=== PATIENT | male | born 1995 | race Caucasian/White ===

== ENCOUNTER 2022-07-16 06:51 | Emergency (ER) | payer OTHER, SELFPAY ==
[2022-07-16 07:05] VITALS: BP 151/124; PULSE 79; RESP 19; O2SAT 96
[2022-07-16 07:11] VITALS: BP 147/121; PULSE 87; RESP 22; TEMP 36.6; O2SAT 97
[2022-07-16] MEDS: LORazepam 2 MG/ML inj 1 MG IVP (07:11)
[2022-07-16] MEDS: KETOROLAC 15 MG/ML inj IVP (07:11)
--- NOTE | 2022-07-16 07:33 | CRLHL7_ITS ---
For Patients: As a result of the Cures Act, medical imaging exams and procedure reports are released immediately into your electronic medical record. You may view this report before your referring provider. If you have questions, please contact your health care provider. INDICATION: Sore throat TECHNIQUE: Soft tissue neck 2 view. COMPARISON: None. FINDINGS: The airway is patent and normal. Epiglottis is normal. The retropharyngeal soft tissues are normal. No obvious masses. The visualized cervical spine demonstrates no significant findings. IMPRESSION: Unremarkable soft tissue view of the neck. Dictated by Fransico Plaza MD @ 07/16/2022 8:21:20 AM (Electronically Signed)
[2022-07-16 07:34] VITALS: BP 132/96; PULSE 92; RESP 15; O2SAT 96
[2022-07-16 07:44] LABS: Basophils Percent Auto 0.9 % (0.0-3.0); Eosinophils Percent Auto 1.9 % (0.0-7.0); Hematocrit 46.4 % (37.0-53.0); Hemoglobin* 16.5 gm/dL (13.5-17.5); Immature Granulocytes Abs Auto 0.03 K/uL (0.00-0.30); Mean Corpuscular HGB Conc 36 gm/dL (32-36); Mean Corpuscular Hemoglobin 29 pg (26-34); Mean Corpuscular Volume 80 fL (80-100); Monocytes Percent Auto 7.6 % (0.0-11.0); Neutrophils Absolute Auto 5.51 K/uL (1.7-7.0); Neutrophils Percent Auto 52.3 % (42.0-72.0); Platelet Count* 229 K/uL (140-440); RDW Coefficient of Variation % 12.7 % (11.5-15.5); Red Blood Count 5.79 m/uL (4.30-5.90); White Blood Count* 10.54 K/uL (4.50-11.00)
[2022-07-16 07:45] LABS: Slide Review Reflex No
--- NOTE | 2022-07-16 07:56 | ED_ITS ---
HPI - General Adult General Chief complaint: Shortness of Breath/Dyspnea Stated complaint: can't breath Time Seen by Provider: 07/16/22 06:59 Source: patient History of Present Illness HPI narrative: Patient is a 27-year-old male who presents to the ER with sore throat and difficulty breathing. He says that he went to bed last night with a little bit of a sore throat but this morning it is worse. He presented very panicky, speaking in a little bit of a strange voice, initially saying that he could not breathe. He was taking care of at 1st in stab 1 as it was difficult to tell whether not he was having an airway problem. He does not report any allergies except to adhesives. He does not report a fever. He was swallowing secretions generally just fine, with the exception of 1 point where he said he needed to spit his saliva out. He was noted to be in without difficulty when distracted. Overall seemed to be fairly anxious. He does note that he smokes marijuana and tobacco although he says he is trying to cut down. He denied cough or congestio n. He told me that his lady thought he might be suffering from hemiplegic migraine. He does have a headache, but does not seem to have any weakness, difficulty with slurred speech, numbness or other neurologic complaints. He noted that all of this was very scary to him. He did mention a previous history of panic attacks, but said that those were quite different. Related Data Home Medications Medication Instructions Recorded Confirmed No Known Home Medications 07/16/22 07/16/22 Allergies Allergy/AdvReac Type Severity Reaction Status Date / Time adhesive Allergy Verified 07/16/22 07:14 Review of Systems Status of ROS: Reports: 10 or more systems reviewed and unremarkable except as noted in History and below Exam Narrative: Exam Narrative: Vital signs as noted below In general, an alert, nontoxic male. Head: Normocephalic, atraumatic. Eyes: Pupils are equal reactive. Extraocular movements are full. Conjunctivae are normal. ENT: Mucous membranes are moist. Throat is normal. Neck: Supple without lymphadenopathy. No stridor. Heart: Regular rate and rhythm. No murmur or rub. Lungs: Clear bilaterally. No increased work of breathing, crackles or wheezes. Abdomen: Soft and nontender. No organomegaly. Extremities: Well perfused. No edema. No calf tenderness. Pulses intact. Neurologic: Patient is alert and oriented to person and place. Speech is fluent. Face is symmetric. Moves all extremities equally. Affect: Anxious. Skin: Warm and dry. Well perfused. Const: Vital Signs, click to edit/add: Vital Signs - 24 hr 07/16/22 07:11 07/16/22 07:34 07/16/22 07:05 Temperature 97.8 F Pulse Rate [Left P ulse Oximeter] 87 92 79 Respiratory Rate 22 15 19 Blood Pressure [Le ft Upper Arm] 147/121 H 132/96 H 151/124 H Pulse Oximetry 97 96 96 Oxygen Delivery Me thod Room Air Room Air Room Air Documenting provider has reviewed patient's vital signs: yes Course Course Hospital Course: Following initial evaluation, we placed an IV. We maintained him on the monitor and oximetry. At no point did he have any hypoxia. I observed his breathing closely. He did not appear to have any true stridor or any evidence of airway obstruction. His throat was clear. Lungs were clear. I gave him Toradol 15 mg IV as well as Ativan 1 mg IV. He was much calmer after that, he was breathing easily and voice was normal. He does continue to complain of a sore throat. His white blood cell count is normal at 10.5. Hemoglobin is 16.5. CRP is less than 0.5. COVID and strep are pending. Soft tissue lateral of the neck is unremarkable, epiglottis is normal. Final radiology report is likewise negative. Patient is now resting comfortably. He is speaking in a normal voice. Rapid strep is negative. I am going to give him a little prednisone to see if that helps with his sore throat. He can take the ibuprofen or Tylenol. Requests a work note today as he does not feel up to going to work. Return as needed for acute worsening, follow-up with primary care as needed for continued concerns. Vital Signs Vital signs: Initial Vital Signs Pulse Rate 79 07/16/22 07:05 Pulse Rhythm 07/16/22 07:05 Respiratory Rate 19 07/16/22 07:05 Respiratory Effort 07/16/22 07:05 Respiratory Depth Normal 07/16/22 07:05 Blood Pressure 151/124 H 07/16/22 07:05 Blood Pressure Mean 133 07/16/22 07:05 Blood Pressure Position Sitting 08/24/22 07:05 Pulse Oximetry 96 07/16/22 07:05 Oxygen Delivery Method 07/16/22 07:05 Vital Signs Pulse Rate 79 07/16/22 07:05 Respiratory Rate 19 07/16/22 07:05 Blood Pressure 151/124 H 07/16/22 07:05 Pulse Oximetry 96 07/16/22 07:05 Oxygen Delivery Method 07/16/22 07:05 Temperature 97.8 F 07/16/22 07:11 Pulse Rate 92 07/16/22 07:34 Respiratory Rate 15 07/16/22 07:34 Blood Pressure 132/96 H 07/16/22 07:34 Pulse Oximetry 96 07/16/22 07:34 Oxygen Delivery Method 07/16/22 07:34 Medical Decision Making Lab Data Labs: Lab Results 07/16/22 07/16/22 07/16/22 Range/Units 07:00 07:00 07:53 WBC 10.54 (4.50-11.00) K/uL RBC 5.79 (4.30-5.90) m/uL Hgb 16.5 (13.5-17.5) gm/dL Hct 46.4 (37.0-53.0) % MCV 80 (80-100) fL MCH 29 (26-34) pg MCHC 36 (32-36) gm/dL RDW Coeff of Janice 12.7 (11.5-15.5) % Plt Count 229 (140-440) K/uL Neut % (Auto) 52.3 (42.0-72.0) % Lymph % (Auto) 37.0 (20-44) % Jerome % (Auto) 7.6 (0.0-11.0) % Eos % (Auto) 1.9 (0.0-7.0) % Baso % (Auto) 0.9 (0.0-3.0) % Neut # (Auto) 5.51 (1.7-7.0) K/uL Lymph # (Auto) 3.90 H (0.90-2.90) K/uL Jerome # (Auto) 0.80 (0.00-0.90) K/UL Eos # (Auto) 0.20 (0.00-0.50) K/uL Baso # (Auto) 0.10 (0.00-0.30) K/uL Abs Immat Gran (auto) 0.03 (0.00-0.30) K/uL Sodium 140 (135-149) mmol/L Potassium 4.2 (3.6-5.1) mmol/L Chloride 105 (96-114) mmol/L Carbon Dioxide 26 (20-32) mmol/L BUN 18 (5-24) mg/dL Creatinine 1.1 (0.5-1.5) mg/dL Estimated GFR 96 ml/min Glucose 111 (60-115) mg/dL Calcium 9.2 (8.4-10.6) mg/dL C-Reactive Protein < 0.5 L (0.5-1.0) mg/dL Group A Strep DNA NOT DETECTED (No Detected) Discharge Plan Discharge Clinical Impression: Acute sore throat Patient Disposition: Home, Self-Care Condition: Improved Instructions: Pharyngitis (ED) Additional Instructions: Ibuprofen and/or Tylenol as needed. Prednisone as prescribed. Return for worsening. See your doctor as needed for ongoing concerns. Prescriptions: No Action No Known Home Medications Follow Up/Referrals: Provider,Not a Local [Primary Care Provider] - Stand Alone Forms: [facility] Info Instructions
[2022-07-16 07:59] LABS: Chloride* 105 mmol/L (96-114); Potassium* 4.2 mmol/L (3.6-5.1); Sodium* 140 mmol/L (135-149)
[2022-07-16 08:02] LABS: Creatinine* 1.1 mg/dL (0.5-1.5); Estimated Glomerular Filt Rate 96 ml/min
[2022-07-16 08:03] LABS: Blood Urea Nitrogen* 18 mg/dL (5-24); Calcium* 9.2 mg/dL (8.4-10.6); Carbon Dioxide* 26 mmol/L (20-32); Glucose* 111 mg/dL (60-115)
[2022-07-16 08:10] LABS: C Reactive Protein* < 0.5 mg/dL (0.5-1.0)
[2022-07-16 08:30] VITALS: BP 123/73; PULSE 76; RESP 77; O2SAT 95
[2022-07-16 08:41] LABS: Strep A DNA Probe* NOT DETECTED (No Detected)
[2022-07-16 09:00] VITALS: BP 140/100; PULSE 71; RESP 17; O2SAT 96
[2022-07-16 09:14] LABS: SARS PCR* Negative SARS-CoV-2 (Negative)
== END 2022-07-16 09:10 | disposition home or self-care (01) ==
PROVIDERS: Emergency Provider Emergency Medicine
DX: J02.9 Acute pharyngitis, unspecified (principal)
CPT/HCPCS: 36415; 70360; 80048; 85025; 86140; 87635; 87651; 96374; 96375; 99284; J1885; J2060

== ENCOUNTER 2022-07-26 13:33 | Emergency (ER) | payer OTHER, SELFPAY ==
[2022-07-26 13:42] VITALS: BP 129/101; PULSE 89; RESP 16; TEMP 36.6; O2SAT 97; BMI 36.3
--- NOTE | 2022-07-26 13:54 | CRLHL7_ITS ---
For Patients: As a result of the Century Cures Act, medical imaging exams and procedure reports are released immediately into your electronic medical record. You may view this report before your referring provider. If you have questions, please contact your health care provider. INDICATION: Headache TECHNIQUE: CT Head without i.v. contrast. Coronal and sagittal reformats were obtained. COMPARISON: None FINDINGS: CSF space: The ventricles are normal for age. Brain: No evidence of mass, acute infarction or hemorrhage is seen. No mass-effect or midline shift is seen. The brain parenchyma is otherwise normal in appearance with preservation of the moreno-white matter junction. Calvarium: The visualized paranasal sinuses are well aerated. The mastoid air cells are clear. The visualized orbits are grossly unremarkable. The calvarium is unremarkable in appearance with no fractures identified. IMPRESSION: 1. No evidence of acute infarction, intracranial hemorrhage, or mass-effect seen. Please note that all CT scans at this facility use dose modulation, iterative reconstruction, and/or weight-based dosing when appropriate to reduce radiation dose to as low as reasonably achievable. Dictated by: Inder Rivera MD @ 07/26/2022 14:26:52 (Electronically Signed)
--- NOTE | 2022-07-26 13:57 | ED.GENADULT ---
HPI - General Adult General Time Seen by Provider: 13:57 Date Seen: 07/26/22 Chief complaint: Headache/Migraine Stated complaint: Migraine Time Seen by Provider: 07/26/22 13:35 Source: patient Mode of arrival: ambulatory Limitations: no limitations History of Present Illness HPI narrative: Patient is a 27-year-old male has had headache for a few days. He has a history of migraines. He describes a headache that wraps around his forehead give some photophobia nausea retching and it extends over his head and back into his neck. He has been diagnosed with migraines in the past. He reports he had a concussion in the past and had a CT scan of the head that was unremarkable. He has had longstanding migraines. He saw Ben Roberto yesterday and got a shot of Toradol, that did not seem to help the situation. He is on no regular medicines for migraine. He denies focal neurologic deficit, fever, chills, thunderclap nature to her headache, visual disturbance other than just due to discomfort in his forehead. He describes pain across his forehead little more on the left side and into his neck area as mention. But he has no nuchal rigidity. Related Data Home Medications Medication Instructions Recorded Confirmed No Known Home Medications 07/16/22 07/25/22 Allergies Allergy/AdvReac Type Severity Reaction Status Date / Time adhesive Allergy Verified 07/25/22 13:41 Review of Systems Status of ROS: Reports: 6 or more systems reviewed and unremarkable except as noted in History and below PFSH PFS Social History Smoking Status: Never smoker Do you use any of these nicotine containing products: None Second hand tobacco smoke exposure: No How often do you have a drink containing alcohol: monthly or less How many standard drinks containing alcohol do you have on a typical day: 1 or 2 How often do you have six or more drinks on one occasion: Never AUDIT-C Alcohol total score: 1 Non-prescribed substance use: marijuana (any form) Non-prescribed substance use details: quit thursday service: No Exam Narrative: Exam Narrative: Objective: Patient is in mild to moderate distress and discomfort he is tearful His vital signs unremarkable he is afebrile his diastolic blood pressure slightly elevated HEENT shows pupils react to light extraocular moves intact mild photophobia no facial asymmetry Neck is supple Neurologic nonfocal upper extremities moving all extremities Peripheral perfusion is good, skin warm and dry Const: Vital Signs, click to edit/add: Vital Signs - 24 hr 07/26/22 13:42 Temperature 98 F Pulse Rate [Pulse Oximeter] 89 Respiratory Rate 16 Blood Pressure [Ri ght Upper Arm] 129/101 H Pulse Oximetry 97 Oxygen Delivery Me thod Room Air Course Vital Signs Vital signs: Initial Vital Signs Temperature 98 F 07/26/22 13:42 Temperature Source Temporal Artery Scan 07/26/22 13:42 Pulse Rate 89 07/26/22 13:42 Pulse Rhythm 07/26/22 13:42 Respiratory Rate 16 07/26/22 13:42 Blood Pressure 129/101 H 07/26/22 13:42 Blood Pressure Mean 110 07/26/22 13:42 Blood Pressure Position Supine 07/26/22 13:42 Pulse Oximetry 97 07/26/22 13:42 Oxygen Delivery Method 07/26/22 13:42 Vital Signs Temperature 98 F 07/26/22 13:42 Pulse Rate 89 07/26/22 13:42 Respiratory Rate 16 07/26/22 13:42 Blood Pressure 129/101 H 07/26/22 13:42 Pulse Oximetry 97 07/26/22 13:42 Oxygen Delivery Method 07/26/22 13:42 Temperature 98 F 07/26/22 13:42 Pulse Rate 89 07/26/22 13:42 Respiratory Rate 16 07/26/22 13:42 Blood Pressure 129/101 H 07/26/22 13:42 Pulse Oximetry 97 07/26/22 13:42 Oxygen Delivery Method 07/26/22 13:42 Medical Decision Making MDM Narrative Medical decision making narrative: Patient has had a history of migraine headaches, this seems like a significant migraine for him. Given it has been a couple of days I think a CT scan and reimaging would be appropriate, will also give him IV Toradol, Reglan, Benadryl, Solu-Medrol, with addition of IV normal saline. He does report he has a ride home if he needs it. His description of the headache does sound like a mixed headache between a migraine an a tension-type headache, therefore all given the IV Solu-Medrol as well for its anti-inflammatory effect. Addendum: The patient's head CT is negative, he is markedly improved after additional doses of Ativan Dilaudid, Solu-Medrol. Initially the patient was given Benadryl, Reglan, Toradol. Also received 2 L of fluid. He feels much better. He can update his regular doctor next couple of days, will call for a ride, and he should rest and engage in light activity for the next 48 hours. Discharge Plan Discharge Clinical Impression: Migraine headache, Tension headache Patient Disposition: Home w/ Parent or Adult Condition: Improved Additional Instructions: Light activity, light diet, needs a ride home, Tylenol or Advil at home, follow up with primary care in 48 hours, return sooner problems or concerns or recurrence. Activity Level: Light activity Discharge Diet: Regular Prescriptions: No Action No Known Home Medications Follow Up/Referrals: Provider,Not a Local [Primary Care Provider] - Stand Alone Forms: [facility] Info Instructions
[2022-07-26 14:00] VITALS: BP 130/88; PULSE 80; RESP 18; O2SAT 97
[2022-07-26] MEDS: diphenhydrAMINE 50 MG/ML inj IVP (14:19)
[2022-07-26] MEDS: KETOROLAC 30 MG/ML inj IVP (14:23)
[2022-07-26] MEDS: METHYLPREDNISOLONE SOD SUCC 62.5 MG/ML (125) 125 MG IVP (14:26)
[2022-07-26 14:30] VITALS: BP 120/108; PULSE 62; RESP 18; O2SAT 97
[2022-07-26] MEDS: METOCLOPRAMIDE HCL 10 MG in 0.9 % SODIUM CHLORIDE 100 ml 100 ML 306 MG IV (14:33)
[2022-07-26] MEDS: 0.9 % SODIUM CHLORIDE 1000 ml 1,000 ML 6000 ML IV ×2 (14:34→15:32)
--- OUTSIDE RECORDS SUMMARY | 2022-07-26 14:35 | XMS_ITS | Encounter Summary ---
:1995 Author Organization [facility] Address [address] [place] [address] Care Team Providers Name Role Phone Gallito Antonio M.D. Primary Care Provider [phone] Encounter Details Date Type Department Care Team Description 10/16/2021 Clinical Communication Department of Internal Billy Antonio, Medicine in [place] [facility] M[facility] D[facility] [place] [address] [place] [address] [place] [id number] Social History Tobacco Use Types Packs/Day Years Used Date Smoking Tobacco: Former Cigarettes Smokeless Tobacco: Never Comments: occasionally Alcohol Use Standard Drinks/Week Comments No 0 (1 standard drink = 0.6 oz pure alcoho l) Sex Assigned at Date Recorded Not on file documented as of this encounter Plan of Treatment Not on filedocumented as of this encounter Visit Diagnoses Not on filedocumented in this encounter Additional Health Concerns Infection Onset Date Last Indicated Resolved Time COVID19 Pending 10/16/2021 10/16/2021 10/16/2021 3:34 PM SLOT HOST COVID19 Pending 10/16/2021 10/17/2021 10/17/2021 11:07 PM SLOT HOST Assessment Noted Time PHQ-9 Depression Total Score: 18 02/26/2017 8:33 AM CD T documented as of this encounter Care Teams Forensic Accountant Relationship Specialty Start Date End Date Gallito Antonio M.B.B.S., M.D. PCP - General Internal Medicine 12/14/20 05/23/22 [address] [place] [phone] documented as of this encounter
--- OUTSIDE RECORDS SUMMARY | 2022-07-26 14:35 | XMS_ITS | Encounter Summary ---
:1995 Author Organization [facility] Address [address] [place] [address] Care Team Providers Name Role Phone Gallito Antonio MAbdulkadir Primary Care Provider [phone] Encounter Details Date Type Department Care Team Description 10/17/2021 Admin Visit Department of Family Medicine, [address] [address] [facility] [phone] Social History Tobacco Use Types Packs/Day Years [...] Last Indicated Resolved Time COVID19 Pending 10/16/2021 10/17/2021 10/17/2021 11:07 PM AU PAIR Assessment Noted Time PHQ-9 Depression Total Score: 18 02/26/2017 8:33 AM CD T documented as of this encounter Care Teams Corporate Associate Relationship Specialty Start Date End Date Gallito Antonio M.B.B.S., MThai. PCP - General Internal Medicine 12/14/20 05/23/22 [address] [place] [phone] documented as of this encounter
--- OUTSIDE RECORDS SUMMARY | 2022-07-26 14:35 | XMS_ITS | Encounter Summary ---
:1995 Author Organization [facility] Address [address] [place] [address] Care Team Providers Name Role Phone Gallito Antonio M.D. Primary Care Provider [phone] Reason for Visit Reason Comments COVID Inquiry Encounter Details Date Type Department Care Team Description 10/16/2021 Clinical Communication Central Appointment [facility] Office in [employer] [address] [place], [place] [address] Social History Tobacco Use Types Packs/Day Years Used Date Smoking Tobacco: Former Cigarettes Smokeless Tobacco: Never Comments: occasionally Alcohol Use Standard Drinks/Week Comments No 0 (1 standard drink = 0.6 oz pure alcoho l) Sex Assigned at Date Recorded Not on file documented as of this encounter Miscellaneous Notes Telephone Encounter - Elke Wells - 10/16/2021 12:55 PM CST Plan: Endpoint recommendation: Transferred to Nursing/COVID Line/Care Team *Reminder if sending patient for testing in [facility] or [facility], route encounter to the correct testing pool. TAL PROJECT ENGINEER documented in this encounter Plan of Treatment Not on filedocumented as of this encounter Visit Diagnoses Not on filedocumented in this encounter Additional Health Concerns Assessment Noted Time PHQ-9 Depression Total Score: 18 02/26/2017 8:33 AM CD T documented as of this encounter Care Teams Technology Officer Relationship Specialty Start Date End Date Gallito Antonio M.B.B.S. MAbdulkadir PCP - General Internal Medicine 12/14/20 05/23/22 [address] [place] [phone] documented as of this encounter
--- OUTSIDE RECORDS SUMMARY | 2022-07-26 14:35 | XMS_ITS | Clinical Summary ---
:1995 Author Organization [facility] Address [address] [place] [address] Care Team Providers Name Role Phone Sudha Kwon P.A.-C. Primary Care Provider [phone] Source Comments Patient records contain information from all sites at [facility]. For routine questions regarding patient records, call [phone] during business hours, M-F 8:00 AM - 5:00 PM Central Time. Record requests for emergency care only can be directed to [phone] at any time.[facility] Allergies Active Allergy Reactions Severity Noted Date Comments Adhesive Tape-Silicones Itching, Rash 08/18/2018 Medications Medication Sig Dispensed Refills Start Date End Date Status traZODone (DESYREL) 100 Take 100 mg by 0 05/03/2018 Active mg tablet mouth. rizatriptan (MAXALT) 10 Take 1 tab for 0 05/03/2018 Active mg tablet migraine, may repeat in 2 hours. Max dose: 30mg per 24 hrs. Active Problems Problem Noted Date Depression Anxiety 08/04/2016 Overview: Depression Anxiety Attention Deficit With Hyperactivity Disorder 04/07/20 05 Immunizations Name Administration Dates Next Due DTaP (Infanrix, [employer]) 03/01/2003, 01/11/2001, 01/10/2000 , 1995, 1995 HepB, Unspecified 01/10/2000, 1997, 1997 IPV 03/01/2003, 01/10/2000, 1997, 05/24 Influenza, Unspecified 09/23/2016 MMR 03/01/2003, 01/07/2000 MEGHAN 04/11/2009, 01/11/2001 Family History Medical History Relation Name Comments Alcohol abuse Uncle paternal Relation Name Status Comments Uncle paternal Social History Tobacco Use Types Packs/Day Years Used Date Smoking Tobacco: Former Cigarettes Smokeless Tobacco: Never Comments: occasionally Alcohol Use Standard Drinks/Week Comments No 0 (1 standard drink = 0.6 oz pure alcoho l) Sex Assigned at Date Recorded Not on file Last Filed Vital Signs Vital Sign Reading Time Taken Comments Blood Pressure 127/80 11/11/2019 11:04 PM CUSTOMER CARE MANAGER Pulse 81 11/11/2019 11:04 PM CUSTOMER CARE MANAGER Temperature 36.9 ??C (98.4 ??F) 11/11/2019 11:04 PM CUSTOMER CARE MANAGER Respiratory Rate 18 11/11/2019 11:04 PM CUSTOMER CARE MANAGER Oxygen Saturation 96% 11/11/2019 11:04 PM CUSTOMER CARE MANAGER Inhaled Oxygen Concentration - - Weight 111 kg (245 lb 6 oz) 11/11/2019 5:55 PM CUSTOMER CARE MANAGER Height 180.3 cm (5' 11) 06/06/2019 10:37 AM CDT Body Mass Index 34.22 06/06/2019 10:37 AM CDT Plan of Treatment Health Maintenance Due Date Last Done Comments Hepatitis C Screening 1995 COVID-19 Vaccine (#1) 1995 HPV Vaccines (1 - Male 2006 2-dose series) DTaP,Tdap,and Td Vaccines 04/12/2019 04/12/2009, 03/01/2003 , (7 - Td or Tdap) 2002, Additional history exists Depression Screening 11/23/2021 (Annual PHQ-2) Influenza Vaccine (#1) 2022 09/23/2016 Hepatitis B Vaccines Completed 01/10/2000, 1997, 1997, Additional history exists HIV Screening Completed 10/02/2011 Pneumococcal vaccine (0-64 Aged Out No lo nger eligible years) based on patient 's age to complete this topic Advance Directives For more information, please contact: [phone] Documents on File Type Date Recorded Patient Air Transportation Provider Explanati on Advance Directives 05/19/2013 12:00 AM Legacy doc ument. See document viewer. Care Teams Assembler Metal Building Relationship Specialty Start Date End Date Sudha Kwon P.A.-C. PCP - General 07/10/22 [address] [place] [phone]
--- OUTSIDE RECORDS SUMMARY | 2022-07-26 14:35 | XMS_ITS | Encounter Summary ---
:1995 Author Organization [facility] Address [address] [place] [address] Care Team Providers Name Role Phone Avis Razo M.D. Primary Care Provider Reason for Visit Reason Comments Flank Pain Encounter Details Date Type Department Care Team Description 11/25/2020 - 11/26/2020 Emergency [facility] Pain Flank [address] [place] [address] Social History Tobacco Use Types Packs/Day Years Used Date Smoking Tobacco: Former Cigarettes Smokeless Tobacco: Never Comments: occasionally Alcohol Use Standard Drinks/Week Comments No 0 (1 standard drink = 0.6 oz pure alcoho l) Sex Assigned at Date Recorded Not on file documented as of this encounter Medications at Time of Discharge Medication Sig Dispensed Refills Start Date End Date rizatriptan (MAXALT) 10 mg Take 1 tab for 0 05/03 tablet migraine, may repeat in 2 hours. Max dose: 30mg per 24 hrs. traZODone (DESYREL) 100 mg Take 100 mg by mouth. 0 05/03/2018 tablet documented as of this encounter Plan of Treatment Not on filedocumented as of this encounter Procedures Procedure Name Priority Date/Time Associated Comments Diagnosis CT ABDOMEN PELVIS RAD - Semiurgent 11/25/2020 6:16 Pain Flank Res ults for this WITH IV CONTRAST (Fast; most ED PM ASSISTANT ANALYST procedure are in patients; some the results inpatients) section. documented in this encounter Results CT Abdomen Pelvis with IV Contrast (11/25/2020 6:16 PM ASSISTANT ANALYST) Anatomical Region Laterality Modality Abdomen, Pelvis, Abdominal RST LOS, Abdominal ARZ LOS, N/A Computed Tomography Abdominal FLA LOS Specimen (Source) Anatomical Collection Method Collection Time Re ceived Time Location / / Volume Laterality 11/26/2020 7:59 AM ASSISTANT ANALYST Impressions 11/26/2020 8:01 AM ASSISTANT ANALYST 1. No acute findings. 2. Probable mild hepatic steatosis. 3. Bilateral renal cysts. Narrative 11/26/2020 8:01 AM ASSISTANT ANALYST EXAM: CT ABDOMEN PELVIS WITH IV CONTRAST COMPARISON: November 11, 2019 FINDINGS: Preliminary report generated b y virtual radiology. Lung bases: Visualized lung bases are cl ear. Abdomen and pelvis: Slight decreased att enuation changes of the liver compatible probable hepatic steatosis. Postop gonzalez es prior cholecystectomy. Normal contrast enhanced CT appearance t he spleen, pancreas, bilateral during glands. Approximately 1-2 cm scattered probable cysts both kidneys. No appreciable renal or ureteral calculi . Decompressed urinary bladder. No evidence of appendicitis. No focal fluid collections or abscess. Mild disc desiccation lumbosacral juncti on. Procedure Note Juaquin Mesa M.D. - 11/26/2020Forma tting of this note might be different from the original. EXAM: CT ABDOMEN PELVIS WITH IV CONTRAST COMPARISON: November 11, 2019 FINDINGS: Preliminary report generated b y virtual radiology. Lung bases: Visualized lung bases are cl ear. Abdomen and pelvis: Slight decreased att enuation changes of the liver compatible probable hepatic steatosis. Postop gonzalez es prior cholecystectomy. Normal contrast enhanced CT appearance t he spleen, pancreas, bilateral during glands. Approximately 1-2 cm scattered probable cysts both kidneys. No appreciable renal or ureteral calculi . Decompressed urinary bladder. No evidence of appendicitis. No focal fluid collections or abscess. Mild disc desiccation lumbosacral juncti on. IMPRESSION: 1. No acute findings. 2. Probable mild hepatic steatosis. 3. Bilateral renal cysts. Slime Garcia APRN RDameonN. IMG CT PROCEDURES documented in this encounter Visit Diagnoses Diagnosis Pain Flank documented in this encounter Administered Medications Inactive Administered Medications - up to 3 most recent administrations Medication Order MAR Action Action Date Dose Rate Site iohexoL 300 mg iodine/mL Given 11/25/2020 5:44 PM 193 mL Right Antecubital solution 200 mL ASSISTANT ANALYST (OMNIPAQUE) 200 mL, intravenous, Once in imaging, contrast, Starting on 11/25/20 at 1805, For 1 dose sodium chloride 0.9 % flush Given 11/25/2020 5:44 PM ASSISTANT ANALYST 98 mL Right Antecubital 100 mL 100 mL, intravenous, Once in imaging, line care, Starting on 11/25/20 at 1805, For 1 dose sodium chloride 0.9 % Given 11/25/2020 5:44 PM ASSISTANT ANALYST 10 mL Right Antecubital injection 10 mL 10 mL, intravenous, Once in imaging, line care, Starting on 11/25/20 at 1805, For 1 dose documented in this encounter Active and Recently Administered Medications Times are shown in ASSISTANT ANALYST. PRN Medication Order 11/24/2020 11/25/2020 11/26/2020 iohexoL 300 mg iodine/mL solution 200 mL (OMNIPAQUE) (COMPLE FAHEEM) 1744 (Given - Provider: Danielle Clements(R)(CT), R.T.(R) - Comment: [id number]) 200 mL, intravenous, Once in imaging, co ntrast, Starting on 11/25/20 at 1805, For 1 dose sodium chloride 0.9 % flush 100 mL (COMPLETED) 1744 (Given - Provider: Danielle Clements(R)(CT), R.T.(R)) 100 mL, intravenous, Once in imaging, li ne care, Starting on 11/25/20 at 1805, For 1 dose sodium chloride 0.9 % injection 10 mL (COMPLETED) 1744 (Given - Provider: Junaid ClementsT.(R)(CT), R.T.(R)) 10 mL, intravenous, Once in imaging, tracy e care, Starting on 11/25/20 at 1805, For 1 dose documented in this encounter Additional Health Concerns Assessment Noted Time PHQ-9 Depression Total Score: 02/26/2017 8:33 AM CD T documented as of this encounter Care Teams Senior Planning Analyst Relationship Specialty Start Date End Date Avis Razo M.D. PCP - General 08/30/18 12/13/20 Formerly named [facility] [place] [phone] documented as of this encounter
--- OUTSIDE RECORDS SUMMARY | 2022-07-26 14:35 | XMS_ITS | Encounter Summary ---
:1995 Author Organization [facility] Address [address] [place] [address] Care Team Providers Name Role Phone PacoGallito reza Ayla Krueger M.D. Primary Care Provider [phone] Reason for Visit Reason Onset Date Comments Testing For Upper Respiratory Virus Symptoms 10/16/2021 Encounter Details Date Type Department Care Team Description 10/16/2021 External Outreach Department of Candelario Wayne With And (Suspected) Exposure To COVID-19; Internal Medicine in J, D.O. Infection Upper Respiratory [place], [place] [address] [place] [phone] Social History Tobacco Use Types Packs/Day Years Used Date Smoking Tobacco: Former Cigarettes Smokeless Tobacco: Never Comments: occasionally Alcohol Use Standard Drinks/Week Comments No 0 (1 standard drink = 0.6 oz pure alcoho l) Sex Assigned at Date Recorded Not on file documented as of this encounter Progress Notes Glenny Locke L.P.N. - 10/16/2021 2:31 PM CST Encounter created for symptomatic infectious disease screening with possible COVID, Influenza, RSV, and/or Group A Strep testing. ATIONAL AID documented in this encounter Miscellaneous Notes Addendum Note - Cornell White R.N. - 10/16/2021 2:31 PM EDUCATIONAL AID Addended by: CORNELL WHITE on: 10/16/2021 03:34 PM Modules accepted: Orders ATIONAL AID documented in this encounter Plan of Treatment Not on filedocumented as of this encounter Visit Diagnoses Diagnosis Contact With And (Suspected) Exposure To COVID-19 Infection Upper Respiratory documented in this encounter Additional Health Concerns Infection Onset Date Last Indicated Resolved Time COVID19 Pending 10/16/2021 10/16/2021 10/16/2021 3:34 PM EDUCATIONAL AID Assessment Noted Time PHQ-9 Depression Total Score: 18 02/26/2017 8:33 AM CD T documented as of this encounter Care Teams Air Press Operator Relationship Specialty Start Date End Date Gallito Antonio M.B.BDameonSDameon, MThai. PCP - General Internal Medicine 12/14/20 05/23/22 [address] [place] [phone] documented as of this encounter
--- OUTSIDE RECORDS SUMMARY | 2022-07-26 14:35 | XMS_ITS | Encounter Summary ---
:1995 Author Organization [facility] Address [address] [place] [address] Care Team Providers Name Role Phone PacoBillyseema Krueger M.D. Primary Care Provider [phone] Encounter Details Date Type Department Care Team Description 10/17/2021 Hospital Encounter Department of Laboratory Nathan Wayne, Medicine, [facility], in [place], [address] [place], [place] [address] [facility] [address] [place] [address] [phone] Social History Tobacco Use Types Packs/Day Years [...] COVID19 Pending 10/16/2021 10/17/2021 10/17/2021 11:07 PM NURSE INTERN Assessment Noted Time PHQ-9 Depression Total Score: 18 02/26/2017 8:33 AM CD T documented as of this encounter Care Teams Sewer And Inspector Relationship Specialty Start Date End Date Gallito Antonio M.B.B.S., M.D. PCP - General Internal Medicine 12/14/20 05/23/[address] [place] [id number] documented as of this encounter
--- OUTSIDE RECORDS SUMMARY | 2022-07-26 14:35 | XMS_ITS | Encounter Summary ---
:1995 Author Organization [facility] Address [address] [place] [address] Care Team Providers Name Role Phone PacoGallito Ayla Krueger M.D. Primary Care Provider [phone] Reason for Visit Reason Onset Date Comments Testing For Upper Respiratory Virus Symptoms 10/16/2021 Encounter Details Date Type Department Care Team Description 10/16/2021 External Outreach Department of Family Candelario Wayne Contact With And (Suspected) Exposure To COVID-19; Medicine, [facility] D.O. Infection Upper Respiratory Building, in [address] [place], [place] [address] [facility] [address] [place], [place] [phone] [address] (Work) [phone] Social History Tobacco Use Types Packs/Day Years Used Date Smoking Tobacco: Former Cigarettes Smokeless Tobacco: Never Comments: occasionally Alcohol Use Standard Drinks/Week Comments No 0 (1 standard drink = 0.6 oz pure alcoho l) Sex Assigned at Date Recorded Not on file documented as of this encounter Progress Notes Hollie Castaneda R.N. - 10/16/2021 3:43 PM CST Encounter created for symptomatic infectious disease screening with possible COVID, Influenza, RSV, and/or Group A Strep testing. LIANCE VICE PRESIDENT documented in this encounter Plan of Treatment Not on filedocumented as of this encounter Procedures Procedure Name Priority Date/Time Associated Diagnosis Comme nts INFLUENZA A/B AND Routine 10/17/2021 10:49 AM Infection Upper Results for this RSV, PCR, VARIES COMPLIANCE VICE PRESIDENT Respiratory procedure a re in the results section. SARS CORONAVIRUS-2 Routine 10/17/2021 10:49 AM Contact With An d Results for this RNA, V COMPLIANCE VICE PRESIDENT (Suspected) Exposure procedu re are in To COVID-19 the results section. documented in this encounter Results Influenza A/B and RSV, PCR, Varies (10/17/2021 10:49 AM COMPLIANCE VICE PRESIDENT) [facility] Method Time Signature Influenza A/B Swab, 10/21/2021 DTL and RSV, Nasopharynx 11:32 PM Source COMPLIANCE VICE PRESIDENT Influenza A, Undetected Undetected 10/21/2021 DTL PCR 11:32 PM COMPLIANCE VICE PRESIDENT Comment: Influenza A RNA absent. Influenza B, PCR Undetected Undetected 10/21/2021 11:[address] DTL Comment: Influenza B RNA absent. Respiratory Syncytial Virus, Undetected Undetected 11:32 PM COMPLIANCE VICE PRESIDENT DTL PCR Comment: RSV RNA absent. ----ADDITIONAL INFORMATION---- This test has been modified from the man ufacturer's instructions. Its performance characteristics were determi lulu by [facility] in a manner consistent with CLIA requirements. This test has not been cleared or approved by the U.S. Food and Drug Administration . Specimen Anatomical Collection Method Collection Time Receive d Time (Source) Location / / Volume Laterality Varies 10/17/2021 10:49 10/18/2021 8:56 (Nasopharynx) AM COMPLIANCE VICE PRESIDENT AM COMPLIANCE VICE PRESIDENT Candelario Wayne D.O. LAB MICROBIOLOGY - GENERAL O RDERABLES Performing Organization Address City/State/ZIP Code Phon e Number [facility] - [address] [place], [place] [address] [facility] [place] [address] Laboratories-[facility] [address] SARS Coronavirus-2 RNA, V Symptomatic (10/17/2021 10:49 AM COMPLIANCE VICE PRESIDENT) [facility] Method Time Signature SARS-CoV-2 Swab, 10/17/2021 MKTO Specimen Nasopharynx 11:07 PM Source COMPLIANCE VICE PRESIDENT SARS CoV-2 Undetected Undetected 10/17/2021 MKTO RNA, TMA 11:07 PM COMPLIANCE VICE PRESIDENT Comment: SARS-CoV-2 RNA absent. This result does not rule out COVID-19 in the patient, as the sensitivity of the test depends o n the timing of the specimen collection and the quality of the specim en. Result should be correlated with patient's history and clinical presentat ion. ----ADDITIONAL INFORMATION---- This molecular amplification test was pe rformed using the Aptima SARS-CoV-2 assay ([employer] on the [employer] tem under emergency use authorization (EUA) by the U.S. Food and Drug Administ ration. Fact sheets for this EUA assay can be fo und at the following links: For Healthcare Providers: https://www.[employer] a.gov/media/748188/download For Patients: https://www.fda.gov/media/ 701873/download Specimen Anatomical Collection Method Collection Time Receive d Time (Source) Location / / Volume Laterality Varies 10/17/2021 10:49 10/17/2021 4:29 (Nasopharynx) AM COMPLIANCE VICE PRESIDENT PM COMPLIANCE VICE PRESIDENT Candelario Wayne D.O. LAB MICROBIOLOGY - GENERAL O KEVIN Performing Organization Address City/State/[facility] Phon e Number [facility]- [address] [place] [phone] [place] [address] System in [address] documented in this encounter Visit Diagnoses Diagnosis Contact With And (Suspected) Exposure To COVID-19 Infection Upper Respiratory documented in this encounter Additional Health Concerns Infection Onset Date Last Indicated Resolved Time COVID19 Pending 10/16/2021 10/16/2021 10/16/2021 3:34 PM COMPLIANCE VICE PRESIDENT COVID19 Pending 10/16/2021 10/17/2021 10/17/2021 11:07 PM COMPLIANCE VICE PRESIDENT Assessment Noted Time PHQ-9 Depression Total Score: 18 02/26/2017 8:33 AM CD T documented as of this encounter Care Teams Estate Attorney Relationship Specialty Start Date End Date Gallito Antonio M.B.BDameonSDameon, MThai. PCP - General Internal Medicine 12/14/20 05/23/22 [address] [place] [phone] documented as of this encounter
--- OUTSIDE RECORDS SUMMARY | 2022-07-26 14:36 | XMS_ITS | Encounter Summary ---
:1995 Author Organization [facility] Address [address] [place] [address] Care Team Providers Name Role Phone Avis Razo M.D. 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 (Primary Dx) Emergency Department [facility] [address] [id number] [phone] Social History Tobacco Use Types Packs/Day Years Used Date Smoking Tobacco: Light Smoker Cigarettes E-cigarettes Smokeless Tobacco: Never Alcohol Use Standard Drinks/Week Comments No 0 (1 standard drink = 0.6 oz pure alcoho l) Sex Assigned at Date Recorded Not on file documented as of this encounter Last Filed Vital Signs Vital Sign Reading Time Taken Comments Blood Pressure 119/84 03/12/2019 3:50 AM CDT Pulse - - Temperature 36.5 ??C (97.7 ??F) 03/12/2019 3:50 AM CDT Respiratory Rate 20 03/12/2019 3:50 AM CDT Oxygen Saturation 97% 03/12/2019 3:50 AM CDT Inhaled Oxygen Concentration - - Weight 109 kg (239 lb 13.8 oz) 03/12/2019 3:51 AM CDT Height - - Body Mass Index 34.42 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 - 03/12/2019 4:56 AM CDT Tonight the testing for your heart was normal, normal chest x-ray, normal liver and pancreatic functions You could be experiencing irritation of the stomach lining. Recommend you trial the acid reducing medications, along with a bland diet. Make a follow up with your primary provider, for 1 month from now, to discuss how you have been feeling on the new medications. AttachmentsThe following attachments cannot be sent through Care Everywhere. Peptic Ulcer [id number] (Rwandan)documented in this encounter Medications at Time of Discharge Medication Sig Dispensed Refills Start Date End Date rizatriptan (MAXALT) 10 Take 1 tab for 0 05/03/20 18 mg tablet migraine, may repeat in 2 hours. Max dose: 30mg per 24 hrs. traZODone (DESYREL) 100 Take 100 mg by 0 05/03/20 18 mg tablet mouth. omeprazole (PriLOSEC) 40 Take 1 capsule (40 30 capsule 0 04/11/[address] capsule mg total) by mouth every morning before breakfast. raNITIdine (ZANTAC) 150 Take 1 tablet (150 20 tablet 0 02/2203/22/2019 mg tablet mg total) by mouth 2 (two) times a day for 10 days. documented as of this encounter ED Notes Ankita Cerda P.A.-C., M.S. 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 Patient states that the pain began 1 hr prior to arrival. Patient describes the pain as sharp and grabbing. Patient denies any associated nausea, diaphoresis, dizziness. Patient states he did eat spicy food earlier today. Patient past history of cholecystectomy, does have past history of anxiety. Patient denies any alcohol or drug use this evening. Patient has not taken any medications prior to arrival. REVIEW OF SYSTEMS Constitutional: Negative for chills, fatigue and fever. HENT: Negative. Eyes: Negative. Respiratory: Positive for shortness of breath. Negative for cough, hemoptysis, chest tightness, orthopnea, wheezing and stridor. Cardiovascular: Negative. Negative for palpitations and leg swelling. Gastrointestinal: Positive for abdominal pain (Epigastric). Negative for constipation, diarrhea, nausea and vomiting. Genitourinary: Negative. Musculoskeletal: Negative. Skin: Negative. Neurological: Negative. Psychiatric/Behavioral: Negative for substance abuse. The patient is nervous/anxious. OBJECTIVE Initial Vitals [03/12/19 0350] Temperature Pulse Heart Rate Resp Rate Blood Pressure SpO2 36.5 ??C -- 68 20 119/84 97 % Pain Score 7 PHYSICAL EXAMINATION Constitutional: He appears well-developed and well-nourished. He appears distressed (Anxious). HENT: Head: Normocephalic. Mouth/Throat: Oropharynx is clear and moist. Mucous membranes are moist. Eyes: Pupils are equal, round, and reactive to light. Neck: Normal range of motion. Neck supple. Cardiovascular: Normal rate and regular rhythm. Pulses are strong and palpable. Capillary refill: takes less than 3 seconds, Pulmonary/Chest: Effort normal and breath sounds normal. There is normal air entry. No stridor. Air movement is not decreased. He has no wheezes. He has no rhonchi. He has no rales. Abdominal: Soft. Bowel sounds are normal. He exhibits no distension and no mass. There is tenderness(Epigastric). There is no rebound and no guarding. No hernia. Musculoskeletal: Normal range of motion. Neurological: He is alert and oriented to person, place, and time. He is not disoriented. Skin: Skin is warm, dry, intact and normal color. Psychiatric: He has a normal mood and affect. Nursing note and vitals reviewed. ASSESSMENT/PLAN Impression and Plan Patient is a 23-year-old male who presents to the emergency department with complaints of epigastricdiscomfort. Patient states that the pain began 1 hr prior to arrival. Patient describes the pain as sharp and grabbing. Patient denies any associated nausea, diaphoresis, dizziness. Patient states he did eat spicy food earlier today. Patient is status post cholecystectomy, does have past history of anxiety. Patient denies any alcohol or drug use this evening. Patient has not taken any medications prior to arrival. On exam patient has tenderness over the epigastric region. Patient denies any recent fevers, symptoms of nausea or vomiting. Patient states he has had no abnormality with bowel movements and has been urinating normally. Patient denies any drug or alcohol use. Patient's cardiopulmonary exam is normal, EKG is unchanged from past. Patient had labs obtained which reveal normal lipase, no leukocytosis no anemia, no metabolic dysfunction. Patient also has normal troponin and normal chest x-ray. Upon secondary examination patient is sleeping, I do wake the patient up at the bedside, patient then states that he has pain, though it has been reduced after he had the oral GI cocktail. Patient had reduction in pain from a 6/10 to a 3/10. Patient was offered additional pain management, for which he declined, requesting only that he have a work note excusing him for today. Discussed with patient probability that he could have irritation of the stomach lining as he had epigastric tenderness relieved with GI cocktail and that he had eaten spicy food today. Will start patient on Zantac and omeprazole, encourage patient to make follow-up appointment with primary care provider in 30 days from now to discuss howhe was feeling after starting the medications and transitioning to a bland diet. Spoke about return p recautions for which patient states he understands and agrees with treatment plan for discharge. . Reviewed and summarized previous medical records including: Lab results, EKG images/reports and Radiology images/report. Final Diagnoses: as of Mar 12 459 Pain Epigastric Ankita Cerda P.A.-C., M.S. 03/12/19 0502 documented in this encounter Plan of Treatment Not on filedocumented as of this encounter Procedures Procedure Name Priority Date/Time Associated Comments Diagnosis DX CHEST AP OR PA RAD - Semiurgent 03/12/2019 4:31 Res ults for AND LATERAL 2 VIEWS (Fast; most ED AM CDT this p rocedure patients; some are in the inpatients) results section. CBC WITH STAT 03/12/2019 4:05 Results for DIFFERENTIAL, B AM CDT this procedu re are in the results section. TROPONIN T, 5TH GEN, STAT 03/12/2019 4:05 Resu lts for P AM CDT this procedure are in the results section. LIPASE, S/P STAT 03/12/2019 4:05 Results for AM CDT this procedure are in the results section. COMPREHENSIVE STAT 03/12/2019 4:05 Results for METABOLIC PANEL, S/P AM CDT this pr ocedure are in the results section. ECG STAT 03/12/2019 4:01 Results for AM CDT this procedure are in the results section. documented in this encounter Results DX Chest AP or PA and Lateral 2 Views (03/12/2019 4:31 AM CDT) Anatomical Region Laterality Modality Chest, Thoracic RST LOS, Thoracic ARZ LOS, Thoracic N/A Digital Radiography FLA LOS Specimen (Source) Anatomical Collection Method Collection Time Re ceived Time Location / / Volume Laterality 03/12/2019 6:10 AM CDT Impressions 03/12/2019 6:11 AM CDT IMPRESSION: Normal chest. Narrative 03/12/2019 6:11 AM CDT EXAM: DX CHEST AP OR PA AND LATERAL 2 VIEWS COMPARISON: 01/09/2019 FINDINGS: Heart and pulmonary vasculatur e are normal. Lungs clear. Procedure Note Manuel Gregory M.D. - 03/12/2019Format ting of this note might be different from the original. EXAM: DX CHEST AP OR PA AND LATERAL 2 EWS COMPARISON: 01/09/2019 FINDINGS: Heart and pulmonary vasculatur e are normal. Lungs clear. IMPRESSION: Normal chest. Ankita Cerda P.A.-C., M.S. IMG DIAGNOSTIC IMAGING [place] OCEDURES Troponin T, 5th Generation (03/12/2019 4:05 AM CDT) P athologist Signature Troponin T, 5th <6 <=15 ng/L 03/12/2019 [facility] gen 4:29 AM CDT [facility] Comment: Biotin has been identified by the annalee saavedra as a potential interfering substance. ??Higher concentr ations of biotin may be found in multivitamins, hair/nail supple ments, and workout supplements. ??If the result does not ma [facility] clinical observations, repeat testing after patient refrains fr om the use of supplements for at least 12 hours. Specimen Anatomical Collection Method Collection Time Receive d Time (Source) Location / / Volume Laterality Blood (Blood, 03/12/2019 4:05 AM 03/12/20 4:08 Venous) CDT AM CDT Ankita Cerda P.A.-C., M.S. LAB BLOOD ADD-ON Performing Organization Address [facility] Phon e Number [facility] [address] [place] [address] LAB Lipase (03/12/2019 4:05 AM CDT) athologist Signature Lipase, P 28 13 - 60 U/L 03/12/2019 [facility] 4:29 AM T [facility] Specimen Anatomical Collection Method Collection Time Receive d Time (Source) Location / / Volume Laterality Blood (Blood, 03/12/2019 4:05 AM 03/12/20 4:08 Venous) CDT AM CDT Ankita Cerda P.A.-C., M.S. LAB BLOOD ADD-ON Performing Organization Address City/[facility] Phon e Number [address] [address] LAB (ABNORMAL) Comprehensive Metabolic Panel (03/12/2019 4:05 AM CDT) athologist Signature Potassium, P 3.6 3.6 - 5.2 03/12/2019 [facility] mmol/L 4:29 AM [facility] Sodium, P 141 135 - 145 03/12/2019 [facility] mmol/L 4:29 AM T [facility] Chloride, P 103 98 - 107 03/12/2019 [facility] mmol/L 4:29 AM [facility] Bicarbonate, P 25 22 - 29 03/12/2019 [facility] mmol/L 4:29 AM [facility] Anion Gap, P 13 7 - 15 03/12/2019 [facility] 4:29 AM [facility] BUN (Blood Urea 12 8 - 24 03/12/2019 [facility] Nitrogen), P mg/dL 4:29 AM [facility] Creatinine 1.02 0.74 - 03/12/2019 [facility] 1.35 mg/dL 4:29 AM [facility] eGFR-Black/Afri >90 >=60 03/12/2019 [facility] can Montenegrin mL/min/BSA 4:29 AM [facility] Comment: ----ADDITIONAL INFORMATION---- Estimated GFR calculated using the 2009 CKD_EPI creatinine equation. eGFR Non-Black/ >90 >=60 mL/min/BSA 03/12/2019 4:29 AM [facility] Montenegrin [facility] Comment: ----ADDITIONAL INFORMATION---- Estimated GFR calculated using the 2009 CKD_EPI creatinine equation. Calcium, Total, P 9.2 8.6 - 10.0 03/12/2019 4:[address] [facility] mg/dL [facility] Glucose, P 108 70 - 140 mg/dL 03/12/2019 4:29 AM [facility] Protein, Total, P 5.7 (L) 6.3 - 7.9 g/dL 03/12/2019 4:29 A M [facility] Albumin, P 3.7 3.5 - 5.0 g/dL 03/12/2019 4:29 AM [facility] Aspartate 29 8 - 48 U/L 03/12/2019 4:29 AM [facility] Aminotransferase (AST), P [facility] Alkaline Phosphatase, P 65 40 - 129 U/L 03/12/2019 4: 29 AM [facility] Alanine Aminotransferase 26 7 - 55 U/L 03/12/2019 4:2 9 AM [facility] (ALT), P [facility] Bilirubin, Total, P 0.9 <=1.2 mg/dL 03/12/2019 4:29 AM [facility] Specimen Anatomical Collection Method Collection Time Receive d Time (Source) Location / / Volume Laterality Blood (Blood, 03/12/2019 4:05 AM 03/12/20 19 4:08 Venous) [facility] Frida Sandoval P.A.-C.S. LAB BLOOD ADD-ON Performing Organization Address City/State/ZIP Code Phon e Number [facility] [address] [place] [address] LAB (ABNORMAL) CBC with Differential, Blood (03/12/2019 4:05 AM CDT) [facility] Method Time Signature Hemoglobin 16.1 13.2 - 03/12/2019 [facility] 16.6 g/dL 4:14 AM CDT [facility] Hematocrit 44.8 38.3 - 03/12/2019 [facility] 48.6 % 4:14 AM CDT [facility] Erythrocytes 5.48 4.35 - 03/12/2019 [facility] 5.65 4:14 AM CDT HEALTH x10(12)/L [facility] LAB MCV 81.8 78.2 - 03/12/2019 [facility] 97.9 fL 4:14 AM T [facility] RBC Distrib Width 13.5 11.8 - 03/12/2019 [facility] 14.5 % 4:14 AM T [facility] Platelet Count 209 135 - 317 03/12/2019 [facility] x10(9)/L 4:14 AM T [facility] Leukocytes 11.6 (H) 3.4 - 9.6 03/12/2019 [facility] x10(9)/L 4:14 AM T [facility] Neutrophils 6.58 (H) 1.56 - 03/12/2019 [facility] 6.45 4:14 AM CDT HEALTH x10(9)/L [facility] Lymphocytes 3.74 (H) 0.95 - 03/12/2019 [facility] 3.07 4:14 AM CDT HEALTH x10(9)/L [facility] Monocytes 0.89 (H) 0.26 - 03/12/2019 [facility] 0.81 4:14 AM CDT HEALTH x10(9)/L [facility] Eosinophils 0.27 0.03 - 03/12/2019 [facility] 0.48 4:14 AM CDT HEALTH x10(9)/L [facility] Basophils 0.10 (H) 0.01 - 03/12/2019 [facility] 0.08 4:14 AM CDT HEALTH x10(9)/L [facility] LAB Specimen Anatomical Collection Method Collection Time Receive d Time (Source) Location / / Volume Laterality Blood (Blood, 03/12/2019 4:05 AM 03/12/20 4:08 Venous) CDT AM CDT Ankita Cerda P.A.-C., M.S. LAB BLOOD ADD-ON Performing Organization Address City/State/ZIP Code Phon e Number [facility] [address] [place] [address] LAB ECG 12 Lead (STAT) (03/12/2019 4:01 AM CDT) P athologist Signature Ventricular Rate 58 BPM MUSE ECG/Min [place] Interval 158 ms MUSE QRSD Interval 98 ms MUSE QT Interval 374 ms MUSE QTC Interval 367 ms MUSE P [place] 9 degrees MUSE R [place] 42 degrees MUSE T Wave [place] 31 degrees MUSE Specimen Anatomical Collection Method Collection Time Receive d Time (Source) Location / / Volume Laterality 03/12/2019 4:01 AM 9 6:42 CDT AM CDT Impressions MUSE - 03/12/2019 6:42 AM CDT Sinus bradycardia ST elevation, consider early repolarizat ion When compared with ECG of 09-JAN-2019 07 :11, No significant change was found Narrative This result has an attachment that is no t available. Procedure Note Jj Zhang M.D. - 03/12/2019Forma tting of this note might be different from the original. IMPRESSION: Sinus bradycardia ST elevation, consider early repolarizat ion When compared with ECG of 09-JAN-2019 07 :11, No significant change was found Ankita Cerda P.A.-C., M.S. ECG ORDERABLES Performing Organization Address City/State/ZIP Code Phon e Number MUSE MUSE NA documented in this encounter Visit Diagnoses Diagnosis Pain Epigastric - Primary documented in this encounter Administered Medications Inactive Administered Medications - up to 3 most recent administrations Medication Order MAR Action Action Date Dose Rate Site lidocaine viscous 2 % 15 mL, Given 03/12/2019 3:59 AM CDT 45 mL alum-mag hydroxide-simeth 30 mL suspension 45 mL, oral, Once, On 03/12/19 at 0354, For 1 dose, Mix ingredients prior to administration documented in this encounter Active and Recently Administered Medications Times are shown in CDT. Scheduled Medication Order 03/10/2019 03/11/2019 03/12/2019 lidocaine viscous 2 % 15 mL, alum-mag hy droxide-simeth 30 mL suspension (COMPLETED) 0359 (Given - Provid er: Fransico Thompson R.N.) 45 mL, oral, Once, On 03/12/19 at 035 4, For 1 dose, Mix ingredients prior to administration documented in this encounter Additional Health Concerns Assessment Noted Time PHQ-9 Depression Total Score: 18 02/26/2017 8:33 AM CD T documented as of this encounter Care Teams Client Support Administrator Relationship Specialty Start Date End Date Avis Razo M.D. PCP - General 08/30/18 12/13/[address] [place] [address] CHRISTINA Castellanos [phone] documented as of this encounter
--- OUTSIDE RECORDS SUMMARY | 2022-07-26 14:36 | XMS_ITS | Encounter Summary ---
:1995 Author Organization [facility] Address [address] [place] [address] Care Team Providers Name Role Phone Avis Razo M.D. Primary Care Provider Reason for Visit Reason Comments Urolithiasis Encounter Details Date Type Department Care Team Description 06/23/2019 - Emergency [facility] ED Pain Flank (Primary Dx) 06/24/2019 [address] [place] [address] Social History Tobacco Use Types Packs/Day [...] Diagnosis CT ABDOMEN PELVIS RAD - Semiurgent 06/23/2019 11:00 Pain Flank Re sults for this WITH IV CONTRAST (Fast; most ED PM CDT procedure are in patients; some the results inpatients) section. documented in this encounter Results CT Abdomen Pelvis with IV Contrast (06/23/2019 11:00 PM CDT) Anatomical Region Laterality Modality Abdomen, Pelvis, Abdominal RST LOS, Abdominal ARZ LOS, N/A Computed Tomography Abdominal FLA LOS Specimen (Source) Anatomical Collection Method Collection Time Re ceived Time Location / / Volume Laterality 06/24/2019 6:16 AM CDT Impressions 06/24/2019 6:19 AM CDT 1. No acute findings. 2. Bilateral renal cyst. 3. No appreciable renal or ureteral calc master. 4. No evidence of appendicitis. 5. Slightly prominent nonspecific centra l mesenteric lymph node prominence, could be seen with nonspecific reactive changes of mesenteritis. Follow-up imaging as clinically indicated. Narrative 06/24/2019 6:19 AM CDT EXAM: CT ABDOMEN PELVIS WITH IV CONTRAST COMPARISON: June 06, 2017. FINDINGS: Preliminary report generated b y virtual radiology. Lung bases: Visualized lung bases are cl ear. Abdomen and pelvis: Slight decreased att enuation changes throughout the liver compatible probable hepatic steatosis. P ostop changes prior cholecystectomy. Normal contrast enhanced CT appearance t he spleen, pancreas, bilateral adrenal glands. Benign-appearing lateral renal cyst. No appreciable renal or ureteral calculi . No evidence of appendicitis. No focal fluid collections or abscess. N o free intraperitoneal air. Tiny fat containing umbilical hernia. Procedure Note Juaquin Mesa M.D. - 06/24/2019Forma tting of this note might be different from the original. EXAM: CT ABDOMEN PELVIS WITH IV CONTRAST COMPARISON: June 06, 2017. FINDINGS: Preliminary report generated b y virtual radiology. Lung bases: Visualized lung bases are cl ear. Abdomen and pelvis: Slight decreased att enuation changes throughout the liver compatible probable hepatic steatosis. P ostop changes prior cholecystectomy. Normal contrast enhanced CT appearance t he spleen, pancreas, bilateral adrenal glands. Benign-appearing lateral renal cyst. No appreciable renal or ureteral calculi . No evidence of appendicitis. No focal fluid collections or abscess. N o free intraperitoneal air. Tiny fat containing umbilical hernia. IMPRESSION: 1. No acute findings. 2. Bilateral renal cyst. 3. No appreciable renal or ureteral calc master. 4. No evidence of appendicitis. 5. Slightly prominent nonspecific centra l mesenteric lymph node prominence, could be seen with nonspecific reactive changes of mesenteritis. Follow-up imaging as clinically indicated. Kaveh NOLAN CT PROCEDURES documented in this encounter Visit Diagnoses Diagnosis Pain Flank - Primary documented in this encounter Administered Medications Inactive Administered Medications - up to 3 most recent administrations Medication Order MAR Action Action Date Dose Rate Site iohexol 300 mg iodine/mL Given 06/23/2019 10:57 PM 186 mL Right Antecubital solution 200 mL CDT (OMNIPAQUE) 200 mL, intravenous, Once in imaging, contrast, Starting on Francoise 06/23/19 at 2300, For 1 dose, IV push sodium chloride 0.9 % flush Given 06/23/2019 10:57 PM CDT 96 mL Right Antecubital 100 mL 100 mL, intravenous, Once in imaging, line care, Starting on Francoise 06/23/19 at 2300, For 1 dose sodium chloride 0.9 % Given 06/23/2019 10:57 PM CDT 10 mL Right Antecubital injection 10 mL 10 mL, intravenous, As needed, line care, Starting on Francoise 06/23/19 at 2300 documented in this encounter Active and Recently Administered Medications Times are shown in CDT. PRN Medication Order 06/22/2019 06/23/2019 06/24/2019 iohexol 300 mg iodine/mL solution 200 mL (OMNIPAQUE) (COMPLE FAHEEM) 2257 (Given - Provider: Danielle Haider(R) - Comment: [id number]) 200 mL, intravenous, Once in imaging, co ntrast, Starting on Francoise 06/23/19 at 2300, For 1 dose, IV push sodium chloride 0.9 % flush 100 mL (COMPLETED) 2256 (Given - Provider: Danielle Haider(R)) 100 mL, intravenous, Once in imaging, li ne care, Starting on Francoise 06/23/19 at 2300, For 1 dose sodium chloride 0.9 % injection 10 mL (CANCELED) 2256 (Given - Provider: Danielle Haider(R)) 10 mL, intravenous, As needed, line care, Starting on Francoise 06/23/19 at 2300 documented in this encounter Additional Health Concerns Assessment Noted Time PHQ-9 Depression Total Score: 18 02/26/2017 8:33 AM CD T documented as of this encounter Care Teams Manager Pharmaceutical Relationship Specialty Start Date End Date Avis Razo M.D. PCP - General 08/30/18 12/13/[address] [place] [address] CHRISTINA Castellanos [phone] (work) documented as of this encounter
--- OUTSIDE RECORDS SUMMARY | 2022-07-26 14:36 | XMS_ITS | Encounter Summary ---
:1995 Author Organization [facility] Address [address] [place] [address] Care Team Providers Name Role Phone Avis Razo M.D. Primary Care Provider Reason for Visit Reason Comments Vomiting 24 y/o m presents with vomit ing after drinking last pm, nw feels nauseated and can't keep anything down . Encounter Details Date Type Department Care Team Description 11/11/2019 Emergency [facility] Bo Benítez M.D. [address] [place] [address] Nausea And Vomiting (Primary Dx); Department Malia Bernstein D.O. [address] [place] [id number] Acute Gastritis Without Bleeding; [address] [facility] Pancreatitis Acute ([place]) [place] [address] Social History Tobacco Use Types Packs/Day Years Used Date Smoking Tobacco: Former Cigarettes Smokeless Tobacco: Never Comments: occasionally Alcohol Use Standard Drinks/Week Comments No 0 (1 standard drink = 0.6 oz pure alcoho l) Sex Assigned at Date Recorded Not on file documented as of this encounter Last Filed Vital Signs Vital Sign Reading Time Taken Comments Blood Pressure 127/80 11/11/2019 11:04 PM SLOT TECHNICIAN Pulse 81 11/11/2019 11:04 PM SLOT TECHNICIAN Temperature 36.9 ??C (98.4 ??F) 11/11/2019 11:04 PM SLOT TECHNICIAN Respiratory Rate 18 11/11/2019 11:04 PM SLOT TECHNICIAN Oxygen Saturation 96% 11/11/2019 11:04 PM SLOT TECHNICIAN Inhaled Oxygen Concentration - - Weight 111 kg (245 lb 6 oz) 11/11/2019 5:55 PM SLOT TECHNICIAN Height - - Body Mass Index 34.22 06/06/2019 10:37 AM CDT documented in this encounter Discharge Instructions Discharge InstructionsMalia Bernstein D.O. - 11/11/2019 11:09 PM CST Take the Carafate every 6 hours until your stomach pain improves. Take the omeprazole daily for at least 14 days. Follow a bland diet as discussed. The BRAT diet (bananas, rice, applesauce, toast) is an example of a bland diet. Avoid greasy foods, spicy foods, dairy (butter, milk, ice cream, cheese), and meat until your symptoms are improving. Drink at least 20-30 ounces of water, apple juice, or sports drink (Gatorade) per day to prevent dehydration. Avoid foods that will cause stomach irritation: Caffeine Coffee Chocolate Peppermint Acidic foods such as tomato sauces, orange juice, grapefruit juice, lemon/circle, strawberries Carbonated beverages such as soda Spicy foods Alcohol Tobacco products (nicotine) Return to the ER for reevaluation if you feel that your symptoms are worsening. TECHNICIAN AttachmentsThe following attachments cannot be sent through Care Everywhere. Nausea and Vomiting Adult (Marshallese)documented in this encounter Medications at Time of Discharge Medication Sig Dispensed Refills Start Date End Date rizatriptan (MAXALT) 10 Take 1 tab for 0 05/03/20 18 mg tablet migraine, may repeat in 2 hours. Max dose: 30mg per 24 hrs. traZODone (DESYREL) 100 Take 100 mg by 0 05/03/20 18 mg tablet mouth. omeprazole (PriLOSEC) 40 Take 1 capsule (40 30 capsule 0 12/11/[address] capsule mg total) by mouth every morning before breakfast. sucralfate (CARAFATE) 1 Take 1 tablet (1 g 20 tablet 0 10/2411/16/2019 gram tablet total) by mouth every 6 (six) hours for 5 days. documented as of this encounter ED Notes Malia Bernstein D.O. - 11/11/2019 11:13 PM CST SUBJECTIVE I accepted care for this patient from Dr Benítez at change of shift. Please see his note for further details. I reviewed available documentation and diagnostic tests. HISTORY: Briefly, the relevant history 24 yo male with epigastric pain, n/v after drinking heavily last nightand taking ibuprofen. No suicidal ideation or intentional overdose. Has been unable to tolerate PO today. No fevers. Signed out to me pending lab and CT results. He denies heavy drinking. He has consumed approximately 1/3 of a bottle of vodka over the last 2 weeks and 4 Schmirnoff drinks, but admits that he consumed most of the vodka with lemonade last night. OBJECTIVE PHYSICAL EXAMINATION BP 127/80 (BP Location: Left arm, Patient Position: Lying) Pulse 81 Temp 36.9 ??C (Temporal) Resp 18 Wt 111 kg SpO2 96% BMI 34.22 kg/m?? Awake and alert, calm and cooperative. No acute distress. Abdomen is soft, nondistended with normal bowel sounds. Epigastric tenderness without rebound or guarding. No lower abdominal tenderness. He has a flat affect. Behavior is cooperative and appropriate. Mood appears depressed. Denies thoughts of self-harm or suicidal ideation. ED COURSE: Labs Reviewed CBC WITH DIFFERENTIAL, B - Abnormal Result Value Hemoglobin 16.9 (*) Hematocrit 47.1 Erythrocytes 5.85 (*) MCV 80.5 RBC Distrib Width 13.3 Platelet Count 212 Leukocytes 11.7 (*) Neutrophils 10.13 (*) Lymphocytes 0.70 (*) Monocytes 0.85 (*) Eosinophils 0.00 (*) Basophils 0.03 COMPREHENSIVE METABOLIC PANEL, S/P - Abnormal Potassium, P 3.9 Sodium, P 139 Chloride, P 103 Bicarbonate, P 20 (*) Anion Gap, P 16 (*) BUN, P 7 (*) Creatinine, P 0.84 eGFR Black >90 eGFR Non-Black >90 Calcium, Total, P 9.5 Glucose, P 178 (*) Protein, Total, P 7.1 Albumin, P 4.5 Aspartate Aminotransferase (AST), P 169 (*) Alkaline Phosphatase, P 102 Alanine Aminotransferase (ALT), P 255 (*) Bilirubin, Total, P 2.6 (*) LIPASE, S/P - Abnormal Lipase, P 140 (*) DRUG SCREEN URINE - Abnormal Amphetamines, U Negative Barbiturates, U Negative Benzodiazepines, U Unconfirmed Positive (*) Buprenorphine, U Negative Cocaine, U Negative Methadone, U Negative Methamphetamines, U Negative Opiates, U Negative Oxycodone, U Negative Phencyclidine, U Negative Propoxyphene, U Negative Tetrahydrocannabinol, U Unconfirmed Positive (*) Tricyclic Antidepressants, U Negative URINALYSIS WITH MICROSCOPIC - Abnormal Source Midstream Clarity Slightly Cloudy (*) Color Julieta Blood Negative Nitrite Negative Leukocyte Esterase Negative Protein 30 (*) Glucose Negative Ketones, QI(U) >=80 (*) Bilirubin Moderate (*) pH 5.5 Specific Dunbar >=1.030 Urobilinogen 0.2 White Blood Cells 4-10 (*) Red Blood Cells Occ-2 TROPONIN T, BASELINE, 5TH GEN, P Troponin T, Baseline, 5th gen <6 TROPONIN T, 2H/6H, 5TH GEN, P Troponin T, 2 hr, 5th gen <6 2H Delta 0 2H Delta Interp Not Changing ACETAMINOPHEN LEVEL, S Acetaminophen, S 23 SALICYLATE LEVEL, S Salicylate, S <0.5 CT Abdomen Pelvis with IV Contrast Final Result 1. Findings suggestive for acute sigmoid colon epiploic appendagitis. Correlate with site of pain. 2. No other acute abnormality of the abdomen and pelvis. The appendix is normal. 3. Possible diffuse hepatic steatosis, which would be better assessed with ultrasound. Plan: Patient presents with epigastric pain, nausea and vomiting. His labs are unremarkable except for elevated LFTs, elevated lipase and bilirubin, and a mild leukocytosis. His urine toxicology is positive for THC and benzodiazepines. He does admit to taking a tablet of Ativan last night that was left over from a prior procedure. He denies suicidal or homicidal ideation. He was administered omeprazole and Carafate in the ED along with 2 L of IV fluid and morphine 2 mg. His epigastric pain is persistent but improved. He was able to drink water, apple juice, and tolerated a full cup of Jell-O and [address] of [address]ine [address]ers. CT scan did not show any abnormality to explain his symptoms. There was finding suggestive of a sigmoid colon epiploic appendagitis, but patient is nontender in the left lower quadrant. I discussed with patient that he likely has a gastritis related to the ibuprofen ingestion and the heavy drinking last night. He may have mild pancreatitis, although his lipase is not quite 3 times normal. His LFTs are elevated. This may be due to drinking, as I suspect he is consuming more than he iswilling to admit, or related to the hepatic steatosis noted on the CT. Instructed him to avoid alcohol and he will need primary care follow-up regarding this. Patient feels that he is improved enough to go home. We had a lengthy discussion about clear liquid diet followed by bland diet, and I will prescribe him Carafate and omeprazole. He was provided with aGoodRx discount card to assist in filling the prescriptions. He says that he can afford the $15 to fill the prescriptions. I encouraged him to follow up with primary care in 2-3 days for re-evaluation and he agrees to return to the ER if symptoms are worsening. ASSESSMENT / PLAN 1. Nausea And Vomiting 2. Acute Gastritis Without Bleeding 3. Pancreatitis Acute (HCC) Malia Bernstein D.O. 11/11/19 4046 TECHNICIAN Juaquin Benítez M.D. - 11/11/2019 6:20 PM CST SUBJECTIVE CHIEF COMPLAINT/REASON FOR VISIT Vomiting (24 y/o m presents with vomiting after drinking last pm, nw feels nauseated and can't keep anything down.) HISTORY OF PRESENT ILLNESS 24-year-old male with a history of ADHD, anxiety and depression presents to the emergency departmentfor evaluation of nausea, vomiting, abdominal pain. Patient states that he was drinking last night, and reports that he fell asleep / passed out at approximately 01:00 this morning after drinking several drinks yesterday evening. He states that when he awoke, there was a bottle of ibuprofen that was next to him that was open. He states that he thinks he took pills when he was drinking last night, though does not recall how many he may have taken. He states the bottle was relatively new, and believesthat its original quantity was 200, though is unsure how many he may have taken. I have asked him tohave his friend bring the bottle to the emergency department, he will attempt to do this. He states that this morning, in addition to seeing his ibuprofen bottle that was open, he was awoke from sleep with generalized abdominal discomfort. He states the pain is constant, sharp, rating it a 8/10 severity. He states the pain radiates to his back and is generalized throughout his abdomen. He states that throughout the day today he has had persistent nausea as well as multiple episodes of emesis, stating ???I can't keep anything down ???. With sips of water, he reports emesis. He has had no fevers or chills. Last bowel movement was this morning and small. He denies any shortness of breath. Patient states that he drinks daily, 1-2 drinks, and denies any recreational drug use. Here for evaluation REVIEW OF SYSTEMS Constitutional: Negative for activity change, appetite change, chills, fatigue and fever. HENT: Negative for congestion, ear discharge, ear pain, rhinorrhea, sinus pressure and sore throat. Eyes: Negative for pain and visual disturbance. Respiratory: Negative for cough, chest tightness and shortness of breath. Cardiovascular: Negative for chest pain, palpitations and leg swelling. Gastrointestinal: Positive for abdominal pain, nausea and vomiting. Negative for abdominal distention, constipation and diarrhea. Endocrine: Negative for cold intolerance and heat intolerance. Genitourinary: Negative for dysuria, frequency and urgency. Musculoskeletal: Negative for arthralgias and joint swelling. Skin: Negative for rash. Neurological: Negative for dizziness, weakness, light-headedness and headaches. Psychiatric/Behavioral: Negative for confusion. OBJECTIVE Initial Vitals [11/11/19 1743] Temperature Pulse Rate Heart Rate Resp Rate Blood Pressure SpO2 37.6 ??C 89 85 20 (!) 150/98 96 % Pain Score -- PHYSICAL EXAMINATION Constitutional: He is cooperative. Non-toxic appearance. He has a sickly appearance. He appears ill.He appears distressed. HENT: Head: Normocephalic and atraumatic. Nose: Nose normal. Mouth/Throat: Mucous membranes are dry. Eyes: EOM are normal. Pupils are equal, round, and reactive to light. Extraocular Movements: EOM normal. Neck: Neck supple. Cardiovascular: Normal rate, regular rhythm and normal pulses. Pulmonary/Chest: Effort normal and breath sounds normal. Abdominal: Soft. Normal appearance and bowel sounds are normal. There is generalized abdominal tenderness. There is guarding. There is no rigidity, no rebound and no CVA tenderness. Patient with increased tenderness the epigastrium, though tenderness in all quadrants is noted. Mildguarding, no rebound, rigidity, or CVA tenderness is noted Neurological: He is alert and oriented to person, place, and time. He has intact cranial nerves. Normal speech. Skin: Skin is warm, dry and intact. No rash noted. Psychiatric: His speech pattern is normal. His affect is tearful. Patient does not recall events of last evening or if he took ibuprofen, though has no other impairedmemory or cognition except deficits noted during times of alcohol use ASSESSMENT/PLAN Care Handoff Row Name 11/11/191848 Care Handoff Type of Handoff Shift change handoff Provider's Name Dr. Bernstein Provider Comments Laboratory results, serial examination, CT results, disposition planning Juaquin Benítez M.D. 11/11/19 9073 TECHNICIAN documented in this encounter Plan of Treatment Not on filedocumented as of this encounter Procedures Procedure Name Priority Date/Time Associated Comments Diagnosis TROPONIN T, 2H/6H, Timed 11/11/2019 8:32 Result s for 5TH GEN, P PM SLOT TECHNICIAN this procedure are in the results section. CT ABDOMEN PELVIS RAD - Semiurgent 11/11/2019 7:30 Res ults for WITH IV CONTRAST (Fast; most ED PM SLOT TECHNICIAN this proc edure patients; some are in the inpatients) results section. DRUG SCREEN URINE STAT 11/11/2019 6:52 Results for PM SLOT TECHNICIAN this procedure are in the results section. URINALYSIS WITH STAT 11/11/2019 6:52 Results f or MICROSCOPIC PM SLOT TECHNICIAN this procedure are in the results section. TROPONIN T, STAT 11/11/2019 6:30 Results for BASELINE, 5TH GEN, P PM SLOT TECHNICIAN this pr ocedure are in the results section. CBC WITH STAT 11/11/2019 6:30 Results for DIFFERENTIAL, B PM SLOT TECHNICIAN this procedu re are in the results section. LIPASE, S/P STAT 11/11/2019 6:30 Results for PM SLOT TECHNICIAN this procedure are in the results section. ACETAMINOPHEN LEVEL, STAT 11/11/2019 6:30 Resu lts for S PM SLOT TECHNICIAN this procedure are in the results section. SALICYLATE LEVEL, S STAT 11/11/2019 6:30 Resul ts for PM SLOT TECHNICIAN this procedure are in the results section. COMPREHENSIVE STAT 11/11/2019 6:30 Results for METABOLIC PANEL, S/P PM SLOT TECHNICIAN this pr ocedure are in the results section. ECG STAT 11/11/2019 6:00 Results for PM SLOT TECHNICIAN this procedure are in the results section. documented in this encounter Results Troponin T, 2H/6H, 5th Gen (11/11/2019 8:32 PM SLOT TECHNICIAN) P athologist Signature Troponin T, 2 <6 <=15 ng/L 11/11/2019 [facility] hr, 5th gen 8:57 PM SLOT TECHNICIAN Comment: Biotin has been identified by the annalee saavedra as a potential interfering substance. ??Higher concentr ations of biotin may be found in multivitamins, hair/nail supple ments, and workout supplements. ??If the result does not ma h clinical observations, repeat testing after patient refrains fr om the use of supplements for at least 12 hours. 2H Delta 0 ng/L 11/11/2019 8:57 PM SLOT TECHNICIAN NPRG 2H Delta Interp Not Changing 11/11/2019 8:57 PM CS T NPRG Troponin T, 6 hr, 5th gen CANCELED ng/L 11/11/2019 8:5 7 PM SLOT TECHNICIAN NPRG Comment: Result canceled by the adrián rhoades Specimen Anatomical Collection Method Collection Time Receive d Time (Source) Location / / Volume Laterality Blood (Blood, 11/11/2019 8:32 PM 11/11/20 19 8:34 Venous) SLOT TECHNICIAN PM SLOT TECHNICIAN Narrative [facility] B - 11/11/2019 8:57 PM SLOT TECHNICIAN Specimen Information: Specimen ID: [id number] Specimen Type: Blood Specimen Collection Start Date: 019 ??8:32 PM Specimen Received Date: 11/11/2019 ??8: 34 PM Specimen ID: [id number] Specimen Type: Blood Juaquin Benítez M.D. LAB BLOOD TROPONIN Performing Organization Address City/State/ZIP Code Phon e Number [facility] [address] [place], [place] [address] [place] [address] [place] [address] [place] [address] Abdomen Pelvis with IV Contrast (11/11/2019 7:30 PM SLOT TECHNICIAN) Anatomical Region Laterality Modality Abdomen, Pelvis, Abdominal RST LOS, Abdominal ARZ LOS, N/A Computed Tomography Abdominal FLA LOS Specimen (Source) Anatomical Collection Method Collection Time Re ceived Time Location / / Volume Laterality 11/11/2019 7:42 PM SLOT TECHNICIAN Impressions 11/11/2019 7:50 PM SLOT TECHNICIAN 1. ??Findings suggestive for acute sigmo id colon epiploic appendagitis. Correlate with site of pain. 2. ??No other acute abnormality of the a bdomen and pelvis. The appendix is normal. 3. ??Possible diffuse hepatic steatosis, which would be better assessed with ultrasound. Narrative 11/11/2019 7:50 PM SLOT TECHNICIAN EXAM: CT ABDOMEN PELVIS WITH IV CONTRAST COMPARISON: CT abdomen pelvis from 019 FINDINGS: The imaged lung bases show no focal alveolar consolidation. Diffuse liver hypoattenuation, suggestiv e of fatty liver, though hepatic steatosis is less reliably assessed on c ontrast-enhanced CT. The gallbladder is surgically absent. The pancreas, spleen, and adrenal glands are unremarkable. No biliary ductal dilation. Bilateral renal cysts, largest measuring 2.2 cm in the left kidney. No hydronephrosis. Mural thickening of the urinary bladder, favored to relate to underdistention. No evidence of bowel obstruction. The ap pendix is normal. 1.2 cm focus of fat with rim enhancement adjacent to the sig moid colon (series 4 image 265), new from prior study. No intraperitoneal free air or fluid. No lymphadenopathy. No acute osseous abnormality. Procedure Note Patrick Holt M.D. - 11/11/2019Formattin g of this note might be different from the original. EXAM: CT ABDOMEN PELVIS WITH IV CONTRAST COMPARISON: CT abdomen pelvis from 019 FINDINGS: The imaged lung bases show no focal alveolar consolidation. Diffuse liver hypoattenuation, suggestiv e of fatty liver, though hepatic steatosis is less reliably assessed on c ontrast-enhanced CT. The gallbladder is surgically absent. The pancreas, spleen, and adrenal glands are unremarkable. No biliary ductal dilation. Bilateral renal cysts, largest measuring 2.2 cm in the left kidney. No hydronephrosis. Mural thickening of the urinary bladder, favored to relate to underdistention. No evidence of bowel obstruction. The ap pendix is normal. 1.2 cm focus of fat with rim enhancement adjacent to the sig moid colon (series 4 image 265), new from prior study. No intraperitoneal free air or fluid. No lymphadenopathy. No acute osseous abnormality. IMPRESSION: 1. Findings suggestive for acute sigmoid colon epiploic appendagitis. Correlate with site of pain. 2. No other acute abnormality of the abd omen and pelvis. The appendix is normal. 3. Possible diffuse hepatic steatosis, w hich would be better assessed with ultrasound. Juaquin Benítez M.D. IMG CT PROCEDURES (ABNORMAL) Urinalysis with Microscopic: Urine, Midstream (11/11/2019 6:52 PM SLOT TECHNICIAN) Analysis Performed At Pongrt Time Signature Source Midstream 11/11/2019 [facility] 7:25 PM SLOT TECHNICIAN Clarity Slightly Clear 11/11/2019 [facility] Cloudy (A) 7:28 PM SLOT TECHNICIAN Color Julieta 11/11/2019 NPR[facility] 7:28 PM SLOT TECHNICIAN Comment: ----REFERENCE VALUE---- Colorless Yellow Julieta Blood Negative Negative 11/11/2019 7:28 PM SLOT TECHNICIAN NPRG Nitrite Negative Negative 11/11/2019 7:28 PM SLOT TECHNICIAN NPRG Leukocyte Esterase Negative Negative 11/11/2019 7:28 PM CS T NPRG Protein 30 (A) mg/dL 11/11/2019 7:28 PM SLOT TECHNICIAN NPRG Comment: ----REFERENCE VALUE---- Negative Trace Glucose Negative Negative mg/dL 11/11/2019 7:28 PM SLOT TECHNICIAN CLIENT SUPPORT ANALYST RG Ketones, QI(U) >=80 (A) Negative mg/dL 11/11/2019 7:[address] NPRG Bilirubin Moderate (A) Negative 11/11/2019 7:28 PM SLOT TECHNICIAN NPR[facility] pH 5.5 5.0 - 8.0 11/11/2019 7:28 PM SLOT TECHNICIAN NPRG Specific Dunbar >=1.030 1.001 - 1.035 11/11/2019 7:28 PM SLOT TECHNICIAN NPRG Urobilinogen 0.2 0.2 - 1.0 mg/dL 11/11/2019 7:28 PM CS T NPRG White Blood Cells 4-10 (A) /hpf 11/11/2019 7:28 PM SLOT TECHNICIAN NPRG Comment: ----REFERENCE VALUE---- Males: 0-3 Females: 0-10 Unknown: 0-10 Red Blood Cells Occ-2 0 - 2 /hpf 11/11/2019 7:28 PM SLOT TECHNICIAN NPRG Specimen Anatomical Collection Method Collection Time Receive d Time (Source) Location / / Volume Laterality Urine (Urine, 11/11/2019 6:52 PM 11/11/20 19 7:09 Midstream) SLOT TECHNICIAN PM SLOT TECHNICIAN Juaquin Benítez M.D. LAB URINE ORDERABLES Performing Organization Address City/State/ZIP Code Phon e Number [facility]- [address] [place], [place] [address] [place] [address] LAB [facility] [place] [address] (ABNORMAL) Drug Screen Urine (11/11/2019 6:52 PM SLOT TECHNICIAN) athologist Signature Amphetamines, Negative Negative 11/11/2019 NPR[facility] U 7:28 PM SLOT TECHNICIAN Comment: ----ADDITIONAL INFORMATION---- Mixer Operator Hot Metal's Cutoff: 500 ng/mL Barbiturates, U Negative Negative 11/11/2019 7:28 PM SLOT TECHNICIAN N PRG Comment: ----ADDITIONAL INFORMATION---- Mixer Operator Hot Metal's Cutoff: 200 ng/mL Benzodiazepines, U Unconfirmed Positive (A) Negative 7:28 PM SLOT TECHNICIAN NPRG Comment: ----ADDITIONAL INFORMATION---- Mixer Operator Hot Metal's Cutoff: 150 ng/mL Buprenorphine, U Negative Negative 11/11/2019 7:28 PM SLOT TECHNICIAN NPRG Comment: ----ADDITIONAL INFORMATION---- Mixer Operator Hot Metal's Cutoff: 10 ng/mL Cocaine, U Negative Negative 11/11/2019 7:28 PM SLOT TECHNICIAN NPRG Comment: ----ADDITIONAL INFORMATION---- Mixer Operator Hot Metal's Cutoff: 150 ng/mL Methadone, U Negative Negative 11/11/2019 7:28 PM SLOT TECHNICIAN NPRG Comment: ----ADDITIONAL INFORMATION---- Mixer Operator Hot Metal's Cutoff: 200 ng/mL Methamphetamines, U Negative Negative 11/11/2019 7:[address] NPR[facility] Comment: ----ADDITIONAL INFORMATION---- Mixer Operator Hot Metal's Cutoff: 500 ng/mL Opiates, U Negative Negative 11/11/2019 7:28 PM SLOT TECHNICIAN NPRG Comment: ----ADDITIONAL INFORMATION---- Mixer Operator Hot Metal's Cutoff: 100 ng/mL Oxycodone, U Negative Negative 11/11/2019 7:28 PM SLOT TECHNICIAN NPRG Comment: ----ADDITIONAL INFORMATION---- Mixer Operator Hot [employer]'s Cutoff: 100 ng/mL Phencyclidine, U Negative Negative 11/11/2019 7:28 PM SLOT TECHNICIAN NPRG Comment: ----ADDITIONAL INFORMATION---- Mixer Operator Hot Metal's Cutoff: 25 ng/mL Propoxyphene, U Negative Negative 11/11/2019 7:28 PM SLOT TECHNICIAN N PRG Comment: ----ADDITIONAL INFORMATION---- Mixer Operator Hot Metal's Cutoff: 300 ng/mL Tetrahydrocannabinol, U Unconfirmed Positive Negative 11/11 7:28 PM NPRG (A) SLOT TECHNICIAN Comment: ----ADDITIONAL INFORMATION---- Mixer Operator Hot Metal's Cutoff: 50 ng/mL Tricyclic Antidepressants, U Negative Negative 11/11/2019 7:28 PM SLOT TECHNICIAN NPRG Comment: ----ADDITIONAL INFORMATION---- Mixer Operator Hot Metal's Cutoff: 300 ng/mL THE ABOVE DRUG SCREEN PANEL IS FOR MED ICAL PURPOSES ONLY Specimen Anatomical Collection Method Collection Time Receive d Time (Source) Location / / Volume Laterality Urine (Urine, 11/11/2019 6:52 PM 11/11/20 7:09 Clean Catch) SLOT TECHNICIAN PM SLOT TECHNICIAN Juaquin Benítez M.D. LAB URINE ORDERABLES Performing Organization Address City/[facility] Phon e Number [address] [place] [address] Salicylate Level (11/11/2019 6:30 PM SLOT TECHNICIAN) P athologist Signature Salicylate, S <0.5 <30.0 mg/dL 11/11/2019 NPRG 7:08 PM SLOT TECHNICIAN Specimen Anatomical Collection Method Collection Time Receive d Time (Source) Location / / Volume Laterality Blood (Blood, 11/11/2019 6:30 PM 11/11/20 19 6:34 Venous) SLOT TECHNICIAN PM SLOT TECHNICIAN Juaquin Benítez M.D. LAB BLOOD ADD-ON Performing Organization Address City/[facility] Phon e Number [address] [place] [address] Acetaminophen Level (11/11/2019 6:30 PM SLOT TECHNICIAN) Patholo gist Method Time Signature Acetaminophen, 23 Therapeutic 11/11/2019 NPR[facility] S Range: 10-30 7:08 PM SLOT TECHNICIAN mcg/mL Specimen Anatomical Collection Method Collection Time Receive d Time (Source) Location / / Volume Laterality Blood (Blood, 11/11/2019 6:30 PM 11/11/20 6:34 Venous) SLOT TECHNICIAN PM SLOT TECHNICIAN Juaquin Benítez M.D. LAB BLOOD ADD-ON Performing Organization Address City/State/ZIP Code Phon e Number [place] [address] [place], [place] [address] [place] [address] [place] [address] Troponin T, Baseline, 5th gen (11/11/2019 6:30 PM SLOT TECHNICIAN) P athologist Signature Troponin T, <6 <=15 ng/L 11/11/2019 NPR Baseline, 5th 6:58 PM SLOT TECHNICIAN gen Comment: Biotin has been identified by the annalee saavedra as a potential interfering substance. ??Higher concentr ations of biotin may be found in multivitamins, hair/nail supple ments, and workout supplements. ??If the result does not [facility] clinical observations, repeat testing after patient refrains fr om the use of supplements for at least 12 hours. Specimen Anatomical Collection Method Collection Time Receive d Time (Source) Location / / Volume Laterality Blood (Blood, 11/11/2019 6:30 PM 11/11/20 19 6:34 Venous) SLOT TECHNICIAN PM SLOT TECHNICIAN Juaquin Benítez M.D. LAB BLOOD TROPONIN Performing Organization Address City/State/ZIP Code Phon e Number [place] [address] [place], [place] [address] [place] [address] [place] [address] (ABNORMAL) Lipase (11/11/2019 6:30 PM SLOT TECHNICIAN) P athologist Signature Lipase, P 140 (H) 13 - 60 U/L 11/11/2019 NPRG 7:02 PM SLOT TECHNICIAN Specimen Anatomical Collection Method Collection Time Receive d Time (Source) Location / / Volume Laterality Blood (Blood, 11/11/2019 6:30 PM 11/11/20 19 6:34 Venous) SLOT TECHNICIAN PM SLOT TECHNICIAN Juaquin Benítez M.D. LAB BLOOD ADD-ON Performing Organization Address City/State/ZIP Code Phon e Number [facility] [address] [place], [place] [address] [facility] [place] [address] (ABNORMAL) Comprehensive Metabolic Panel (11/11/2019 6:30 PM SLOT TECHNICIAN) P athologist Signature Potassium, P 3.9 3.6 - 5.2 11/11/2019 NPRG mmol/L 7:02 PM SLOT TECHNICIAN Sodium, P 139 135 - 145 11/11/2019 NPRG mmol/L 7:02 PM SLOT TECHNICIAN Chloride, P 103 98 - 107 11/11/2019 NPRG mmol/L 7:02 PM SLOT TECHNICIAN Bicarbonate, P 20 (L) 22 - 29 11/11/2019 NPRG mmol/L 7:02 PM SLOT TECHNICIAN Anion Gap, P 16 (H) 7 - 15 11/11/2019 NPRG 7:02 PM SLOT TECHNICIAN BUN (Blood Urea 7 (L) 8 - 24 11/11/2019 NPRG Nitrogen), P mg/dL 7:02 PM SLOT TECHNICIAN Creatinine 0.84 0.74 - 11/11/2019 NPRG 1.35 mg/dL 7:02 PM SLOT TECHNICIAN eGFR-Black/Afri >90 >=60 11/11/2019 NPRG can Mauritanian mL/min/BSA 7:02 PM SLOT TECHNICIAN Comment: ----ADDITIONAL INFORMATION---- Estimated GFR calculated using the 2009 CKD_EPI creatinine equation. eGFR Non-Black/ >90 >=60 mL/min/BSA 11/11/2019 7:02 PM SLOT TECHNICIAN NPRG Comment: ----ADDITIONAL INFORMATION---- Estimated GFR calculated using the 2009 CKD_EPI creatinine equation. Calcium, Total, P 9.5 8.6 - 10.0 mg/dL 11/11/2019 7:02 PM SLOT TECHNICIAN NPRG Glucose, P 178 (H) 70 - 140 mg/dL 11/11/2019 7:02 PM SLOT TECHNICIAN N PRG Protein, Total, P 7.1 6.3 - 7.9 g/dL 11/11/2019 7:02 P M SLOT TECHNICIAN NPRG Albumin, P 4.5 3.5 - 5.0 g/dL 11/11/2019 7:02 PM SLOT TECHNICIAN N PRG Aspartate Aminotransferase 169 (H) 8 - 48 U/L 11/11/2019 7 :02 PM SLOT TECHNICIAN NPRG (AST), P Alkaline Phosphatase, P 102 40 - 129 U/L 11/11/2019 7: 02 PM SLOT TECHNICIAN NPRG Alanine Aminotransferase 255 (H) 7 - 55 U/L 11/11/2019 7:0 2 PM SLOT TECHNICIAN NPRG (ALT), P Bilirubin, Total, P 2.6 (H) <=1.2 mg/dL 11/11/2019 7:02 PM SLOT TECHNICIAN NPRG Specimen Anatomical Collection Method Collection Time Receive d Time (Source) Location / / Volume Laterality Blood (Blood, 11/11/2019 6:30 PM 11/11/20 19 6:34 Venous) SLOT TECHNICIAN PM SLOT TECHNICIAN Juaquin Benítez M.D. LAB BLOOD ADD-ON Performing Organization Address City/State/ZIP Code Phon e Number [address] [place] [address] [place] [address] (ABNORMAL) CBC with Differential (11/11/2019 6:30 PM SLOT TECHNICIAN) [facility] Method Time Signature Hemoglobin 16.9 (H) 13.2 - 11/11/2019 NPRG 16.6 g/dL 6:43 PM SLOT TECHNICIAN Hematocrit 47.1 38.3 - 11/11/2019 NPRG 48.6 % 6:43 PM SLOT TECHNICIAN Erythrocytes 5.85 (H) 4.35 - 11/11/2019 NPRG 5.65 6:43 PM SLOT TECHNICIAN x10(12)/L MCV 80.5 78.2 - 11/11/2019 NPRG 97.9 fL 6:43 PM SLOT TECHNICIAN RBC Distrib Width 13.3 11.8 - 11/11/2019 NPRG 14.5 % 6:43 PM SLOT TECHNICIAN Platelet Count 212 135 - 317 11/11/2019 NPRG x10(9)/L 6:43 PM SLOT TECHNICIAN Leukocytes 11.7 (H) 3.4 - 9.6 11/11/2019 NPRG x10(9)/L 6:43 PM SLOT TECHNICIAN Neutrophils 10.13 (H) 1.56 - 11/11/2019 NPRG 6.45 6:43 PM SLOT TECHNICIAN x10(9)/L Lymphocytes 0.70 (L) 0.95 - 11/11/2019 NPRG 3.07 6:43 PM SLOT TECHNICIAN x10(9)/L Monocytes 0.85 (H) 0.26 - 11/11/2019 NPRG 0.81 6:43 PM SLOT TECHNICIAN x10(9)/L Eosinophils 0.00 (L) 0.03 - 11/11/2019 NPRG 0.48 6:43 PM SLOT TECHNICIAN x10(9)/L Basophils 0.03 0.01 - 11/11/2019 NPRG 0.08 6:43 PM SLOT TECHNICIAN x10(9)/L Specimen Anatomical Collection Method Collection Time Receive d Time (Source) Location / / Volume Laterality Blood (Blood, 11/11/2019 6:30 PM 11/11/20 19 6:34 Venous) SLOT TECHNICIAN PM SLOT TECHNICIAN Juaquin Benítez M.D. LAB BLOOD ADD-ON Performing Organization Address City/State/ZIP Code Phon e Number [address] [address] [facility] [place] [address] ECG 12 Lead (11/11/2019 6:00 PM SLOT TECHNICIAN) P athologist Signature Ventricular Rate 98 BPM MUSE ECG/Min DC Interval 154 ms MUSE QRSD Interval 98 ms MUSE QT Interval 348 ms MUSE QTC Interval 444 ms MUSE P Divide 40 degrees MUSE R Divide 24 degrees MUSE T Wave Divide 4 degrees MUSE Specimen Anatomical Collection Method Collection Time Receive d Time (Source) Location / / Volume Laterality 11/11/2019 6:00 PM 9 7:00 SLOT TECHNICIAN PM SLOT TECHNICIAN Impressions MUSE - 11/11/2019 7:00 PM SLOT TECHNICIAN Normal sinus rhythm Nonspecific ST and T wave abnormality When compared with ECG of 12-MAR-2019 04 :01, Vent. rate has increased BY ??40 BPM Reviewed by MILAD Coronel Narrative This result has an attachment that is no t available. Procedure Note Anival Aguiar M.D. - 12/20/2019Formatti ng of this note might be different from the original. IMPRESSION: Normal sinus rhythm Nonspecific ST and T wave abnormality When compared with ECG of 12-MAR-2019 04 :01, Vent. rate has increased BY 40 BPM Reviewed by MILAD Coronel Juaquin Benítez M.D. ECG ORDERABLES Performing Organization Address City/State/ZIP Code Phon e Number MUSE MUSE NA documented in this encounter Visit Diagnoses Diagnosis Nausea And Vomiting - Primary Acute Gastritis Without Bleeding Pancreatitis Acute (HCC) documented in this encounter Administered Medications Inactive Administered Medications - up to 3 most recent administrations Medication Order MAR Action Action Date Dose Rate Site iohexol 350 mg iodine/mL Given 11/11/2019 7:24 PM SLOT TECHNICIAN 100 mL Right Hand solution 1-200 mL (OMNIPAQUE) 1-200 mL, intravenous, Once in imaging, contrast, Starting on Thu11/11/19 at 1930, For 1 dose, Imaging Protocol Orders, Dose per Radiant Medication Guidelines morphine injection 2 mg Given 11/11/2019 6:56 PM SLOT TECHNICIAN 2 mg 2 mg, intravenous, Once, On Thu11/11/19 at 1824, For 1 dose NaCl 0.9 % bolus 1,000 mL New Bag 11/11/2019 5:45 PM SLOT TECHNICIAN 1,000 mL 2000 mL/hr 1,000 mL, intravenous, at 2,000 mL/hr, Administer over 0.5 Hours, Once, On Thu11/11/19 at 1752, For 1 dose NaCl 0.9 % bolus 1,000 mL Restarted 11/11/2019 7:45 PM SLOT TECHNICIAN 1000 mL/hr 1,000 mL, intravenous, at 1,000 mL/hr, Administer over 1 Hours, Once, On Thu11/11/19 at 1854, For 1 dose New Bag 11/11/2019 6:56 PM SLOT TECHNICIAN 1,000 mL 1000 mL/hr NaCl 0.9 % bolus 100 Bolus from Bag 11/11/2019 7:24 PM 100 mL 600 0 mL/hr Right Hand mL SLOT TECHNICIAN 100 mL, intravenous, at 6,000 mL/hr, Administer over 1 Minutes, Once, On Thu11/11/19 at 1933, For 1 dose ondansetron (PF) injection 4 mg (ZOFRAN) Given 11/11/2019 6:14 PM SLOT TECHNICIAN 4 mg 4 mg, intravenous, Once, On Thu11/11/19 at 1752, For 1 dose ondansetron (PF) injection 4 mg (ZOFRAN) Given 11/11/2019 8:04 PM SLOT TECHNICIAN 4 mg 4 mg, intravenous, Once, On Thu11/11/19 at 2001, For 1 dose pantoprazole injection 40 mg (PROTONIX) Given 11/11/2019 7:38 PM SLOT TECHNICIAN 40 mg 40 mg, intravenous, Once, On Thu11/11/19 at 1920, For 1 dose, Administer IV push over 2 minutes. Add 10 mL NS to 40 mg vial for a final concentration of 4 mg/mL. sodium chloride 0.9 % injection 10 mL Given 11/11/2019 6:14 PM SLOT TECHNICIAN 10 mL 10 mL, intravenous, As needed, line care, Starting on Thu11/11/19 at 1749, Peripheral Intravenous Catheter and Rapid Infusion Catheter, prior to blood sampling, post blood transfusion or post blood sampling sodium chloride 0.9 % injection 10 mL Given 11/11/2019 7:24 PM SLOT TECHNICIAN 10 mL Right Hand 10 mL, intravenous, Once in imaging, line care, BEFORE CT EXAM, Starting on Thu11/11/19 at 1931, For 1 dose sodium chloride 0.9 % injection 3 mL 3 mL, intravenous, As needed, line care, Starting on Thu11/11/19 at 1749, Prior to and following infusion and between multi ple consecutive infusions: sodium chloride 0.9 % injection sodium chloride 0.9 % injection 3 mL 3 mL, intravenous, Every 12 hours schedu led, First dose on Thu11/11/19 at 2100, Peripheral Intravenous Catheter and Rapi d Infusion Catheter, when no infusion to maintain patency sucralfate tablet 1 g (CARAFATE) Given 11/11/2019 8:34 PM SLOT TECHNICIAN 1 g 1 g, oral, Once, On Thu11/11/19 at 2029, For 1 dose, Administer on an empty stomach (1 hour before or 2 hours after eating). documented in this encounter Active and Recently Administered Medications Times are shown in SLOT TECHNICIAN. Scheduled Medication Order 11/09/2019 11/10/2019 11/11/2019 morphine injection 2 mg (COMPLETED) 1856 (Given - Provider: Davy France R.N.) 2 mg, intravenous, Once, On Thu11/11/19 at 1824, For 1 dose NaCl 0.9 % bolus 1,000 mL (COMPLETED) 1745 (New Bag - Provider: Davy France R.N.)1850 (Stopped - Provider: Davy France R.N.) 1,000 mL, intravenous, at 2,000 mL/hr, A dminister over 0.5 Hours, Once, On Thu11/11/19 at 1752, For 1 dose NaCl 0.9 % bolus 1,000 mL (COMPLETED) 185 (New Bag - Provider: Davy France R.N.)190 (Stopped - Provider: Danielle Schaffer R.N. - Comment: to go to radiology)194 (Restarted - Provider: Danielle Schaffer R.N. - Comment: restarted after returning from radiology) 1,000 mL, intravenous, at 1,000 mL/hr, A dminister over 1 Hours, Once, On Thu11/11/19 at 1854, For 1 dose 2029 (Stopp ed - Provider: Marian Buck R.N.) NaCl 0.9 % bolus 100 mL (COMPLETED) 1923 (Bolus from Bag - Provider: Danielle Wilburn([place]ub[place])(CT)) 100 mL, intravenous, at 6,000 mL/hr, Adm inister over 1 Minutes, Once, On Thu11/11/19 at 1933, For 1 dose ondansetron (PF) injection 4 mg (ZOFRAN) (COMPLETED) 1813 (Given - Provider: Davy France R.N.) 4 mg, intravenous, Once, On Thu11/11/19 at 1752, For 1 dose ondansetron (PF) injection 4 mg (ZOFRAN) (COMPLETED) 2003 (Given - Provider: Dainelle Schaffer R.N.) 4 mg, intravenous, Once, On Thu11/11/19 at 2001, For 1 dose pantoprazole injection 40 mg (PROTONIX) (COMPLETED) 1937 (Given - Provider: Danielle Schaffer R.N.) 40 mg, intravenous, Once, On Thu 9 at 1920, For 1 dose, Administer IV push over 2 minutes. Add 10 mL NS to 40 mg vial for a final concentration of 4 mg/mL. sodium chloride 0.9 % injection 3 mL 2100 (Due) 3 mL, intravenous, Every 12 hours schedu led, First dose on Thu11/11/19 at 2100, Peripheral Intravenous Catheter and Rapid Infusion Catheter, when no infusion to maintain patency sucralfate tablet 1 g (CARAFATE) (COMPLETED) 2033 (Given - Provider: Danielle Schaffer R.N.) 1 g, oral, Once, On Thu11/11/19 at 2029 , For 1 dose, Administer on an empty stomach (1 hour before or 2 hours after eating). PRN Medication Order 11/09/2019 11/10/2019 11/11/2019 iohexol 350 mg iodine/mL solution 1-200 mL (OMNIPAQUE) (COMPLETE D) 1923 (Given - Provider: Danielle Wilburn([place]ubree)(CT)) 1-200 mL, intravenous, Once in imaging, contrast, Starting on Thu11/11/19 at 1930, For 1 dose, Imaging Protocol Orders, Dose per Radiant Medication Guidelines sodium chloride 0.9 % injection 10 mL 1813 (Given - Provider: Davy France R.N.) 10 mL, intravenous, As needed, line care , Starting on Thu11/11/19 at 1749, Peripheral Intravenous Catheter and Rapid Infusion Catheter, prior to blood sampling, post blood transfusion or post blood sampling sodium chloride 0.9 % injection 10 mL (COMPLETED) 1923 (Given - Provider: Danielle Wilburn([place]ree)(CT)) 10 mL, intravenous, Once in imaging, tracy e care, BEFORE CT EXAM, Starting on Thu11/11/19 at 1931, For 1 dose sodium chloride 0.9 % injection 3 mL 3 mL, intravenous, As needed, line care, Starting on Thu11/11/19 at 1749, Prior to and following infusion and between multiple consecutive infusions: sodium chloride 0.9 % injection documented in this encounter Additional Health Concerns Assessment Noted Time PHQ-9 Depression Total Score: 18 02/26/2017 8:33 AM CD T documented as of this encounter Care Teams Weight Tester Relationship Specialty Start Date End Date Avis Razo M.D. PCP - General 08/30/18 12/13/[address] [place] [address] CHRISTINA Castellanos [phone] documented as of this encounter
--- OUTSIDE RECORDS SUMMARY | 2022-07-26 14:36 | XMS_ITS | Encounter Summary ---
:1995 Author Organization [facility] Address [address] [place] [address] Care Team Providers Name Role Phone Avis Razo M.D. Primary Care Provider Reason for Visit Reason Comments Neck Pain Encounter Details Date Type Department Care Team Description 09/10/2018 Emergency [facility] Pain Neck (Primary Dx) [id number] [place] [address] Social History Tobacco Use Types Packs/Day Years Used Date Smoking Tobacco: Never Smokeless Tobacco: Never Alcohol Use Standard Drinks/Week [...] by 0 05/03/20 18 mg tablet mouth. oxyCODONE-acetaminophen Take 1 tablet by 0 12/15/2018 (PERCOCET) 5-325 mg per mouth every 6 (six) tablet hours. documented as of this encounter Plan of Treatment Not on filedocumented as of this encounter Procedures Procedure Name Priority Date/Time Associated Comments Diagnosis CT CERVICAL SPINE RAD - Semiurgent 09/10/2018 9:04 Pain Neck Res ults for this WITHOUT IV (Fast; most ED AM CDT procedure are in CONTRAST patients; some the results inpatients) section. documented in this encounter Results CT Cervical Spine without IV Contrast (09/10/2018 9:04 AM CDT) Anatomical Region Laterality Modality Cervical Spine, Neuroradiology RST LOS, Neuroradiology N/A Computed Tomography ARZ LOS, Neuroradiology FLA LOS Specimen (Source) Anatomical Collection Method Collection Time Re ceived Time Location / / Volume Laterality 09/10/2018 9:04 AM CDT Impressions 09/10/2018 9:07 AM CDT IMPRESSION: No acute fracture or traumatic malalignm ent. Narrative 09/10/2018 9:07 AM CDT EXAM: CT CERVICAL SPINE WITHOUT IV CONTRAST COMPARISON: None FINDINGS: No acute fracture or traumatic malalignment in the cervical spine. Loss of cervical lordosis may be due to positioning or muscle spasm. No prevertebral soft tissue swelling. Procedure Note Lucy Scott M.D. - 09/10/2018Form atting of this note might be different from the original. EXAM: CT CERVICAL SPINE WITHOUT IV CONTR AST COMPARISON: None FINDINGS: No acute fracture or traumatic malalignment in the cervical spine. Loss of cervical lordosis may be due to positioning or muscle spasm. No prevertebral soft tissue swelling. IMPRESSION: No acute fracture or traumatic malalignm ent. Anival Rosenberg M.D. IMG CT PROCEDURES documented in this encounter Visit Diagnoses Diagnosis Pain Neck - Primary documented in this encounter Additional Health Concerns Assessment Noted Time PHQ-9 Depression Total Score: 18 02/26/2017 8:33 AM CD T documented as of this encounter Care Teams Dipping Machine Operator Relationship Specialty Start Date End Date Avis Razo M.D. PCP - General 08/30/18 12/13/[address] [place] [phone] documented as of this encounter
--- OUTSIDE RECORDS SUMMARY | 2022-07-26 14:36 | XMS_ITS | Encounter Summary ---
:1995 Author Organization [facility] Address [address] [place] [address] Care Team Providers Name Role Phone Avis Razo M.D. Primary Care Provider Reason for Visit Reason Comments Abdominal Pain patient c/o RUQ and RLQ pain radiating to his right flank, pt states he has hx of cysts on his ki dneys and has had his gallbladder removed. Encounter Details Date Type Department Care Team Description 07/07/2019 Emergency [facility] RajJf nobles, Abdom inal Pain (Primary System [place] D.O. Dx) Emergency Department [address] [id number] [phone] Social History Tobacco Use Types Packs/Day Years Used Date Smoking Tobacco: Former Cigarettes E-cigarettes Smokeless Tobacco: Never Alcohol Use Standard Drinks/Week Comments No 0 (1 standard drink = 0.6 oz pure alcoho l) Sex Assigned at Date Recorded Not on file documented as of this encounter Last Filed Vital Signs Vital Sign Reading Time Taken Comments Blood Pressure 136/97 07/07/2019 11:15 PM CDT Pulse 100 07/07/2019 11:15 PM CDT Temperature 36.7 ??C (98.1 ??F) 07/07/2019 9:04 PM CDT Respiratory Rate 26 07/07/2019 9:04 PM CDT Oxygen Saturation 96% 07/07/2019 11:15 PM CDT Inhaled Oxygen Concentration - - Weight 116 kg (256 lb 9.9 oz) 07/07/2019 9:04 PM CDT Height - - Body Mass Index 35.79 06/06/2019 10:37 AM CDT documented in this encounter Medications at Time of Discharge Medication Sig Dispensed Refills Start Date End Date rizatriptan (MAXALT) 10 Take 1 tab for 0 05/03/20 18 mg tablet migraine, may repeat in 2 hours. Max dose: 30mg per 24 hrs. traZODone (DESYREL) 100 Take 100 mg by 0 05/03/20 18 mg tablet mouth. dicyclomine (BENTYL) 20 Take 1 tablet (20 mg 40 tablet 0 07/17/2019 mg tablet total) by mouth 4 (four) times a day as needed (abdominal pain) for up to 10 days. naproxen (NAPROSYN) 500 Take 1 tablet (500 20 tablet 0 06/2307/17/2019 mg tablet mg total) by mouth 2 (two) times a day as needed for pain for up to 10 days. documented as of this encounter ED Notes Jf Anthony M.D., D.O. - 07/07/2019 9:56 PM CDT IDavis, am scribing for and in the presence of, Jf Anthony DO SUBJECTIVE: CHIEF COMPLAINT/REASON FOR VISIT: Abdominal Pain (patient c/o RUQ and RLQ pain radiating to his right flank, pt states he has hx of cysts on his kidneys and has had his gallbladder removed. ) HISTORY OF PRESENT ILLNESS: 24 YO male presents w/ an acute onset of R sided abdominal pain and flank pain this evening and notes a prior hx of similar sxs. He reports a past hx of similar and has had a cholecystectomy w/ noted renal cysts found incidentally on imaging in the past as well. Patient denies any trauma or injury andhas no n/v/d, no recent fevers and patient has taken nothing for his sxs. Patient reports sxs waxingand waning and intermittently cries out from his discomfort, however, is able to recover and respondquickly after being asked a question. History provided by: Patient Abdominal Pain Pain location: RUQ and RLQ Pain quality: sharp Pain radiates to: R flank Pain severity: Moderate Onset quality: Sudden Duration: 2 hours Timing: Constant Progression: Waxing and waning Chronicity: New Context: not sick contacts Relieved by: Nothing Worsened by: Nothing Ineffective treatments: None tried Associated symptoms: no chest pain, no chills, no cough, no diarrhea, no dysuria, no fever, no hematuria, no nausea, no shortness of breath, no sore throat and no vomiting Risk factors: obesity REVIEW OF SYSTEMS: Constitutional: Negative for chills and fever. HENT: Negative for congestion and sore throat. Eyes: Negative for visual disturbance. Respiratory: Negative for cough and shortness of breath. Cardiovascular: Negative for chest pain. Gastrointestinal: Positive for abdominal pain. Negative for diarrhea, nausea and vomiting. Genitourinary: Negative for dysuria and hematuria. Musculoskeletal: Negative for back pain. Skin: Negative for rash. Neurological: Negative for numbness and headaches. ALLERGIES/MEDICATIONS: Reviewed in medical record PAST MEDICAL/FAMILY/SOCIAL HISTORY: Medical History: Past Medical History: Diagnosis Date ??? Gallstone Patient Active Problem List Diagnosis Date Noted ??? Depression Anxiety 08/04/2016 ??? Attention Deficit With Hyperactivity Disorder 04/07/2005 Surgical History: Past Surgical History: Procedure Laterality Date ??? CHOLECYSTECTOMY Family History: Reviewed in chart Social History: Social History Socioeconomic History ??? Marital status: Single Spouse name: None ??? Number of children: None ??? Years of education: None ??? Highest education level: None Occupational History ??? None Social Needs ??? Financial resource strain: None ??? Food insecurity: Worry: None Inability: None ??? Transportation needs: Medical: None Non-medical: None Tobacco Use ??? Smoking status: Former Smoker Types: E-cigarettes, Cigarettes ??? Smokeless tobacco: Never Used Substance and Sexual Activity ??? Alcohol use: No ??? Drug use: No ??? Sexual activity: Defer Lifestyle ??? Physical activity: Days per week: None Minutes per session: None ??? Stress: None Relationships ??? Social connections: Talks on phone: None Gets together: None Attends faith service: None Active member of club or organization: None Attends meetings of clubs or organizations: None Relationship status: None ??? Intimate partner violence: Fear of current or ex partner: None Emotionally abused: None Physically abused: None Forced sexual activity: None Other Topics Concern ??? None Social History Narrative ??? None Social History Substance and Sexual Activity Alcohol Use No Social History Substance and Sexual Activity Drug Use No OBJECTIVE: INITIAL VITAL SIGNS: Initial Vitals [07/07/192103] Temperature Pulse Rate Heart Rate Resp Rate Blood Pressure SpO2 36.7 ??C 90 -- (!) 26 (!) 138/107 98 % Pain Score 10 - Worst possible pain PHYSICAL EXAMINATION: Constitutional: No distress. HENT: Head: Normocephalic and atraumatic. Nose: Nose normal. Mouth/Throat: Mucous membranes are moist. Eyes: Conjunctivae and EOM are normal. Neck: Normal range of motion. Neck supple. Cardiovascular: Normal rate and regular rhythm. No murmur heard. Pulmonary/Chest: Effort normal. Abdominal: Soft. He exhibits no distension. There is tenderness in the right upper quadrant. Musculoskeletal: Normal range of motion. He exhibits no tenderness or deformity. Neurological: He is alert and oriented to person, place, and time. Skin: Skin is warm, dry and normal color. He is not diaphoretic. Psychiatric: He has a normal mood and affect. His behavior is normal. Nursing note and vitals reviewed. ED COURSE: Final Diagnoses: as of Jul 08 625 Abdominal Pain INTERVENTIONS: Medications NaCl 0.9 % bolus 1,000 mL (0 mL intravenous Stopped 07/07/192317) ketorolac injection 30 mg (TORADOL) (30 mg intravenous Given 07/07/192215) droperidol injection 1.25 mg (INAPSINE) (1.25 mg intravenous Given 07/07/192215) diphenhydrAMINE injection 50 mg (BENADRYL) (50 mg intravenous Given 07/07/192216) LABS: Labs Reviewed CBC WITH DIFFERENTIAL, B - Abnormal Result Value Hemoglobin 16.0 Hematocrit 44.3 Erythrocytes 5.41 MCV 81.9 RBC Distrib Width 12.3 Platelet Count 215 Leukocytes 9.8 (*) Neutrophils 5.72 Lymphocytes 2.96 Monocytes 0.80 Eosinophils 0.18 Basophils 0.13 (*) URINALYSIS WITH MICROSCOPIC Source Midstream Clarity Clear Color Yellow Blood Negative Nitrite Negative Leukocyte Esterase Negative Protein Negative Glucose Negative Ketone Negative Bilirubin Negative pH 5.5 Specific [place] 1.019 Urobilinogen 1.0 White Blood Cells Occ-3 Red Blood Cells None Seen COMPREHENSIVE METABOLIC PANEL, S/P Potassium, P 3.9 Sodium, P 140 Chloride, P 104 Bicarbonate, P 23 Anion Gap, P 13 BUN, P 12 Creatinine, P 1.02 eGFR Black >90 eGFR Non-Black >90 Calcium, Total, P 9.4 Glucose, P 120 Protein, Total, P 6.8 Albumin, P 4.3 Aspartate Aminotransferase (AST), P CANCELED Alkaline Phosphatase, P 90 Alanine Aminotransferase (ALT), P 36 Bilirubin, Total, P 0.7 LIPASE, S/P Lipase, P 32 ECG: RADIOLOGY: No orders to display ASSESSMENT AND PLAN: Impression and Plan He has been having intermittent abdominal pain for years. He states that usually last several weeks and then he can go quite a bit of time before it flares up again. He just had a CT scan of the abdomen and pelvis few weeks ago, so I did not repeat that today. The CT scan again showed some renal cystsand some nonpathologic mesenteric lymph nodes. He had a gastroenterology appointment scheduled previously, but he did not make it secondary to work. His pain was controlled here from 09/01 to 04/01 withIV Dilaudid and Toradol. I will discharge him to home on naproxen and Bentyl. I will also put in a referral to again trying get him in to Gastroenterology.. I personally performed the services described in this documentation, as scribed in my presence, and it is both accurate and complete. DIAGNOSIS: Final diagnoses: [R10.9] Abdominal Pain ED DISCHARGE MEDS: ED Prescriptions Medication Sig Dispense Start Date End Date Auth. Provider naproxen (NAPROSYN) 500 mg tablet Take 1 tablet (500 mg total) by mouth 2 (two) times a day as needed for pain for up to 10 days. 20 tablet 07/07/2019 07/17/2019 Jf Anthony M.D., D.O. dicyclomine (BENTYL) 20 mg tablet Take 1 tablet (20 mg total) by mouth 4 (four) times a day as needed (abdominal pain) for up to 10 days. 40 tablet 07/07/2019 07/17/2019 Jf Anthony M.D., D.O. DISPOSITION: Discharged home FOLLOW UP: Jf Anthony M.D., D.O. 07/08/19626 Jf Anthony M.D., D.O. 07/08/19626 documented in this encounter Plan of Treatment Not on filedocumented as of this encounter Procedures Procedure Name Priority Date/Time Associated Comments Diagnosis CBC WITH DIFFERENTIAL, STAT 07/07/2019 10:10 R esults for this B PM CDT procedure are i n the results section. LIPASE, S/P STAT 07/07/2019 10:10 Results for this PM CDT procedure are i n the results section. COMPREHENSIVE STAT 07/07/2019 10:10 Results fo r this METABOLIC PANEL, S/P PM CDT procedu re are in the results section. URINALYSIS WITH STAT 07/07/2019 9:13 PM Result s for this MICROSCOPIC CDT procedure are i n the results section. documented in this encounter Results Lipase (07/07/2019 10:10 PM CDT) athologist Signature Lipase, P 32 13 - 60 U/L 07/07/2019 10:32 PM CDT Specimen Anatomical Collection Method Collection Time Receive d Time (Source) Location / / Volume Laterality Blood (Blood, 07/07/2019 10:10 07/07/2019 Venous) PM CDT 10:12 PM CDT Jf Anthony D.O. LAB BLOOD ADD-ON Performing Organization Address City/State/[place] [address] LAB Comprehensive Metabolic Panel (07/07/2019 10:10 PM CDT) athologist Signature Potassium, P 3.9 3.6 - 5.2 07/07/2019 mmol/L 10:35 PM CDT Sodium, P 140 135 - 145 07/07/2019 mmol/L 10:32 PM CDT Chloride, P 104 98 - 107 07/07/2019 mmol/L 10:32 PM CDT Bicarbonate, P 23 22 - 29 07/07/2019 mmol/L 10:32 PM CDT Anion Gap, P 13 7 - 15 07/07/2019 10:32 PM CDT BUN (Blood Urea 12 8 - 24 07/07/2019 Nitrogen), P mg/dL 10:32 PM CDT Creatinine 1.02 0.74 - 07/07/2019 1.35 mg/dL 10:32 PM CDT eGFR-Black/Afric >90 >=60 07/07/2019 an [place] mL/min/BSA 10:32 PM CDT Comment: ----ADDITIONAL INFORMATION---- Estimated GFR calculated using the 2009 CKD_EPI creatinine equation. eGFR Non-Black/ >90 >=60 mL/min/BSA 10:32 PM CDT Comment: ----ADDITIONAL INFORMATION---- Estimated GFR calculated using the 2009 CKD_EPI creatinine equation. Calcium, Total, P 9.4 8.6 - 10.0 mg/dL 07/07/2019 10:3 2 PM CDT Glucose, P 120 70 - 140 mg/dL 07/07/2019 10:32 PM CDT Protein, Total, P 6.8 6.3 - 7.9 g/dL 07/07/2019 10:32 PM CDT Albumin, P 4.3 3.5 - 5.0 g/dL 07/07/2019 10:32 PM CDT Aspartate Aminotransferase CANCELED U/L 07/07/2019 10 :50 PM CDT (AST), P Comment: REVISED RESULTS ----PREVIOUSLY REPORTED ---- 32, Flagged as: Normal (Reported 07/07/2019 22:35) Alkaline Phosphatase, P 90 40 - 129 U/L 07/07/2019 10 :32 PM CDT Alanine Aminotransferase (ALT), P 36 7 - 55 U/L 07/07 10:32 PM CDT Bilirubin, Total, P 0.7 <=1.2 mg/dL 07/07/2019 10:32 P M CDT Specimen Anatomical Collection Method Collection Time Receive d Time (Source) Location / / Volume Laterality Blood (Blood, 07/07/2019 10:10 07/07/2019 Venous) PM CDT 10:12 PM CDT Jf Anthony D.O. LAB BLOOD ADD-ON Performing Organization Address City/State/ZIP Code Phon e Number [address] [address] LAB (ABNORMAL) CBC with Differential (07/07/2019 10:10 PM CDT) [facility] gist Method Time Signature Hemoglobin 16.0 13.2 - 07/07/2019 16.6 g/dL 10:16 PM CDT Hematocrit 44.3 38.3 - 07/07/2019 48.6 % 10:16 PM CDT Erythrocytes 5.41 4.35 - 07/07/2019 5.65 10:16 PM CDT x10(12)/L MCV 81.9 78.2 - 07/07/2019 97.9 fL 10:16 PM CDT RBC Distrib Width 12.3 11.8 - 07/07/2019 14.5 % 10:16 PM CDT Platelet Count 215 135 - 317 07/07/2019 x10(9)/L 10:16 PM CDT Leukocytes 9.8 (H) 3.4 - 9.6 07/07/2019 x10(9)/L 10:16 PM CDT Neutrophils 5.72 1.56 - 07/07/2019 6.45 10:16 PM CDT x10(9)/L Lymphocytes 2.96 0.95 - 07/07/2019 3.07 10:16 PM CDT x10(9)/L Monocytes 0.80 0.26 - 07/07/2019 0.81 10:16 PM CDT x10(9)/L Eosinophils 0.18 0.03 - 07/07/2019 0.48 10:16 PM CDT x10(9)/L Basophils 0.13 (H) 0.01 - 07/07/2019 0.08 10:16 PM CDT x10(9)/L Specimen Anatomical Collection Method Collection Time Receive d Time (Source) Location / / Volume Laterality Blood (Blood, 07/07/2019 10:10 07/07/2019 Venous) PM CDT 10:12 PM CDT Jf Anthony D.O. LAB BLOOD ADD-ON Performing Organization Address City/State/[facility] Code Phon e Number [address] [address] LAB Urinalysis with Microscopic: Urine, Clean Catch (07/07/2019 9:13 PM CDT) P athologist Signature Source Midstream 07/07/2019 9:29 PM CDT Clarity Clear Clear 07/07/2019 9:29 PM CDT Color Yellow 07/07/2019 9:29 PM CDT Comment: ----REFERENCE VALUE---- Colorless Yellow [place] Blood Negative Negative 07/07/2019 9:29 PM CDT Nitrite Negative Negative 07/07/2019 9:29 PM CDT Leukocyte Esterase Negative Negative 07/07/2019 9:29 PM CD T Protein Negative mg/dL 07/07/2019 9:29 PM CDT Comment: ----REFERENCE VALUE---- Negative Trace Glucose Negative Negative mg/dL 07/07/2019 9:29 PM CDT Ketone Negative Negative mg/dL 07/07/2019 9:29 PM CDT Bilirubin Negative Negative 07/07/2019 9:29 PM CDT pH 5.5 5.0 - 8.0 07/07/2019 9:29 PM CDT Specific [place] 1.019 1.001 - 1.035 07/07/2019 9:29 PM CDT Urobilinogen 1.0 0.2 - 1.0 07/07/2019 9:29 PM CDT White Blood Cells Occ-3 /hpf 07/07/2019 9:29 PM CDT Comment: ----REFERENCE VALUE---- Males: 0-3 Females: 0-10 Unknown: 0-10 Red Blood Cells None Seen 0 - 2 /hpf 07/07/2019 9:29 PM CDT Specimen Anatomical Collection Method Collection Time Receive d Time (Source) Location / / Volume Laterality Urine (Urine, 07/07/2019 9:13 PM 07/07/20 19 9:15 Clean Catch) CDT PM CDT Jf Anthony D.O. LAB URINE ORDERABLES Performing Organization Address City/State/[place] [address] LAB documented in this encounter Visit Diagnoses Diagnosis Abdominal Pain - Primary documented in this encounter Administered Medications Inactive Administered Medications - up to 3 most recent administrations Medication Order MAR Action Action Date Dose Rate Site diphenhydrAMINE injection 50 mg Given 07/07/2019 10:17 PM 50 mg Right Hand (BENADRYL) CDT 50 mg, intravenous, Once, On Francoise 07/07/19 at 2205, For 1 dose droperidol injection 1.25 mg Given 07/07/2019 10:16 PM CDT 1.25 mg Right Hand (INAPSINE) 1.25 mg, intravenous, Once, On Francoise 07/07/19 at 2205, For 1 dose HYDROmorphone injection 0.5 mg Given 07/07/2019 10:17 PM CDT 0.5 mg Right Hand (DILAUDID) 0.5 mg, intravenous, Every 30 min PRN, severe pain or score 7-10 of 10, Starting on Francoise 07/07/19 at 2204, For 3 doses ketorolac injection 30 mg (TORADOL) Given 07/07/2019 10:16 PM CDT 30 mg Righ t Hand 30 mg, intravenous, Once, On Francoise 07/07/19 at 2205, For 1 dose, Adult IV push rate: Over 15 seconds. Peds IV push rate: Over 1 minute. 60 mg dose only for IM, not recommended for IV. NaCl 0.9 % bolus 1,000 New Bag 07/07/2019 10:18 PM 1,000 mL 1000 mL/hr Right Hand mL CDT 1,000 mL, intravenous, at 1,000 mL/hr, Administer over 1 Hours, Once, On Francoise 07/07/19 at 2205, For 1 dose documented in this encounter Active and Recently Administered Medications Times are shown in CDT. Scheduled Medication Order 07/05/2019 07/06/2019 07/07/2019 diphenhydrAMINE injection 50 mg (BENADRYL) (COMPLETED) 2216 (Given - Provider: Jf Flores R.N.) 50 mg, intravenous, Once, On Francoise 07/07/19 at 2205, For 1 dose droperidol injection 1.25 mg (INAPSINE) (COMPLETED) 2215 (Given - Provider: Jf Flores R.N.) 1.25 mg, intravenous, Once, On Francoise 07/07/19 at 2205, For 1 dose ketorolac injection 30 mg (TORADOL) (COMPLETED) 2215 (Given - Provider: Jf Flores R.N.) 30 mg, intravenous, Once, On Francoise 07/07/19 at 2205, For 1 dose, Adult IV push rate: Over 15 seconds. Peds IV push rate: Over 1 minute. 60 mg dose only for IM, not recommended for IV. NaCl 0.9 % bolus 1,000 mL (COMPLETED) 221 (New Bag - Provider: Jf Flores R.N.)2318 (Stopped - Provider: Jf Flores R.N.) 1,000 mL, intravenous, at 1,000 mL/hr, A dminister over 1 Hours, Once, On Francoise 07/07/19 at 2205, For 1 dose PRN Medication Order 07/05/2019 07/06/2019 07/07/2019 HYDROmorphone injection 0.5 mg (DILAUDID) 8015 (Given - Provider: Jf Flores R.N.) 0.5 mg, intravenous, Every 30 min PRN, s guille pain or score 7-10 of 10, Starting on Francoise 07/07/19 at 2204, For 3 doses documented in this encounter Additional Health Concerns Assessment Noted Time PHQ-9 Depression Total Score: 18 02/26/2017 8:33 AM CD T documented as of this encounter Care Teams Food Service Worker Hospital Relationship Specialty Start Date End Date Avis Razo M.D. PCP - General 08/30/18 12/13/[address] [place] [address] [place] [address] documented as of this encounter
--- OUTSIDE RECORDS SUMMARY | 2022-07-26 14:36 | XMS_ITS | Encounter Summary ---
:1995 Author Organization [facility] Address [address] [place] [address] Care Team Providers Name Role Phone Avis Razo M.D. Primary Care Provider Reason for Visit Reason Comments Abdominal Pain sudden onset of left sided a bd pain. c/o nausea, and feeling dizzy. Encounter Details Date Type Department Care Team Description 06/06/2019 Emergency [facility] Anival Sims, Pain Flank (Primary Dx); System Clarita D.O. Abdominal Pain; Emergency Department [address] [facility] Injury Head Intracranial Closed With [place] s Of Consciousness Initial (HCC) [address] [place] [id number] [phone] Social History Tobacco Use Types Packs/Day Years Used Date Smoking Tobacco: Light Smoker Cigarettes E-cigarettes Smokeless Tobacco: Never Alcohol Use Standard Drinks/Week Comments No 0 (1 standard drink = 0.6 oz pure alcoho l) Sex Assigned at Date Recorded Not on file documented as of this encounter Last Filed Vital Signs Vital Sign Reading Time Taken Comments Blood Pressure 135/85 06/06/2019 3:00 PM CDT Pulse 85 06/06/2019 3:15 PM CDT Temperature 36.8 ??C (98.2 ??F) 06/06/2019 10:37 AM CDT Respiratory Rate 16 06/06/2019 3:15 PM CDT Oxygen Saturation 96% 06/06/2019 3:15 PM CDT Inhaled Oxygen Concentration - - Weight 113 kg (250 lb 3.6 oz) 06/06/2019 10:37 AM CDT Height 180.3 cm (5' 11) 06/06/2019 10:37 AM CDT Body Mass Index 34.9 06/06/2019 10:37 AM CDT documented in this encounter Discharge Instructions Discharge InstructionsWillAnival nagel D.O. - 06/06/2019 3:10 PM CDT You were seen in the emergency department for evaluation of your fall and abdominal pain. Your labs and imaging were reassuring. Please follow up with primary care. You may take the narcotic pain medication when gdds-jvu-nidmliz ibuprofen or Tylenol is not sufficient. Please note that the narcotic pain medication also has Tylenol in it and that you should not consume more than 4000 mg per day of Tylenol. Please follow all verbal instructions given to you. Do not drive, drink alcohol, or do anything important while taking the narcotic pain medication. Please return to the emergency department any new or worrisome symptoms and please review attached documents at discharge. AttachmentsThe following attachments cannot be sent through Care Everywhere.Head Injury Adult Dyvz-vl-Vndr (Palauan)Abdominal Pain Adult (Palauan)Pain Medicine Instructions (Palauan)documented in this encounter Medications at Time of Discharge Medication Sig Dispensed Refills Start Date End Date rizatriptan (MAXALT) 10 Take 1 tab for 0 05/03/20 18 mg tablet migraine, may repeat in 2 hours. Max dose: 30mg per 24 hrs. traZODone (DESYREL) 100 Take 100 mg by 0 05/03/20 18 mg tablet mouth. HYDROcodone-acetaminophen Take 1 tablet by 8 tablet 0 05/2306/09/2019 (NORCO) 5-325 mg per mouth every 6 (six) tabletIndications: Acute hours as needed for Pain pain for up to 3 days Indication: Acute Pain. documented as of this encounter ED Notes Anival Sims D.O. - 06/06/2019 10:47 AM CDT SUBJECTIVE: CHIEF COMPLAINT/REASON FOR VISIT: Abdominal Pain (sudden onset of left sided abd pain. c/o nausea, and feeling dizzy. ) HISTORY OF PRESENT ILLNESS: Donte Silva is a 24 y.o. male who presents to the Emergency Department with a chief complaint of left flank pain. The patient notes his pain is exactly like prior episodes of abdominal pain/flank pain after having a cholecystectomy 1 year prior. 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 History was not given at triageor initial eval. This information was obtained further in the patient's ED course. The patient notesis symptoms started approximately 25 minutes prior to arrival and is had no chance to attempt at home medications or figure out if there are any alleviating or aggravating factors. The patient notes a history of gastroesophageal reflux disease and notes that his symptoms today are different than thosesymptoms. REVIEW OF SYSTEMS: Constitutional: Negative for fever. HENT: Negative for congestion. Respiratory: Positive for shortness of breath. Cardiovascular: Negative for chest pain. Gastrointestinal: Positive for abdominal pain. Negative for nausea and vomiting. Genitourinary: Negative for dysuria. Musculoskeletal: Positive for back pain. Skin: Negative for rash. Neurological: Positive for dizziness (After fall). Negative for headaches. Psychiatric/Behavioral: Negative for confusion. ALLERGIES/MEDICATIONS: Reviewed in medical record PAST MEDICAL/FAMILY/SOCIAL [...] Non-medical: None Tobacco Use ??? Smoking status: Light Tobacco Smoker Types: E-cigarettes, Cigarettes ??? Smokeless tobacco: Never Used Substance and Sexual Activity ??? Alcohol use: No ??? Drug use: No ??? Sexual activity: Defer Lifestyle ??? Physical activity: Days per week: None Minutes per session: None ??? Stress: None Relationships ??? Social connections: Talks on phone: None Gets together: None Attends shinto service: None Active member of club or [...] No OBJECTIVE: INITIAL VITAL SIGNS: Initial Vitals Temperature Pulse Rate Heart Rate Resp Rate Blood Pressure SpO2 06/06/19 1037 06/06/19 1037 06/06/19 1037 06/06/19 1037 06/06/19 1037 06/06/19 1037 36.8 ??C 85 85 20 (!) 119/98 98 % Pain Score 06/06/19 1031 7 PHYSICAL EXAMINATION: Constitutional: He appears not lethargic. No distress. HENT: Head: Normocephalic and atraumatic. Nose: Nose normal. No nasal discharge. Mouth/Throat: Mucous membranes are moist. No Rios signs. No raccoon eyes. Eyes: Conjunctivae and EOM are normal. Neck: Normal range of motion. Neck supple. No tracheal deviation present. Cardiovascular: Normal rate and regular rhythm. Pulmonary/Chest: Effort normal and breath sounds normal. There is normal air entry. No respiratory distress. Abdominal: Soft. He exhibits no distension. There is tenderness. There is no rebound and no guarding. Negative [place]'s. Negative Teresa Mccord's. Musculoskeletal: Normal range of motion. He exhibits no deformity. Cervical back: He exhibits pain. He exhibits no tenderness, no bony tenderness and no deformity. Thoracic back: He exhibits pain. He exhibits no tenderness, no bony tenderness and no deformity. Lumbar back: He exhibits pain. He exhibits no tenderness, no bony tenderness and no deformity. Neurological: He is alert and oriented to person, place, and time. Skin: Skin is intact and normal color. No rash noted. Psychiatric: He has a normal mood and affect. His behavior is normal. Nursing note and vitals reviewed. ED COURSE: ED Course as of Jun 07 937 Mon Jun 06, 2019 1120 Patient now endorsing he fell down a flight of stairs and hit his head with loss of consciousness. Physical exam updated. Pain remains uncontrolled. HDS. 1330 Imaging negative. Patient still noting significant amount of pain. Will give Toradol and begin p.o. challenge. 1506 Patient's pain improved but not yet resolved. Patient in agreement with plan for discharge. Patient to follow up with primary care given acute on chronic worsening abdominal pain. Small amount of narcotics were given due to traumatic fall. Patient advised to use hhes-vsj-hjhtcmh medications 1st. N arcotic precautions given. 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 ED return precautions given. Patient in agreement with planand wishes to leave. Final Diagnoses: as of Jun 07 937 Pain Flank Abdominal Pain Injury Head Intracranial Closed With Loss Of Consciousness Initial (HCC) INTERVENTIONS: Medications NaCl 0.9 % bolus 1,000 mL (0 mL intravenous Stopped 06/06/19 1143) fentaNYL injection 75 mcg (SUBLIMAZE) (75 mcg intravenous Given 06/06/19 1102) HYDROmorphone injection 1 mg (DILAUDID) (1 mg intravenous Given 06/06/19 1124) sodium chloride 0.9 % injection 10 mL (10 mL intravenous Given 06/06/19 1236) NaCl 0.9 % bolus 100 mL (100 mL intravenous Bolus from Bag 06/06/19 1236) iohexol 350 mg iodine/mL solution 1-200 mL (OMNIPAQUE) (100 mL intravenous Given 06/06/19 1236) ketorolac injection 15 mg (TORADOL) (15 mg intravenous Given 06/06/19 1333) LABS: Labs Reviewed CBC WITH DIFFERENTIAL, B - Abnormal Result Value Hemoglobin 16.8 (*) Hematocrit 47.6 Erythrocytes 5.82 (*) MCV 81.8 RBC Distrib Width 12.1 Platelet Count 225 Leukocytes 10.3 (*) Neutrophils 6.39 Lymphocytes 2.83 Monocytes 0.80 Eosinophils 0.16 Basophils 0.11 (*) COMPREHENSIVE METABOLIC PANEL, S/P - Abnormal Potassium, P 4.2 Sodium, P 139 Chloride, P 100 Bicarbonate, P 25 Anion Gap, P 14 BUN, P 16 Creatinine, P 1.06 eGFR Black >90 eGFR Non-Black >90 Calcium, Total, P 10.1 (*) Glucose, P 95 Protein, Total, P 7.6 Albumin, P 4.5 Aspartate Aminotransferase (AST), P 46 Alkaline Phosphatase, P 103 Alanine Aminotransferase (ALT), P 44 Bilirubin, Total, P 1.6 (*) LIPASE, S/P Lipase, P 24 URINALYSIS WITH MICROSCOPIC Source Midstream Clarity Clear Color Yellow Blood Negative Nitrite Negative Leukocyte Esterase Negative Protein Negative Glucose Negative Ketone Negative Bilirubin Negative pH 5.5 Specific [place] 1.029 Urobilinogen 0.2 White Blood Cells None Seen Red Blood Cells None Seen ECG: RADIOLOGY: CT Lumbar Spine by Reconstruction Final Result No acute thoracolumbar spine osseous abnormality. CT Thoracic Spine by Reconstruction Final Result No acute thoracolumbar spine osseous abnormality. CT Chest with IV Contrast Final Result No definite acute CT abnormalities are demonstrated. CT Abdomen Pelvis with IV Contrast Final Result No definite acute CT abnormalities are demonstrated. CT Head without IV Contrast Final Result No acute CT abnormalities of the head are demonstrated. CT Cervical Spine without IV Contrast Final Result No acute findings. DX Foot Right 3+ Views Final Result Negative, no fracture or dislocation. PROCEDURES: None ASSESSMENT AND PLAN: Impression and Plan The patient is a pleasant 24-year-old male who presents emergency department initially with left upper quadrant abdominal pain that the patient notes intermittently gets this ever since he had his cholecystectomy. Further in the ED course, the patient elicited that he had fallen down 10 stairs prior to arrival. 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 No objective findings consistent with trauma. Patient with diffuse pain in flank, abdomen, and thorax. Given patient's history, broad trauma workup pending. From patient's history, unclear whether no t pain started prior to fall. Patient with mild distress secondary to pain but patient is nontoxic in appearance and in no acute cardiopulmonary distress. Will treat patient's symptoms. Disposition pending ED workup.. Reviewed and summarized previous medical records including: Documentation from previous visits. I personally reviewed the lab result(s) and my interpretation is: Normal Radiology results: Personally reviewed the radiology image and Reviewed the radiology report. Radiology interpretation: Normal DIAGNOSIS: Final diagnoses: [R10.9] Pain Flank [R10.9] Abdominal Pain [S06.9X9A] Injury Head Intracranial Closed With Loss Of Consciousness Initial (HCC) ED DISCHARGE MEDS: ED Prescriptions Medication Sig Dispense Start Date End Date Auth. Provider HYDROcodone-acetaminophen (NORCO) 5-325 mg per tablet Take 1 tablet by mouth every 6 (six) hours asneeded for pain for up to 3 days Indication: Acute Pain. 8 tablet 06/06/2019 06/09/2019 Meet Sims D.Stanley. DISPOSITION: Home or Self Alf or Self Care FOLLOW UP: Primary care Signature Dr Anival Sims DO Emergency Medicine Anival Sims D.O. 06/07/19 0937 documented in this encounter Plan of Treatment Not on filedocumented as of this encounter Procedures Procedure Name Priority Date/Time Associated Comments Diagnosis CT LUMBAR SPINE BY RAD - Emergent 06/06/2019 12:59 Res ults for RECONSTRUCTION (Fastest; for the PM CDT this pro cedure most critically are in the ill patients) results section. CT THORACIC SPINE BY RAD - Emergent 06/06/2019 12:57 R esults for RECONSTRUCTION (Fastest; for the PM CDT this pro cedure most critically are in the ill patients) results section. CT ABDOMEN PELVIS RAD - Emergent 06/06/2019 12:55 Resu lts for WITH IV CONTRAST (Fastest; for the PM CDT this p rocedure most critically are in the ill patients) results section. CT CHEST WITH IV RAD - Emergent 06/06/2019 12:55 Resul ts for CONTRAST (Fastest; for the PM CDT this proce dure most critically are in the ill patients) results section. CT CERVICAL SPINE RAD - Emergent 06/06/2019 12:53 Resu lts for WITHOUT IV CONTRAST (Fastest; for the PM CDT thi s procedure most critically are in the ill patients) results section. CT HEAD WITHOUT IV RAD - Emergent 06/06/2019 12:53 Res ults for CONTRAST (Fastest; for the PM CDT this proce dure most critically are in the ill patients) results section. DX FOOT RIGHT 3+ RAD - Semiurgent 06/06/2019 11:32 Res ults for VIEWS (Fast; most ED AM CDT this procedur e patients; some are in the inpatients) results section. URINALYSIS WITH STAT 06/06/2019 10:56 Results for MICROSCOPIC AM CDT this procedure are in the results section. CBC WITH STAT 06/06/2019 10:56 Results for DIFFERENTIAL, B AM CDT this procedu re are in the results section. LIPASE, S/P STAT 06/06/2019 10:56 Results for AM CDT this procedure are in the results section. COMPREHENSIVE STAT 06/06/2019 10:56 Results fo r METABOLIC PANEL, S/P AM CDT this pr ocedure are in the results section. PULSE OXIMETRY, STAT 06/06/2019 10:47 CONTINUOUS AM CDT documented in this encounter Results CT Lumbar Spine by Reconstruction (06/06/2019 12:59 PM CDT) Anatomical Region Laterality Modality Lumbar Spine, Neuroradiology RST LOS, Neuroradiology N/A Computed Tomography ARZ LOS, Neuroradiology FLA LOS Specimen (Source) Anatomical Collection Method Collection Time Re ceived Time Location / / Volume Laterality 06/06/2019 1:05 PM CDT Impressions 06/06/2019 1:08 PM CDT No acute thoracolumbar spine osseous abnormality. Narrative 06/06/2019 1:08 PM CDT EXAM: CT THORACIC SPINE BY RECONSTRUCTION, CT LUMBAR SPINE BY RECONSTRUCTION COMPARISON: None FINDINGS: There is no acute thoracolumba r spine osseous abnormality. Bone mineralization is within normal limits. Vertebral body height and disc height are maintained throughout the thoracolum bar spine. Visualized lungs appear clear. There are a few small rounded low attenuating structures in both kidneys, statistically most likely to represent s imple cysts. Procedure Note Young Meyer M.D. - 06/06/2019Form atting of this note might be different from the original. EXAM: CT THORACIC SPINE BY RECONSTRUCTIO N, CT LUMBAR SPINE BY RECONSTRUCTION COMPARISON: None FINDINGS: There is no acute thoracolumba r spine osseous abnormality. Bone mineralization is within normal limits. Vertebral body height and disc height are maintained throughout the thoracolum bar spine. Visualized lungs appear clear. There are a few small rounded low attenuating structures in both kidneys, statistically most likely to represent s imple cysts. IMPRESSION: No acute thoracolumbar spine osseous abn ormality. Anival NOLAN CT PROCEDURES CT Thoracic Spine by Reconstruction (06/06/2019 12:57 PM CDT) Anatomical Region Laterality Modality Thoracic Spine, Neuroradiology RST LOS, Neuroradiology N/A Computed Tomography ARZ LOS, Neuroradiology FLA LOS Specimen (Source) Anatomical Collection Method Collection Time Re ceived Time Location / / Volume Laterality 06/06/2019 1:05 PM CDT Impressions 06/06/2019 1:08 PM CDT No acute thoracolumbar spine osseous abnormality. Narrative 06/06/2019 1:08 PM CDT EXAM: CT THORACIC SPINE BY RECONSTRUCTION, CT LUMBAR SPINE BY RECONSTRUCTION COMPARISON: None FINDINGS: There is no acute thoracolumba r spine osseous abnormality. Bone mineralization is within normal limits. Vertebral body height and disc height are maintained throughout the thoracolum bar spine. Visualized lungs appear clear. There are a few small rounded low attenuating structures in both kidneys, statistically most likely to represent s imple cysts. Procedure Note Young Meyer M.D. - 06/06/2019Form atting of this note might be different from the original. EXAM: CT THORACIC SPINE BY RECONSTRUCTIO N, CT LUMBAR SPINE BY RECONSTRUCTION COMPARISON: None FINDINGS: There is no acute thoracolumba r spine osseous abnormality. Bone mineralization is within normal limits. Vertebral body height and disc height are maintained throughout the thoracolum bar spine. Visualized lungs appear clear. There are a few small rounded low attenuating structures in both kidneys, statistically most likely to represent s imple cysts. IMPRESSION: No acute thoracolumbar spine osseous abn ormality. Anival NOLAN CT PROCEDURES CT Abdomen Pelvis with IV Contrast (06/06/2019 12:55 PM CDT) Anatomical Region Laterality Modality Abdomen, Pelvis, Abdominal RST LOS, Abdominal ARZ LOS, N/A Computed Tomography Abdominal FLA LOS Specimen (Source) Anatomical Collection Method Collection Time Re ceived Time Location / / Volume Laterality 06/06/2019 1:00 PM CDT Impressions 06/06/2019 1:14 PM CDT No definite acute CT abnormalities are demonstrated. Narrative 06/06/2019 1:14 PM CDT EXAM: CT CHEST WITH IV CONTRAST, CT ABDOMEN PELVIS WITH IV CONTRAST 3D/MIPS: 3D Post-Processing performed on a dependent workstation. COMPARISON: January 09, 2019 FINDINGS: LUNGS AND LARGE AIRWAYS: Negative PLEURA: ?Negative HEART AND PERICARDIUM: ?? Negative MEDIASTINUM AND MARTHA: ?Negativ e CHEST WALL AND LOWER NECK: Negative VESSELS: ?Negative LIVER: ? Negative. SPLEEN: ?Neg ative.. PANCREAS: ?Negative. GALLBLADDER: ? Surgically absent ADRENAL GLANDS: Negative. KIDNEYS: ? Smal l bilateral renal cysts are identified. LYMPH NODES: ? Prominent but not pathologically enlarged mesenteric lymph nodes are identified. BOWEL: ? Neg ative. APPENDIX: ? Not visib le BLADDER AND PELVIS: Negative BONES: ? Neg ative OTHER: ? Non e. Procedure Note Dennys Tariq M.D. - 06/06/2019Forma tting of this note might be different from the original. EXAM: CT CHEST WITH IV CONTRAST, CT ABDO MEN PELVIS WITH IV CONTRAST 3D/MIPS: 3D Post-Processing performed on a dependent workstation. COMPARISON: January 09, 2019 FINDINGS: LUNGS AND LARGE AIRWAYS: Negative PLEURA: Negative HEART AND PERICARDIUM: Negative MEDIASTINUM AND MARTHA: Negative CHEST WALL AND LOWER NECK: Negative VESSELS: Negative LIVER: Negative. SPLEEN: Negative.. PANCREAS: Negative. GALLBLADDER: Surgically absent ADRENAL GLANDS: Negative. KIDNEYS: Small bilateral renal cysts are identified. LYMPH NODES: Prominent but not pathologi kae enlarged mesenteric lymph nodes are identified. BOWEL: Negative. APPENDIX: Not visible BLADDER AND PELVIS: Negative BONES: Negative OTHER: None. IMPRESSION: No definite acute CT abnormalities are d emonstrated. Anival NOLAN CT PROCEDURES CT Chest with IV Contrast (06/06/2019 12:55 PM CDT) Anatomical Region Laterality Modality Chest, Thoracic RST LOS, Thoracic ARZ LOS, Thoracic N/A Computed Tomography ARZ LOS, Thoracic FLA LOS Specimen (Source) Anatomical Collection Method Collection Time Re ceived Time Location / / Volume Laterality 06/06/2019 1:00 PM CDT Impressions 06/06/2019 1:14 PM CDT No definite acute CT abnormalities are demonstrated. Narrative 06/06/2019 1:14 PM CDT EXAM: CT CHEST WITH IV CONTRAST, CT ABDOMEN PELVIS WITH IV CONTRAST 3D/MIPS: 3D Post-Processing performed on a dependent workstation. COMPARISON: January 09, 2019 FINDINGS: LUNGS AND LARGE AIRWAYS: Negative PLEURA: ?Negative HEART AND PERICARDIUM: ?? Negative MEDIASTINUM AND MARTHA: ?Negativ e CHEST WALL AND LOWER NECK: Negative VESSELS: ?Negative LIVER: ? Negative. SPLEEN: ?Neg ative.. PANCREAS: ?Negative. GALLBLADDER: ? Surgically absent ADRENAL GLANDS: Negative. KIDNEYS: ? Smal l bilateral renal cysts are identified. LYMPH NODES: ? Prominent but not pathologically enlarged mesenteric lymph nodes are identified. BOWEL: ? Neg ative. APPENDIX: ? Not visib le BLADDER AND PELVIS: Negative BONES: ? Neg ative OTHER: ? Non e. Procedure Note Dennys Tariq M.D. - 06/06/2019Forma tting of this note might be different from the original. EXAM: CT CHEST WITH IV CONTRAST, CT ABDO MEN PELVIS WITH IV CONTRAST 3D/MIPS: 3D Post-Processing performed on a dependent workstation. COMPARISON: January 09, 2019 FINDINGS: LUNGS AND LARGE AIRWAYS: Negative PLEURA: Negative HEART AND PERICARDIUM: Negative MEDIASTINUM AND MARTHA: Negative CHEST WALL AND LOWER NECK: Negative VESSELS: Negative LIVER: Negative. SPLEEN: Negative.. PANCREAS: Negative. GALLBLADDER: Surgically absent ADRENAL GLANDS: Negative. KIDNEYS: Small bilateral renal cysts are identified. LYMPH NODES: Prominent but not pathologi kae enlarged mesenteric lymph nodes are identified. BOWEL: Negative. APPENDIX: Not visible BLADDER AND PELVIS: Negative BONES: Negative OTHER: None. IMPRESSION: No definite acute CT abnormalities are d emonstrated. Anival Sims D.O. IMWendy CT PROCEDURES CT Cervical Spine without IV Contrast (06/06/2019 12:53 PM CDT) Anatomical Region Laterality Modality Cervical Spine, Neuroradiology RST LOS, Neuroradiology N/A Computed Tomography ARZ LOS, Neuroradiology FLA LOS Specimen (Source) Anatomical Collection Method Collection Time Re ceived Time Location / / Volume Laterality 06/06/2019 1:00 PM CDT Impressions 06/06/2019 1:11 PM CDT No acute findings. Narrative 06/06/2019 1:11 PM CDT EXAM: CT CERVICAL SPINE WITHOUT IV CONTRAST COMPARISON: CT cervical spine 12/15/2018 FINDINGS: CT examination cervical spine demonstrates no evidence of fracture, subluxation, disc herniation, or epidura l hematoma. Procedure Note Herrera Arceo M.D. - 06/06/2019For matting of this note might be different from the original. EXAM: CT CERVICAL SPINE WITHOUT IV CONTR AST COMPARISON: CT cervical spine 12/15/2018 FINDINGS: CT examination cervical spine demonstrates no evidence of fracture, subluxation, disc herniation, or epidura l hematoma. IMPRESSION: No acute findings. Anival Sims D.O. IMWendy CT PROCEDURES CT Head without IV Contrast (06/06/2019 12:53 PM CDT) Anatomical Region Laterality Modality Head, Neuroradiology RST LOS, Neuroradiology ARZ LOS, N/A Computed Tomography Neuroradiology FLA LOS Specimen (Source) Anatomical Collection Method Collection Time Re ceived Time Location / / Volume Laterality 06/06/2019 12:57 PM CDT Impressions 06/06/2019 1:[address] CDT No acute CT abnormalities of the head are demonstrated. Narrative 06/06/2019 1:00 PM CDT EXAM: CT HEAD WITHOUT IV CONTRAST COMPARISON: December 15, 2018 FINDINGS: There is no evidence of mass e ffect nor edema nor midline shift nor ventriculomegaly nor CT evidence of intr acranial hemorrhage. Procedure Note Dennys Tariq M.D. - 06/06/2019Forma tting of this note might be different from the original. EXAM: CT HEAD WITHOUT IV CONTRAST COMPARISON: December 15, 2018 FINDINGS: There is no evidence of mass e ffect nor edema nor midline shift nor ventriculomegaly nor CT evidence of intr acranial hemorrhage. IMPRESSION: No acute CT abnormalities of the head ar e demonstrated. Anival Sims D.O. IMWendy CT PROCEDURES DX Foot Right 3+ Views (06/06/2019 11:32 AM CDT) Anatomical Region Laterality Modality Lower Extremity, Foot, Musculoskeletal RST LOS, Right Digital Radiography Musculoskeletal ARZ LOS, Muskuloskeletal FLA LOS Specimen (Source) Anatomical Collection Method Collection Time Re ceived Time Location / / Volume Laterality 06/06/2019 11:51 AM CDT Impressions 06/06/2019 11:52 AM CDT Negative, no fracture or dislocation. Narrative 06/06/2019 11:52 AM CDT EXAM: DX FOOT RIGHT 3+ VIEWS COMPARISON: None FINDINGS: Soft tissues are unremarkable. No fracture is identified. Joint spaces are preserved. Procedure Note Ricardo Grey Jr., M.D. - 2018 EXAM: DX FOOT RIGHT 3+ VIEWS COMPARISON: None FINDINGS: Soft tissues are unremarkable. No fracture is identified. Joint spaces are preserved. IMPRESSION: Negative, no fracture or dislocation. Anival NOLAN DIAGNOSTIC IMAGING PROCE DUR Urinalysis with Microscopic: Urine, Midstream (06/06/2019 10:56 AM CDT) athologist Signature Source Midstream 06/06/2019 11:12 AM CDT Clarity Clear Clear 06/06/2019 11:13 AM CDT Color Yellow 06/06/2019 11:13 AM CDT Comment: ----REFERENCE VALUE---- Colorless Yellow Julieta Blood Negative Negative 06/06/2019 11:13 AM CDT Nitrite Negative Negative 06/06/2019 11:13 AM CDT Leukocyte Esterase Negative Negative 06/06/2019 11:13 AM C DT Protein Negative mg/dL 06/06/2019 11:13 AM CDT Comment: ----REFERENCE VALUE---- Negative Trace Glucose Negative Negative mg/dL 06/06/2019 11:13 AM CDT Ketone Negative Negative mg/dL 06/06/2019 11:13 AM CDT Bilirubin Negative Negative 06/06/2019 11:13 AM CDT pH 5.5 5.0 - 8.0 06/06/2019 11:13 AM CDT Specific [place] 1.029 1.001 - 1.035 06/06/2019 11:13 AM CDT Urobilinogen 0.2 0.2 - 1.0 06/06/2019 11:13 AM CDT White Blood Cells None Seen /hpf 06/06/2019 11:13 AM CD T Comment: ----REFERENCE VALUE---- Males: 0-3 Females: 0-10 Unknown: 0-10 Red Blood Cells None Seen 0 - 2 /hpf 06/06/2019 11:13 AM CDT Specimen Anatomical Collection Method Collection Time Receive d Time (Source) Location / / Volume Laterality Urine (Urine, 06/06/2019 10:56 06/06/2019 Midstream) AM CDT 10:59 AM CDT Anival Sims D.O. LAB URINE ORDERABLES Performing Organization Address City/State/[place] [address] LAB (ABNORMAL) Comprehensive Metabolic Panel (06/06/2019 10:56 AM CDT) P athologist Signature Potassium, P 4.2 3.6 - 5.2 06/06/2019 mmol/L 11:18 AM CDT Sodium, P 139 135 - 145 06/06/2019 mmol/L 11:18 AM CDT Chloride, P 100 98 - 107 06/06/2019 mmol/L 11:18 AM CDT Bicarbonate, P 25 22 - 29 06/06/2019 mmol/L 11:18 AM CDT Anion Gap, P 14 7 - 15 06/06/2019 11:18 AM CDT BUN (Blood Urea 16 8 - 24 06/06/2019 Nitrogen), P mg/dL 11:18 AM CDT Creatinine 1.06 0.74 - 06/06/2019 1.35 mg/dL 11:18 AM CDT eGFR-Black/Afric >90 >=60 06/06/2019 an Tongan mL/min/BSA 11:18 AM CDT Comment: ----ADDITIONAL INFORMATION---- Estimated GFR calculated using the 2009 CKD_EPI creatinine equation. eGFR Non-Black/ >90 >=60 mL/min/BSA 11:18 AM CDT Comment: ----ADDITIONAL INFORMATION---- Estimated GFR calculated using the 2009 CKD_EPI creatinine equation. Calcium, Total, P 10.1 (H) 8.6 - 10.0 mg/dL 06/06/2019 11:1 8 AM CDT Glucose, P 95 70 - 140 mg/dL 06/06/2019 11:18 AM CDT Protein, Total, P 7.6 6.3 - 7.9 g/dL 06/06/2019 11:18 AM CDT Albumin, P 4.5 3.5 - 5.0 g/dL 06/06/2019 11:18 AM CDT Aspartate Aminotransferase 46 8 - 48 U/L 06/06/2019 1 1:18 AM CDT (AST), P Alkaline Phosphatase, P 103 40 - 129 U/L 06/06/2019 11 :18 AM CDT Alanine Aminotransferase 44 7 - 55 U/L 06/06/2019 11: 18 AM CDT (ALT), P Bilirubin, Total, P 1.6 (H) <=1.2 mg/dL 06/06/2019 11:18 A M CDT Specimen Anatomical Collection Method Collection Time Receive d Time (Source) Location / / Volume Laterality Blood (Blood, 06/06/2019 10:56 06/06/2019 Venous) AM CDT 10:59 AM CDT Anival Sims D.O. LAB BLOOD ADD-ON Performing Organization Address City/State/ZIP Code Phon e Number [facility] [phone] [place] [address] LAB Lipase (06/06/2019 10:56 AM CDT) P athologist Signature Lipase, P 24 13 - 60 U/L 06/06/2019 11:18 AM CDT Specimen Anatomical Collection Method Collection Time Receive d Time (Source) Location / / Volume Laterality Blood (Blood, 06/06/2019 10:56 06/06/2019 Venous) AM CDT 10:59 AM CDT Anival Sims D.O. LAB BLOOD ADD-ON Performing Organization Address City/State/ZIP Code Phon e Number [address] [id number] LAB (ABNORMAL) CBC with Differential (06/06/2019 10:56 AM CDT) [facility] Method Time Signature Hemoglobin 16.8 (H) 13.2 - 06/06/2019 16.6 g/dL 11:06 AM CDT Hematocrit 47.6 38.3 - 06/06/2019 48.6 % 11:06 AM CDT Erythrocytes 5.82 (H) 4.35 - 06/06/2019 5.65 11:06 AM CDT x10(12)/L MCV 81.8 78.2 - 06/06/2019 97.9 fL 11:06 AM CDT RBC Distrib Width 12.1 11.8 - 06/06/2019 14.5 % 11:06 AM CDT Platelet Count 225 135 - 317 06/06/2019 x10(9)/L 11:06 AM CDT Leukocytes 10.3 (H) 3.4 - 9.6 06/06/2019 x10(9)/L 11:06 AM CDT Neutrophils 6.39 1.56 - 06/06/2019 6.45 11:06 AM CDT x10(9)/L Lymphocytes 2.83 0.95 - 06/06/2019 3.07 11:06 AM CDT x10(9)/L Monocytes 0.80 0.26 - 06/06/2019 0.81 11:06 AM CDT x10(9)/L Eosinophils 0.16 0.03 - 06/06/2019 0.48 11:06 AM CDT x10(9)/L Basophils 0.11 (H) 0.01 - 06/06/2019 0.08 11:06 AM CDT x10(9)/L Specimen Anatomical Collection Method Collection Time Receive d Time (Source) Location / / Volume Laterality Blood (Blood, 06/06/2019 10:56 06/06/2019 Venous) AM CDT 10:59 AM CDT Anival Sims D.O. LAB BLOOD ADD-ON Performing Organization Address City/State/ZIP Code Phon e Number [address] [id number] LAB documented in this encounter Visit Diagnoses Diagnosis Pain Flank - Primary Abdominal Pain Injury Head Intracranial Closed With [place] [facility] Initial (HCC) documented in this encounter Administered Medications Inactive Administered Medications - up to 3 most recent administrations Medication Order MAR Action Action Date Dose Rate Site fentaNYL injection 75 mcg Given 06/06/2019 11:02 AM CDT 75 mcg (SUBLIMAZE) 75 mcg, intravenous, Once, On Thu06/06/19 at 1048, For 1 dose HYDROmorphone injection 1 mg (DILAUDID) Given 06/06/2019 11:24 AM CDT 1 mg 1 mg, intravenous, Once, On Thu06/06/19 at 1120, For 1 dose iohexol 350 mg iodine/mL solution 1-200 mL Given 06/06/2019 12:36 PM CDT 100 mL (OMNIPAQUE) 1-200 mL, intravenous, Once in imaging, contrast, for CT imaging, Starting on Thu06/06/19 at 1208, For 1 dose, Dose per [facility]iant Medication Guidelines ketorolac injection 15 mg (TORADOL) Given 06/06/2019 1:33 PM CDT 15 mg 15 mg, intravenous, Once, On Thu06/06/19 at 1331, For 1 dose, Adult IV push rate: Over 15 seconds. Peds IV push rate: Over 1 minute. 60 mg dose only for IM, not recommended for IV. NaCl 0.9 % bolus 1,000 mL New Bag 06/06/2019 11:03 AM CDT 1,000 mL 2000 mL/hr 1,000 mL, intravenous, at 2,000 mL/hr, Administer over 0.5 Hours, Once, On Thu06/06/19 at 1048, For 1 dose NaCl 0.9 % bolus 100 mL Bolus from Bag 06/06/2019 12:36 PM CDT 100 mL 100 mL, intravenous, Once in imaging, needed for CT, Starting on Thu06/06/19 at 1208, For 1 dose sodium chloride 0.9 % injection 10 mL 10 mL, intravenous, As needed, line care, Starting on Thu06/06/19 at 1046, Peripheral Intravenous Catheter and Rapid Infusion Cat heter, prior to blood sampling, post blood transfusion or post blood samplin g sodium chloride 0.9 % injection 10 mL Given 06/06/2019 12:36 PM CDT 10 mL 10 mL, intravenous, Once in imaging, line care, For CT exam, Starting on Thu06/06/19 at 1208, For 1 dose sodium chloride 0.9 % injection 3 mL 3 mL, intravenous, As needed, line care, Starting on Thu06/06/19 at 1046, Prior to and following infusion and between multi ple consecutive infusions: sodium chloride 0.9 % injection sodium chloride 0.9 % injection 3 mL 3 mL, intravenous, Every 12 hours scheduled, First dos e on Thu06/06/19 at 2100, Peripheral Intravenous Catheter and Rapi d Infusion Catheter, when no infusion to maintain patency documented in this encounter Active and Recently Administered Medications Times are shown in CDT. Scheduled Medication Order 06/04/2019 06/05/2019 06/06/2019 fentaNYL injection 75 mcg (SUBLIMAZE) (COMPLETED) 1102 (Given - Provider: Annel Gomez, R.N.) 75 mcg, intravenous, Once, On Thu06/06/19 at 1048, For 1 dose HYDROmorphone injection 1 mg (DILAUDID) (COMPLETED) 1124 (Given - Provider: Annel Gomez, R.N.) 1 mg, intravenous, Once, On Thu06/06/19 at 1120, For 1 dose ketorolac injection 15 mg (TORADOL) (COMPLETED) 1333 (Given - Provider: Annel Gomez, R.N.) 15 mg, intravenous, Once, On Thu06/06/19 at 1331, For 1 dose, Adult IV push rate: Over 15 seconds. Peds IV push rate: Over 1 minute. 60 mg dose only for IM, not recommended for IV. NaCl 0.9 % bolus 1,000 mL (COMPLETED) 1103 (New Bag - Provider: Annel Gomez, R.N.)1143 (Stopped - Provider: Annel Gomez, R.N.) 1,000 mL, intravenous, at 2,000 mL/hr, A dminister over 0.5 Hours, Once, On Thu06/06/19 at 1048, For 1 dose sodium chloride 0.9 % injection 3 mL 3 mL, intravenous, Every 12 hours schedu led, First dose on Thu06/06/19 at 2100, Peripheral Intravenous Catheter and Rapid Infusion Catheter, when no infusion to maintain patency PRN Medication Order 06/04/2019 06/05/2019 06/06/2019 iohexol 350 mg iodine/mL solution 1-200 mL (OMNIPAQUE) (COMPLETE D) 1236 (Given - Provider: Danielle Harrington(Aubree)(CT), R.TDameon(R)) 1-200 mL, intravenous, Once in imaging, contrast, for CT imaging, Starting on Thu06/06/19 at 1208, For 1 dose, Dose per Radiant Medication Guidelines NaCl 0.9 % bolus 100 mL (COMPLETED) 1236 (Bolus from Bag - Provider: Danielle Harrington(Aubree)(CT), R.TDameon(R)) 100 mL, intravenous, Once in imaging, ne eded for CT, Starting on Thu06/06/19 at 1208, For 1 dose sodium chloride 0.9 % injection 10 mL 10 mL, intravenous, As needed, line care , Starting on Thu06/06/19 at 1046, Peripheral Intravenous Catheter and Rapid Infusion Catheter, prior to blood sampling, post blood transfusion or post blood sampling sodium chloride 0.9 % injection 10 mL (COMPLETED) 1236 (Given - Provider: Danielle Harrington(Aubree)(CT), R.TDameon(R)) 10 mL, intravenous, Once in imaging, tracy e care, For CT exam, Starting on Thu06/06/19 at 1208, For 1 dose sodium chloride 0.9 % injection 3 mL 3 mL, intravenous, As needed, line care, Starting on Thu06/06/19 at 1046, Prior to and following infusion and between multiple consecutive infusions: sodium chloride 0.9 % injection documented in this encounter Additional Health Concerns Assessment Noted Time PHQ-9 Depression Total Score: 18 02/26/2017 8:33 AM CD T documented as of this encounter Care Teams Air Moving Technician Relationship Specialty Start Date End Date Avis Razo M.D. PCP - General 08/30/18 12/13/[address] [place] [address] CHRISTINA Castellanos [phone] documented as of this encounter
--- OUTSIDE RECORDS SUMMARY | 2022-07-26 14:36 | XMS_ITS | Encounter Summary ---
:1995 Author Organization [facility] Address [address] [place] [address] Care Team Providers Name Role Phone Avis Razo M.D. 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 PCP - General 08/30/18 12/13/[address] [place] [address] [place] [id number] documented as of this encounter
--- OUTSIDE RECORDS SUMMARY | 2022-07-26 14:36 | XMS_ITS | Encounter Summary ---
:1995 Author Organization [facility] Address [address] [place] [address] Care Team Providers Name Role Phone Avis Razo M.D. Primary Care Provider Reason for Visit Reason Comments Back Pain onset of right flank pain fo r 2 days, ibuprofen at 0800, no injury no urinary symptoms Encounter Details Date Type Department Care Team Description 01/16/2019 Emergency [facility] Kita Sinha D.O. Pain Flank (Primary Dx) System [address] Emergency Department [address] [id number] [phone] Social History Tobacco Use Types Packs/Day Years Used Date Smoking Tobacco: Light Smoker Cigarettes E-cigarettes Smokeless Tobacco: Never Alcohol Use Standard Drinks/Week Comments No 0 (1 standard drink = 0.6 oz pure alcoho l) Sex Assigned at Date Recorded Not on file documented as of this encounter Last Filed Vital Signs Vital Sign Reading Time Taken Comments Blood Pressure 156/77 01/16/2019 2:00 PM MECHANICAL TEST TECHNICIAN Pulse 70 01/16/2019 2:00 PM MECHANICAL TEST TECHNICIAN Temperature 36.2 ??C (97.2 ??F) 01/16/2019 11:40 AM MECHANICAL TEST TECHNICIAN Respiratory Rate 16 01/16/2019 11:40 AM MECHANICAL TEST TECHNICIAN Oxygen Saturation 97% 01/16/2019 2:00 PM MECHANICAL TEST TECHNICIAN Inhaled Oxygen Concentration - - Weight 110 kg (243 lb 2.7 oz) 01/16/2019 11:40 AM MECHANICAL TEST TECHNICIAN Height 177.8 cm (5' 10) 01/16/2019 11:40 AM MECHANICAL TEST TECHNICIAN Body Mass Index 34.89 01/16/2019 11:40 AM MECHANICAL TEST TECHNICIAN documented in this encounter Discharge Instructions Discharge Silvia Willoughbyh N, D.O. - 01/16/2019 1:57 PM CST 1. Follow up with your regular doctor in 2 days 2. Return to the emergency department for any worsening symptoms, if symptoms do not improve, or anyother concerns. ANICAL TEST TECHNICIAN AttachmentsThe following attachments cannot be sent through Care Everywhere. Flank Pain Adult (Senegalese)documented in this encounter Medications at Time of Discharge Medication Sig Dispensed Refills Start Date End Date rizatriptan (MAXALT) 10 mg Take 1 tab for 0 05/03 tablet migraine, may repeat in 2 hours. Max dose: 30mg per 24 hrs. traZODone (DESYREL) 100 mg Take 100 mg by 0 05/03 tablet mouth. naproxen (NAPROSYN) 500 mg Take 1 tablet (500 10 tablet 0 0 01/16/2019 01/21/2019 tablet mg total) by mouth 2 (two) times a day with meals for 5 days. ondansetron ODT Take 1 tablet (4 mg 9 tablet 0 01/09/2019 01/19/2019 (ZOFRAN-ODT) 4 mg total) by mouth disintegrating tablet every 8 (eight) hours as needed for nausea or vomiting for up to 10 days. documented as of this encounter ED Notes Kita Sinha D.O. - 01/16/2019 2:11 PM CST SUBJECTIVE: CHIEF COMPLAINT/REASON FOR VISIT: Back Pain (onset of right flank pain for 2 days, ibuprofen at 0800, no injury no urinary symptoms) HISTORY OF PRESENT ILLNESS: This is a 23-year-old male who presents to the emergency room for right flank pain. Patient tells mehis pain started 2 days ago. It is in the right flank and radiates to the right lower quadrant. Patient denies any trauma. He does endorse hematuria. No fevers or chills. Does have a history of gallbladder stone. He is status post cholecystectomy. He tells me that his pain today felt similar to the pain he had when he had to have his gallbladder taken out. Denies any chest pain or shortness of breath. No fevers or chills at home. No penile discharge. No testicular pain. No other complaints. History provided by: Patient dock hand needed/used: no Flank Pain This is a new problem. The current episode started in the past 7 days. The problem occurs constantly. The problem is unchanged. The pain is present in the right flank. The quality of the pain is described as shooting. Radiates to: Right lower quadrant abdominal pain. The pain is at a severity of 7/10.The pain is moderate. The pain is the same all the time. The symptoms are aggravated by position. Symptoms are worse all day. He has tried nothing for the symptoms. REVIEW OF SYSTEMS: Constitutional: Negative. HENT: Negative. Eyes: Negative. Respiratory: Negative. Cardiovascular: Negative. Gastrointestinal: Negative. Genitourinary: Positive for flank pain. Skin: Negative. Neurological: Negative. Psychiatric/Behavioral: Negative. ALLERGIES/MEDICATIONS: Reviewed in medical record PAST MEDICAL/FAMILY/SOCIAL HISTORY: Medical History: Past Medical History: Diagnosis Date ??? Gallstone Patient Active Problem List Diagnosis Date Noted ??? Depression Anxiety 08/04/2016 ??? Attention Deficit With Hyperactivity Disorder 04/07/2005 Surgical History: Past Surgical History: Procedure Laterality Date ??? CHOLECYSTECTOMY Family History: Reviewed in chart Social History: Social History Social History ??? Marital status: Single Spouse name: N/A ??? Number of children: N/A ??? Years of education: N/A Social History Main Topics ??? Smoking status: Light Tobacco Smoker Types: E-cigarettes, Cigarettes ??? Smokeless tobacco: Never Used ??? Alcohol use No ??? Drug use: No ??? Sexual activity: Defer Other Topics Concern ??? None Social History Narrative ??? None History Alcohol Use No History Drug Use No OBJECTIVE: INITIAL VITAL SIGNS: Initial Vitals Temperature Pulse Rate Heart Rate Resp Rate Blood Pressure SpO2 01/16/19 1140 01/16/19 1200 01/16/19 1140 01/16/19 1140 01/16/19 1140 01/16/19 1140 36.2 ??C 83 73 16 129/85 98 % Pain Score 01/16/19 1141 5 - Moderate pain PHYSICAL EXAMINATION: Constitutional: He appears well-developed and well-nourished. HENT: Head: Atraumatic. Nose: Nose normal. Mouth/Throat: Oropharynx is clear and moist. Mucous membranes are moist. Eyes: Conjunctivae and EOM are normal. Neck: Neck supple. Cardiovascular: Normal rate, regular rhythm and normal heart sounds. Pulses are strong and palpable.Capillary refill: takes less than 3 seconds, Pulmonary/Chest: Effort normal and breath sounds normal. Abdominal: Soft. Bowel sounds are normal. There is tenderness in the right flank. Musculoskeletal: Normal range of motion. Neurological: He is alert and oriented to person, place, and time. Skin: Skin is warm and dry. Psychiatric: He has a normal mood and affect. ED COURSE: Final Diagnoses: as of Jan 16 1801 Pain Flank INTERVENTIONS: Medications NaCl 0.9 % bolus 1,000 mL (0 mL intravenous Stopped 01/16/19 1238) morphine injection 4 mg (4 mg intravenous Given 01/16/19 1208) ondansetron (PF) injection 4 mg (ZOFRAN) (4 mg intravenous Given 01/16/19 1208) ketorolac injection 30 mg (TORADOL) (30 mg intravenous Given 01/16/19 1305) ECG: ASSESSMENT AND PLAN: Impression and Plan Patient taken to a room and examined. IV was established. Lab work was drawn. Patient was given IV fluids. He was given IV pain medications. Urinalysis was obtained. The results were reviewed the patient. The lab work are reassuring. The urinalysis shows no hematuria. His lab work are reassuring. At this time I do not think he requires imaging. I think he is safe for discharge home at this time. I have gone over the treatment plan with the patient he is comfortable the plan. The patient is to followup with the regular doctor in 1-2 days. Return to the ER if symptoms worsen, don't improve, or any concerns. Patient verbalized understanding. Patient is discharged.. DIAGNOSIS: Final diagnoses: [R10.9] Pain Flank ED DISCHARGE MEDS: ED Prescriptions Medication Sig Dispense Start Date End Date Auth. Provider naproxen (NAPROSYN) 500 mg tablet Take 1 tablet (500 mg total) by mouth 2 (two) times a day with meals for 5 days. 10 tablet 01/16/2019 01/21/2019 Kita Sinha D.O. Ho, Trinh N, D.O. 01/16/191800 ANICAL TEST TECHNICIAN documented in this encounter Plan of Treatment Not on filedocumented as of this encounter Procedures Procedure Name Priority Date/Time Associated Comments Diagnosis URINALYSIS WITH STAT 01/16/2019 12:15 Results for this MICROSCOPIC PM MECHANICAL TEST TECHNICIAN procedure are i n the results section. CBC WITH DIFFERENTIAL, STAT 01/16/2019 12:04 R esults for this B PM MECHANICAL TEST TECHNICIAN procedure are i n the results section. LIPASE, S/P STAT 01/16/2019 12:04 Results for this PM MECHANICAL TEST TECHNICIAN procedure are i n the results section. COMPREHENSIVE STAT 01/16/2019 12:04 Results fo r this METABOLIC PANEL, S/P PM MECHANICAL TEST TECHNICIAN procedu re are in the results section. documented in this encounter Results Urinalysis with Microscopic (01/16/2019 12:15 PM MECHANICAL TEST TECHNICIAN) athologist Signature Source Midstream 01/16/2019 [facility] 12:35 PM [facility] Clarity Clear Clear 01/16/2019 [facility] 12:36 PM [facility] Color Yellow 01/16/2019 [facility] 12:36 PM [facility] Comment: ----REFERENCE VALUE---- Colorless Yellow Julieta Blood Negative Negative 01/16/2019 12:36 PM [facility] Nitrite Negative Negative 01/16/2019 12:36 PM [facility] Leukocyte Esterase Negative Negative 01/16/2019 12:36 PM [facility] Protein Negative mg/dL 01/16/2019 12:36 PM [facility] Comment: ----REFERENCE VALUE---- Negative Trace Glucose Negative Negative mg/dL 01/16/2019 12:36 PM [facility] Ketone Negative Negative mg/dL 01/16/2019 12:36 PM [facility] Bilirubin Negative Negative 01/16/2019 12:36 PM [facility] pH 7.0 5.0 - 8.0 01/16/2019 12:36 PM [facility] Specific [place] 1.016 1.001 - 1.035 01/16/2019 12:36 PM [facility] Urobilinogen 0.2 0.2 - 1.0 01/16/2019 12:36 PM [facility] White Blood Cells None Seen /hpf 01/16/2019 12:36 PM [facility] Comment: ----REFERENCE VALUE---- Males: 0-3 Females: 0-10 Unknown: 0-10 Red Blood Cells None Seen 0 - 2 /hpf 01/16/2019 12:36 PM [facility] Specimen Anatomical Collection Method Collection Time Receive d Time (Source) Location / / Volume Laterality Urine (Urine, 01/16/2019 12:15 01/16/2019 Midstream) PM MECHANICAL TEST TECHNICIAN 12:19 PM MECHANICAL TEST TECHNICIAN Kita Sinha D.O. LAB URINE ORDERABLES Performing Organization Address City/[facility] Phon e Number [place] [id number] [place] [address] LAB Lipase (01/16/2019 12:04 PM MECHANICAL TEST TECHNICIAN) P athologist Signature Lipase, P 24 13 - 60 U/L 01/16/2019 [facility] 12:43 PM [facility] Specimen Anatomical Collection Method Collection Time Receive d Time (Source) Location / / Volume Laterality Blood (Blood, 01/16/2019 12:04 01/16/2019 Venous) PM MECHANICAL TEST TECHNICIAN 12:17 PM MECHANICAL TEST TECHNICIAN Kita Sinha D.O. LAB BLOOD ADD-ON Performing Organization Address City/[facility] Phon e Number [facility] [address] [place] [id number] LAB (ABNORMAL) Comprehensive Metabolic Panel (01/16/2019 12:04 PM MECHANICAL TEST TECHNICIAN) P athologist Signature Potassium, P 4.1 3.6 - 5.2 01/16/2019 [facility] mmol/L 12:43 PM [facility] Sodium, P 137 135 - 145 01/16/2019 [facility] mmol/L 12:43 PM [facility] Chloride, P 102 98 - 107 01/16/2019 [facility] mmol/L 12:43 PM [facility] Bicarbonate, P 26 22 - 29 01/16/2019 [facility] mmol/L 12:43 PM [facility] Anion Gap, P 9 7 - 15 01/16/2019 [facility] 12:43 PM [facility] BUN (Blood Urea 9 8 - 24 01/16/2019 [facility] Nitrogen), P mg/dL 12:43 PM [facility] Creatinine 0.90 0.74 - 01/16/2019 [facility] 1.35 mg/dL 12:43 PM [facility] eGFR-Black/Afri >90 >=60 01/16/2019 [facility] can [place]ian mL/min/BSA 12:43 PM [facility] LAB Comment: ----ADDITIONAL INFORMATION---- Estimated GFR calculated using the 2009 CKD_EPI creatinine equation. eGFR Non-Black/ >90 >=60 mL/min/BSA 01/16/2019 12:43 PM [facility] LAB Comment: ----ADDITIONAL INFORMATION---- Estimated GFR calculated using the 2009 CKD_EPI creatinine equation. Calcium, Total, P 9.3 8.6 - 10.0 01/16/2019 12:43 PM [facility] mg/dL [facility] Glucose, P 120 70 - 140 mg/dL 01/16/2019 12:43 PM [facility] Protein, Total, P 6.1 (L) 6.3 - 7.9 g/dL 01/16/2019 12:43 PM [facility] Albumin, P 3.8 3.5 - 5.0 g/dL 01/16/2019 12:43 PM [facility] Aspartate 37 8 - 48 U/L 01/16/2019 12:43 PM [facility] IC Aminotransferase (AST), P [facility] Alkaline Phosphatase, P 75 40 - 129 U/L 01/16/2019 12 :43 PM [facility] Alanine Aminotransferase 43 7 - 55 U/L 01/16/2019 12: 43 PM [facility] (ALT), P [facility] Bilirubin, Total, P 0.8 <=1.2 mg/dL 01/16/2019 12:43 P M [facility] Specimen Anatomical Collection Method Collection Time Receive d Time (Source) Location / / Volume Laterality Blood (Blood, 01/16/2019 12:04 01/16/2019 Venous) PM MECHANICAL TEST TECHNICIAN 12:17 PM MECHANICAL TEST TECHNICIAN Kita Sinha D.O. LAB BLOOD ADD-ON Performing Organization Address City/State/ZIP Code Phon e Number [facility] [address] [place] [address] LAB (ABNORMAL) CBC with Differential (01/16/2019 12:04 PM MECHANICAL TEST TECHNICIAN) [facility] Method Time Signature Hemoglobin 16.5 13.2 - 01/16/2019 [facility] 16.6 g/dL 12:23 PM [facility] Hematocrit 46.0 38.3 - 01/16/2019 [facility] 48.6 % 12:23 PM [facility] Erythrocytes 5.67 (H) 4.35 - 01/16/2019 [facility] 5.65 12:23 PM [facility]ALTH x10(12)/L [facility] MCV 81.1 78.2 - 01/16/2019 [facility] 97.9 fL 12:23 PM [facility] RBC Distrib Width 12.9 11.8 - 01/16/2019 [facility] 14.5 % 12:23 PM [facility] Platelet Count 184 135 - 317 01/16/2019 [facility] x10(9)/L 12:23 PM [facility] Leukocytes 7.5 3.4 - 9.6 01/16/2019 [facility] x10(9)/L 12:23 PM [facility] Neutrophils 4.37 1.56 - 01/16/2019 [facility] 6.45 12:23 PM [facility] HEALTH x10(9)/L [facility] LAB Lymphocytes 2.31 0.95 - 01/16/2019 [facility] 3.07 12:23 PM MECHANICAL TEST TECHNICIAN HEALTH x10(9)/L [facility] Monocytes 0.55 0.26 - 01/16/2019 [facility] 0.81 12:[address] [facility] x10(9)/L [facility] Eosinophils 0.16 0.03 - 01/16/2019 [facility] 0.48 12:23 PM MECHANICAL TEST TECHNICIAN HEALTH x10(9)/L [facility] Basophils 0.08 0.01 - 01/16/2019 [facility] 0.08 12:23 PM MECHANICAL TEST TECHNICIAN HEALTH x10(9)/L [facility] LAB Specimen Anatomical Collection Method Collection Time Receive d Time (Source) Location / / Volume Laterality Blood (Blood, 01/16/2019 12:04 01/16/2019 Venous) PM MECHANICAL TEST TECHNICIAN 12:17 PM MECHANICAL TEST TECHNICIAN Kita Sinha D.O. LAB BLOOD ADD-ON Performing Organization Address City/State/ZIP Code Phon e Number [facility] [address] [place] [address] LAB documented in this encounter Visit Diagnoses Diagnosis Pain Flank - Primary documented in this encounter Administered Medications Inactive Administered Medications - up to 3 most recent administrations Medication Order MAR Action Action Date Dose Rate Site ketorolac injection 30 mg (TORADOL) Given 01/16/2019 1:05 PM MECHANICAL TEST TECHNICIAN 30 mg 30 mg, intravenous, Once, On 01/16/19 at 1253, For 1 dose, Adult IV push rate: Over 15 seconds. Peds IV push rate: Over 1 minute. 60 mg dose only for IM, not recommended for IV. morphine injection 4 mg Given 01/16/2019 12:08 PM MECHANICAL TEST TECHNICIAN 4 mg 4 mg, intravenous, Once, On 01/16/19 at 1155, For 1 dose NaCl 0.9 % bolus 1,000 mL New Bag 01/16/2019 12:08 PM MECHANICAL TEST TECHNICIAN 1,000 mL 2000 mL/hr 1,000 mL, intravenous, at 2,000 mL/hr, Administer over 0.5 Hours, Once, On 01/16/19 at 1155, For 1 dose ondansetron (PF) injection 4 mg (ZOFRAN) Given 01/16/2019 12:08 PM MECHANICAL TEST TECHNICIAN 4 mg 4 mg, intravenous, Once, On 01/16/19 at 1155, For 1 dose sodium chloride 0.9 % injection 10 mL 10 mL, intravenous, As needed, line care, Starting on 01/16/19 at 1153, Peripheral Intravenous Catheter and Rapid Infusion Cat heter, prior to blood sampling, post blood transfusion or post blood samplin g sodium chloride 0.9 % injection 3 mL 3 mL, intravenous, As needed, line care, Starting on Thu01/16/19 at 1153, Prior to and following infusion and between multi ple consecutive infusions: sodium chloride 0.9 % injection sodium chloride 0.9 % injection 3 mL 3 mL, intravenous, Every 12 hours scheduled, First dos e on Thu01/16/19 at 2100, Peripheral Intravenous Catheter and Rapi d Infusion Catheter, when no infusion to maintain patency documented in this encounter Active and Recently Administered Medications Times are shown in MECHANICAL TEST TECHNICIAN. Scheduled Medication Order 01/14/2019 01/15/2019 01/16/2019 ketorolac injection 30 mg (TORADOL) (COMPLETED) 1305 (Given - Provider: Filemon Nieto R.N.) 30 mg, intravenous, Once, On [place] 01/16/19 at 1253, For 1 dose, Adult IV push rate: Over 15 seconds. Peds IV push rate: Over 1 minute. 60 mg dose only for IM, not recommended for IV. morphine injection 4 mg (COMPLETED) 1208 (Given - Provider: Filemon Nieto R.N.) 4 mg, intravenous, Once, On [place] 01/16/19 at 1155, For 1 dose NaCl 0.9 % bolus 1,000 mL (COMPLETED) 1208 (New Bag - Provider: Filemon Nieto R.N.)1238 (Stopped - Provider: Filemon Nieto R.N.) 1,000 mL, intravenous, at 2,000 mL/hr, A dminister over 0.5 Hours, Once, On [place] 01/16/19 at 1155, For 1 dose ondansetron (PF) injection 4 mg (ZOFRAN) (COMPLETED) 1208 (Given - Provider: Filemon Nieto R.N.) 4 mg, intravenous, Once, On Thu01/16/19 at 1155, For 1 dose sodium chloride 0.9 % injection 3 mL 3 mL, intravenous, Every 12 hours schedu led, First dose on Thu01/16/19 at 2100, Peripheral Intravenous Catheter and Rapid Infusion Catheter, when no infusion to maintain patency PRN Medication Order 01/14/2019 01/15/2019 01/16/2019 sodium chloride 0.9 % injection 10 mL 10 mL, intravenous, As needed, line care , Starting on 01/16/19 at 1153, Peripheral Intravenous Catheter and Rapid Infusion Catheter, prior to blood sampling, post blood transfusion or post blood sampling sodium chloride 0.9 % injection 3 mL 3 mL, intravenous, As needed, line care, Starting on 01/16/19 at 1153, Prior to and following infusion and between multiple consecutive infusions: sodium chloride 0.9 % injection documented in this encounter Additional Health Concerns Assessment Noted Time PHQ-9 Depression Total Score: 18 02/26/2017 8:33 AM CD T documented as of this encounter Care Teams Integration Solution Architect Relationship Specialty Start Date End Date Avis Razo M.D. PCP - General 08/30/18 12/13/[address] [place] [address] CHRISTINA Castellanos [id number] documented as of this encounter
--- OUTSIDE RECORDS SUMMARY | 2022-07-26 14:36 | XMS_ITS | Encounter Summary ---
:1995 Author Organization [facility] Address [address] [place] [address] Care Team Providers Name Role Phone Avis Razo M.D. Primary Care Provider Reason for Visit Reason Comments Head Injury pt presents with head and ch est pain after suffering fall down approx 12 steps. pt reports he missed the first step and rolled down approx 12 steps, possible loc. Encounter Details Date Type Department Care Team Description 12/15/2018 Emergency [facility] Fransico Crawford, Ron barone Head Initial System Eli Canela (Primary Dx) Emergency Department [facility] [address] [place] [phone] [phone] Social History Tobacco Use Types Packs/Day Years Used Date Smoking Tobacco: Light Smoker Cigarettes E-cigarettes Smokeless Tobacco: Never Alcohol Use Standard Drinks/Week Comments No 0 (1 standard drink = 0.6 oz pure alcoho l) Sex Assigned at Date Recorded Not on file documented as of this encounter Last Filed Vital Signs Vital Sign Reading Time Taken Comments Blood Pressure 137/92 12/15/2018 2:30 PM EQUIPMENT MAINT TECH Pulse 58 12/15/2018 2:30 PM EQUIPMENT MAINT TECH Temperature 36.7 ??C (98.1 ??F) 12/15/2018 11:40 AM EQUIPMENT MAINT TECH Respiratory Rate 24 12/15/2018 2:30 PM EQUIPMENT MAINT TECH Oxygen Saturation 98% 12/15/2018 2:30 PM EQUIPMENT MAINT TECH Inhaled Oxygen Concentration - - Weight - - Height - - Body Mass Index - - documented in this encounter Discharge Instructions AttachmentsThe following attachments cannot be sent through Care Everywhere.Head Injury Adult (Ukrainian)documented in this encounter Medications at Time of Discharge Medication Sig Dispensed Refills Start Date End Date rizatriptan (MAXALT) 10 mg Take 1 tab for 0 05/03 tablet migraine, may repeat in 2 hours. Max dose: 30mg per 24 hrs. traZODone (DESYREL) 100 mg Take 100 mg by mouth. 0 05/03/2018 tablet documented as of this encounter ED Notes Fransico Crawford M.D. - 12/15/2018 11:36 AM CST SUBJECTIVE: CHIEF COMPLAINT/REASON FOR VISIT: Head Injury (pt presents with head and chest pain after suffering fall down approx 12 steps. pt reports he missed the first step and rolled down approx 12 steps, possible loc.) HISTORY OF PRESENT ILLNESS: 23-year-old male with no significant past medical history presents emergency department status post mechanical fall down approximately 12 stairs. Patient reports that he tripped and fell and rolled down the stairs. Unknown loss of consciousness. He is currently complaining of headache, dizziness. He denies any nausea or vomiting. Complaining of chest pain however this is longstanding and has not changed. He denies any significant shortness of breath. He denies any numbness tingling or weakness. No medications prior to arrival. REVIEW OF SYSTEMS: Constitutional: Negative. HENT: Negative. Eyes: Negative. Respiratory: Negative. Cardiovascular: Negative. Gastrointestinal: Negative. Musculoskeletal: Negative. Skin: Negative. Neurological: Negative. Psychiatric/Behavioral: Negative. ALLERGIES/MEDICATIONS: [...] Heart Rate Resp Rate Blood Pressure SpO2 12/15/18 1140 12/15/18 1140 12/15/18 1230 12/15/18 1140 12/15/18 1140 12/15/18 1140 36.7 ??C 90 (!) 56 18 (!) 132/101 97 % Pain Score -- PHYSICAL EXAMINATION: Constitutional: He appears well-developed and well-nourished. HENT: Head: Head is without raccoon's eyes and without Rios's sign. No skull depression. Nose: Nose normal. Mouth/Throat: Oropharynx is clear and moist. Mucous membranes are moist. Eyes: Conjunctivae and EOM are normal. Neck: Neck supple. Cardiovascular: Normal rate, regular rhythm and normal heart sounds. Pulses are strong and palpable.Capillary refill: takes less than 3 seconds, Pulmonary/Chest: Effort normal and breath sounds normal. Abdominal: Soft. Bowel sounds are normal. Musculoskeletal: Normal range of motion. Neurological: He is alert and oriented to person, place, and time. Skin: Skin is warm and dry. Psychiatric: He has a normal mood and affect. ED COURSE: Final Diagnoses: as of Dec 15 1449 Injury Head Initial INTERVENTIONS: Medications NaCl 0.9 % bolus 1,000 mL (0 mL intravenous Stopped 12/15/18 1339) LABS: Labs Reviewed CBC WITH DIFFERENTIAL, B - Abnormal Result Value Hemoglobin 16.9 (*) Hematocrit 47.8 Erythrocytes 5.74 (*) MCV 83.3 RBC Distrib Width 12.9 Platelet Count 174 Leukocytes 6.9 Neutrophils 3.84 Lymphocytes 2.38 Monocytes 0.53 Eosinophils 0.09 Basophils 0.07 BASIC METABOLIC PANEL, S/P Potassium, P 3.9 Sodium, P 140 Chloride, P 102 Bicarbonate, P 24 Anion Gap, P 14 BUN, P 14 Creatinine, P 1.00 eGFR Black >90 eGFR Non-Black >90 Calcium, Total 9.5 Glucose, P 104 ECG: Ecg 12 Lead Result Date: 12/15/2018 Normal sinus rhythm with sinus arrhythmia ST elevation, consider early repolarization When compared with ECG of 10-FEB-2017 10:33, No significant change was found RADIOLOGY: DX Chest Portable 1 View Final Result IMPRESSION: Negative exam. CT Cervical Spine without IV Contrast Final Result IMPRESSION: Normal cervical spine CT without acute osseous pathology. CT Head without IV Contrast Final Result IMPRESSION: Normal head CT without acute intracranial pathology. ASSESSMENT AND PLAN: Impression and Plan Labs reviewed, chest x-ray reviewed with no acute finding. CT head CT, CT neck were ordered the given the mechanism injury complaining of headache. No acute findings. Patient observed pain improving. Discussed symptomatic management home with Tylenol ibuprofen. All questions answered.. I personally reviewed the lab result(s) and my interpretation is: Normal DIAGNOSIS: Final diagnoses: [S09.90XA] Injury Head Initial ED DISCHARGE MEDS: ED Prescriptions None DISPOSITION: Home or Self Group Home or Self Care FOLLOW UP: pcp in 3 days Fransico Crawford M.D. 12/15/18 1450 PMENT MAINT TECH documented in this encounter Plan of Treatment Not on filedocumented as of this encounter Procedures Procedure Name Priority Date/Time Associated Comments Diagnosis ECG STAT 12/15/2018 12:13 Results for this PM EQUIPMENT MAINT TECH procedure are i n the results section. CT CERVICAL SPINE RAD - Semiurgent 12/15/2018 12:10 Re sults for this WITHOUT IV (Fast; most ED PM EQUIPMENT MAINT TECH procedure are in CONTRAST patients; some the results inpatients) section. CT HEAD WITHOUT RAD - Emergent 12/15/2018 12:10 Result s for this IV CONTRAST (Fastest; for the PM EQUIPMENT MAINT TECH procedure are in most critically the results ill patients) section. DX CHEST PORTABLE RAD - Semiurgent 12/15/2018 12:06 Re sults for this 1 VIEW (Fast; most ED PM EQUIPMENT MAINT TECH procedure are in patients; some the results inpatients) section. CBC WITH STAT 12/15/2018 11:49 Results for this DIFFERENTIAL, B AM EQUIPMENT MAINT TECH procedure ar e in the results section. BASIC METABOLIC STAT 12/15/2018 11:49 Results for this PANEL, S/P AM EQUIPMENT MAINT TECH procedure are i n the results section. documented in this encounter Results ECG 12 Lead (12/15/2018 12:13 PM EQUIPMENT MAINT TECH) P athologist Signature Ventricular Rate 68 BPM MUSE ECG/Min OH Interval 176 ms MUSE QRSD Interval 90 ms MUSE QT Interval 350 ms MUSE QTC Interval 372 ms MUSE P [place] 35 degrees MUSE R [place] 47 degrees MUSE T Wave [place] 30 degrees MUSE Specimen Anatomical Collection Method Collection Time Receive d Time (Source) Location / / Volume Laterality 12/15/2018 12:13 12/15/2018 PM EQUIPMENT MAINT TECH 12:18 PM EQUIPMENT MAINT TECH Impressions MUSE - 12/15/2018 12:18 PM EQUIPMENT MAINT TECH Normal sinus rhythm with sinus arrhythmia ST elevation, consider early repolarizat ion When compared with ECG of 10-FEB-2017 10 :33, No significant change was found Narrative This result has an attachment that is no t available. Procedure Note Manuel Cross M.D. - 12/15/2018Form atting of this note might be different from the original. IMPRESSION: Normal sinus rhythm with sinus arrhythmi a ST elevation, consider early repolarizat ion When compared with ECG of 10-FEB-2017 10 :33, No significant change was found Fransico Crwaford M.D. ECG ORDERABLES Performing Organization Address City/State/ZIP Code Phon e Number FERNIE ENCISO NA CT Cervical Spine without IV Contrast (12/15/2018 12:10 PM EQUIPMENT MAINT TECH) Anatomical Region Laterality Modality Cervical Spine, Neuroradiology RST LOS, Neuroradiology N/A Computed Tomography ARZ LOS, Neuroradiology FLA LOS Specimen (Source) Anatomical Collection Method Collection Time Re ceived Time Location / / Volume Laterality 12/15/2018 12:14 PM EQUIPMENT MAINT TECH Impressions 12/15/2018 12:15 PM EQUIPMENT MAINT TECH IMPRESSION: Normal cervical spine CT without acute osseous pathology. Narrative 12/15/2018 12:15 PM EQUIPMENT MAINT TECH EXAM: CT CERVICAL SPINE WITHOUT IV CONTRAST COMPARISON: None FINDINGS: There is no acute cervical spi ne osseous abnormality. The dens is intact. The prevertebral soft tissues ar e within normal limits. There is a normal cervical lordosis. Vertebral body height and disc height are maintained throughout cervical spine. The bilateral apices are clear of airspace disease. Procedure Note Young Meyer M.D. - 12/15/2018Form atting of this note might be different from the original. EXAM: CT CERVICAL SPINE WITHOUT IV CONTR AST COMPARISON: None FINDINGS: There is no acute cervical spi ne osseous abnormality. The dens is intact. The prevertebral soft tissues ar e within normal limits. There is a normal cervical lordosis. Vertebral body height and disc height are maintained throughout cervical spine. The bilateral apices are clear of airspace disease. IMPRESSION: Normal cervical spine CT wit hout acute osseous pathology. Fransico Crawford M.D. [facility] CT PROCEDURES CT Head without IV Contrast (12/15/2018 12:10 PM EQUIPMENT MAINT TECH) Anatomical Region Laterality Modality Head, Neuroradiology RST LOS, Neuroradiology ARZ LOS, N/A Computed Tomography Neuroradiology FLA LOS Specimen (Source) Anatomical Collection Method Collection Time Re ceived Time Location / / Volume Laterality 12/15/2018 12:13 PM EQUIPMENT MAINT TECH Impressions 12/15/2018 12:14 PM EQUIPMENT MAINT TECH IMPRESSION: Normal head CT without acute intracranial pathology. Narrative 12/15/2018 12:14 PM EQUIPMENT MAINT TECH EXAM: CT HEAD WITHOUT IV CONTRAST COMPARISON: None FINDINGS: There is no intra-axial or ext ra-axial fluid collection, or midline shift. The ventricles and extra-axial co mpartments are symmetric and normal in appearance. The moreno-white interface is normal. The visualized paranasal sinuses and mastoid air cells are clear. No skul l fractures. Procedure Note Young Meyer M.D. - 12/15/2018Form atting of this note might be different from the original. EXAM: CT HEAD WITHOUT IV CONTRAST COMPARISON: None FINDINGS: There is no intra-axial or ext ra-axial fluid collection, or midline shift. The ventricles and extra-axial co mpartments are symmetric and normal in appearance. The moreno-white interface is normal. The visualized paranasal sinuses and mastoid air cells are clear. No skul l fractures. IMPRESSION: Normal head CT without acute intracranial pathology. Fransico Crawford M.D. [facility] CT PROCEDURES DX Chest Portable 1 View (12/15/2018 12:06 PM EQUIPMENT MAINT TECH) Anatomical Region Laterality Modality Chest, Thoracic RST LOS, Thoracic ARZ LOS, Thoracic N/A Digital Radiography FLA LOS Specimen (Source) Anatomical Collection Method Collection Time Re ceived Time Location / / Volume Laterality 12/15/2018 12:15 PM EQUIPMENT MAINT TECH Impressions 12/15/2018 12:17 PM EQUIPMENT MAINT TECH IMPRESSION: Negative exam. Narrative 12/15/2018 12:17 PM EQUIPMENT MAINT TECH EXAM: DX CHEST PORTABLE 1 VIEW COMPARISON: Chest x-ray 06/07/2018 FINDINGS: No abnormality of the heart or mediastinum. Lung rendon are clear. No significant osseous abnormality. No pneu mothorax. Procedure Note Jere Kuo M.D. - 12/15/2018Formatt ing of this note might be different from the original. EXAM: DX CHEST PORTABLE 1 VIEW COMPARISON: Chest x-ray 06/07/2018 FINDINGS: No abnormality of the heart or mediastinum. Lung rendon are clear. No significant osseous abnormality. No pneu mothorax. IMPRESSION: Negative exam. Fransico Crawford M.D. IMG DIAGNOSTIC IMAGING PROCE PHI BMP (Basic Metabolic Panel) (12/15/2018 11:49 AM [facility]) athologist Signature Potassium, P 3.9 3.6 - 5.2 12/15/2018 [facility] mmol/L 12:14 PM [facility] Sodium, P 140 135 - 145 12/15/2018 [facility] mmol/L 12:14 PM [facility] Chloride, P 102 98 - 107 12/15/2018 [facility] mmol/L 12:14 PM [facility] Bicarbonate, P 24 22 - 29 12/15/2018 [facility] mmol/L 12:14 PM [facility] Anion Gap, P 14 7 - 15 12/15/2018 [facility] 12:14 PM [facility] BUN (Blood Urea 14 8 - 24 12/15/2018 [facility] Nitrogen), P mg/dL 12:14 PM [facility] Creatinine 1.00 0.74 - 12/15/2018 [facility] 1.35 mg/dL 12:14 PM [facility] eGFR-Black/Afri >90 >=60 12/15/2018 [facility] can [place] mL/min/BSA 12:14 PM [facility] Comment: ----ADDITIONAL INFORMATION---- Estimated GFR calculated using the 2009 CKD_EPI creatinine equation. eGFR Non-Black/ >90 >=60 mL/min/BSA 12/15/2018 12:14 PM [facility] [place] [facility] Comment: ----ADDITIONAL INFORMATION---- Estimated GFR calculated using the 2009 CKD_EPI creatinine equation. Calcium, Total, P 9.5 8.6 - 10.0 mg/dL 12/15/2018 1 2:14 PM EQUIPMENT MAINT TECH [facility] Glucose, P 104 70 - 140 mg/dL 12/15/2018 12:14 PM [facility] Specimen Anatomical Collection Method Collection Time Receive d Time (Source) Location / / Volume Laterality Blood (Blood, 12/15/2018 11:49 12/15/2018 Venous) AM EQUIPMENT MAINT TECH 11:52 AM EQUIPMENT MAINT TECH Fransico Crawford M.D. LAB BLOOD ADD-ON Performing Organization Address City/State/ZIP Code Phon e Number [facility] [address] [place] [address] LAB (ABNORMAL) CBC with Differential (12/15/2018 11:49 AM EQUIPMENT MAINT TECH) [facility] Method Time Signature Hemoglobin 16.9 (H) 13.2 - 12/15/2018 [facility] 16.6 g/dL 11:55 AM [facility] Hematocrit 47.8 38.3 - 12/15/2018 [facility] 48.6 % 11:55 AM [facility] Erythrocytes 5.74 (H) 4.35 - 12/15/2018 [facility] 5.65 11:55 AM [facility] HEALTH x10(12)/L [facility] MCV 83.3 78.2 - 12/15/2018 [facility] 97.9 fL 11:55 AM [facility] RBC Distrib Width 12.9 11.8 - 12/15/2018 [facility] 14.5 % 11:55 AM [facility] Platelet Count 174 135 - 317 12/15/2018 [facility] x10(9)/L 11:55 AM [facility] Leukocytes 6.9 3.4 - 9.6 12/15/2018 [facility] x10(9)/L 11:55 AM [facility] Neutrophils 3.84 1.56 - 12/15/2018 [facility] 6.45 11:55 AM [facility] HEALTH x10(9)/L [facility] Lymphocytes 2.38 0.95 - 12/15/2018 [facility] 3.07 11:55 AM [facility] HEALTH x10(9)/L [facility] Monocytes 0.53 0.26 - 12/15/2018 [facility] 0.81 11:55 AM EQUIPMENT MAINT TECH HEALTH x10(9)/L [facility] Eosinophils 0.09 0.03 - 12/15/2018 [facility] 0.48 11:55 AM EQUIPMENT MAINT TECH HEALTH x10(9)/L [facility] Basophils 0.07 0.01 - 12/15/2018 [facility] 0.08 11:55 AM EQUIPMENT MAINT TECH HEALTH x10(9)/L [facility] Specimen Anatomical Collection Method Collection Time Receive d Time (Source) Location / / Volume Laterality Blood (Blood, 12/15/2018 11:49 12/15/2018 Venous) AM EQUIPMENT MAINT TECH 11:53 AM EQUIPMENT MAINT TECH Fransico Crawford M.D. LAB BLOOD ADD-ON Performing Organization Address City/State/ZIP Code Phon e Number [facility] [address] [place] [address] LAB documented in this encounter Visit Diagnoses Diagnosis Injury Head Initial - Primary documented in this encounter Administered Medications Inactive Administered Medications - up to 3 most recent administrations Medication Order MAR Action Action Date Dose Rate Site NaCl 0.9 % bolus 1,000 mL New Bag 12/15/2018 12:30 PM 1,000 mL 1000 mL/hr 1,000 mL, intravenous, at EQUIPMENT MAINT TECH 1,000 mL/hr, Administer over 1 Hours, Once, On Thu12/15/18 at 1145, For 1 dose documented in this encounter Active and Recently Administered Medications Times are shown in EQUIPMENT MAINT TECH. Scheduled Medication Order 12/13/2018 12/14/2018 12/15/2018 NaCl 0.9 % bolus 1,000 mL (COMPLETED) 1230 (New Bag - Provider: Malia Rousseau R.N.)1330 (Due: Stopped - Provider: Malia Rousseau R.N.)1339 (Stopped - Provider: Malia Rousseau R.N.) 1,000 mL, intravenous, at 1,000 mL/hr, A dminister over 1 Hours, Once, On Thu12/15/18 at 1145, For 1 dose documented in this encounter Additional Health Concerns Assessment Noted Time PHQ-9 Depression Total Score: 18 02/26/2017 8:33 AM CD T documented as of this encounter Care Teams Emergency Doctor Relationship Specialty Start Date End Date Avis Razo M.D. PCP - General 08/30/18 12/13/[address] [place] [address] Ellen Aleksander, CHRISTINA [phone] documented as of this encounter
--- OUTSIDE RECORDS SUMMARY | 2022-07-26 14:36 | XMS_ITS | Encounter Summary ---
:1995 Author Organization [facility] Address [address] [place] [address] Care Team Providers Name Role Phone Avis Razo M.D. Primary Care Provider Reason for Visit Reason Comments Abdominal Pain pt is c/o L upper abd pain Vomiting Blood pt states blood in his emesi s today. Encounter Details Date Type Department Care Team Description 02/01/2019 Emergency [facility] Des Reyna Abdominal Pain (Primary Dx); System Eli Bhakta M.D. Nausea And Vomiting; Emergency Department [address] [facility] Anette Newby Syndrome [address] [place] [address] [place], [place] [phone] (Wo rk) [id number] [phone] Social History Tobacco Use Types Packs/Day Years Used Date Smoking Tobacco: Light Smoker Cigarettes E-cigarettes Smokeless Tobacco: Never Alcohol Use Standard Drinks/Week Comments No 0 (1 standard drink = 0.6 oz pure alcoho l) Sex Assigned at Date Recorded Not on file documented as of this encounter Last Filed Vital Signs Vital Sign Reading Time Taken Comments Blood Pressure 153/98 02/01/2019 5:30 PM CDT Pulse 89 02/01/2019 5:45 PM CDT Temperature 36.4 ??C (97.5 ??F) 02/01/2019 1:00 PM CDT Respiratory Rate 16 02/01/2019 5:45 PM CDT Oxygen Saturation 97% 02/01/2019 5:45 PM CDT Inhaled Oxygen Concentration - - Weight 109 kg (239 lb 13.8 oz) 02/01/2019 1:01 PM CDT Height - - Body Mass Index 34.42 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 Abdominal Pain Adult (Citizen Of [place])Anette-Newby Syndrome (Citizen [place])Vomiting Adult (Citizen Of [place])documented in this encounter Medications at Time of Discharge Medication Sig Dispensed Refills Start Date End Date rizatriptan (MAXALT) 10 mg Take 1 tab for 0 05/03 tablet migraine, may repeat in 2 hours. Max dose: 30mg per 24 hrs. traZODone (DESYREL) 100 mg Take 100 mg by 0 05/03 tablet mouth. ondansetron ODT Take 1 tablet (4 20 tablet 0 02/01/2019 (ZOFRAN-ODT) 4 mg mg total) by mouth disintegrating tablet every 8 (eight) hours for 10 days. documented as of this encounter ED Notes Des Reyna M.D. - 02/01/2019 3:33 PM CDT I, Davis Cobian, am scribing for and in the presence of, Des Reyna MD. SUBJECTIVE: CHIEF COMPLAINT/REASON FOR VISIT: Abdominal Pain (pt is c/o L upper abd pain) and Vomiting Blood (pt states blood in his emesis today.) HISTORY OF PRESENT ILLNESS: 23 YO male presents w/ intermittent RUQ and epigastric pain w/ intermittent vomiting over the past 2weeks. He reports no precipitating or relieving factors and has had no fevers or diarrhea. Patient states that he has had episodes of bright red blood in emesis and notes no coffee ground emesis or dark/tarry stools. Patient has a hx of cannabis use and cannabinoid hyperemesis syndrome in the past, however, denies any use for the past 5 months. History provided by: Patient Abdominal Pain Pain location: Epigastric and RUQ Pain radiates to: Does not radiate Pain severity: Mild Onset quality: Gradual Duration: 2 weeks Timing: Intermittent Progression: Waxing and waning Chronicity: New Associated symptoms: nausea and vomiting Associated symptoms: no chest pain, no chills, no cough, no diarrhea, no dysuria, no fever, no hematuria, no shortness of breath and no sore throat REVIEW OF SYSTEMS: Constitutional: Negative for chills and fever. HENT: Negative for congestion and sore throat. Eyes: Negative for visual disturbance. Respiratory: Negative for cough and shortness of breath. Cardiovascular: Negative for chest pain. Gastrointestinal: Positive for abdominal pain, nausea and vomiting. Negative for diarrhea. Genitourinary: Negative for dysuria and hematuria. Musculoskeletal: Negative for back pain. Skin: Negative for rash. Neurological: Negative for numbness and headaches. All other systems reviewed and are negative. ALLERGIES/MEDICATIONS: Reviewed in medical record PAST MEDICAL/FAMILY/SOCIAL [...] Sexual activity: Defer Other Topics Concern ??? Not on file Social History Narrative ??? No narrative on file History Alcohol Use No History Drug Use No OBJECTIVE: INITIAL VITAL SIGNS: Initial Vitals Temperature Pulse Rate Heart Rate Resp Rate Blood Pressure SpO2 02/01/19 1300 02/01/19 1300 -- 02/01/19 1300 02/01/19 1302 02/01/19 1300 36.4 ??C 97 18 (!) 155/117 97 % Pain Score -- PHYSICAL EXAMINATION: Constitutional: He appears well-developed and well-nourished. No distress. HENT: Head: Normocephalic and atraumatic. Nose: Nose normal. Mouth/Throat: Mucous membranes are moist. Eyes: Conjunctivae and EOM are normal. Neck: Normal range of motion. Neck supple. Cardiovascular: Normal rate and regular rhythm. No murmur heard. Pulmonary/Chest: Effort normal. No tachypnea. No respiratory distress. Abdominal: Soft. He exhibits no distension. There is no tenderness. There is no rebound and no guarding. Musculoskeletal: Normal range of motion. He exhibits no tenderness or deformity. Neurological: He is alert and oriented to person, place, and time. Skin: Skin is warm, dry and normal color. He is not diaphoretic. Psychiatric: He has a normal mood and affect. His behavior is normal. Nursing note and vitals reviewed. ED COURSE: Final Diagnoses: as of Feb 02 1732 Abdominal Pain Nausea And Vomiting Anette Newby Syndrome INTERVENTIONS: Medications sodium chloride 0.9 % injection 10 mL (10 mL intravenous Given 02/01/19 1550) NaCl 0.9 % bolus 1,000 mL (1,000 mL intravenous New Bag 02/01/19 1543) ondansetron (PF) injection 4 mg (ZOFRAN) (4 mg intravenous Given 02/01/19 1544) iohexol 350 mg iodine/mL solution 1-200 mL (OMNIPAQUE) (100 mL intravenous Given 02/01/19 155) sodium chloride 0.9 % flush 250 mL (100 mL intravenous Given 02/01/19 1550) LABS: Labs Reviewed CBC WITH DIFFERENTIAL, B - Abnormal Result Value Hemoglobin 17.4 (*) Hematocrit 48.7 (*) Erythrocytes 5.99 (*) MCV 81.3 RBC Distrib Width 13.1 Platelet Count 216 Leukocytes 11.2 (*) Neutrophils 7.51 (*) Lymphocytes 2.15 Monocytes 0.84 (*) Eosinophils 0.50 (*) Basophils 0.21 (*) COMPREHENSIVE METABOLIC PANEL, S/P Potassium, P 4.5 Sodium, P 143 Chloride, P 106 Bicarbonate, P 29 Anion Gap, P 8 BUN, P 12 Creatinine, P 1.01 eGFR Black >90 eGFR Non-Black >90 Calcium, Total 9.7 Glucose, P 106 Protein, Total, P 6.6 Albumin, P 4.3 Aspartate Aminotransferase (AST), P 29 Alkaline Phosphatase, P 76 Alanine Aminotransferase (ALT), P 41 Bilirubin, Total, P 1.0 LIPASE, S/P Lipase, P 23 URINALYSIS WITH MICROSCOPIC ECG: RADIOLOGY: CT Abdomen Pelvis with IV Contrast Final Result IMPRESSION: No acute abnormality noted. ASSESSMENT AND PLAN: Impression and Plan Patient nonspecific abdominal pain. His workup today is largely been negative. He did inform nursingthat he has had a break-up recently is made him very anxious. This may be contributing. 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 Certainly he is hemodynamically stable. We will discharge her home at this time. Have him follow up with his regular doctor. If he has worsening symptoms or develops newsymptoms, return to the ED. Otherwise stable for discharge. Reviewed and summarized previous medical records including: Lab results. I personally reviewed the lab result(s) and my interpretation is: Normal Radiology results: Reviewed the radiology report. Radiology interpretation: Normal I personally performed the services described in this documentation, as scribed in my presence, and it is both accurate and complete. 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 Provider ondansetron ODT (ZOFRAN-ODT) 4 mg disintegrating tablet Take 1 tablet (4 mg total) by mouth every 8(eight) hours for 10 days. 20 tablet 02/01/2019 02/11/2019 Des Reyna M.D. DISPOSITION: Home or Self Assisted or Self Care FOLLOW UP: Des Reyna M.D. 02/01/19 1732 documented in this encounter Plan of Treatment Not on filedocumented as of this encounter Procedures Procedure Name Priority Date/Time Associated Comments Diagnosis CT ABDOMEN PELVIS RAD - Semiurgent 02/01/2019 3:57 Res ults for WITH IV CONTRAST (Fast; most ED PM CDT this proc edure patients; some are in the inpatients) results section. CBC WITH STAT 02/01/2019 2:29 Results for DIFFERENTIAL, B PM CDT this procedu re are in the results section. LIPASE, S/P STAT 02/01/2019 2:29 Results for PM CDT this procedure are in the results section. COMPREHENSIVE STAT 02/01/2019 2:29 Results for METABOLIC PANEL, S/P PM CDT this pr ocedure are in the results section. documented in this encounter Results CT Abdomen Pelvis with IV Contrast (02/01/2019 3:57 PM CDT) Anatomical Region Laterality Modality Abdomen, Pelvis, Abdominal RST LOS, Abdominal ARZ LOS, N/A Computed Tomography Abdominal FLA LOS Specimen (Source) Anatomical Collection Method Collection Time Re ceived Time Location / / Volume Laterality 02/01/2019 3:59 PM CDT Impressions 02/01/2019 4:03 PM CDT IMPRESSION: No acute abnormality noted. Narrative 02/01/2019 4:03 PM CDT EXAM: CT ABDOMEN PELVIS WITH IV CONTRAST COMPARISON: 01/09/2019 and prior FINDINGS: The lung bases are clear. Ther e are multiple renal hypodensities likely representing cysts seen bilateral ly. The gallbladder is been removed. The upper abdominal organs are within normal limits. The upper abdominal vasculature is patent. There is no upper abdominal a denopathy. There is no free fluid in the pelvis. There is scattered diverticula o f the colon. There is no abnormally dilated loop of large or small bowel. Th e appendix is within normal limits. There is no abdominal or pelvic adenopat hy. There is no worrisome bone lesion. Procedure Note Davis Dial M.D. - 02/01/2019Fo rmatting of this note might be different from the original. EXAM: CT ABDOMEN PELVIS WITH IV CONTRAST COMPARISON: 01/09/2019 and prior FINDINGS: The lung bases are clear. Ther e are multiple renal hypodensities likely representing cysts seen bilateral ly. The gallbladder is been removed. The upper abdominal organs are within normal limits. The upper abdominal vasculature is patent. There is no upper abdominal a denopathy. There is no free fluid in the pelvis. There is scattered diverticula o f the colon. There is no abnormally dilated loop of large or small bowel. Th e appendix is within normal limits. There is no abdominal or pelvic adenopat hy. There is no worrisome bone lesion. IMPRESSION: No acute abnormality noted. Des Reyna M.D. IMG CT PROCEDURES Lipase (02/01/2019 2:29 PM CDT) P athologist Signature Lipase, P 23 13 - 60 U/L 02/01/2019 [facility] 2:51 PM CDT [facility] LAB Specimen Anatomical Collection Method Collection Time Receive d Time (Source) Location / / Volume Laterality Blood (Blood, 02/01/2019 2:29 PM 02/02/20 19 2:32 Venous) CDT PM CDT Sanjuana Bergeron M.D. LAB BLOOD ADD-ON Performing Organization Address City/State/ZIP Code Phon e Number [facility] [address] [place] [address] LAB CMP (Comprehensive Metabolic Panel) (02/01/2019 2:29 PM T) athologist Signature Potassium, P 4.5 3.6 - 5.2 02/01/2019 [facility] mmol/L 2:51 PM [facility] Sodium, P 143 135 - 145 02/01/2019 [facility] mmol/L 2:51 PM [facility] Chloride, P 106 98 - 107 02/01/2019 [facility] mmol/L 2:51 PM [facility] Bicarbonate, P 29 22 - 29 02/01/2019 [facility] mmol/L 2:51 PM [facility] Anion Gap, P 8 7 - 15 02/01/2019 [facility] 2:51 PM [facility] BUN (Blood Urea 12 8 - 24 02/01/2019 [facility] Nitrogen), P mg/dL 2:51 PM [facility] Creatinine 1.01 0.74 - 02/01/2019 [facility] 1.35 mg/dL 2:51 PM [facility] eGFR-Black/Afri >90 >=60 02/01/2019 [facility] can Russian mL/min/BSA 2:51 PM [facility] Comment: ----ADDITIONAL INFORMATION---- Estimated GFR calculated using the 2009 CKD_EPI creatinine equation. eGFR Non-Black/ >90 >=60 mL/min/BSA 02/01/2019 2:51 PM [facility] Russian [facility] Comment: ----ADDITIONAL INFORMATION---- Estimated GFR calculated using the 2009 CKD_EPI creatinine equation. Calcium, Total, P 9.7 8.6 - 10.0 02/01/2019 2:51 PM [facility] mg/dL [facility] Glucose, P 106 70 - 140 mg/dL 02/01/2019 2:51 PM [facility] Protein, Total, P 6.6 6.3 - 7.9 g/dL 02/01/2019 2:51 P [facility] Albumin, P 4.3 3.5 - 5.0 g/dL 02/01/2019 2:51 PM [facility] Aspartate Aminotransferase 29 8 - 48 U/L 02/01/2019 2 :51 PM [facility] ([facility] P [facility] Alkaline Phosphatase, P 76 40 - 129 U/L 02/01/2019 2: 51 PM [facility] Alanine Aminotransferase 41 7 - 55 U/L 02/01/2019 2:5 1 PM [facility] ([facility]), P [facility] Bilirubin, Total, P 1.0 <=1.2 mg/dL 02/01/2019 2:51 PM [facility] LAB Specimen Anatomical Collection Method Collection Time Receive d Time (Source) Location / / Volume Laterality Blood (Blood, 02/01/2019 2:29 PM 02/02/20 19 2:32 Venous) CDT PM CDT Sanjuana Bergeron M.D. LAB BLOOD ADD-ON Performing Organization Address City/State/ZIP Code Phon e Number [facility] [address] [place] [address] LAB (ABNORMAL) CBC with Differential, Blood (02/01/2019 2:29 PM CDT) [facility] Method Time Signature Hemoglobin 17.4 (H) 13.2 - 02/01/2019 [facility] 16.6 g/dL 2:57 PM [facility] Hematocrit 48.7 (H) 38.3 - 02/01/2019 [facility] 48.6 % 2:57 PM [facility] Erythrocytes 5.99 (H) 4.35 - 02/01/2019 [facility] 5.65 2:57 PM T HEALTH x10(12)/L [facility] LAB MCV 81.3 78.2 - 02/01/2019 [facility] 97.9 fL 2:57 PM [facility] RBC Distrib Width 13.1 11.8 - 02/01/2019 [facility] 14.5 % 2:57 PM T [facility] Platelet Count 216 135 - 317 02/01/2019 [facility] x10(9)/L 2:57 PM CDT [facility] Leukocytes 11.2 (H) 3.4 - 9.6 02/01/2019 [facility] x10(9)/L 2:57 PM CDT [facility] Neutrophils 7.51 (H) 1.56 - 02/01/2019 [facility] 6.45 2:57 PM CDT HEALTH x10(9)/L [facility] Lymphocytes 2.15 0.95 - 02/01/2019 [facility] 3.07 2:57 PM CDT HEALTH x10(9)/L [facility] Monocytes 0.84 (H) 0.26 - 02/01/2019 [facility] 0.81 2:57 PM CDT HEALTH x10(9)/L [facility] Eosinophils 0.50 (H) 0.03 - 02/01/2019 [facility] 0.48 2:57 PM CDT HEALTH x10(9)/L [facility] LAB Basophils 0.21 (H) 0.01 - 02/01/2019 [facility] 0.08 2:57 PM CDT HEALTH x10(9)/L [facility] LAB Specimen Anatomical Collection Method Collection Time Receive d Time (Source) Location / / Volume Laterality Blood (Blood, 02/01/2019 2:29 PM 02/02/20 19 2:32 Venous) CDT PM CDT Sanjuana Bergeron M.D. LAB BLOOD ADD-ON Performing Organization Address City/State/ZIP Code Phon e Number [facility] [address] [place] [address] LAB documented in this encounter Visit Diagnoses Diagnosis Abdominal Pain - Primary Nausea And Vomiting Anette Newby Syndrome documented in this encounter Administered Medications Inactive Administered Medications - up to 3 most recent administrations Medication Order MAR Action Action Date Dose Rate Site iohexol 350 mg iodine/mL solution Given 02/01/2019 3:50 PM CDT 1 00 mL 1-200 mL (OMNIPAQUE) 1-200 mL, intravenous, Once in imaging, contrast, Starting on 02/01/19 at 1548, For 1 dose, Imaging Protocol Orders, Dose per Radiant Medication Guidelines NaCl 0.9 % bolus 1,000 mL New Bag 02/01/2019 3:43 PM CDT 1,000 mL 1000 mL/hr 1,000 mL, intravenous, at 1,000 mL/hr, Administer over 1 Hours, Once, On 02/01/19 at 1537, For 1 dose ondansetron (PF) injection 4 mg (ZOFRAN) Given 02/01/2019 3:44 PM CDT 4 mg 4 mg, intravenous, Once, On 02/01/19 at 1537, For 1 dose sodium chloride 0.9 % flush 250 mL Given 02/01/2019 3:50 PM CDT 100 mL 250 mL, intravenous, Once in imaging, line care, for CT exam, Starting on 02/01/19 at 1547, For 1 dose sodium chloride 0.9 % injection 10 mL Given 02/01/2019 3:50 PM CDT 10 mL 10 mL, intravenous, As needed, line care, for CT imaging, Starting on 02/01/19 at 1547 documented in this encounter Active and Recently Administered Medications Due to Daylight Saving Time, this section may contain 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 Scheduled Medication Order 01/30/2019 01/31/2019 02/01/2019 NaCl 0.9 % bolus 1,000 mL (COMPLETED) 1543 (New Bag - Provider: Annel Gomez, R.N.)1742 (Stopped - Provider: Fabiola Terrazas RAlden) 1,000 mL, intravenous, at 1,000 mL/hr, A dminister over 1 Hours, Once, On 02/01/19 at 1537, For 1 dose ondansetron (PF) injection 4 mg (ZOFRAN) (COMPLETED) 1544 (Given - Provider: Annel Gomez, R.N.) 4 mg, intravenous, Once, On 02/01/19 at 1537, For 1 dose PRN Medication Order 01/30/2019 01/31/2019 02/01/2019 iohexol 350 mg iodine/mL solution 1-200 mL (OMNIPAQUE) (COMPLETE D) 1550 (Given - Provider: Daphne Aj) 1-200 mL, intravenous, Once in imaging, contrast, Starting on Thu02/01/19 at 1548, For 1 dose, Imaging Protocol Orders, Dose per Radiant Medication Guidelines sodium chloride 0.9 % flush 250 mL (COMPLETED) 1550 (Given - Provider: Daphne Aj) 250 mL, intravenous, Once in imaging, li ne care, for CT exam, Starting on Thu02/01/19 at 1547, For 1 dose sodium chloride 0.9 % injection 10 mL 1550 (Given - Provider: Daphne Aj) 10 mL, intravenous, As needed, line care , for CT imaging, Starting on Thu02/01/19 at 1547 documented in this encounter Additional Health Concerns Assessment Noted Time PHQ-9 Depression Total Score: 18 02/26/2017 8:33 AM CD T documented as of this encounter Care Teams Lifter Relationship Specialty Start Date End Date Avis Razo M.D. PCP - General 08/30/18 12/13/[address] [place] [address] CHRISTINA Castellanos [phone] documented as of this encounter
--- OUTSIDE RECORDS SUMMARY | 2022-07-26 14:36 | XMS_ITS | Encounter Summary ---
:1995 Author Organization [facility] Address [address] [place] [address] Care Team Providers Name Role Phone Avis Razo M.D. Primary Care Provider Encounter Details Date Type Department Care Team Description 01/16/2019 Nurse Triage Department of [facility] Gil Vargas, RDameonNDameon Medicine in [place], [address] [place] [address] [address] [phone] [place] [address] Social History Tobacco Use Types [...] documented as of this encounter Care Teams Home Child Care Provider Relationship Specialty Start Date End Date Avis Razo M.D. PCP - General 08/30/18 12/13/[address] [place] [phone] documented as of this encounter
--- OUTSIDE RECORDS SUMMARY | 2022-07-26 14:36 | XMS_ITS | Encounter Summary ---
:1995 Author Organization [facility] Address [address] [place] [address] Care Team Providers Name Role Phone Avis Razo M.D. Primary Care Provider Reason for Visit Reason Comments Vomiting Pt reports diarrhea for a co uple of days, woke up this morning and vomited x1 so came to ER. Reports ab dominal pain a couple hours. Diarrhea Encounter Details Date Type Department Care Team Description 01/09/2019 Emergency [facility] Jessy Artis O ther Chest Pain (Primary Dx); [facility] Philly MEYER, M. S.N. Abdominal Pain; Emergency Department [address] [facility] Nausea And Vomiting; [address] [place], [place] [id number] (Wo rk) Social History Tobacco Use Types Packs/Day Years Used Date Smoking Tobacco: Light Smoker Cigarettes E-cigarettes Smokeless Tobacco: Never Alcohol Use Standard Drinks/Week Comments No 0 (1 standard drink = 0.6 oz pure alcoho l) Sex Assigned at Date Recorded Not on file documented as of this encounter Last Filed Vital Signs Vital Sign Reading Time Taken Comments Blood Pressure 114/72 01/09/2019 1:30 PM MEDICAL LAB TECHNICIAN Pulse 67 01/09/2019 1:15 PM MEDICAL LAB TECHNICIAN Temperature 36.4 ??C (97.5 ??F) 01/09/2019 6:49 AM MEDICAL LAB TECHNICIAN Respiratory Rate 16 01/09/2019 6:49 AM MEDICAL LAB TECHNICIAN Oxygen Saturation 97% 01/09/2019 1:15 PM MEDICAL LAB TECHNICIAN Inhaled Oxygen Concentration - - Weight 110 kg (242 lb 8.1 oz) 01/09/2019 6:49 AM MEDICAL LAB TECHNICIAN Height - - Body Mass Index 34.8 06/07/2018 11:12 PM CDT documented in this encounter Discharge Instructions Discharge InstructionsFiJessy foster APRN, C.N.P., M.S.N. - 01/09/2019 1:47 PM CST Follow up with a primary care provider for re-evaluation. You may use Zofran as needed for nausea, if use this wait 20-30 minutes prior to eating or drinking anything, he may use the Bentyl as prescribed as needed for abdominal pain or cramping. Additionally you may use Tylenol 650 mg every 4 hr and/or ibuprofen 600 mg every 6 hr as needed for pain. Return if symptoms worsen or you have other concerns. Thank you for patience today, it was a pleasure to meet you and I hope you feel better! CAL LAB TECHNICIAN AttachmentsThe following attachments cannot be sent through Care Everywhere. Diarrhea Adult Nerm-oz-Pwor (Macanese)Nausea and Vomiting Adult Mhpb-au-Sgqa (Macanese)Nonspecific Chest Pain Wxng-ki-Ttqt (Macanese)Abdominal Pain Adult (Macanese)documented in this encounter Medications at Time of Discharge Medication Sig Dispensed Refills Start Date End Date rizatriptan (MAXALT) 10 mg Take 1 tab for 0 05/03 tablet migraine, may repeat in 2 hours. Max dose: 30mg per 24 hrs. traZODone (DESYREL) 100 mg Take 100 mg by 0 05/03 tablet mouth. dicyclomine (BENTYL) 20 mg Take 1 tablet (20 12 tablet 0 01/12/2019 tablet mg total) by mouth 4 (four) times a day as needed (abdominal pain) for up to 3 days. ondansetron ODT Take 1 tablet (4 mg 9 tablet 0 01/09/2019 01/19/2019 (ZOFRAN-ODT) 4 mg total) by mouth disintegrating tablet every 8 (eight) hours as needed for nausea or vomiting for up to 10 days. documented as of this encounter ED Notes Jessy Artis APRN, C.N.Sandra., M.S.N. - 01/09/2019 7:51 AM CST Images from the original note were not included. SUBJECTIVE: CHIEF COMPLAINT/REASON FOR VISIT: Vomiting (Pt reports diarrhea for a couple of days, woke up this morning and vomited x1 so came to ER. Reports abdominal pain a couple hours.) and Diarrhea HISTORY OF PRESENT ILLNESS: Patient is a 23-year-old with past medical history of cholecystectomy, ADHD, depression, and anxietythat presents with complaints of diarrhea, vomiting, and abdominal pain. Patient states he started having 2 days ago, states he did vomit once yesterday and there was small streaking of blood, vomited again today so he presented emergency department. Denies any hematemesis today. Patient states he hashad chest pain for many years, that has been evaluated with no diagnosis, states chest pain is worseyesterday and today, describes it as a substernal pressure, no radiation. Patient also reports generalized abdominal pain that is worse in his upper quadrants bilaterally as well as in the suprapubic area. States he had dysuria 4 days ago has not had any since that time. Reports intermittent dizzinesshowever he says he has had this since a head injury in November, at that time was diagnosed with a concussion he reports. Denies exposure to others with similar symptoms or questionable food intake recently. Patient denies back pain, headache, neck pain, fever, vision change, numbness, tingling, or weakness. REVIEW OF SYSTEMS: Constitutional: Positive for appetite change. Negative for activity change, chills and fever. HENT: Negative for congestion and sore throat. Eyes: Negative for visual disturbance. Respiratory: Negative for cough, chest tightness and shortness of breath. Cardiovascular: Positive for chest pain. Negative for palpitations and leg swelling. Gastrointestinal: Positive for abdominal pain, diarrhea, hematemesis, nausea and vomiting. Negative for abdominal distention, blood in stool and constipation. Genitourinary: Positive for dysuria. Negative for discharge, flank pain, frequency and testicular pain. Musculoskeletal: Negative for back pain and neck pain. Skin: Negative for rash. Allergic/Immunologic: Negative for immunocompromised state. Neurological: Positive for dizziness. Negative for weakness, numbness and headaches. Hematological: Does not bruise/bleed easily. Psychiatric/Behavioral: Negative for confusion and substance abuse. ALLERGIES/MEDICATIONS: Reviewed in medical record PAST MEDICAL/FAMILY/SOCIAL [...] Heart Rate Resp Rate Blood Pressure SpO2 01/09/19 0649 01/09/19 0700 01/09/19 0649 01/09/19 0649 01/09/19 0649 01/09/19 0649 36.4 ??C 64 84 16 133/89 100 % Pain Score 01/09/19 0649 8 PHYSICAL EXAMINATION: Constitutional: He appears well-developed and well-nourished. No distress. HENT: Head: Normocephalic and atraumatic. No signs of injury. Right Ear: Tympanic membrane normal. Left Ear: Tympanic membrane normal. Mouth/Throat: Oropharynx is clear and moist. Mucous membranes are moist. No tonsillar exudate. Dental: Good dentition. Eyes: Conjunctivae and EOM are normal. Pupils are equal, round, and reactive to light. Right eye exhibits no discharge. Left eye exhibits no discharge. Neck: Normal range of motion. Neck supple. No tracheal deviation present. Cardiovascular: Normal rate, regular rhythm and normal heart sounds. Pulses are strong. No murmur heard.Capillary refill: takes less than 3 seconds, Edema: no edema noted Pulmonary/Chest: Effort normal and breath sounds normal. There is normal air entry. No respiratory distress. He has no wheezes. He has no rhonchi. He has no rales. Tender with palation Abdominal: Soft. Bowel sounds are normal. He exhibits no distension. There is generalized tenderness. There is no rebound, no guarding and no CVA tenderness. Most tender to upper quadrants bilaterally and suprapubic area Musculoskeletal: Normal range of motion. He exhibits no deformity. Lymphadenopathy: He has no cervical adenopathy. Neurological: He is alert and oriented to person, place, and time. He has normal sensation and normal strength. No cranial nerve deficit. Normal speech. Coordination and gait normal. Cranial nerves 2-12 normal Skin: Skin is warm and dry. No rash noted. Psychiatric: He has a normal mood and affect. His behavior is normal. Nursing note and vitals reviewed. ED COURSE: Final Diagnoses: as of Jan 11 1445 Other Chest Pain Abdominal Pain Nausea And Vomiting Diarrhea INTERVENTIONS: Medications NaCl 0.9 % bolus 1,000 mL (0 mL intravenous Stopped 01/09/19 0815) morphine injection 4 mg (4 mg intravenous Given 01/09/19 0709) ondansetron (PF) injection 4 mg (ZOFRAN) (4 mg intravenous Given 01/09/19 0708) famotidine tablet 20 mg (PEPCID) (20 mg oral Given 01/09/19 0750) acetaminophen tablet 1,000 mg (TYLENOL) (1,000 mg oral Given 01/09/19 0924) NaCl 0.9 % bolus 250 mL (100 mL intravenous New Bag 01/09/19 0950) sodium chloride 0.9 % injection 10 mL (10 mL intravenous Given 01/09/19 0951) iohexol 350 mg iodine/mL solution 1-200 mL (OMNIPAQUE) (100 mL intravenous Given 01/09/19 0950) ketorolac injection 30 mg (TORADOL) (30 mg intravenous Given 01/09/19 1059) dicyclomine capsule 10 mg (BENTYL) (10 mg oral Given 01/09/19 1205) lidocaine viscous-antacid 1:1 suspension 45 mL (GI COCKTAIL) (45 mL oral Given 01/09/19 1205) LABS: Labs Reviewed CBC WITH DIFFERENTIAL, B - Abnormal Result Value Hemoglobin 15.5 Hematocrit 43.0 Erythrocytes 5.31 MCV 81.0 RBC Distrib Width 12.6 Platelet Count 182 Leukocytes 8.4 Neutrophils 4.10 Lymphocytes 3.46 (*) Monocytes 0.64 Eosinophils 0.16 Basophils 0.07 COMPREHENSIVE METABOLIC PANEL, S/P - Abnormal Potassium, P 3.6 Sodium, P 140 Chloride, P 103 Bicarbonate, P 25 Anion Gap, P 12 BUN, P 13 Creatinine, P 0.92 eGFR Black >90 eGFR Non-Black >90 Calcium, Total 9.5 Glucose, P 110 Protein, Total, P 6.2 (*) Albumin, P 3.9 Aspartate Aminotransferase (AST), P 34 Alkaline Phosphatase, P 83 Alanine Aminotransferase (ALT), P 38 Bilirubin, Total, P 0.8 LIPASE, S/P Lipase, P 32 URINALYSIS WITH MICROSCOPIC Source Midstream Clarity Clear Color Yellow Blood Negative Nitrite Negative Leukocyte Esterase Negative Protein Negative Glucose Negative Ketone Negative Bilirubin Negative pH 6.5 Specific [place] 1.018 Urobilinogen 0.2 White Blood Cells None Seen Red Blood Cells None Seen TROPONIN T, 5TH GEN, P Troponin T, 5th gen <6 ECG: Ecg 12 Lead Result Date: 01/09/2019 Normal sinus rhythm with sinus arrhythmia Slight ST elevation, consider early repolarization When compared with ECG of 15-DEC-2018 12:13, No significant change was found RADIOLOGY: CT Chest Abdomen Pelvis Angiogram with IV Contrast Final Result IMPRESSION: 1. Negative for thoracic or abdominal aortic aneurysm or dissection. 2. No active pulmonary disease. 3. Negative CT of the abdomen and pelvis. DX Chest AP or PA and Lateral 2 Views Final Result IMPRESSION: Stable chest, no acute cardiopulmonary disease. ASSESSMENT AND PLAN: Impression and Plan Patient is a 23-year-old with past medical history of cholecystectomy, ADHD, depression, and anxietythat presents with complaints of diarrhea, vomiting, and abdominal pain. Patient states he started having 2 days ago, states he did vomit once yesterday and there was small streaking of blood, vomited again today so he presented emergency department. Denies any hematemesis today. Patient states he hashad chest pain for many years, that has been evaluated with no diagnosis, states chest pain is worseyesterday and today, describes it as a substernal pressure, no radiation. Patient also reports generalized abdominal pain that is worse in his upper quadrants bilaterally as well as in the suprapubic area. States he had dysuria 4 days ago has not had any since that time. Reports intermittent dizzinesshowever he says he has had this since a head injury in November, at that time was diagnosed with a concussion he reports. Denies exposure to others with similar symptoms or questionable food intake recently. Denies drug or alcohol use. Patient denies back pain, headache, neck pain, fever, vision change, numbness, tingling, or weakness. On exam patient is alert oriented, neurologically intact without focal deficit, lung sounds are clear and equal bilaterally, heart rate is regular, chest is tender with palpation to mid sternal area, abdomen is tender throughout, was tender to upper quadrants bilaterally as well as suprapubic area, no CVA tenderness. An IV is initiated, normal saline 1000 mL, Zofran,and morphine is given for pain. Labs are obtained and are unremarkable, no leukocytosis, no significant dehydration, no evidence of urinary tract infection. EKG reveals normal sinus rhythm, with slightST elevation that is most consistent with early repolarization, troponin is obtained and is normal. On re-examination patient reports he still in severe pain, is worst in his chest but remains in his abdomen as well, will give Tylenol, Pepcid is also given. Will CT chest and abdomen to rule out any sort of dissection or other acute pathology. The CT is negative for any acute pathology to the chest orabdomen. GI cocktail and Bentyl given with significant improvement in pain. Vital signs are normal. The patient states he continues to have mild generalized abdominal pain, the discussed admission at rate for serial abdominal exams versus discharge home with patient states he would prefer to be discharged home. Will discharge patient home with prescription for Bentyl and Zofran. Recommend close follow-up with primary care provider for re-evaluation, strict return precautions are discussed both specific in general patient is in agreement plan of care, denies any further questions or concerns at discharge.. Reviewed and summarized previous medical records including: Documentation from previous visits. I personally reviewed the lab result(s) and my interpretation is: Normal Radiology results: Reviewed the radiology report. Radiology interpretation: Normal DIAGNOSIS: Final diagnoses: [R07.89] Other Chest Pain [R10.9] Abdominal Pain [R11.2] Nausea And Vomiting [R19.7] Diarrhea ED DISCHARGE MEDS: ED Prescriptions Medication Sig Dispense Start Date End Date Auth. Provider dicyclomine (BENTYL) 20 mg tablet Take 1 tablet (20 mg total) by mouth 4 (four) times a day as needed (abdominal pain) for up to 3 days. 12 tablet 01/09/2019 01/12/2019 Jessy Artis APRN, C.N.P., M.S.N. ondansetron ODT (ZOFRAN-ODT) 4 mg disintegrating tablet Take 1 tablet (4 mg total) by mouth every 8(eight) hours as needed for nausea or vomiting for up to 10 days. 9 tablet 01/09/2019 01/19/2019 Jessy Artis APRN, C.N.P., M.S.N. DISPOSITION: Home or Self Alf or Self Care FOLLOW UP: Jessy Artis APRN, C.N.P., M.S.N. 01/11/19 2307 CAL LAB TECHNICIAN documented in this encounter Plan of Treatment Not on filedocumented as of this encounter Procedures Procedure Name Priority Date/Time Associated Comments Diagnosis CT CHEST ABDOMEN RAD - Semiurgent 01/09/2019 10:00 Res ults for PELVIS ANGIOGRAM (Fast; most ED AM MEDICAL LAB TECHNICIAN this proc edure WITH IV CONTRAST patients; some are in th e inpatients) results section. DX CHEST AP OR PA RAD - Semiurgent 01/09/2019 8:13 Res ults for AND LATERAL 2 VIEWS (Fast; most ED AM MEDICAL LAB TECHNICIAN this p rocedure patients; some are in the inpatients) results section. URINALYSIS WITH STAT 01/09/2019 7:14 Results f or MICROSCOPIC AM MEDICAL LAB TECHNICIAN this procedure are in the results section. ECG STAT 01/09/2019 7:11 Results for AM MEDICAL LAB TECHNICIAN this procedure are in the results section. CBC WITH STAT 01/09/2019 7:10 Results for DIFFERENTIAL, B AM MEDICAL LAB TECHNICIAN this procedu re are in the results section. LIPASE, S/P STAT 01/09/2019 7:10 Results for AM MEDICAL LAB TECHNICIAN this procedure are in the results section. COMPREHENSIVE STAT 01/09/2019 7:10 Results for METABOLIC PANEL, S/P AM MEDICAL LAB TECHNICIAN this pr ocedure are in the results section. TROPONIN T, 5TH GEN, STAT 01/09/2019 7:08 Resu lts for P AM MEDICAL LAB TECHNICIAN this procedure are in the results section. documented in this encounter Results CT Chest Abdomen Pelvis Angiogram with IV Contrast (01/09/2019 10:00 AM MEDICAL LAB TECHNICIAN) Anatomical Region Laterality Modality Chest, Abdomen, Pelvis, Cardiovascular RST LOS, Computed Tomography Abdominal ARZ LOS, Thoracic ARZ LOS, Vascular Interventional ARZ LOS, Vascular Interventional FLA LOS, Abdominal FLA LOS Specimen (Source) Anatomical Collection Method Collection Time Re ceived Time Location / / Volume Laterality 01/09/2019 10:26 AM MEDICAL LAB TECHNICIAN Impressions 01/09/2019 10:37 AM MEDICAL LAB TECHNICIAN IMPRESSION: 1. Negative for thoracic or abdominal ao rtic aneurysm or dissection. 2. No active pulmonary disease. 3. Negative CT of the abdomen and pelvis . Narrative 01/09/2019 10:37 AM MEDICAL LAB TECHNICIAN EXAM: CT CHEST ABDOMEN PELVIS ANGIOGRAM WITH IV CONTRAST 3D/MIPS: 3D Post-Processing performed on a dependent workstation. COMPARISON: None FINDINGS: Initially the chest was scanne d from the thoracic inlet through the adrenals without intravenous contrast. S ubsequently the chest abdomen and pelvis were scanned from the thoracic inlet thr ough the perineum during the arterial phase of intravenous contrast administra tion. The thoracic inlet is unremarkable. In the chest the pulmonary arteries are well-opacified and show no evidence of definite filling defect or abrupt cut of f suspicious for pulmonary embolism. The aortic arch and roots of the great vesse ls are unremarkable without evidence of aneurysm or dissection. No mediastinal o r hilar lymphadenopathy or mass is identified. Lungs are clear of infiltrat es or effusions or suspicious pulmonary mass or nodule. Thoracic osseous structu res are unremarkable. In the abdomen the liver is unremarkable . The gallbladder is surgically absent without biliary dilatation. The spleen, pancreas, and adrenal glands are normal on this arterial phase scan. There is bi laterally symmetric perfusion of kidneys which are normal in overall size, positi on, and appearance. There is some mild lobulation bilaterally as a normal variant. Ureters and bladder are unremarkable. Prostate and seminal vesic les are normal. The colon and apparent appendix are normal. Small bowel loops s how no evidence of inflammatory bowel disease or obstruction. Stomach is parti ally distended and unremarkable. There is no ascites. No retroperitoneal or pel calderon lymphadenopathy is identified. The abdominal aorta and its major branches a re unremarkable and remaining vascular structures appear to be normal. There is no evidence of aortic dissection. The lumbosacral spine and pelvic osseous str uctures are of unremarkable. Procedure Note Ricardo Grey Jr., M.D. - 2018 EXAM: CT CHEST ABDOMEN PELVIS ANGIOGRAM WITH IV CONTRAST 3D/MIPS: 3D Post-Processing performed on a dependent workstation. COMPARISON: None FINDINGS: Initially the chest was scanne d from the thoracic inlet through the adrenals without intravenous contrast. S ubsequently the chest abdomen and pelvis were scanned from the thoracic inlet thr ough the perineum during the arterial phase of intravenous contrast administra tion. The thoracic inlet is unremarkable. In the chest the pulmonary arteries are well-opacified and show no evidence of definite filling defect or abrupt cut of f suspicious for pulmonary embolism. The aortic arch and roots of the great vesse ls are unremarkable without evidence of aneurysm or dissection. No mediastinal o r hilar lymphadenopathy or mass is identified. Lungs are clear of infiltrat es or effusions or suspicious pulmonary mass or nodule. Thoracic osseous structu res are unremarkable. In the abdomen the liver is unremarkable . The gallbladder is surgically absent without biliary dilatation. The spleen, pancreas, and adrenal glands are normal on this arterial phase scan. There is bi laterally symmetric perfusion of kidneys which are normal in overall size, positi on, and appearance. There is some mild lobulation bilaterally as a normal variant. Ureters and bladder are unremarkable. Prostate and seminal vesic les are normal. The colon and apparent appendix are normal. Small bowel loops s how no evidence of inflammatory bowel disease or obstruction. Stomach is parti ally distended and unremarkable. There is no ascites. No retroperitoneal or pel calderon lymphadenopathy is identified. The abdominal aorta and its major branches a re unremarkable and remaining vascular structures appear to be normal. There is no evidence of aortic dissection. The lumbosacral spine and pelvic osseous str uctures are of unremarkable. IMPRESSION: 1. Negative for thoracic or abdominal ao rtic aneurysm or dissection. 2. No active pulmonary disease. 3. Negative CT of the abdomen and pelvis . Jessy Artis APRN, C.N.P., M.S.N. IMG CT PROCEDU RES DX Chest AP or PA and Lateral 2 Views (01/09/2019 8:13 AM MEDICAL LAB TECHNICIAN) Anatomical Region Laterality Modality Chest, Thoracic RST LOS, Thoracic ARZ LOS, Thoracic N/A Digital Radiography FLA LOS Specimen (Source) Anatomical Collection Method Collection Time Re ceived Time Location / / Volume Laterality 01/09/2019 8:28 AM MEDICAL LAB TECHNICIAN Impressions 01/09/2019 8:29 AM MEDICAL LAB TECHNICIAN IMPRESSION: Stable chest, no acute cardi opulmonary disease. Narrative 01/09/2019 8:29 AM MEDICAL LAB TECHNICIAN EXAM: DX CHEST AP OR PA AND LATERAL 2 VIEWS COMPARISON: 12/15/2018. FINDINGS: Heart size and pulmonary vascu larity are within normal limits. Lungs are clear of infiltrates or effusions. T here is no significant interval change compared with 12/15/2018. Procedure Note Ricardo Grey Jr., M.D. - 2018 EXAM: DX CHEST AP OR PA AND LATERAL 2 EWS COMPARISON: 12/15/2018. FINDINGS: Heart size and pulmonary vascu larity are within normal limits. Lungs are clear of infiltrates or effusions. T here is no significant interval change compared with 12/15/2018. IMPRESSION: Stable chest, no acute cardi opulmonary disease. Jessy Artis APRN, C.N.P., M.S.N. IM DIAGNOSTIC IMAGING PROCEDURES Urinalysis with Microscopic (01/09/2019 7:14 AM [facility]) athologist Signature Source Midstream 01/09/2019 [facility] 7:29 AM [facility] LAB Clarity Clear Clear 01/09/2019 [facility] 7:29 AM [facility] Color Yellow 01/09/2019 [facility] 7:29 AM [facility] LAB Comment: ----REFERENCE VALUE---- Colorless Yellow [place] Blood Negative Negative 01/09/2019 7:29 AM [facility] Nitrite Negative Negative 01/09/2019 7:29 AM [facility] Leukocyte Esterase Negative Negative 01/09/2019 7:29 AM [facility] Protein Negative mg/dL 01/09/2019 7:29 AM [facility] LAB Comment: ----REFERENCE VALUE---- Negative Trace Glucose Negative Negative mg/dL 01/09/2019 7:29 AM [facility] Ketone Negative Negative mg/dL 01/09/2019 7:29 AM [facility] Bilirubin Negative Negative 01/09/2019 7:29 AM [facility] LAB pH 6.5 5.0 - 8.0 01/09/2019 7:29 AM [facility] LAB Specific [place] 1.018 1.001 - 1.035 01/09/2019 7:29 AM [facility] LAB Urobilinogen 0.2 0.2 - 1.0 01/09/2019 7:29 AM [facility] White Blood Cells None Seen /hpf 01/09/2019 7:29 AM [facility] LAB Comment: ----REFERENCE VALUE---- Males: 0-3 Females: 0-10 Unknown: 0-10 Red Blood Cells None Seen 0 - 2 /hpf 01/09/2019 7:29 AM [facility] LAB Specimen Anatomical Collection Method Collection Time Receive d Time (Source) Location / / Volume Laterality Urine (Urine, 01/09/2019 7:14 AM 01/09/20 19 7:18 Midstream) MEDICAL LAB TECHNICIAN AM MEDICAL LAB TECHNICIAN Jessy Artis APRN C.N.P., M.S.N. LAB URINE [facility] Performing Organization Address City/State/ZIP Code Phon e Number [facility] [address] [place] [address] LAB ECG 12 Lead (01/09/2019 7:11 AM MEDICAL LAB TECHNICIAN) P athologist Signature Ventricular Rate 66 BPM MUSE ECG/Min HI Interval 184 ms MUSE QRSD Interval 104 ms MUSE QT Interval 382 ms MUSE QTC Interval 400 ms MUSE P [place] 43 degrees MUSE R [place] 39 degrees MUSE T Wave [place] 32 degrees MUSE Specimen Anatomical Collection Method Collection Time Receive d Time (Source) Location / / Volume Laterality 01/09/2019 7:11 AM 9 7:32 MEDICAL LAB TECHNICIAN AM MEDICAL LAB TECHNICIAN Impressions MUSE - 01/09/2019 7:32 AM MEDICAL LAB TECHNICIAN Normal sinus rhythm with sinus arrhythmia Slight ST elevation, consider early repo larization When compared with ECG of 15-DEC-2018 12 :13, No significant change was found Narrative This result has an attachment that is no t available. Procedure Note Marshal Earl M.D. - 01/09/2019Formatt ing of this note might be different from the original. IMPRESSION: Normal sinus rhythm with sinus arrhythmi a Slight ST elevation, consider early repo larization When compared with ECG of 15-DEC-2018 12 :13, No significant change was found Jessy Artis APRN, C.N.P., M.S.N. ECG ORDERABLES Performing Organization Address City/State/ZIP Code Phon e Number MUSE MUSE NA Lipase (01/09/2019 7:10 AM MEDICAL LAB TECHNICIAN) athologist Signature Lipase, P 32 13 - 60 U/L 01/09/2019 [facility] 7:41 AM [facility] LAB Specimen Anatomical Collection Method Collection Time Receive d Time (Source) Location / / Volume Laterality Blood (Blood, 01/09/2019 7:10 AM 01/09/20 19 7:17 Venous) MEDICAL LAB TECHNICIAN AM MEDICAL LAB TECHNICIAN Jessy Artis APRN, C.N.P., M.S.N. LAB BLOOD ADD- ON Performing Organization Address City/State/ZIP Code Phon e Number [facility] [address] [place] [address] LAB (ABNORMAL) Comprehensive Metabolic Panel (01/09/2019 7:10 AM MEDICAL LAB TECHNICIAN) athologist Signature Potassium, P 3.6 3.6 - 5.2 01/09/2019 [facility] mmol/L 7:41 AM [facility] LAB Sodium, P 140 135 - 145 01/09/2019 [facility] mmol/L 7:41 AM [facility] LAB Chloride, P 103 98 - 107 01/09/2019 [facility] mmol/L 7:41 AM [facility] LAB Bicarbonate, P 25 22 - 29 01/09/2019 [facility] mmol/L 7:41 AM [facility] LAB Anion Gap, P 12 7 - 15 01/09/2019 [facility] 7:41 AM [facility] LAB BUN (Blood Urea 13 8 - 24 01/09/2019 [facility] Nitrogen), P mg/dL 7:41 AM [facility] LAB Creatinine 0.92 0.74 - 01/09/2019 [facility] 1.35 mg/dL 7:41 AM [facility] LAB eGFR-Black/Afri >90 >=60 01/09/2019 [facility] can Central African mL/min/BSA 7:41 AM [facility] LAB Comment: ----ADDITIONAL INFORMATION---- Estimated GFR calculated using the 2009 CKD_EPI creatinine equation. eGFR Non-Black/ >90 >=60 mL/min/BSA 01/09/2019 7:41 AM [facility] [place] African [facility] LAB Comment: ----ADDITIONAL INFORMATION---- Estimated GFR calculated using the 2009 CKD_EPI creatinine equation. Calcium, Total, P 9.5 8.6 - 10.0 01/09/2019 7:41 AM [facility] mg/dL [facility] LAB Glucose, P 110 70 - 140 mg/dL 01/09/2019 7:41 AM [facility] LAB Protein, Total, P 6.2 (L) 6.3 - 7.9 g/dL 01/09/2019 7:41 A [facility] LAB Albumin, P 3.9 3.5 - 5.0 g/dL 01/09/2019 7:41 AM [facility] LAB Aspartate 34 8 - 48 U/L 01/09/2019 7:41 AM [facility] Aminotransferase (AST), P [facility] LAB Alkaline Phosphatase, P 83 40 - 129 U/L 01/09/2019 7: 41 AM [facility] LAB Alanine Aminotransferase 38 7 - 55 U/L 01/09/2019 7:4 1 AM [facility] (ALT), P [facility] LAB Bilirubin, Total, P 0.8 <=1.2 mg/dL 01/09/2019 7:41 AM [facility] LAB Specimen Anatomical Collection Method Collection Time Receive d Time (Source) Location / / Volume Laterality Blood (Blood, 01/09/2019 7:10 AM 01/09/20 19 7:17 Venous) MEDICAL LAB TECHNICIAN [facility] Jessy Artis APRN, C.N.P., M.S.N. LAB BLOOD ADD- ON Performing Organization Address City/State/ZIP Code Phon e Number [facility] [address] [place] [address] LAB (ABNORMAL) CBC with Differential (01/09/2019 7:10 AM MEDICAL LAB TECHNICIAN) [facility] Method Time Signature Hemoglobin 15.5 13.2 - 01/09/2019 [facility] 16.6 g/dL 7:22 AM [facility] LAB Hematocrit 43.0 38.3 - 01/09/2019 [facility] 48.6 % 7:22 AM [facility] LAB Erythrocytes 5.31 4.35 - 01/09/2019 [facility] 5.65 7:22 AM [facility] x10(12)/L [facility] LAB MCV 81.0 78.2 - 01/09/2019 [facility] 97.9 fL 7:22 AM [facility] LAB RBC Distrib Width 12.6 11.8 - 01/09/2019 [facility] 14.5 % 7:22 AM [facility] LAB Platelet Count 182 135 - 317 01/09/2019 [facility] x10(9)/L 7:22 AM [facility] LAB Leukocytes 8.4 3.4 - 9.6 01/09/2019 [facility] x10(9)/L 7:22 AM [facility] LAB Neutrophils 4.10 1.56 - 01/09/2019 [facility] 6.45 7:22 AM [facility] x10(9)/L [facility] LAB Lymphocytes 3.46 (H) 0.95 - 01/09/2019 [facility] 3.07 7:22 AM MEDICAL LAB TECHNICIAN HEALTH x10(9)/L [facility] LAB Monocytes 0.64 0.26 - 01/09/2019 [facility] 0.81 7:22 AM MEDICAL LAB TECHNICIAN HEALTH x10(9)/L [facility] LAB Eosinophils 0.16 0.03 - 01/09/2019 [facility] 0.48 7:22 AM MEDICAL LAB TECHNICIAN HEALTH x10(9)/L [facility] LAB Basophils 0.07 0.01 - 01/09/2019 [facility] 0.08 7:22 AM MEDICAL LAB TECHNICIAN HEALTH x10(9)/L [facility] LAB Specimen Anatomical Collection Method Collection Time Receive d Time (Source) Location / / Volume Laterality Blood (Blood, 01/09/2019 7:10 AM 01/09/20 19 7:17 Venous) MEDICAL LAB TECHNICIAN AM MEDICAL LAB TECHNICIAN Jessy Artis APRN, C.N.P., M.S.N. LAB BLOOD ADD- ON Performing Organization Address City/State/ZIP Code Phon e Number [facility] [address] [place] [address] LAB Troponin T, 5th Generation (01/09/2019 7:08 AM MEDICAL LAB TECHNICIAN) P athologist Signature Troponin T, 5th <6 <=15 ng/L 01/09/2019 [facility] gen 8:13 AM MEDICAL LAB TECHNICIAN [facility] LAB Comment: Biotin has been identified [...] Location / / Volume Laterality Blood (Blood, 01/09/2019 7:08 AM 01/09/20 19 8:00 Venous) MEDICAL LAB TECHNICIAN AM MEDICAL LAB TECHNICIAN Jessy Artis APRN, C.N.P., M.S.N. LAB BLOOD ADD- ON Performing Organization Address City/[facility] Phon e Number [facility] [address] [place] [address] LAB documented in this encounter Visit Diagnoses Diagnosis Other Chest Pain - Primary Abdominal Pain Nausea And Vomiting Diarrhea documented in this encounter Administered Medications Inactive Administered Medications - up to 3 most recent administrations Medication Order MAR Action Action Date Dose Rate Site acetaminophen tablet 1,000 mg Given 01/09/2019 9:24 AM MEDICAL LAB TECHNICIAN 1,000 mg (TYLENOL) 1,000 mg, oral, Once, On 01/09/19 at 0918, For 1 dose dicyclomine capsule 10 mg (BENTYL) Given 01/09/2019 12:05 PM MEDICAL LAB TECHNICIAN 10 mg 10 mg, oral, Once, On 01/09/19 at 1119, For 1 dose famotidine tablet 20 mg (PEPCID) Given 01/09/2019 7:50 AM MEDICAL LAB TECHNICIAN 20 mg 20 mg, oral, Once, On 01/09/19 at 0741, For 1 dose, Drug Monitoring Program: Pharmacist to adjust medication dosing based on indication and drug clearance factors. iohexol 350 mg iodine/mL solution 1-200 mL Given 01/09/2019 9:50 AM MEDICAL LAB TECHNICIAN 100 mL (OMNIPAQUE) 1-200 mL, intravenous, Once in imaging, contrast, Starting on Thu01/09/19 at 0939, For 1 dose ketorolac injection 30 mg (TORADOL) Given 01/09/2019 10:59 AM MEDICAL LAB TECHNICIAN 30 mg 30 mg, intravenous, Once, On 01/09/19 at 1047, For 1 dose, Adult IV push rate: Over 15 seconds. Peds IV push rate: Over 1 minute. 60 mg dose only for IM, not recommended for IV. lidocaine viscous-antacid 1:1 suspension 45 Given 01/09/2019 12:05 PM MEDICAL LAB TECHNICIAN 45 mL mL (GI COCKTAIL) 45 mL, oral, Once, On 01/09/19 at 1119, For 1 dose morphine injection 4 mg Given 01/09/2019 7:09 AM MEDICAL LAB TECHNICIAN 4 mg 4 mg, intravenous, Once, On Thu01/09/19 at 0705, For 1 dose NaCl 0.9 % bolus 1,000 mL New Bag 01/09/2019 7:08 AM MEDICAL LAB TECHNICIAN 1,000 mL 2000 mL/hr 1,000 mL, intravenous, at 2,000 mL/hr, Administer over 0.5 Hours, Once, On 01/09/19 at 0705, For 1 dose NaCl 0.9 % bolus 250 mL New Bag 01/09/2019 9:50 AM MEDICAL LAB TECHNICIAN 100 mL 250 mL, intravenous, Once in imaging, For CT exam, Starting on Thu01/09/19 at 0939, For 1 dose ondansetron (PF) injection 4 mg (ZOFRAN) Given 01/09/2019 7:08 AM MEDICAL LAB TECHNICIAN 4 mg 4 mg, intravenous, Once, On Thu01/09/19 at 0705, For 1 dose sodium chloride 0.9 % injection 10 mL 10 mL, intravenous, As needed, line care, Starting on Thu01/09/19 at 0700, Peripheral Intravenous Catheter and Rapid Infusion Cat heter, prior to blood sampling, post blood transfusion or post blood samplin g sodium chloride 0.9 % injection 10 mL Given 01/09/2019 9:51 AM MEDICAL LAB TECHNICIAN 10 mL 10 mL, intravenous, Once in imaging, line care, For CT exam, Starting on 01/09/19 at 0939, For 1 dose sodium chloride 0.9 % injection 3 mL 3 mL, intravenous, As needed, line care, Starting on 01/09/19 at 0700, Prior to and following infusion and between multi ple consecutive infusions: sodium chloride 0.9 % injection sodium chloride 0.9 % injection 3 mL 3 mL, intravenous, Every 12 hours scheduled, First dos e on 01/09/19 at 0900, Peripheral Intravenous Catheter and Rapi d Infusion Catheter, when no infusion to maintain patency documented in this encounter Active and Recently Administered Medications Times are shown in MEDICAL LAB TECHNICIAN. Scheduled Medication Order 01/07/2019 01/08/2019 01/09/2019 acetaminophen tablet 1,000 mg (TYLENOL) (COMPLETED) 0924 (Given - Provider: Kat Bush RAlden) 1,000 mg, oral, Once, On 01/09/19 at 0918, For 1 dose dicyclomine capsule 10 mg (BENTYL) (COMPLETED) 1205 (Given - Provider: Kat Bush RDameonNDameon) 10 mg, oral, Once, On 01/09/19 at 1119, For 1 dose famotidine tablet 20 mg (PEPCID) (COMPLETED) 0750 (Given - Provider: Kat Bush RDameonNDameon) 20 mg, oral, Once, On 01/09/19 at 074 1, For 1 dose, Drug Monitoring Program: Pharmacist to adjust medication dosing based on indication and drug clearance factors. ketorolac injection 30 mg (TORADOL) (COMPLETED) 1059 (Given - Provider: Kat Bush RDameonNDameon) 30 mg, intravenous, Once, On 01/09/19 at 1047, For 1 dose, Adult IV push rate: Over 15 seconds. Peds IV push rate: Over 1 minute. 60 mg dose only for IM, not recommended for IV. lidocaine viscous-antacid 1:1 suspension 45 mL (GI COCKTAIL) (CO MPLETED) 1205 (Given - Provider: Kat Bush R.N.) 45 mL, oral, Once, On 01/09/19 at 1119, For 1 dose morphine injection 4 mg (COMPLETED) 708 (Given - Provider: Fransico Thompson R.N.) 4 mg, intravenous, Once, On 01/09/19 at 0705, For 1 dose NaCl 0.9 % bolus 1,000 mL (COMPLETED) 707 (New Bag - Provider: Fransico Thompson R.N.)0815 (Stopped - Provider: Kat Bush R.N.) 1,000 mL, intravenous, at 2,000 mL/hr, A dminister over 0.5 Hours, Once, On 01/09/19 at 0705, For 1 dose ondansetron (PF) injection 4 mg (ZOFRAN) (COMPLETED) 707 (Given - Provider: Fransico Thompson R.N.) 4 mg, intravenous, Once, On 01/09/19 at 0705, For 1 dose sodium chloride 0.9 % injection 3 mL 0900 (Due) 3 mL, intravenous, Every 12 hours schedu led, First dose on Thu01/09/19 at 0900, Peripheral Intravenous Catheter and Rapid Infusion Catheter, when no infusion to maintain patency PRN Medication Order 01/07/2019 01/08/2019 01/09/2019 iohexol 350 mg iodine/mL solution 1-200 mL (OMNIPAQUE) (COMPLETE D) 0950 (Given - Provider: Danielle Murguia(R)(CT), R.T.(R)) 1-200 mL, intravenous, Once in imaging, contrast, Starting on Thu01/09/19 at 0939, For 1 dose NaCl 0.9 % bolus 250 mL (COMPLETED) 0950 (New Bag - Provider: Danielle Murguia(R)(CT), R.T.(R)) 250 mL, intravenous, Once in imaging, Fo r CT exam, Starting on 01/09/19 at 0939, For 1 dose sodium chloride 0.9 % injection 10 mL 10 mL, intravenous, As needed, line care , Starting on Thu01/09/19 at 0700, Peripheral Intravenous Catheter and Rapid Infusion Catheter, prior to blood sampling, post blood transfusion or post blood sampling sodium chloride 0.9 % injection 10 mL (COMPLETED) 0951 (Given - Provider: Danielle Murguia(Aubree)(CT), Danielle(R)) 10 mL, intravenous, Once in imaging, tracy e care, For CT exam, Starting on 01/09/19 at 0939, For 1 dose sodium chloride 0.9 % injection 3 mL 3 mL, intravenous, As needed, line care, Starting on 01/09/19 at 0700, Prior to and following infusion and between multiple consecutive infusions: sodium chloride 0.9 % injection documented in this encounter Additional Health Concerns Assessment Noted Time PHQ-9 Depression Total Score: 18 02/26/2017 8:33 AM CD T documented as of this encounter Care Teams Outpatient Program Coordinator Relationship Specialty Start Date End Date Avis Razo M.D. PCP - General 08/30/18 12/13/[address] [place] [address] CHRISTINA Castellanos [phone] documented as of this encounter
--- OUTSIDE RECORDS SUMMARY | 2022-07-26 14:37 | XMS_ITS | Encounter Summary ---
:1995 Author Organization [facility] Address [address] [place] [address] Care Team Providers Name Role Phone Unavailable Primary Care Provider Unavailable Encounter Details Date Type Department Care Team Description 12/27/2010 - Hospital Encounter HX RST GENEROSE 1 [facility]ST 01/08/2011 Social History Tobacco Use Types Packs/Day Years Used Date Smoking Tobacco: Never Assessed Sex Assigned at Date Recorded Not on file documented as of this encounter Plan of Treatment Not on filedocumented as of this encounter Visit Diagnoses Not on filedocumented in this encounter Additional Health Concerns Assessment Noted Time PHQ-9 Depression Total Score: 11 12/27/2010 4:50 PM CS T documented as of this encounter
--- OUTSIDE RECORDS SUMMARY | 2022-07-26 14:37 | XMS_ITS | Encounter Summary ---
:1995 Author Organization [facility] Address [address] [place] [address] Care Team Providers Name Role Phone Unavailable Primary Care Provider Unavailable Encounter Details Date Type Department Care Team Description 08/01/2016 Hospital Encounter [facility] Jesús Tejeda APRN, C.N.P., R. N. [address] [place] [phone] (Wo rk) Social History Tobacco Use Types Packs/Day Years Used Date Smoking Tobacco: Never Assessed Sex Assigned at Date Recorded Not on file documented as of this encounter Last Filed Vital Signs Vital Sign Reading Time Taken Comments Blood Pressure 123/78 08/01/2016 5:00 PM CDT Pulse 98 08/01/2016 5:00 PM CDT Temperature - - Respiratory Rate 16 08/01/2016 5:00 PM CDT Oxygen Saturation - - Inhaled Oxygen Concentration - - Weight - - Height - - Body Mass Index - - documented in this encounter Discharge Summaries Sky Valentine, L.P.N. - 08/01/2016 6:36 PM CDT ED Discharge Instructions [facility] [address] [place] [address] Name: DONTE OVIEDO Date of : 1995 12:00 AM Visit Date: 08/01/2016 4:38 PM [facility] Number: [id number] Address: [address] [facility] [address] Primary Care Provider: PCP, ELSEWHERE IMPORTANT: [facility] in [place] would like to thank you for allowing us to assist youwith your healthcare needs. The following includes patient education materials and information regarding your injury/illness. Diagnosis: Follow-Up Instructions: With: Address: When: Follow Up with Primary Care In 7 days 08/08/2016 Comments: knee pain, chronic back pain. New in the [facility]. Needs to be seen acutely and then to establish With: Address: When: ELSEWHERE PCP Within As Needed Your Upcoming Appointments: Date Time Location Provider No Appointments found Patient Education Materials: Knee Immobilizer A KNEE IMMOBILIZER is used to provide support and limit movement of the knee. This will make you more comfortable as your injury heals. Home Use: 1) Unless told otherwise, the knee brace should be worn whenever you are out of bed. You may wear itin bed while asleep for the first few nights or until the pain starts to go away. Otherwise, remove the brace at night to avoid muscle stiffness from lack of joint movement. 2) You can open the velcro brace to dress, bathe and apply ice packs as directed. Get Prompt Medical Attention if any of the following occur: -- Worsening pain in the knee -- Weakness or numbness or tingling in the foot -- Increased swelling, redness or warmth of the knee joint ?? [id number] [facility], [address] [place] [address], [place] [address]. All rights reserved. This information is not intended as a substitute for professional medical care. Always follow your healthcare professional's instructions. Back Care Tips These are things you can do to prevent a recurrence of acute back pain and to reduce symptoms from chronic back pain: ?? Maintain a healthy weight. If you are overweight, losing weight will help most types of back pain. ?? Exercise is an important part of recovery from most types of back pain. The back is supported by the muscles behind and in front of the spine. This means both the back muscles and the abdominal muscles must be strengthened to provide better support for your spine. ?? Swimming and brisk walking are good overall exercises to improve your fitness level. ?? Practice safe lifting methods (below). ?? Practice good posture when sitting, standing and walking. Avoid prolonged sitting. This puts morestress on the lower back than standing or walking. ?? Wear quality shoes with sufficient arch support. Foot and ankle alignment can affect back symptoms. Women should avoid high heels. ?? Therapeutic massage can help relieve acute and chronic back pain. ?? During the first two days after an acute injury or flare-up of chronic back pain, apply an ice pack to the painful area for 20 minutes every 2-4 hours. This will reduce swelling and pain. Heat (hot shower, hot bath, or heating pad) works well for muscle spasm. You can start with ice, then switch toheat after two days. Some patients feel best alternating ice and heat treatments. Use the one methodthat feels the best to you. ?? You may use acetaminophen (Tylenol) or ibuprofen (Motrin, Advil) to control pain, unless another medicine was prescribed. [NOTE: If you have chronic liver or kidney disease or ever had a stomach ulcer or GI bleeding, talk with your doctor before using these medicines.] Lumbar Stretch Here is a simple stretching exercise that will help relax muscle spasm and keep your back more limber. If exercise makes your back pain worse, dont do it. ?? Lie on your back with your knees bent and both feet on the ground. ?? Slowly raise your left knee to your chest as you flatten your lower back against the floor. Hold for 5 seconds. ?? Relax and repeat the exercise with your right knee. ?? Do 10 of these exercises for each leg. Safe Lifting Method ?? Dont bend over at the waist to lift an object off the floor. Instead, bend your knees and hips leidy squat. ?? Keep your back and head upright. ?? Hold the object close to your body, directly in front of you. ?? Straighten your legs to lift the object. ?? Lower the object to the floor in the reverse fashion. ?? If you must slide something across the floor, push it. Posture Tips SITTING Sit in chairs with straight backs or low-back support. Keep your knees a little higher than your hips. If necessary, use a low stool to prop your feet on, so your feet are resting on a solid surface. When driving, sit up straight. Adjust the seat forward so you are not leaning toward the steering wheel. A small pillow or rolled towel behind your lower back may help if you are driving long distances. STANDING When standing for long periods, shift most of your weight to one leg at a time. Alternate legs everyfew minutes. SLEEPING The best way to sleep is on your side with your knees bent. Put a low pillow under your head to support your neck in a neutral spine position. Avoid thick pillows that bend your neck to one side. Put apillow between your legs to further relax your lower back. If you sleep on your back, put pillows under your knees to support your legs in a slightly flexed position. Use a firm mattress. If your mattress sags, replace it, or use a 1/2-inch plywood board under the mattress to add support. Follow Up with your doctor or as directed by our staff. [NOTE: If X-rays, a CT scan or an MRI scan were taken, they will be reviewed by a radiologist. You will be notified of any new findings that may affect your care.] Return Promptly or contact your doctor if any of the following occur: ?? Pain becomes worse or spreads to your arms or legs ?? Weakness or numbness in one or both arms or legs ?? Loss of bowel or bladder control ?? Numbness in the groin area ?? [id number] [place] [address]. All rights reserved. This information is not intended as a substitute for professional medical care. Always follow your healthcare professional's instructions. Back Pain [Acute Or Chronic] Back pain is usually caused by an injury to the muscles or ligaments of the spine. Sometimes the disks that separate each bone in the spine may bulge and cause pain by pressing on a nearby nerve. Back pain may also appear after a sudden twisting/bending force (such as in a car accident), after a simple awkward movement, or lifting something heavy with poor body positioning. In either case, muscle spasm is often present and adds to the pain. Acute back pain usually gets better in one to two weeks. Back pain related to disk disease, arthritis in the spinal joints or spinal stenosis (narrowing of the spinal canal) can become chronic and lastfor months or years. Unless you had a physical injury (for example, a car accident or fall) X-rays are usually not ordered for the initial evaluation of back pain. If pain continues and does not respond to medical treatment, x-rays and other tests may be performed at a later time. Home Care: You may need to stay in bed the first few days. But, as soon as possible, begin sitting or walking to avoid problems with prolonged bed rest (muscle weakness, worsening back stiffness and pain, blood clots in the legs). When in bed, try to find a position of comfort. A firm mattress is best. Try lying flat on your backwith pillows under your knees. You can also try lying on your side with your knees bent up towards your chest and a pillow between your knees. Avoid prolonged sitting. This puts more stress on the lower back than standing or walking. During the first two days after injury, apply an ICE PACK to the painful area for 20 minutes every 2-4 hours. This will reduce swelling and pain. HEAT (hot shower, hot bath or heating pad) works well for muscle spasm. You can start with ice, then switch to heat after two days. Some patients feel best alternating ice and heat treatments. Use the one method that feels the best to you. You may use acetaminophen (Tylenol) or ibuprofen (Motrin, Advil) to control pain, unless another pain medicine was prescribed. [NOTE: If you have chronic liver or kidney disease or ever had a stomach ulcer or GI bleeding, talk with your doctor before using these medicines.] Be aware of safe lifting methods and do not lift anything over 15 pounds until all the pain is gone. Follow Up with your doctor or this facility if your symptoms do not start to improve after one week. Physical therapy may be needed. [NOTE: If X-rays were taken, they will be reviewed by a radiologist. You will be notified of any newfindings that may affect your care.] Get Prompt Medical Attention if any of the following occur: ?? Pain becomes worse or spreads to your legs ?? Weakness or numbness in one or both legs ?? Loss of bowel or bladder control ?? Numbness in the groin or genital area ?? [id number] [facility], [address] [place] [address], [place] [address]. All rights reserved. This information is not intended as a substitute for professional medical care. Always follow your healthcare professional's instructions. Consider Using Patient Online Services Patient Online Services is a secure online and Mobile application that lets you: ?? View lab and test results ?? View portions of your medical record including clinical notes, immunizations and discharge summaries ?? Request an appointment or medication refill ?? Review your appointment schedule ?? Send secure messages to your care team Its easy to create an account if you dont have one. Go to [email or web address] and click on Create Your Account. Then, follow the directions to complete the online form. Youll be asked for your [facility] number which you can find at the top of this document. ED Tests and Procedures: Order Status XR Knee Left 3 views Ordered Follow Up with Primary Care Completed Discharge Prescriptions & Home Medications: Medication/Strength Dose Route Frequency Indications/Special Instructions/Comments/Notes ibuprofen (ibuprofen 800 mg oral tablet) 800 mg Oral three times a day as needed for Pain Take with food ibuprofen (ibuprofen 200 mg oral capsule) 800 mg Oral three times a day for 3 Days acetaminophen (acetaminophen 650 mg oral tablet, extended release) 1,300 mg Oral every 8 hours for 3Days *cholecalciferol (Vitamin D3 1000 intl units oral tablet) 1,000 IntU Oral once a day *benzoyl peroxide topical (benzoyl peroxide topical 5% gel) 1 mary ellen Topical once a day (keep away fromeyes and mucous membranes) apply q AM *tretinoin topical (Retin-A 0.01% topical gel) 1 mary ellen Topical once a day (at bedtime) (wash hands before applying)apply hs, may hold if redness/dryness excess *quetiapine (Seroquel 50 mg oral tablet) See Instructions 1 tab(s) PO 2xDay *guanfacine (Tenex 1 mg oral tablet) 1 mg Oral once a day (at bedtime) *trazodone (trazodone 150 mg oral tablet) 150 mg Oral once a day (at bedtime) * You have let us know that you are not taking this medication as listed. Please talk with your primary care provider or the health care provider who prescribed the medication as soon as possible. Comment: Attention: If you have any medications at home that are not on this list, DO NOT take them until youcontact your provider for clarification. Give a copy of your medication list to your primary care provider. Update your medication list any time medications or doses are changed and carry your medication list at all times in case of emergency. IMPORTANT: We examined and treated you today on an emergency basis only. This was not a substitute for, or an effort to provide, complete medical care. In most cases, you must let your doctor check youagain. Tell your doctor about any new or lasting problems. We cannot recognize and treat all injuries or illnesses in one Emergency Department visit. If you had special tests, such as EKG's or X- rays, we will review them again within 24 hours. We will call you if there are any new suggestions. Please follow the instructions above carefully. If you are a patient that is being discharged from the Emergency Department after receiving narcotics or other medications that may impair your judgment you may be a risk to yourself or others if you operate a motor vehicle. We recommend that you arrange a ride home with a responsible republican. IVELISSE Corona CHARLES MICHAEL , or responsible republican have received this information and my questions have been answered. I have discussed any challenges I see with this plan with the nurse or physician. Patient Signature or Responsible Alliance Party/Relationship Date Time Provider Signature Date Time IMPORTANT: We examined and treated you today on an emergency basis only. This was not a substitute for, or an effort to provide, complete medical care. In most cases, you must let your doctor check youagain. Tell your doctor about any new or lasting problems. We cannot recognize and treat all injuries or illnesses in one Emergency Department visit. If you had special tests, such as EKG's or X- rays, we will review them again within 24 hours. We will call you if there are any new suggestions. Please follow the instructions above carefully. If you are a patient that is being discharged from the Emergency Department after receiving narcotics or other medications that may impair your judgment you may be a risk to yourself or others if you operate a motor vehicle. We recommend that you arrange a ride home with a responsible republican. IVELISSE Corona CHARLES MICHAEL , or responsible republican have received this information and my questions have been answered. I have discussed any challenges I see with this plan with the nurse or physician. Patient Signature or Responsible Alliance Party/Relationship Date Time Provider Signature Date Time This document has images extracted. Please consider using [employer] for all your patient education needs. Source: [facility] [employer] Document Id: [id number] Sky Valentine L.P.N. - 08/01/2016 6:36 PM CDT ED Depart Summary [facility] Emergency Department / Urgent Care Clinical Discharge Summary PERSON INFORMATION Name DONTE OVIEDO Age 21 Years 1995 12:00 AM Sex Male Language Japanese PCP PCP, ELSEWHERE Marital Status Single N [id number] Visit Id Visit Reason UC - Back Pain; LEFT KNEE PAIN AND BACK PAIN Specialty [facility] Outpatient Med Service Urgent Care Referred by Track Group [facility] ED/UC Discharge 08/01/2016 6:36 PM Tracking Id [id number] Checkout 08/01/2016 6:36 PM Checkin 08/01/2016 4:38 PM Acuity 5 -Non Urgent Dispo Type * Discharged to Home or Self Care Arrival 08/01/2016 4:38 PM Reg Status Complete LOS 000 01:58 Address: [address] [place] [address] Comment: PROVIDER INFORMATION Provider Role Provider Contact Time JOANNA TEJEDA CNP ED Provider 08/01/16 17:11 SKY VALENTINE LPN ED Nurse 08/01/16 17:11 DIAGNOSIS Comment: PATIENT EDUCATION INFORMATION Instructions: KNEE IMMOBILIZER; BACK CARE TIPS; BACK PAIN (Acute or Chronic) Follow up: With: Address: When: Follow Up with Primary Care In 7 days 08/08/2016 Comments: knee pain, chronic back pain. New in the [facility]. 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 - 08/01/2016 4:38 PM CDT [id number] HISTORY OF PRESENT ILLNESS This is a 21-year-old that comes in with his girlfriend. The patient is having left knee pain. He states that it has been painful for about the last 2 months but it has gotten much worse. He states he cannot really straighten the leg out. He feels a grinding sensation when he extends and flexes the leg. Yesterday he thought he had some numbness or tingling in the toes. He does not have any today. No saddle anesthesia. No bowel or bladder incontinence. Patient would like to be evaluated for this. Patient states that his back, his neck and all of his body hurts and the back is a chronic issue which he has had for years and he has had physical therapy and pain medications in the past. What aggravatedthis is he has not worked for some time but he started a new job yesterday at [email or web address] and so they worked almost a 12 hour day and he thinks that caused everything to flare which it very likely did. He went to work today and could only be there 15 minutes because that knee hurt too badly. PHYSICAL EXAMINATION VITAL SIGNS: Noted. His temp is 37.2, blood pressure is 123/78 heart rate 98, oxygen saturation is 96% on room air. GENERAL: He is well nourished, hydrated. He is in no acute distress. Nontoxic in appearance. EXTREMITIES: His left knee is comparable in size and shape to his right knee. With palpation he is tender over the lateral joint space over the patella. No medial joint space pain. He can extend the knee fully, bring it back past 90 degrees. Invert, inez without any difficulty. There is no laxity noted on examination. He does have a little bit of grinding at the patella area with flexing the knee. His gait is slow, steady and upright. His foot is pink and warm with no edema. His cap refill less than 2 seconds and pulses are palpable. DIAGNOSTICS Knee x-ray has been obtained and that shows a normal knee. Due to the chronicity of the back, the neck and the body aches without fever, will defer those to Primary Care and a referral has been sent through. IMPRESSION/REPORT/PLAN Left knee pain. PLAN: Patient was given Toradol 60 mg and 30 mg of Norflex in Urgent Care. Tolerated that well, bringing the pain down to about a 6 in the knee when he left. I would encourage ice to the areas that aresore and tender followed by gentle range of motion. I did put him into a neoprene brace he can wear during his waking hours. I wrote a prescription for ibuprofen 800 mg 3 times a day as needed, to takewith food and that should help with the knee pain. Advised if he has escalation in symptoms, decrease in movement, strength, sensation, function, numbness, tingling or other concerns, we would be happyto re-evaluate those issues that are acutely bothersome to him. I have sent through a referral to [facility]. I have double-checked the phone number with him and they are as listed in his chart and Jaime gave him the number if he does not hear from them in the next few days to set up an appointment, that he should call and help facilitate that. The patient and family verbalize understanding. They are in agreement with this plan. Discharge information given and visit was concluded. Joanna Tejeda R.N., C.N.P./cynthia Electronically Signed By: JOANNA TEJEDA VICE PRESIDENT BUSINESS [employer] CORPORATE DEVELOPMENT On: 08/05/2016 08:55 AM Source: [facility] MHSDOLBEYNONRADSYS Document Id: [id number] documented in this encounter H&P Notes Sky Valentine L.P.N. 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 Intake Chief Complaint : STATES HAS CHRONIC BACK PAIN FOR YEARS BUT LAST 2 MONTHS STARTED HAVING LEFT KNEE PAIN I DECIDED TO WAIT AND SEE IF IT GOT WORSE AND IT HAS IN LAST COUPLE DAYS STATES NOTED IT WASWORSE AFTER FIRST DAY WORKING AT [employer] Temperature Core : 37.2 DegC(Converted to: 99.0 DegF) Peripheral Pulse Rate : 98 /min Respiratory Rate : 16 /min Systolic Blood Pressure : 123 mmHg Diastolic Blood Pressure : 78 mmHg NIBP Mean : 93 mmHg BP Location : Left upper extremity SpO2 : 96 % SKY VALENTINE [facility] 08/01/2016 17:00 CDT General Info Information Given By : Patient Preferred Communication Mode : Verbal Languages : Japanese Is Patient Female and 13-50 no hysterectomy : No PHILIPPE VALENTINESHAYNA Raza [facility] 08/01/2016 17:00 CDT Subjective Pain Symptoms : Yes SKY VALENTINE Ry [facility] 08/01/2016 17:00 CDT Pain Scale Pain Scale Verbal 0-10 : Open PHILIPPE VALENTINESHAYNA Raza [facility] 08/01/2016 17:00 CDT Pain Pain Assessment Grid Pain 1 Pain 2 Pain 3 Location : Knee Other: MID BACK Knee Laterality : Left Left Intensity : 7 8 SKY VALENTINE Ry [facility] 08/01/2016 17:00 CDT SKY VALENTINE Ry [facility] 08/01/2016 17:00 CDT SKY VALENTINERy [facility] 08/01/2016 17:00 CDT Dependent Habits Exposure to Tobacco Smoke : Patient smokes Smoking Status : Former smoker Tobacco 2A : No Tobacco Use/Currently Using : No Tobacco Use/Last 30 Days : No Tobacco Use/Last 12 months : No HUSSAINSKY Ry [facility] 08/01/2016 17:00 CDT Caffeine Use Grid Caffeine Use : Current Type : Soft drinks Frequency : Occasionally Amount : 1 can rarely Last Use : been awhile SKY VALENTINE Ry [facility] 08/01/2016 17:00 CDT Nutrition Nutrition Risk Factors by History Adult : None SKY VALENTINE Ry [facility] 08/01/2016 17:00 CDT Functional Current Daily Living Assistance : None HUSSAINSKY Ry [facility] 08/01/2016 17:00 CDT Psychosocial Domestic Abuse Concerns : None Behavioral Health Screen/Safety Assmt : No Cheondoism Preference : No qualifying data available. SKY VALENTINE LPN - 08/01/2016 17:00 CDT Advance Directive Advanced Directives : No Advance Directive Additional Information : No SKY VALENTINE LPN - 08/01/2016 17:00 CDT Educ Needs Learning Style Preference Adult Grid Patient : Printed materials Family : Printed materials SKY VALENTINE LPN - 08/01/2016 17:00 CDT Source: [employer] Document Id: [id number] CDT!61 documented in this encounter ED Notes Sky Valentine L.PAlden - 08/01/2016 6:36 PM CDT ED Disposition Summary ED Disposition Summary Entered On: 08/01/2016 18:36 CDT Performed On: 08/01/2016 18:36 CDT by SKY VALENTINE LPN ED Disposition Summary Present in Room During Exam/Procedure : Friend Mode of Discharge : Ambulatory Discharge From ED With : Home Med List Printed Discharge Instructions Given to Patient : Yes Patient Status at Discharge from ED : Unchanged SKY VALENTINE LPN - 08/01/2016 18:36 CDT Source: [employer] Document Id: [id number] CDT!7 Sky Valentine L.P.NDameon - 08/01/2016 6:35 PM CDT ED Treatments and Procedures ED Treatments and Procedures Entered On: 08/01/2016 18:35 CDT Performed On: 08/01/2016 18:35 CDT by SKY VALENTINE LPN Orthopedic Tx Orthopedic Treatment Instructions Given Treatment Site : Knee Treatment Laterality : Left Orthopedic Treatments Done : Other: Neoprene knee brace size large Treatment Instructions Given : Patient demonstrates comprehension of instructions, Patient verbalizes comprehension of instructions, Family member verbalizes comprehension SKY VALENTINE LPN - 08/01/2016 18:35 CDT Source: [facility] POWER[facility] Document Id: [id number] CDT!8 Brenna Holland RAlden - 08/01/2016 4:42 PM CDT ED Triage Assessment Document Has Been Updated ED Triage Assessment Entered On: 08/01/2016 16:43 CDT Performed On: 08/01/2016 16:42 CDT by BRENNA HOLLAND RN Reason For Visit (As Of: 08/01/2016 16:43:47 CDT) Problems(Active) Acne rosacea (ICD-9-CM :695.3 ) Name of Problem: Acne rosacea ; Onset Date: 10/02/2011 ; Recorder: DERIC HARTLEY MD; Confirmation: Confirmed ; Classification: Medical ; Code: 695.3 ; Contributor System: [employer] ; Last Updated: 10/02/2011 10:36 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 ; 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 Date: 10/02/2011 ; Life Cycle Status: Active ; Responsible Provider: DERIC HARTLEY MD; Vocabulary: ICD-9-CM Attention Deficit Dis W Hyperactivity (ICD-9-CM :314.01 ) Name of Problem: Attention Deficit Dis W Hyperactivity ; Onset Date: 03/2005 ; Confirmation: Provisional ; Classification: Medical ; Code: 314.01 ; Contributor System: [employer]WA[employer]HPP_SYS ; Last Updated: 12/27/2009 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 ; Life Cycle Date: 04/07/2005; Life Cycle Status: Active ; Vocabulary: ICD-9-CM Oppositional Disorder Child Adolescent (ICD-9-CM :313.81 ) Name of Problem: Oppositional Disorder Child Adolescent ; Onset Date: 03/2005 ; Confirmation: Provisional ; Classification: Medical ; Code: 313.81 ; Contributor System: [employer]HPP[employer] ; Last Updated: 12/27/2009 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 ; Life Cycle Date: 04/07/2005 ; Life Cycle Status: Active ; Vocabulary: ICD-9-CM Reactive Attachment Disorder Childhood (ICD-9-CM :313.89 ) Name of Problem: Reactive Attachment Disorder Childhood ; Onset Date: 06/2009 ; Confirmation: Provisional ; Classification: UPDATE NEEDED ; Code: 313.89 ; Contributor System: [employer]WA[employer]HPP[employer]SYS ; Last Updated: 12/27/2009 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 Left knee pain x two months. Information Given By : Patient Mode of Arrival ED : Private vehicle, Ambulatory Track : Medical Languages : Japanese Treatments Prior to Arrival : None Is Patient Female and 13-50 no hysterectomy : No BRENNA HOLLAND RN - 08/01/2016 16:42 CDT Pain Assessment Pain Symptoms : Yes BRENNA HOLLAND RN - 08/01/2016 16:42 CDT Pain Scale Pain Scale Verbal 0-10 : Open BRENNA HOLLAND RN - 08/01/2016 16:42 CDT Pain Pain Assessment Grid Pain 1 Pain 2 Pain 3 Location : Upper back Lower back Knee Laterality : Bilateral Bilateral Left BRENNA HOLLAND RN - 08/01/2016 16:42 CDT BRENNA HOLLAND RN - 08/01/2016 16:42 CDT BRENNA HOLLAND RN - 08/01/2016 16:42 CDT KIMBERLI DCP GENERIC CODE Tracking Acuity : 5 -Non Urgent Tracking Group : [facility] ED/ BRENNA HOLLAND RN - 08/01/2016 16:42 CDT Source: [employer] Document Id: [id number] CDT!28 documented in this encounter Plan of Treatment Not on filedocumented as of this encounter Procedures Procedure Name Priority Date/Time Associated Diagnosis Comme nts DX KNEE LEFT 3 Routine 08/01/2016 6:02 PM Results for this VIEWS CDT procedure are i n the results section. documented in this encounter Results DX Knee Left 3 Views (08/01/2016 6:02 PM CDT) Anatomical Region Laterality Modality Lower Extremity, Knee Left Radiographic Imagi ng Specimen (Source) Anatomical Collection Method Collection Time Re ceived Time Location / / Volume Laterality 08/01/2016 6:02 PM CDT Addenda Addendum by Provider, Hilton Leach 08/01/2016 6:02 PM CDT RAD^^^AU XR Knee Left 3 views 08/01/2016 18:02:00 Impressions 08/01/2016 7:05 PM CDT No appreciable fracture or dislocation. If pain persists, consider follow-up imaging. Preliminary report was reviewed. Narrative 08/01/2016 7:05 PM CDT EXAM: XR Knee Left 3 views INDICATION: 2 months pain, no known inju ry COMPARISON: None. Procedure Note Lucy Scott M.D. / Provider, Lizzette restrepo M.D. - 03/28/2017 EXAM: XR Knee Left 3 views INDICATION: 2 months pain, no known inju ry COMPARISON: None. IMPRESSION: No appreciable fracture or d islocation. If pain persists, consider follow-up imaging. Preliminary report was reviewed. Connie Santos(R)(CT), RDameonTDameon(R) IMG DIAGNOSTIC IM AGING PROCEDURES documented in this encounter Visit Diagnoses Not on filedocumented in this encounter Additional Health Concerns Assessment Noted Time PHQ-9 Depression Total Score: 16 01/08/2011 2:17 PM CS T documented as of this encounter
--- OUTSIDE RECORDS SUMMARY | 2022-07-26 14:37 | XMS_ITS | Encounter Summary ---
:1995 Author Organization [facility] Address [address] [place] [address] Care Team Providers Name Role Phone Unavailable Primary Care Provider Unavailable Encounter Details Date Type Department Care Team Description 07/15/2005 [facility] Asad Gonzales M.D. [address] [place], [place] [address] (Wo rk) Social History Tobacco Use Types Packs/Day Years Used Date Smoking Tobacco: Never Assessed Sex Assigned at Date Recorded Not on file documented as of this encounter Plan of Treatment Not on filedocumented as of this encounter Visit Diagnoses Not on filedocumented in this encounter
--- OUTSIDE RECORDS SUMMARY | 2022-07-26 14:37 | XMS_ITS | Encounter Summary ---
:1995 Author Organization [facility] Address [address] [place] [address] Care Team Providers Name Role Phone Unavailable Primary Care Provider Unavailable Encounter Details Date Type Department Care Team Description 02/05/2016 Hospital Encounter HX [facility] Karan Shetty M.D. [address] [place] [address], [address] [place] [address] (Wo rk) Social History Tobacco Use Types Packs/Day Years Used Date Smoking Tobacco: Never Assessed Sex Assigned at Date Recorded Not on file documented as of this encounter Last Filed Vital Signs Vital Sign Reading Time Taken Comments Blood Pressure 120/70 02/05/2016 2:30 PM CDT Pulse - - Temperature - - Respiratory Rate - - Oxygen Saturation - - Inhaled Oxygen Concentration - - Weight 108 kg (237 lb 3.4 oz) 02/05/2016 2:30 PM CDT Height - - Body Mass Index - - documented in this encounter Consult Notes Kaycee Shetty M.D. - 02/05/2016 2:20 PM CDT [id number] CHIEF COMPLAINT/REASON FOR VISIT Low back pain and left shoulder pain. REFERRAL SOURCE Vincent Montes MD, at [facility]. HISTORY OF PRESENT ILLNESS Mr. Oviedo is a pleasant 20-year-old male who reports he has had left shoulder pain for the past 5 years. That pain began without any inciting events or trauma. He describes this as an achy discomfortthat is located in his posterior left shoulder and primarily involving the left trapezius. This paincan be worse at random times and he cannot think of anything specific that tends to make it better or worse. He can occasionally have pain if he lies on his left side at night. The pain does not radiate distal to the shoulder. He denies any paresthesias or focal weakness in his upper extremities. He denies any catching or locking in the shoulder. He denies any focal weakness in the left upper extremity. Mr. Oviedo also describes low back pain. He also had low back pain for the past 5 years. He describes this as an achy discomfort that can radiate into the thoracic and occasionally the cervical regionas well. He rates the pain as a 6 out of 10 on average. He denies any pain radiating to his lower extremities, paresthesias, or focal weakness in his lower extremities. He denies any change in bowel orbladder habits, fevers or chills, or recent unintentional weight loss. He tries to walk for exercise. He was involved in physical therapy briefly at [facility] but felt that was exacerbating his symptoms so he did not continue. He recently had x-rays performed of his lumbar spine, and it sounds like his chest as well, at [facility] last week but I do not have those for review today. MEDICATIONS Tizanidine 4 mg as needed for muscle spasms. Ambien 10 mg at bedtime. Carafate 1 g 3 times daily. Seroquel 200 mg 2 times daily. Zofran 8 mg as needed for nausea vomiting. Prilosec 40 mg daily. Minocycline 100 mg daily. ALLERGIES No known medication allergies. PAST MEDICAL/SURGICAL HISTORY GERD. SOCIAL HISTORY Mr. Oviedo lives in [place]. He is attending [employer]. He denies any tobacco products. FAMILY HISTORY He reports his father has had issues with low back pain and believes that he has had lumbar spine surgery. Otherwise no neurologic or rheumatologic disorders in his family. PHYSICAL EXAMINATION GENERAL: Pleasant 20-year-old male in no acute distress. NEUROLOGICAL: Mental status: Oriented to person, place and time. Appropriate mood and affect. Gait: Normal damon and stride. Toe and heel walking are normal. Strength: All major muscle groups of the bilateral upper and lower extremities have normal and symmetric muscle strength, bulk and tone. Reflexes: Bilateral upper and lower extremity muscle stretch reflexes are physiologic and symmetric. Plantar responses downgoing bilaterally. Sensation: Normal light touch sensation through upper and lower extremities. Straight leg raise is negative for radicular pain or paresthesias bilaterally. MUSCULOSKELETAL: Spine: -2 globally decreased lumbar spine range of motion secondary to pain this causes in his low back. Palpation: There is tenderness to palpation over the bilateral low lumbar paraspinals as well extending to the thoracic paraspinals. Shoulder: Forward elevation is to 180 degrees bilaterally. Abduction is to 180 degrees bilaterally. Internal rotation is to L5 bilaterally. Externalrotation is to 75 degrees bilaterally. Normal strength with testing of rotator cuff musculature bilaterally. Negative Neer's and mildly positive Garcia on the left, negative speed's and negative scarf. Negative Colusa's on the left. IMPRESSION/REPORT/PLAN 1. Chronic left shoulder pain, most consistent with left shoulder impingement syndrome. 2. Chronic low back pain. Mr. Oviedo has a normal neurologic examination today. I feel that his low back pain is multifactorial including a significant myofascial component to his discomfort. PLAN: 1. I am going [facility] 2. We will proceed today with x-rays of the left shoulder with Mr. Oviedo's discomfort. 3. I am going to have Mr. Oviedo involved in physical therapy but we are going to switch our focus and have him involved at the [facility] working in the [facility] program. I discussed this program in detail with Mr. Oviedo and he is motivated to be involved in this program. I did stress the importance of aerobic exercise with him as well and commended him on his diligence to his walking program. 4. I will plan on being in contact with Mr. Oviedo following his left shoulder x-rays and he knows to be in contact with us prior to that time if he notes any worsening or worrisome symptoms which we went over in detail today. Mr. Oviedo voiced agreement and understanding of this plan. Kaycee Shetty M.D./cynthia cc: Vincent Montes M.D. [phone] [place] [address] Electronically Signed By: KAYCEE SHETTY MD On: 02/06/2016 05:30 PM Modified by and Electronically Signed by: KAYCEE SHETTY MD On: 02/06/2016 05:30 PM [facility] Document Id: [id number] documented in this encounter Miscellaneous Notes Miscellaneous - Kaycee Shetty M.D. - 02/05/2016 2:55 PM CDT Ambulatory Patient Summary [address] [id number] Visit Information Name: DONTE OVIEDO [facility] Number: [id number] Current Date: 02/05/2016 14:55:08 Physicians Attending Provider: KAYCEE SHETTY MD Primary Care Provider: PCPRENATA CHARLES MICHAEL has been given the following list of follow-up instructions, medication list, and patient education materials: Follow-up Instructions Your Medications Here is a list of your medications. It is important to take your medications as directed. Use a pillbox or chart to help remind you to take your medications. Please let your doctor or nurse know if you have problems taking your medications. Medication/Strength How to Take Indications/Special Instructions/Comments/Notes for Patient Medication Changes/Routing *benzoyl peroxide topical (benzoyl peroxide topical 5% gel) 1 mary ellen, Topical, once a day (keep away from eyes and mucous membranes) apply q AM *cholecalciferol (Vitamin D3 1000 intl units oral tablet) 1 Tablet(s), Oral, once a day *guanfacine (Tenex 1 mg oral tablet) 1 Tablet(s), Oral, once a day (at bedtime) quetiapine (Seroquel 50 mg oral tablet) See Instructions 1 tab(s) PO 2xDay *trazodone (trazodone 150 mg oral tablet) 1 Tablet(s), Oral, once a day (at bedtime) *tretinoin topical (Retin-A 0.01% topical gel) 1 mary lelen, Topical, once a day (at bedtime) (wash hands before applying)apply hs, may hold if redness/dryness excess * You have let us know that you are not taking this medication as listed. Please talk with your primary care provider or the health care provider who prescribed the medication as soon as possible. Stop Taking the Following Medications: Medication list as of 02-05-16 14:55 Attention: If you have any medications at home that are not on this list, DO NOT take them until youcontact your provider for clarification. Give a copy of your medication list to your primary care provider. Update your medication list any time medications or doses are changed and carry your medication list at all times in case of emergency. Electronically Signed By: KAYCEE SHETTY MD Signed On:05-FEB-2016 14:54:37 Your Allergies & Intolerances Substance Reaction Symptoms Category Comments No Known Allergies Drug Your Problem List Problem Status Onset Comments Attention Deficit Dis W Hyperactivity Active 04/07/2005 Oppositional Disorder Child Adolescent Active 04/07/2005 Reactive Attachment Disorder Childhood Active 07/03/2009 Acne rosacea Active 10/02/2011 Your Upcoming Appointments Date Time Location Provider No Appointments found Attention: Contact your local Clinic if further appointment detail needed. Consider Using Patient Online Services Patient Online [...] if you dont have one. Go to [email or web address] and click on Create Your Account. Then, follow the directions to complete the online form. Youll be asked for your [facility] number which you can find at the top of this document. Your Goals/Additional instructions: Source: [facility] POWERCHART Document Id: [id number] Miscellaneous - Kaycee Shetty M.D. - 02/05/2016 2:55 PM CDT Ambulatory Discharge Medication List [address] [id number] Visit Information Name: DONTE OVIEDO [facility] Number: [id number] Visit Date: 02/05/2016 14:55:07 Attending Provider: KAYCEE SHETTY MD Primary Care Provider: PCP, DONTE CAMARENA has been given the following list of medications: Your Medications It is important to take your medications as directed. Use a pill box or chart to help remind you to take your medications. Please let your doctor or nurse know if you have problems taking your medications. Medication/Strength How to Take Indications/Special Instructions/Comments/Notes for Patient Medication Changes/Routing *benzoyl peroxide topical (benzoyl peroxide topical 5% gel) 1 mary ellen, Topical, once a day (keep away from eyes and mucous membranes) apply q AM *cholecalciferol (Vitamin D3 1000 intl units oral tablet) 1 Tablet(s), Oral, once a day *guanfacine (Tenex 1 mg oral tablet) 1 Tablet(s), Oral, once a day (at bedtime) quetiapine (Seroquel 50 mg oral tablet) See Instructions 1 tab(s) PO 2xDay *trazodone (trazodone 150 mg oral tablet) 1 Tablet(s), Oral, once a day (at bedtime) *tretinoin topical (Retin-A 0.01% topical gel) 1 mary ellen, Topical, once a day (at bedtime) (wash hands before applying)apply hs, may hold if redness/dryness excess * You have let us know that you are not taking this medication as listed. Please talk with your primary care provider or the health care provider who prescribed the medication as soon as possible. Stop Taking the Following Medications: Medication list as of 02-05-16 14:55 Attention: If you have any medications at home that are not on this list, DO NOT take them until youcontact your provider for clarification. Give a copy of your medication list to your primary care provider. Update your medication list any time medications or doses are changed and carry your medication list at all times in case of emergency. 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 Entered On: 02/05/2016 14:33 CDT Performed On: 02/05/2016 14:30 CDT by TAWANNA SCHROEDER LPN Intake Systolic Blood Pressure : 120 mmHg Diastolic Blood Pressure : 70 mmHg NIBP Mean : 87 mmHg BP Location : Right upper extremity Blood Pressure Cuff Size : Regular Actual Weight : 107.6 kg(Converted to: 237 lb 3 oz) Weight Source : Standing scale Dosing Weight Clinic : 107.6 kg TAWANNA SCHROEDER LPN - 02/05/2016 14:30 CDT General Info Information Given By : Patient Languages : Ukrainian Is Patient Female and 13-50 no hysterectomy : No TAWANNA SCHROEDER LPN - 02/05/2016 14:30 CDT Subjective Pain Symptoms : No TAWANNA SCHROEDER LPN - 02/05/2016 14:30 CDT Dependent Habits Exposure to Tobacco Smoke : Patient smokes Smoking Status : Current some day smoker Tobacco 2A : Yes Tobacco Use/Currently Using : Yes Tobacco Use/Last 30 Days : Yes Tobacco Use/Last 12 months : Yes Type : Cigarettes: Less than 20 per day Tobacco Use/Advised to Quit : Yes TAWANNA SCHROEDER LPN - 02/05/2016 14:30 CDT Caffeine Use Grid Caffeine Use : Current Type : Soft drinks Frequency : Occasionally Amount : 1 can rarely Last Use : been awhile TAWANNA SCHROEDER LPN - 02/05/2016 14:30 CDT Source: [employer] Document Id: [id number]!32 documented in this encounter Plan of Treatment Not on filedocumented as of this encounter Visit Diagnoses Not on filedocumented in this encounter Additional Health Concerns Assessment Noted Time PHQ-9 Depression Total Score: 16 01/08/2011 2:17 PM CS T documented as of this encounter
--- OUTSIDE RECORDS SUMMARY | 2022-07-26 14:37 | XMS_ITS | Encounter Summary ---
:1995 Author Organization [facility] Address [address] [place] [address] Care Team Providers Name Role Phone Unavailable Primary Care Provider Unavailable Encounter Details Date Type Department Care Team Description 10/24/2004 Hospital Encounter HX [facility] Fabiola Corcoran M.D. [address], [place] [address] (Wo rk) Social History Tobacco Use Types Packs/Day Years Used Date Smoking Tobacco: Never Assessed Sex Assigned at Date Recorded Not on file documented as of this encounter Plan of Treatment Not on filedocumented as of this encounter Visit Diagnoses Not on filedocumented in this encounter
--- OUTSIDE RECORDS SUMMARY | 2022-07-26 14:37 | XMS_ITS | Encounter Summary ---
:1995 Author Organization [facility] Address [address] [place] [address] Care Team Providers Name Role Phone Unavailable Primary Care Provider Unavailable Encounter Details Date Type Department Care Team Description 12/26/2010 - 12/27/2010 Hospital Encounter HX NO MAPPING Social History Tobacco Use Types Packs/Day Years Used Date Smoking Tobacco: Never Assessed Sex Assigned at Date Recorded Not on file documented as of this encounter Plan of Treatment Not on filedocumented as of this encounter Visit Diagnoses Not on filedocumented in this encounter
--- OUTSIDE RECORDS SUMMARY | 2022-07-26 14:37 | XMS_ITS | Encounter Summary ---
:1995 Author Organization [facility] Address [address] [place] [address] Care Team Providers Name Role Phone Unavailable Primary Care Provider Unavailable Encounter Details Date Type Department Care Team Description 07/18/2016 Hospital Encounter HX [facility] Héctor Bhatia M.D. [address] [place], [place] [address] Social History Tobacco Use Types Packs/Day Years [...]
--- OUTSIDE RECORDS SUMMARY | 2022-07-26 14:37 | XMS_ITS | Encounter Summary ---
:1995 Author Organization [facility] Address [address] [place] [address] Care Team Providers Name Role Phone Unavailable Primary Care Provider Unavailable Encounter Details Date Type Department Care Team Description 02/05/2016 Hospital Encounter HX [facility] Karan Shetty M.D. [address] [place] [address], [address] [place] [address] (Wo rk) Social History Tobacco Use Types Packs/Day Years Used Date Smoking Tobacco: Never Assessed Sex Assigned at Date Recorded Not on file documented as of this encounter Plan of Treatment Not on filedocumented as of this encounter Procedures Procedure Name Priority Date/Time Associated Diagnosis Comme nts DX SHOULDER LEFT 2+ Routine 02/05/2016 3:02 PM Re sults for this VIEWS CDT procedure are i n the results section. documented in this encounter Results DX Shoulder Left 2+ Views (02/05/2016 3:02 PM CDT) Anatomical Region Laterality Modality Upper Extremity, Shoulder Left Radiographic I maging Specimen (Source) Anatomical Collection Method Collection Time Re ceived Time Location / / Volume Laterality 02/05/2016 3:02 PM CDT Addenda Addendum by Provider, Hilton Leach o joseph 02/05/2016 3:02 PM CDT RAD^^^OW XR Shoulder Left 2 or more views 02/05/2016 15:02:10 Impressions 02/05/2016 3:44 PM CDT No acute fracture or subluxation. There appears to be some lateral downsloping of the acromion with some narrowing of the subacromial space posteriorly. Would cor relate with clinical findings for impingement. No significant hypertro phic changes. Narrative 02/05/2016 3:44 PM CDT EXAM: XR Shoulder Left 2 or more views INDICATION: shoulder pain , not otherwis e specified. AGE: 20 years-old COMPARISON: None. Procedure Note Andrew Butler M.D. / Provider, Stefanie calderón M.D. - 03/27/2017 EXAM: XR Shoulder Left 2 or more views INDICATION: shoulder pain , not otherwis e specified. AGE: 20 years-old COMPARISON: None. IMPRESSION: No acute fracture or subluxa tion. There appears to be some lateral downsloping of the acromion with some narrowing of the subacromial space posteriorly. Would cor relate with clinical findings for impingement. No significant hypertro phic changes. Karey Santos(R), R.TDameon(R)(M) IMG DIAGNOSTIC IMAG ING PROCEDURES documented in this encounter Visit Diagnoses Not on filedocumented in this encounter Additional Health Concerns Assessment Noted Time PHQ-9 Depression Total Score: 16 01/08/2011 2:17 PM CS T documented as of this encounter
--- OUTSIDE RECORDS SUMMARY | 2022-07-26 14:37 | XMS_ITS | Encounter Summary ---
:1995 Author Organization [facility] Address [address] [place] [address] Care Team Providers Name Role Phone Unavailable Primary Care Provider Unavailable Encounter Details Date Type Department Care Team Description 02/26/2017 Hospital Encounter HX [facility] Gabby Mccray, LDameonPDameon Social History Tobacco Use Types Packs/Day Years Used Date Smoking Tobacco: Every Day Sex Assigned at Date Recorded Not on file documented as of this encounter Last Filed Vital Signs Vital Sign Reading Time Taken Comments Blood Pressure - - Pulse - - Temperature - - Respiratory Rate - - Oxygen Saturation - - Inhaled Oxygen Concentration - - Weight - - Height 182 cm (5' 11.65) 02/26/2017 10:40 AM CDT Body Mass Index - - documented in this encounter Miscellaneous Notes Miscellaneous - Randall Whyte R.N. - 02/26/2017 8:33 AM CDT AUDIT AUDIT Entered On: 03/04/2017 8:33 CDT Performed On: 02/26/2017 8:33 CDT by RANDALL WHYTE RN AUDIT Tool How Often Do You Have A Drink : Monthly or less How Many Drinks in a Day When Drinking : 1 or 2 Six or More Drinks On One Occassion : Never Audit Phase 1 Score : 1 RANDALL WHYTE RN - 03/04/2017 8:33 CDT Source: [facility] POWERCHART Document Id: [id number] CDT!6 Miscellaneous - Randall Whyte R.N. - 02/26/2017 8:33 AM CDT IAN-7 IAN-7 Entered On: 03/04/2017 8:33 CDT Performed On: 02/26/2017 8:33 CDT by RANDALL WHYTE RN GAD7 GAD7 Feeling nervous : More than half the days GAD7 Not able to control worry : Several days GAD7 Worrying too much : Several days GAD7 Trouble relaxing : Nearly every day GAD7 Being so restless : Nearly every day GAD7 Becoming easily annoyed : Several days GAD7 Feeling afraid : More than half the days GAD7 Total Score : 13 Problems make work, home, or dealing with others : Somewhat difficult RANDALL WHYTE RN - 03/04/2017 8:33 CDT Source: [employer] Document Id: [id number] CDT!11 Miscellaneous - Randall Whyte R.N. - 02/26/2017 8:33 AM CDT PHQ-9 PHQ-9 Entered On: 03/04/2017 8:33 CDT Performed On: 02/26/2017 8:33 CDT by RANDALL WHYTE RN PHQ-9 Little interest or pleasure in doing things : Several days Feeling down, depressed, or hopeless : Several days Trouble falling or staying asleep, or sleeping too much : Nearly every day Feeling tired or having little energy : More than half the days Poor appetite or overeating : More than half the days Feeling bad about yourself or that you are a failure : Several days Trouble concentrating on things : Nearly every day Moving or speaking slowly; restless or fidgety : Nearly every day Thoughts that you would be better off /hurting self : More than half the days PHQ-9 Calculated Score : 18 Problems make work, home, or dealing with others : Somewhat difficult RANDALL WHYTE RN - 03/04/2017 8:33 CDT Source: [employer] Document Id: [id number] CDT!13 documented in this encounter Plan of Treatment Not on filedocumented as of this encounter Visit Diagnoses Not on filedocumented in this encounter Additional Health Concerns Assessment Noted Time PHQ-9 Depression Total Score: 18 02/26/2017 8:33 AM CD T documented as of this encounter
--- OUTSIDE RECORDS SUMMARY | 2022-07-26 14:37 | XMS_ITS | Encounter Summary ---
:1995 Author Organization [facility] Address [address] [place] [address] Care Team Providers Name Role Phone Elza Coronel APRN, C.N.P. Primary Care Provider Unavailable Reason for Visit Reason Comments Neck Pain Neck pain that began this PM . Encounter Details Date Type Department Care Team Description 06/07/2018 - Emergency [facility] Bernabe Jack Pa in Neck (Primary Dx) 06/08/2018 Emergency Department M.D. [address] [facility] [address] [place] [id number] [phone] Social History Tobacco Use Types Packs/Day Years Used Date Smoking Tobacco: Never Smokeless Tobacco: Never Alcohol Use Standard Drinks/Week Comments No 0 (1 standard drink = 0.6 oz pure alcoho l) Sex Assigned at Date Recorded Not on file documented as of this encounter Last Filed Vital Signs Vital Sign Reading Time Taken Comments Blood Pressure 133/74 06/08/2018 1:00 AM CDT Pulse 92 06/08/2018 1:00 AM CDT Temperature 36.4 ??C (97.5 ??F) 06/08/2018 1:00 AM CDT Respiratory Rate 18 06/08/2018 1:00 AM CDT Oxygen Saturation 96% 06/08/2018 1:00 AM CDT Inhaled Oxygen Concentration - - Weight 112 kg (248 lb) 06/07/2018 11:12 PM CDT Height 177.8 cm (5' 10) 06/07/2018 11:12 PM CDT Body Mass Index 35.58 06/07/2018 11:12 PM CDT documented in this encounter Discharge Instructions Discharge Danielle Guajardo R.N. - 06/08/2018 1:13 AM CDT Images from the original note were not included. Anxiety and Chronic Pain or Illness Introduction The strain of living with chronic pain or other chronic symptoms often triggers anxiety. You may worry that chronic symptoms signal a serious or disabling disease. You may feel that you have lost control over your health and life, which can increase anxiety. Other typical concerns include worsening symptoms, possible injury, and changes in job status, finances or relationships. Anxiety can leave you tense, scared, upset or nervous. It can adversely affect your interaction withfamily and friends, your productivity at work and the overall quality of life. Anxiety can become sodistressing that it keeps you from doing what you want or need to do. Perhaps you cannot change your circumstances, but you can choose how you respond. This information discusses thoughts and behaviors that can prolong or intensify anxiety, and suggests how to face challenges in positive, healthy ways. What Is Anxiety? Anxiety is a normal reaction to stress. Anxiety can arise when you perceive a possible threat or unpleasant situation. For example, you may become anxious when a major project is due at work, a child is late coming home from school, or a family member is ill. We all experience anxiety. Responses to anxiety differ, but may include: ?? Muscle tension. ?? Headache, stomachache. ?? Sweating. ?? Increased heart and breathing rates. ?? Feeling scared, restless, nervous, keyed up, or on edge. ?? Irritability, crankiness, impatience. ?? Sleep problems. ?? Fatigue. ?? Difficulty concentrating. Typically, anxiety goes away after a crisis or challenge is resolved. Your body and mind return to normal, and you have a chance to regain strength and energy for future challenges. Anxiety Problems A moderate amount of anxiety can be good, such as when it helps you respond to real danger or motivates you to perform well at work and home. But too much anxiety is not helpful. If you feel nervous, scared or upset more often or more intensely than normal, you may have an anxiety problem. For example, you might worry about danger that does not exist and become anxious when, actually, youare safe, such as visiting the dentist. You might worry about events that are unlikely to occur, such as fainting while giving a speech. You might overreact or be overly concerned about an event, such as worrying that others will view you as a failure if you make a mistake. Or, you might continue to dwell on a stressful situation after it ends, such as repeatedly replaying in your mind an argument with your spouse. Excessive or long-lasting anxiety can leave you physically and mentally exhausted. It is associated with some health problems, such as digestive disorders, chronic headaches, ulcers and high blood pressure. High levels of anxiety can negatively affect your ability to perform tasks, and your mood, relationships and enjoyment of life. Anxiety increases the intensity of chronic pain and makes coping with chronic symptoms harder. Anxiety disorders If worry or distress preoccupy your life and actions, you may have an anxiety disorder. Examples include: ?? Generalized anxiety disorder (IAN) -- ongoing, full-time worry and the sense that something bad is about to happen, even when there???s no apparent danger. ?? Phobia -- excessive, unreasonable fear of an object or situation. ?? Panic disorder -- feelings of terror that arise suddenly and often, for no apparent reason. ?? Obsessive-compulsive disorder (OCD) -- repeated, unwanted thoughts, ideas, images or impulses (obsessions), and repetitive behaviors or rituals (compulsions) performed to cope with obsessions. If controlling your worry and stress is nearly impossible, or if anxiety interferes with your daily functioning, consult your primary care physician or a mental health professional. Effective treatmentfor anxiety disorders is available. Causes of Anxiety Problems Why some people struggle more than others with anxiety isn???t fully understood. Many factors, including personality, genetics, biology and life experiences, likely work together. ?? Certain personality traits -- People with low self-esteem and poor coping skills are prone to anxiety problems. Other traits -- such as extreme shyness, perfectionism and excessive need for approvalor control -- also can create or aggravate anxiety. ?? Genetics -- Genetic factors may affect the development of personality traits. In addition, a family history of anxiety or depression appears to increase the chance of developing an anxiety disorder. ?? Biology -- Problems with brain chemicals that send nerve impulses from cell to cell (neurotransmitters) may play a role in a person???s anxiety level. ?? Learning and life experiences -- Some anxiety problems may result from learned ways of thinking and behaving. For example, excessive anxiety might develop from an unpleasant experience, such as a dog bite, or from watching another person???s anxious response to a situation, such as seeing a parent???s fear of heights. ?? Other factors -- Anxiety is associated with certain physical illnesses (for example, thyroid disease and hypoglycemia [low blood sugar]). Excessive stress also may trigger anxiety problems. A stressful event that significantly changes one???s life (for example, the loss of a loved one) can produce overwhelming anxiety, as can stressors that are long-lasting or occur one after the other (for example, a troubled marriage followed by divorce). Anxiety and Chronic Symptoms The way you cope with a chronic condition affects your stress level and sense of control over life. If you often feel stressed or helpless, you are likely to remain anxious and fearful. Certain behavior and thinking patterns are especially likely to produce stress and, thus, fuel excessive, ongoing worry. Behavior Some people try to manage chronic symptoms by staying away from troubling objects or situations (avoidance). Others act in ways they hope will prevent or minimize a negative outcome (safety-seeking behavior). Thus, you might quit your job or decline an invitation to a picnic because you fear the physical activity will increase your pain and fatigue. Or, if you worry that chronic symptoms will impair job performance, you might stop doing household tasks to save your energy for the workplace. Avoidance and safety-seeking may seem helpful and calming at first. But, over time, they increase the focus on symptoms and worsen anxiety. The more you dwell on fears and worries without facing them, the worse they can seem and the more anxious you may become. These behavior patterns also tend to confirm rather than disprove worries and fears. Your actions keep you from gaining skills to combat anxiety. For example, if you remain in bed or avoid activity on difficult days, you never have the chance to learn that coping techniques, such as moderation and relaxation, can help you stay active despite pain. Instead, you remain convinced that bed rest is the only way to avoid uncontrolled pain. Or, if you overdo at work rather than using moderation skills, you might have increased pain and be unable to work the next day. This falsely confirms your (or your boss???s) fear that a chronic condition guarantees reduced productivity. Thoughts The way you think about yourself and your life can heighten anxiety. Negative or inaccurate thinkingcan cause much distress and leave you feeling helpless and afraid to face challenges. Patterns of negative or inaccurate thinking that can worsen anxiety include: ?? Catastrophizing -- always expecting the worst, or magnifying the negative aspects of a situation.For example, you assume that managing chronic symptoms will greatly reduce quality of life, and tellyourself, ???I can???t take this anymore?? or ???Pain has ruined my life?? or ???I can???t go out with friends. If my pain acts up, everything will be ruined.?? Given such beliefs, it seems natural to view a chronic condition as a catastrophe or disaster. ?? Filtering -- focusing only on negative aspects of situations while filtering out all positive aspects; watching for information that supports your worries and ignoring evidence that disproves the significance of a threat or your ability to cope. For example, focusing only on what pain prevents you from doing rather than on your strengths and abilities. ?? Personalizing -- blaming yourself for anything unpleasant; thinking that everything people do or say is a reaction to you. For example, you think an event was canceled because no one wanted to be with you. Or, you assume others will think less of you if you moderate your activity level at home or work. ?? [id number] thinking -- seeing things as either all good or all bad; allowing no middle ground; feeling that you must be perfect or you???re a failure. For example, you believe that chronic symptoms can arise only from serious illness. Or you are certain that, if you cannot eliminate all symptoms, you will not enjoy any activities. ?? Should statements -- having a set of ironclad rules about how you and others must or ought to act; feeling guilty if you break the rules and angry or resentful if others do. For example, you tell yourself you should still be able to do everything you did before pain affected your life. ?? Mistaking feelings for facts -- believing that what you feel must be true, or that you must look the way you feel. For example, if you feel stupid and boring, then you must be stupid and boring. Or,if you feel anxious, others view you that way. ?? Spontaneous negative images -- having frequent mental images of situations or outcomes that you fear. For example, you continually imagine yourself in pain after physical activity, thus increasing anxiety about exercise or other activity. Fortunately, you can take steps to replace unhelpful behavior and thinking patterns with constructive actions and a positive, realistic attitude. This can help minimize anxiety and improve how you manage unpleasant situations. Managing Anxiety Living with a chronic condition can be stressful, so it???s normal to feel anxious at times. But if anxiety disrupts your life, taking action is important. These suggestions may help you control anxiety in positive, healthy ways: ?? Identify your anxiety triggers. Determine what???s making you anxious and address it. For example, if the thought of regular physical activity worries you, ask your health care provider or an production trainer to help you create a safe exercise program. ?? Look for patterns in your coping strategies. Track your responses to stressors for a week. For example, do you tense up at the first sign of trouble? Do you get impatient or angry? Do you let negative thoughts take over? Do you just give up? Once you identify how you cope with stressful situations,you can begin to think about alternative strategies. ?? Challenge negative thinking and behavior. Challenge negative thoughts with more positive, realistic and encouraging statements. Recall times when you have successfully coped with troubling situations. Focus on your abilities, not on what you cannot do. ?? Use distraction. When you feel anxious, take a walk or engage in a hobby to refocus your mind away from your worries. ?? Use time management skills. Effectively managing your time can help you feel more in control and less helpless. Create a daily plan of tasks and goals you hope to accomplish. Focus on what???s most important. Work at a moderate pace and take breaks when needed. ?? Take time out. When you feel stressed, take several slow, deep breaths and tell yourself, ???Thiswill pass?? or ???I can get through this situation.? Set aside ???worry time.?? Schedule 15 minutes daily to focus on your concerns and then put themaside. ?? Stay active and connected. Don???t withdraw from activities and isolate yourself at home. Don???tlet worries keep you away from loved ones. Use moderation and modification skills to remain active and socially connected while reducing chronic symptoms. ?? Talk to someone. Share your problems with a friend or family member. Talking to others can provide support and offers a healthy diversion. Explore support groups in your area. ?? Take care of yourself. Get the sleep you need, eat a balanced diet, exercise regularly, and take time to relax. Avoid caffeine and nicotine, which can worsen anxiety. Don???t turn to alcohol or recreational drugs for relief. ?? Stay positive. Find ways to put a positive spin on negative thoughts or unpleasant situations. Try to view difficult circumstances as challenges to be managed rather than disasters. Respond with affirmations of what???s good about yourself. Look for humor, even in tough situations. ?? Consider counseling. Some forms of counseling are aimed at changing unhealthy thoughts and behaviors that contribute to anxiety. Others explore underlying stressors that may trigger anxiety. Ask your health care provider for more information. ?? Take medication as directed. In some cases, antidepressants, anti-anxiety medications or both maybe used with counseling for anxiety management. If medication is prescribed for you, take it as directed. Do not change your dose or stop taking your medication without your health care provider???s permission. Contacting Your Health Care Provider This material is for your education and information only. This content does not replace medical advice, diagnosis or treatment. New medical research may change this information. If you have questions about a medical condition, always talk with your health care provider. ? 2008 [employer] ([employer]). All rights reserved. [id number] While you are here you also developed abdominal pain. The you have known gallbladder disease. Our concern was that you may have developed cholecystitis which is an infection behind the occlusion in hergallbladder opening. We recommended that she to get an ultrasound to look for fluid around her gallbl adder which might indicate an infection. You need to leave for other reasons. If you develop fevers chills or sweats, worsening abdominal pain, or any other new symptoms please return to the emergency department for re-evaluation. We want to take the best care review and so please come back if anything changes. AttachmentsThe following attachments cannot be sent through Care Everywhere. Acute Torticollis Adult ([place])documented in this encounter Medications at Time of [...] tablet hours. documented as of this encounter ED Notes Bernabe Jack M.D. - 06/08/2018 12:39 AM CDT SUBJECTIVE CHIEF COMPLAINT/REASON FOR VISIT Neck Pain (Neck pain that began this PM. ) HISTORY OF PRESENT ILLNESS REVIEW OF SYSTEMS OBJECTIVE Initial Vitals Temperature Pulse Rate Heart Rate Resp Rate Blood Pressure SpO2 06/07/18 2251 06/07/18 2305 06/07/18 2251 06/07/18 2251 06/07/18 2251 06/07/18 2251 36.7 ??C (!) 117 (!) 112 20 (!) 130/101 96 % Pain Score 06/07/18 2311 8 PHYSICAL EXAMINATION ASSESSMENT/PLAN Final Diagnoses: as of Jun 08 2256 Pain Neck I have personally seen and examined this patient. I have fully participated in the care of this patient. I have reviewed all clinical information including history, physical exam, orders, and plan. I agree with the note of the resident. Pain resolved on its own. Declines further evaluation. Bernabe Jack M.D. 06/08/18 0040 Bernabe Jack M.D. 06/09/18 0317 Martín Jernigan M.D. - 06/07/2018 11:46 PM CDT SUBJECTIVE CHIEF COMPLAINT/REASON FOR VISIT Neck Pain (Neck pain that began this PM. ) HISTORY OF PRESENT ILLNESS 23-year-old male with history of conduct disorder and reportedly cholelithiasis who is being evaluated on the outpatient basis for cholecystectomy presents with left-sided neck pain that he describes as a muscle spasm that comes and goes. At the time my interview the patient is not having any discomfort purpose of pain seems to come on spontaneously. The patient additionally, the patient is complaining of intermittent shortness breath. This does not seem to be exertional. He has not had any lower extremity swelling. No history of blood clots. Patient is not anticoagulated. REVIEW OF SYSTEMS Constitutional: Negative for chills, diaphoresis and fever. HENT: Negative for congestion, ear pain, rhinorrhea and sore throat. Eyes: Negative for visual disturbance. Respiratory: Negative for cough, chest tightness, shortness of breath and stridor. Cardiovascular: Negative for chest pain, palpitations and leg swelling. Gastrointestinal: Positive for abdominal pain. Negative for diarrhea, nausea and vomiting. Genitourinary: Negative for dysuria. Musculoskeletal: Negative for arthralgias. Skin: Negative for rash. Neurological: Negative for weakness, numbness and headaches. Hematological: Does not bruise/bleed easily. Psychiatric/Behavioral: Negative for agitation. OBJECTIVE Initial Vitals Temperature Pulse Rate Heart Rate Resp Rate Blood Pressure SpO2 06/07/18 2251 06/07/18 2305 06/07/18 2251 06/07/18 2251 06/07/18 2251 06/07/18 2251 36.7 ??C (!) 117 (!) 112 20 (!) 130/101 96 % Pain Score 06/07/18 2311 8 PHYSICAL EXAMINATION Constitutional: He appears well-developed and well-nourished. No distress. HENT: Head: Atraumatic. No signs of injury. Mouth/Throat: Mucous membranes are moist. Eyes: Conjunctivae and EOM are normal. Pupils are equal, round, and reactive to light. Neck: Normal range of motion. Neck supple. No JVD present. Cardiovascular: Normal rate and regular rhythm. Exam reveals no gallop and no friction rub. No murmur heard.Edema: no edema noted Pulmonary/Chest: Effort normal and breath sounds normal. No stridor. No respiratory distress. He hasno wheezes. He has no rales. Abdominal: Soft. He exhibits no distension and no mass. There is tenderness. There is no rebound andno guarding. Musculoskeletal: Normal range of motion. He exhibits no edema or deformity. Neurological: He is oriented to person, place, and time. No cranial nerve deficit. Skin: Skin is warm, dry, intact and normal color. Psychiatric: He has a normal mood and affect. Judgment normal. Nursing note and vitals reviewed. ASSESSMENT/PLAN #1 Intermittent neck pain #2 Shortness of breath #3 Abdominal pain 23-year-old male presents primarily with left neck pain. The pain seems to come and go Regarding the patient's shortness of breath, differential includes a pneumonia, pneumothorax, or other. I have considered pulmonary embolus though the patient meets perc criteria for exclusion from workup with a D-dimer at this time. Although he does initially have an elevated heart rate to 112 after the patient calmed down meds put into his bed his heart rate is 85. Furthermore I do not think his symptoms are consistent with a pulmonary embolus. We will obtain a chest x-ray for the pneumonia or pneumothorax. Regarding the patient's abdominal pain, he does reportedly developed right upper quadrant abdominal pain here in the emergency department which he says is worse than usual. He has known biliary disease. My concern at this point would be for cholecystitis. Will obtain abdominal labs and an ultrasound of the right upper quadrant to see if there is an emergent surgical indication. Patient is stated that he wishes to leave for social reasons. I think the patient is safe to leave however I have cautioned him that I am concerned about cholecystitis and would prefer to complete the ultrasound. I have made this recommendation. The patient understands this would like to leave. I havegiven him clear return precautions including any fevers chills sweats worsening abdominal pain or any new symptoms. I have made it very clear that we are delighted to see him back any greater participate in his care. Patient is amenable to this and agrees to return. I think he is reliable and able to return if necessary. Patient's symptoms greatly improved after a single dose of ativan. Final Diagnoses: as of Jun 08 322 Pain Neck Martín Jernigan M.D. Resident 06/08/18 0336 Adelaida Talbot R.N. - 06/07/2018 10:53 PM CDT Patient has noted bilateral neck pain since 1999 this PM. He is also noting left rib pain Adelaida Talbot R.N. 06/07/18 8000 documented in this encounter Plan of Treatment Not on filedocumented as of this encounter Procedures Procedure Name Priority Date/Time Associated Comments Diagnosis HEPATIC FUNCTION STAT 06/08/2018 12:28 Results for this PANEL, S AM CDT procedure are i n the results section. CBC WITH STAT 06/08/2018 12:28 Results for this DIFFERENTIAL, B AM CDT procedure ar e in the results section. LIPASE, S/P STAT 06/08/2018 12:28 Results for this AM CDT procedure are i n the results section. LACTATE, B/P STAT 06/08/2018 12:28 Results for this AM CDT procedure are i n the results section. BASIC METABOLIC STAT 06/08/2018 12:28 Results for this PANEL, S/P AM CDT procedure are i n the results section. DX CHEST AP OR PA RAD - Semiurgent 06/07/2018 11:58 Re sults for this AND LATERAL 2 (Fast; most ED PM CDT procedure ar e in VIEWS patients; some the results inpatients) section. documented in this encounter Results Lipase (06/08/2018 12:28 AM CDT) P athologist Signature Lipase, S 18 12 - 61 U/L 06/08/2018 [facility] 1:08 AM CDT LABORATORIES - [facility] Specimen Anatomical Collection Method Collection Time Receive d Time (Source) Location / / Volume Laterality Blood (Blood, 06/08/2018 12:28 06/08/2018 Venous) AM CDT 12:36 AM CDT Martín Jernigan M.D. LAB BLOOD ADD-ON Performing Organization Address City/State/ZIP Code Phon e Number [facility]ATORIES - [address] [place], [place] [address] [facility] Lactate (06/08/2018 12:28 AM CDT) P athologist Signature Lactate, P 2.0 0.5 - 2.2 06/08/2018 [facility] mmol/L 1:10 AM CDT LABORATORIES - [facility] Specimen Anatomical Collection Method Collection Time Receive d Time (Source) Location / / Volume Laterality Blood (Blood, 06/08/2018 12:28 06/08/2018 Venous) AM CDT 12:48 AM CDT Martín Jernigan M.D. LAB BLOOD NON ADD-ON Performing Organization Address [facility] Phon e Number [facility]ORATORIES - [address] [phone] [facility] (ABNORMAL) Hepatic Function Panel (06/08/2018 12:28 AM CDT) Component Value Ref Test Analysis Performed At Patholo gist Range Method Time Signature Bilirubin, Total, S 1.3 (H) <=1.2 06/08/2018 [facility] mg/dL 1:08 AM CDT [facility] - [facility] [facility] Bilirubin, Direct, S 0.3 0.0 - 06/08/2018 [facility] 0.3 1:08 AM CDT LABORATORIES - mg/dL [facility] Aspartate 39 8 - 48 06/08/2018 [facility] Aminotransferase U/L 1:08 AM CDT LABORATORIE S - (AST), S [facility] Alanine 46 7 - 55 06/08/2018 [facility] Aminotransferase U/L 1:08 AM CDT LABORATORIE S - (ALT), S [facility] Alkaline 88 45 - 115 06/08/2018 [facility] Phosphatase, S U/L 1:08 AM CDT LABORATORIES - [facility] Albumin, S 4.7 3.5 - 06/08/2018 [facility] 5.0 g/dL 1:08 AM CDT LABORATORIES - [facility] Protein, Total, S 7.3 6.3 - 06/08/2018 [facility] 7.9 g/dL 1:08 AM CDT LABORATORIES - [facility] Specimen Anatomical Collection Method Collection Time Receive d Time (Source) Location / / Volume Laterality Blood (Blood, 06/08/2018 12:28 06/08/2018 Venous) AM CDT 12:36 AM CDT Martín Jernigan M.D. LAB BLOOD ADD-ON Performing Organization Address [facility] Phon e Number [facility] LABORATORIES - [address] [place] [id number] [facility] (ABNORMAL) BMP (Basic Metabolic Panel) (06/08/2018 12:28 AM CDT) Analysis Performed At Patho logist Time Signature Potassium, P 4.6 3.6 - 5.2 06/08/2018 [facility] mmol/L 1:10 AM CDT LABORATORIES [facility] Sodium, P 138 135 - 145 06/08/2018 [facility] mmol/L 1:10 AM CDT LABORATORIES [facility] Chloride, P 101 98 - 107 06/08/2018 [facility] mmol/L 1:10 AM CDT LABORATORIES [facility] Bicarbonate, P 26 22 - 29 06/08/2018 [facility] mmol/L 1:10 AM CDT LABORATORIES [facility] Anion Gap, P 11 7 - 15 06/08/2018 [facility] 1:10 AM CDT [facility] BUN (Blood Urea 13 8 - 24 06/08/2018 [facility] Nitrogen), P mg/dL 1:10 AM T [facility] Creatinine 1.04 0.74 - 06/08/2018 [facility] 1.35 mg/dL 1:10 AM CDT LABORATORIES [facility] eGFR-Black/Afri >90 >=60 06/08/2018 [facility] can Yemeni mL/min/BSA 1:10 AM CDT LABORATORIES [facility] Comment: ----ADDITIONAL INFORMATION---- Estimated GFR calculated using the 2009 CKD_EPI creatinine equation. eGFR Non-Black/ >90 >=60 mL/min/BSA 06/08/2018 1:10 [facility] [place] [facility] Comment: ----ADDITIONAL INFORMATION---- Estimated GFR calculated using the 2009 CKD_EPI creatinine equation. Calcium, Total, P 10.4 (H) 8.6 - 10.0 06/08/2018 1:10 AM [facility] mg/dL CDT LABORATORIES [facility] S Glucose, P 114 70 - 140 mg/dL 06/08/2018 1:10 AM [facility] Specimen Anatomical Collection Method Collection Time Receive d Time (Source) Location / / Volume Laterality Blood (Blood, 06/08/2018 12:28 06/08/2018 Venous) AM CDT 12:48 AM CDT Martín Jernigan M.D. LAB BLOOD ADD-ON Performing Organization Address City/State/ZIP Code Phon e Number [facility] LABORATORIES - [address] [place], [place] [address] [facility] (ABNORMAL) CBC with Differential (06/08/2018 12:28 AM CDT) [facility] Method Time Signature Hemoglobin 16.2 13.2 - 06/08/2018 [facility] 16.6 g/dL 12:34 AM CDT LABORATORIES - [facility] Hematocrit 44.0 38.3 - 06/08/2018 [facility] 48.6 % 12:34 AM CDT LABORATORIES - [facility] Erythrocytes 5.55 4.35 - 06/08/2018 [facility] 5.65 12:34 AM CDT LABORATORIES - x10(12)/L [facility] MCV 79.3 78.2 - 06/08/2018 [facility] 97.9 fL 12:34 AM CDT LABORATORIES - [facility] RBC Distrib 13.2 11.8 - 06/08/2018 [facility] Width 14.5 % 12:34 AM CDT LABORATORIES - [facility] Platelet Count 222 135 - 317 06/08/2018 [facility] x10(9)/L 12:34 AM CDT LABORATORIES - [facility] Leukocytes 14.9 (H) 3.4 - 9.6 06/08/2018 [facility] x10(9)/L 12:34 AM CDT LABORATORIES - [facility] Neutrophils 12.45 (H) 1.56 - 06/08/2018 [facility] 6.45 12:34 AM CDT LABORATORIES - x10(9)/L [facility] Lymphocytes 1.56 0.95 - 06/08/2018 [facility] 3.07 12:34 AM CDT LABORATORIES - x10(9)/L [facility] Monocytes 0.87 (H) 0.26 - 06/08/2018 [facility] 0.81 12:34 AM CDT LABORATORIES - x10(9)/L [facility] Eosinophils <0.03 0.03 - 06/08/2018 [facility] 0.48 12:34 AM CDT LABORATORIES - x10(9)/L [facility] Basophils 0.05 0.01 - 06/08/2018 [facility] 0.08 12:34 AM CDT LABORATORIES - x10(9)/L [facility] Specimen Anatomical Collection Method Collection Time Receive d Time (Source) Location / / Volume Laterality Blood (Blood, 06/08/2018 12:28 06/08/2018 Venous) AM CDT 12:32 AM CDT Martín Jernigan M.D. LAB BLOOD ADD-ON Performing Organization Address City/State/ZIP Code Phon e Number [facility] LABORATORIES - [address] [place], [place] [address] [facility] DX Chest AP or PA and Lateral 2 Views (06/07/2018 11:58 PM CDT) Anatomical Region Laterality Modality Chest, Thoracic RST LOS N/A Digital Radiogra phy Specimen (Source) Anatomical Collection Method Collection Time Re ceived Time Location / / Volume Laterality 06/08/2018 12:07 AM CDT Impressions 06/08/2018 9:41 AM CDT IMPRESSION: ??No comparison. Negative chest. I have personally reviewed the images an d agree with this interpretation. Narrative 06/08/2018 9:41 AM CDT EXAM: ??DX CHEST AP OR PA AND LATERAL 2 VIEWS Procedure Note Lc Trevizo M.D. - 06/08/2018Forma tting of this note might be different from the original. EXAM: DX CHEST AP OR PA AND LATERAL 2 EWS IMPRESSION: No comparison. Negative ches t. I have personally reviewed the images an d agree with this interpretation. Martín Jernigan M.D. IMG DIAGNOSTIC IMAGING GERRI YIP documented in this encounter Visit Diagnoses Diagnosis Pain Neck - Primary documented in this encounter Administered Medications Inactive Administered Medications - up to 3 most recent administrations Medication Order MAR Action Action Date Dose Rate Site LORazepam tablet 1 mg (ATIVAN) Given 06/08/2018 12:08 AM CDT 1 mg 1 mg, oral, Once, On Thu06/07/18 at 2344, For 1 dose sodium chloride injection 10 mL 10 mL, intravenous, As needed, line care, Starting on Thu06/08/18 at 0011, Peripheral Intravenous Catheter and Rapid Infusion Cat heter, prior to blood sampling, post blood transfusion or post blood samplin g sodium chloride injection 3 mL 3 mL, intravenous, As needed, line care, Starting on Thu06/08/18 at 0011, Prior to and following infusion and between multi ple consecutive infusions: sodium chloride 0.9 % injection sodium chloride injection 3 mL 3 mL, intravenous, Every 12 hours scheduled, First dos e on Thu06/08/18 at 0900, Peripheral Intravenous Catheter and Rapi d Infusion Catheter, when no infusion to maintain patency documented in this encounter Active and Recently Administered Medications Times are shown in CDT. Scheduled Medication Order 06/06/2018 06/07/2018 06/08/2018 LORazepam tablet 1 mg (ATIVAN) (COMPLETED) 0008 (Given - Provider: Danielle Orlando RDameonNDameon) 1 mg, oral, Once, On Thu06/07/18 at 2344, For 1 dose NaCl 0.9 % bolus 1,000 mL 0013 ( Not Given - Provider: Maribell Bradshaw R.N. - Reason: Patient/family refused) 1,000 mL, intravenous, at 2,000 mL/hr, A dminister over 0.5 Hours, Once, Thu06/08/18 at 0013, For 1 dose sodium chloride injection 3 mL 3 mL, intravenous, Every 12 hours schedu led, First dose on Thu06/08/18 at 0900, Peripheral Intravenous Catheter and Rapid Infusion Catheter, when no infusion to maintain patency PRN Medication Order 06/06/2018 06/07/2018 06/08/2018 sodium chloride injection 10 mL 10 mL, intravenous, As needed, line care , Starting on Thu06/08/18 at 0011, Peripheral Intravenous Catheter and Rapid Infusion Catheter, prior to blood sampling, post blood transfusion or post blood sampling sodium chloride injection 3 mL 3 mL, intravenous, As needed, line care, Starting on Thu06/08/18 at 0011, Prior to and following infusion and between multiple consecutive infusions: sodium chloride 0.9 % injection documented in this encounter Additional Health Concerns Assessment Noted Time PHQ-9 Depression Total Score: 18 02/26/2017 8:33 AM CD T documented as of this encounter Care Teams Hockey Scout Relationship Specialty Start Date End Date Elza Coronel, MITCH, C.N.P. PCP - General 08/29/18 documented as of this encounter
--- OUTSIDE RECORDS SUMMARY | 2022-07-26 14:37 | XMS_ITS | Encounter Summary ---
:1995 Author Organization [facility] Address [address] [place] [address] Care Team Providers Name Role Phone Unavailable Primary Care Provider Unavailable Encounter Details Date Type Department Care Team Description 04/01/2017 Hospital Encounter HX [facility] Gabby Mccray, L.P. Social History Tobacco Use Types Packs/Day Years [...] - - Height 182 cm (5' 11.65) 04/01/2017 3:54 PM CDT Body Mass Index - - documented in this encounter Plan of Treatment Not on filedocumented as of this encounter Visit Diagnoses Not on filedocumented in this encounter Additional Health Concerns Assessment Noted Time PHQ-9 Depression Total Score: 18 02/26/2017 8:33 AM CD T documented as of this encounter
--- OUTSIDE RECORDS SUMMARY | 2022-07-26 14:37 | XMS_ITS | Encounter Summary ---
:1995 Author Organization [facility] Address [address] [place] [address] Care Team Providers Name Role Phone Unavailable Primary Care Provider Unavailable Encounter Details Date Type Department Care Team Description 08/08/2011 [facility] Provider, Historic al Social History Tobacco Use Types Packs/Day Years [...]
--- OUTSIDE RECORDS SUMMARY | 2022-07-26 14:37 | XMS_ITS | Encounter Summary ---
:1995 Author Organization [facility] Address [address] [place] [address] Care Team Providers Name Role Phone Unavailable Primary Care Provider Unavailable Encounter Details Date Type Department Care Team Description 03/19/2017 Hospital Encounter HX [facility] [...] - - Height 182 cm (5' 11.65) 03/19/2017 10:11 AM CDT Body Mass Index - - documented in this encounter Plan of Treatment Not on filedocumented as of this encounter Visit Diagnoses Not on filedocumented in this encounter Additional Health Concerns Assessment Noted Time PHQ-9 Depression Total Score: 18 02/26/2017 8:33 AM CD T documented as of this encounter
--- OUTSIDE RECORDS SUMMARY | 2022-07-26 14:37 | XMS_ITS | Encounter Summary ---
:1995 Author Organization [facility] Address [address] [place] [address] Care Team Providers Name Role Phone Unavailable Primary Care Provider Unavailable Encounter Details Date Type Department Care Team Description 01/08/2017 Hospital Encounter HX [facility] Christina Webster APRN, C.N.P., D.N.P. Social History Tobacco Use Types Packs/Day Years Used Date Smoking Tobacco: Every Day Sex Assigned at Date Recorded Not on file documented as of this encounter Last Filed Vital Signs Vital Sign Reading Time Taken Comments Blood Pressure 124/81 01/08/2017 8:18 AM BOTTLE WASHER MACHINE Pulse 55 01/08/2017 8:18 AM BOTTLE W[employer]ER [employer]ACHINE Temperature - - Respiratory Rate - - Oxygen Saturation - - Inhaled Oxygen Concentration - - Weight 106 kg (234 lb 5.6 oz) 01/08/2017 8:18 AM BOTTLE W[employer]ACHINE Height 182 cm (5' 11.65) 01/08/2017 8:18 AM BOTTLE WASHER MACHINE Body Mass Index 32.09 01/08/2017 8:18 AM BOTTLE WASHER MACHINE documented in this encounter Progress Notes Christina Webster APRN, C.N.P., D.N.P. - 01/08/2017 8:02 AM CST FM-LE CHIEF COMPLAINT/REASON FOR VISIT Right shoulder and wrist pain. HISTORY OF PRESENT ILLNESS Mr. Oviedo is a 21-year-old male, who presents to the clinic for further evaluation of the above concern. Onset of pain was 1 year ago. He denies having ever injured himself and is unaware of why he continues to have pain. He denies having any joint swelling, skin rash, diarrhea, or vomiting. He has noticed some weight gain, denies any recent weight loss. He reports he has tried taking 800 mg of ibuprofen however states this did not help his pain. He reports he also recently took some hydrocodone that he received from a friend. States he noticed only mild relief after taking that medication. He reports he has also tried using both ice and heat. However, states both measures are ineffective in tyshawn ting his pain/discomfort. He reports he has otherwise been in his normal state of health and had no other concerns to discuss at the time of his visit. REVIEW OF SYSTEMS See pertinent findings noted above in the history of present illness. MEDICATIONS Reviewed under the home medications tab in [facility] on 01/08/2017. ALLERGIES No known allergies. PHYSICAL EXAMINATION VITAL SIGNS: Temperature 36.7 degrees Celsius, heart rate 55 blood pressure 124/81, weight 106.3 kg per review of the EMR. GENERAL APPEARANCE: Alert, in no apparent distress. Nontoxic appearing. Mood and affect were appropriate to the situation. RIGHT UPPER EXTREMITY: Skin pink, warm, dry and intact with no swelling, erythema, obvious injury/deformity, or other abnormal findings noted. Active range of motion noted to be intact. Radial pulse palpable. Capillary refill less than 2 seconds in the right hand. NEUROLOGIC: Sensory motor function was intact in the right upper extremity. DIAGNOSTIC STUDIES: A right shoulder x-ray was ordered during today's visit. IMPRESSION/REPORT/PLAN Chronic right shoulder and wrist pain of unknown cause. No obvious injury/deformity noted. We will await results of right shoulder x-ray and have also ordered for an orthopedic consult given the ongoing nature of his pain. No other concerns were noted during today's visit to warrant further workup or t reatment at this time. Discussed concerning signs and symptoms that warrant prompt medical attention. Discussed appropriate [id number]-[id number] pharmacologic and nonpharmacologic measures for treatment ofpain. Recommend followup on an as-needed basis if there are any concerns. Mr. Oviedo verbalized his understanding and agreement with the above plan. All questions and concerns were addressed by this provider to his satisfaction. Christina Webster APRN, C.N.P., D.N.P./pos Electronically Signed By: CHRISTINA WEBSTER APRN, CNP, DNP On: 02/04/2017 09:29 AM Modified by and Electronically Signed by: CHRISTINA WEBSTER APRN, CNP, DNP On: 02/04/2017 09:28 AM Source: [facility] [id number] Document Id: [id number] documented in this encounter Miscellaneous Notes Miscellaneous - Christine Ivy L.P.N. - 02/05/2017 3:38 PM CDT *General Message Document Contains Addenda Addendum by CHRISTINE BLAKELY LPN on February 06, 2017 09:07:17 CDT From: CHRISTINE BLAKELY LPN To: CHRISTINA WEBSTER APRN, CNP, SARAH; Sent: 02/06/2017 09:07:17 CDT Subject: FW: *General Message Addendum by CHRISTINE BLAKELY LPN on February 06, 2017 09:07:02 CDT From: CHRISTINE BLAKELY LPN To: SONIA BRADEN; Sent: 02/06/2017 09:07:02 CDT Subject: RE: *General Message thanks . I will let Christina know. Addendum by SONIA BRADEN on February 06, 2017 08:31:51 CDT From: SONIA BRADEN To: CHRISTINE BLAKELY LPN; Sent: 02/06/2017 08:31:51 CDT Subject: RE: *General Message I spoke with patient on 01/12. He decided to see a different doctor elsewhere, so requested I cancel the order. thank you, Sonia From: CHRISTINE BLAKELY LPN To: SONIA BRADEN; Sent: 02/05/2017 15:38:18 CDT Subject: *General Message Christina Webster is wondering why Pt referral to Orthopedics (the order in cue) was cancelled . There is no documentation why. just doesnt want this to fall through the cracks if pt is waiting for us to reach him for this appt. Source: [facility] [employer] Document Id: [id number] Electronically signed by Conversion, [facility] Digital Analytics Manager [id number] at 05/05/2017 1:13 AM CDT Miscellaneous - Christina Webster APRN, C.N.P., D.N.P. - 01/08/2017 9:56 AM BOTTLE WASHER [employer]ACHINE Results Notification Document Contains Addenda Addendum by CHRISTINE BLAKELY LPN on January 08, 2017 10:07:26 BOTTLE W[employer] pt notified From: CHRISTINA WEBSTER APRN, CNP, DNP To: CHRISTINE BLAKELY LPN; Sent: 01/08/2017 09:56:21 BOTTLE W[employer]ER [employer]ACH[employer] Show up: 01/08/2017 09:56:00 BOTTLE WASHER MACHINE Subject: Results Notification Actions: Notify patient of results Normal right shoulder x-ray. Follow-up with Orthopedics as discussed during visit, and follow-up with primary care as needed for any other concerns. Thank you, Christina Results: Date Result Type Result Name 01/08/2017 9:54 Radiology XR Shoulder Right 4 view Source: [facility] [employer] Document Id: [id number] Electronically signed by Conversion, [facility] Digital Analytics Manager [id number] at 05/05/2017 1:13 AM CDT Miscellaneous - Christina Webster APRN, C.N.P., D.N.P. - 01/08/2017 8:51 AM BOTTLE W[employer]ACHINE Ambulatory Patient Summary [address], [address] [place], [place] [id number] Visit Information Name: DONTE OVIEDO [facility] Number: [id number] Current Date: 01/08/2017 08:51:14 Physicians Attending Provider: CHRISTINA WEBSTER APRN, ANANDA, SARAH Primary Care Provider: ABA POSADAS CNP DONTE OVIEDO has been given the following list of [...] Take Indications/Special Instructions/Comments/Notes for Patient Medication Changes/Routing ibuprofen (ibuprofen 200 mg oral tablet) See Instructions as directed on bottle This is a CHANGE *traZODone (traZODone 50 mg oral tablet) See Instructions start with 1 tab at night and may increaseto 3 tabs at night after 2 evenings with food trazodone (trazodone 150 mg oral tablet) 1 Tablet(s), Oral, once a day (at bedtime) * You have let us know that you are not taking this medication as listed. Please talk with your primary care provider or the health care provider who prescribed the medication as soon as possible. Stop Taking the Following Medications: Medication list as of 01-08-17 08:51 Attention: If you have any medications at home that are not on this list, DO NOT take them until youcontact your provider for clarification. Give a copy of your medication list to your primary care provider. Update your medication list any time medications or doses are changed and carry your medication list at all times in case of emergency. 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 Go to [email or web address] and click on Create Your Account. Then, follow the directions to complete the online form. Youll be asked for your [facility] number which you can find at the top of this document. Your Goals/Additional instructions: Source: [facility] POWERCHART Document Id: [id number] [employer]ACH[employer] Miscellaneous - Christina Webster APRN, C.N.P., D.N.P. - 01/08/2017 8:51 AM BOTTLE WASHER MACHINE Ambulatory Discharge Medication List [address], [address] [place], [place] [id number] Visit Information Name: IVELISSEDONTE LEMUS [facility] Number: [id number] Current Date: 01/08/2017 08:51:13 Attending Provider: CHRISTINA WEBSTER APRN, CNP, DNP Primary Care Provider: ABA POSADAS CNP DONTE OVIEDO ADAM has been given the following list of medications: Your Medications It is important to take your medications as directed. Use a pill box or chart to help remind you to take your medications. Please let your doctor or nurse know if you have problems taking your medications. Medication/Strength How to Take Indications/Special Instructions/Comments/Notes for Patient Medication Changes/Routing ibuprofen (ibuprofen 200 mg oral tablet) See Instructions as directed on bottle This is a CHANGE *traZODone (traZODone 50 mg oral tablet) See Instructions start with 1 tab at night and may increaseto 3 tabs at night after 2 evenings with food trazodone (trazodone 150 mg oral tablet) 1 Tablet(s), Oral, once a day (at bedtime) * You have let us know that you are not taking this medication as listed. Please talk with your primary care provider or the health care provider who prescribed the medication as soon as possible. Stop Taking the Following Medications: Medication list as of 01-08-17 08:51 Attention: If you have any medications at home that are not on this list, DO NOT take them until youcontact your provider for clarification. Give a copy of your medication list to your primary care provider. Update your medication list any time medications or doses are changed and carry your medication list at all times in case of emergency. Electronically Signed By: CHRISTINA WEBSTER APRN, ANANDA, DNP Signed On:08-JAN-2017 08:51:01 Additional Information: Source: [facility] POWERCHART Document Id: [id number] [employer]ACH[employer] Miscellaneous - Christine Ivy L.P.N. - 01/08/2017 8:24 AM CST Health Assessment Health Assessment Entered On: 01/08/2017 8:24 BOTTLE W[employer]ACHINE Performed On: 01/08/2017 8:24 BOTTLE WASHER [employer]ACHINE by CHRISTINE BLAKELY LPN Health Assessment Complete Health Assessment Complete or Modified : Annual Health Assessment Annual Health Assessment Completed : Yes CHRISTINE BLAKELY LPN - 01/08/2017 8:24 BOTTLE WASHER MACHINE Nutrition Nutrition Risk Factors by History Adult : None CHRISTINE BLAKELY LPN - 01/08/2017 8:24 BOTTLE WASHER MACHINE Functional Current Daily Living Assistance : None CHRISTINE BLAKELY LPN - 01/08/2017 8:24 BOTTLE WASHER MACHINE Dependent Habits Exposure to Tobacco Smoke : Patient smokes Smoking Status : Former smoker Tobacco 2A : Yes Tobacco Use/Currently Using : No Tobacco Use/Last 30 Days : No Tobacco Use/Last 12 months : Yes Tobacco Last Use/Month : January Tobacco Last Use/Year : 2015 Type : Other: quit Alcohol Use : Yes CHRISTINE BLAKELY LPN - 01/08/2017 8:24 BOTTLE WASHER [employer]ACHINE Caffeine Use Grid Caffeine Use : Current Type : Soft drinks Frequency : Occasionally Amount : 1 can rarely Last Use : been awhile CHRISTINE BLAKELY LPN - 01/08/2017 8:24 BOTTLE WASHER MACHINE Recreational Drug Use Grid Drug Use : None CHRISTINE BLAKELY LPN - 01/08/2017 8:24 BOTTLE WASHER MACHINE Psychosocial Domestic Abuse Concerns : None Behavioral Health Screen/Safety Assmt : No Church Preference : No qualifying data available. CHRISTINE BLAKELY LPN - 01/08/2017 8:24 BOTTLE WASHER MACHINE Advance Directive Advanced Directives : No Advance Directive Additional Information : No CHRISTINE BLAKELY LPN - 01/08/2017 8:24 BOTTLE WASHER MACHINE Educ Needs Learning Style Preference Adult Grid Patient : None Family : None CHRISTINE BLAKELY LPN - 01/08/2017 8:24 BOTTLE WASHER MACHINE Source: [facility] [employer]OWER[employer]ART Document Id: [id number] BOTTLE WASHER MACHINE!40 LE WASHER MACHINE Miscellaneous - Christine Ivy L.P.N. - 01/08/2017 8:18 AM CST Adult Cans Vacuum Tester Intake/History Adult Cans Vacuum Tester Intake/History Entered On: 01/08/2017 8:22 BOTTLE WASHER [employer]ACHINE Performed On: 01/08/2017 8:18 BOTTLE WASHER MACHINE by CHRISTINE BLAKELY LPN Intake Chief Complaint : right shoulder pain radiates down arm / wrist pain not related to shoulder pain Onset of Symptoms : 1 year Ambulatory Intake Additional Information : pain has just gotten worse recently Temperature Core : 36.7 DegC(Converted to: 98.1 DegF) Peripheral Pulse Rate : 55 /min (LOW) Systolic Blood Pressure : 124 mmHg Diastolic Blood Pressure : 81 mmHg NIBP Mean : 95 mmHg BP Location : Right upper extremity Blood Pressure Cuff Size : Regular Oxygen Therapy : Room air Height : 182 cm(Converted to: 6 ft 0 inch(es), 72 inch(es)) Actual Weight : 106.3 kg(Converted to: 234 lb 6 oz) Weight Source : Standing scale Dosing Weight Clinic : 106.3 kg Clinic BSA : 2.32 Body Mass Index : 32.09 kg/m2 CHRISTINE BLAKELY LPN - 01/08/2017 8:18 BOTTLE WASHER MACHINE General Info Information Given By : Patient Preferred Communication Mode : Verbal Languages : Arabic Is Patient Female and 13-50 no hysterectomy : No CHRISTINE BLAKELY LPN - 01/08/2017 8:18 BOTTLE WASHER MACHINE Subjective Pain Symptoms : Yes CHRISTINE BLAKELY LPN - 01/08/2017 8:18 BOTTLE WASHER MACHINE Pain Scale Pain Scale Verbal 0-10 : Open CHRISTINE BLAKELY LPN - 01/08/2017 8:18 BOTTLE WASHER MACHINE Pain Pain Assessment Grid Pain 1 Pain 2 Location : Shoulder Wrist Laterality : Right Right Intensity : 9 5 REDDYJALEESA E LPN - 01/08/2017 8:18 BOTTLE WASHER MACHINE CHRISTINE BLAKELY Shruthi VANEGAS - 01/08/2017 8:18 BOTTLE WASHER MACHINE Dependent Habits Smoking Status : Former smoker Tobacco 2A : Yes Tobacco Use/Currently Using : No Tobacco Use/Last 30 Days : No Tobacco Use/Last 12 months : Yes Tobacco Last Use/Month : January Tobacco Last Use/Year : 2015 Type : Other: quit Alcohol Use : Yes (Comment: very rarely uses [REDDY CHRISTINE Hawkins LPN - 01/08/2017 8:18 BOTTLE WASHER MACHINE] ) BLAKELY, CHRISTINE Hawkins LPN - 01/08/2017 8:18 BOTTLE WASHER MACHINE Caffeine Use Grid Caffeine Use : Current Type : Soft drinks Frequency : Occasionally Amount : 1 can rarely Last Use : been awhile REDDY CHRISTINE Hawkins LPN - 01/08/2017 8:18 BOTTLE WASHER MACHINE Recreational Drug Use Grid Drug Use : None CHRISTINE BLAKELY LPN - 01/08/2017 8:18 BOTTLE WASHER MACHINE Source: [facility] [employer] Document Id: [id number] BOTTLE WASHER MACHINE!58 LE WASHER MACHINE documented in this encounter Plan of Treatment Not on filedocumented as of this encounter Procedures Procedure Name Priority Date/Time Associated Diagnosis Comme nts DX SHOULDER RIGHT Routine 01/08/2017 9:20 AM Resu lts for this 2+ VIEWS BOTTLE WASHER [employer]ACHINE procedure are i n the results section. documented in this encounter Results DX Shoulder Right 2+ Views (01/08/2017 9:20 AM BOTTLE WASHER MACHINE) Anatomical Region Laterality Modality Upper Extremity, Shoulder Right Radiographic I maging Specimen (Source) Anatomical Collection Method Collection Time Re ceived Time Location / / Volume Laterality 01/08/2017 9:20 AM BOTTLE WASHER [employer]ACHINE Addenda Addendum by Provider, Hilton Leach 01/08/2017 9:20 AM BOTTLE WASHER MACHINE RAD^^^MA XR Shoulder Right 4 view 01/08/2017 09:20:29 Impressions 01/08/2017 9:50 AM BOTTLE WASHER MACHINE Negative right shoulder. Narrative 01/08/2017 9:50 AM BOTTLE WASHER MACHINE EXAM: XR Shoulder Right 4 view INDICATION: chronic right shoulder pain COMPARISON: None. ?? FINDINGS: Soft tissues are unremarkable. No fracture or destructive lesion is identified. Shoulder joint spa jerel are preserved without degenerative change. Procedure Note Ricardo Grey Jr., M.D. / Hany Ashby M.D. - 05/11/2017 EXAM: XR Shoulder Right 4 view INDICATION: chronic right shoulder pain COMPARISON: None. FINDINGS: Soft tissues are unremarkable. No fracture or destructive lesion is identified. Shoulder joint spa jerel are preserved without degenerative change. IMPRESSION: Negative right shoulder. Margarita Santos(R)(CT), R.TDameon(R) IMG DIAGNOSTIC IM AGING PROCEDURES documented in this encounter Visit Diagnoses Not on filedocumented in this encounter Additional Health Concerns Assessment Noted Time PHQ-9 Depression Total Score: 16 01/08/2011 2:17 PM CS T documented as of this encounter
--- OUTSIDE RECORDS SUMMARY | 2022-07-26 14:37 | XMS_ITS | Encounter Summary ---
:1995 Author Organization [facility] Address [address] [place] [address] Care Team Providers Name Role Phone Unavailable Primary Care Provider Unavailable Encounter Details Date Type Department Care Team Description 12/31/2004 Hospital Encounter [facility] Asad Gonzales M.D. [address] [place], [place] [address] (Wo rk) Social History Tobacco Use Types Packs/Day Years Used Date Smoking Tobacco: Never Assessed Sex Assigned at Date Recorded Not on file documented as of this encounter Plan of Treatment Not on filedocumented as of this encounter Visit Diagnoses Not on filedocumented in this encounter
--- OUTSIDE RECORDS SUMMARY | 2022-07-26 14:37 | XMS_ITS | Encounter Summary ---
:1995 Author Organization [facility] Address [address] [place] [address] Care Team Providers Name Role Phone Unavailable Primary Care Provider Unavailable Encounter Details Date Type Department Care Team Description 02/10/2017 Hospital Encounter HX [facility] FA ED Catherine Parham APRN, C.N.P., M.S.N. [address] [place], [place] [phone] (Wo rk) Social History Tobacco Use Types Packs/Day Years Used Date Smoking Tobacco: Every Day Sex Assigned at Date Recorded Not on file documented as of this encounter Last Filed Vital Signs Vital Sign Reading Time Taken Comments Blood Pressure 145/97 02/10/2017 11:44 AM CDT Pulse 68 02/10/2017 11:44 AM CDT Temperature - - Respiratory Rate 16 02/10/2017 11:44 AM CDT Oxygen Saturation - - Inhaled Oxygen Concentration - - Weight - - Height - - Body Mass Index - - documented in this encounter Discharge Summaries Christina Valle R.N. - 02/10/2017 11:47 AM CDT [place] [address] Name: DONTE SILVA Date of : 1995 12:00 AM Visit Date: 02/10/2017 9:49 AM [facility] Number: [id number] Address: [address] [place] [address] Primary Care Provider: ABA POSADAS CNP IMPORTANT: [facility] in [place] would like to thank you for allowing us to assist you with your healthcare needs. The following includes patient education materials and information regarding your injury/illness. Diagnosis: Depression Major NOS Follow-Up Instructions: With: Address: When: ABA POSADAS [address] [place] [address] [facility] (1) Within 1 - 2 days Comments: ED f/u Your Upcoming Appointments: Date Time Location Provider 02/26/2017 10:45 FA Behav [facility] Victor Hugo Mccray MA 03/09/2017 09:00 FAFC Behav [facility] Stephanie CORONADO, Nydia Pina Patient Education Materials: What Can Cause Depression? Certain factors have been known to trigger depression. Below are some common known causes. Any of these factors, or a combination of them, can make depression more likely. Sometimes, depression occurs for no one clear reason. But no matter what the cause, depression can be treated. Loss or Stress Normal grief over a , breakup, or other loss may become depression. Life stresses such as physical abuse, job loss, or sudden change in finances can also trigger depression. In some cases, years go by before the depression sets in. Family History The tendency to develop depression seems to run in families. If one or more of your close relatives (parents, grandparents, or siblings) have had an episode of depression, you may be more likely to develop the illness, too. Drugs or Alcohol Drugs and alcohol can upset the chemical balance in the brain. This can lead to an episode of depression. Some depressed people turn to drugs or alcohol to numb the pain. But in the long run, doing so just makes depression worse. Medications Depression can be a side effect of some medications for high blood pressure, cancer, pain, and otherhealth problems. So tell your doctor about all medications you take. But never stop taking one without your doctors okay. Physical Illness Being sick can make anyone feel frustrated and sad. But some health problems may cause actual changes in your brain that lead to depression. Other health problems, such as an underactive thyroid, may be mistaken for depression. Hormones Hormones carry messages in the bloodstream. They may affect brain chemicals, leading to depression. Women may get depressed when their hormone levels change quickly, such as just before their period, after giving , or during menopause. ?? 7972-[address] [address]. All rights reserved. This information is not intended as a substitute for professional medical care. Always follow your healthcare professional's instructions. Depression Affects Your Mind and Body Everyone feels sad or blue from time to time. But depression is much more serious than just feeling down. Depression is a real illness. It makes you feel sad and helpless. It gets in the way of your life and relationships. It inhibits your ability to think and act. But, with help, you can feel better again. When I was depressed, I felt awful. I was so tired all the time I could hardly think, but at night Icouldnt fall asleep. My head hurt. My stomach hurt. I didnt know what was wrong with me. Depression Affects Your Whole Body Brain chemicals affect your body as well as your mood. So depression may do more than just make you feel low. You may also feel bad physically. Depression can: ?? Cause trouble with mental tasks such as remembering, concentrating, or making decisions. ?? Make you feel nervous and jumpy. ?? Cause trouble sleeping. Or you may sleep too much. ?? Change your appetite. ?? Cause headaches, stomachaches, or other aches and pains. ?? Drain your body of energy. Depression and Other Illness It is common for people who have chronic health problems to also have depression. It can often be hard to tell which one caused the other. A person might become depressed after finding out they have a health problem. But some studies suggest being depressed may make certain health problems more likely. And some depressed people stop taking care of themselves. This may make them more likely to get sick. ?? 3919-0343 [facility], [address] [place] [address]. All rights reserved. This information is not intended as a substitute for professional medical care. Always follow your healthcare professional's instructions. Depression Depression is one of the most common mental health problems today. It is not just a state of unhappiness or sadness. It is a true disease. The cause seems to be related to a decrease in chemicals that transmit signals in the brain. Having a family history of depression, alcoholism or suicide increasesthe risk. Chronic illness, chronic pain, migraine headaches and high emotional stress also increase the risk. Depression can cause many different symptoms, such as: -- Loss of appetite -- Over-eating -- Not being able to sleep -- Sleeping too much -- Tiredness not related to physical exertion -- Restlessness or irritability -- Slowness of movement or speech -- Feeling depressed or withdrawn -- Loss of interest in things you once enjoyed -- Difficulty in concentrating, poor memory, have trouble making decisions -- Thoughts of harming or killing oneself, or thoughts that life is not worth living -- Low self-esteem The best treatment for depression is a combination of medicine and psychotherapy. Antidepressant medicines can reduce suffering and can improve the ability to function during the depressed period. Therapy can offer emotional support and help you understand emotional factors that may be causing the depr ession. Home Care: 1) Be kind to yourself. Make it a point to do things that you enjoy (gardening, walking in nature, going to a movie, etc.). Reward yourself for small successes. 2) Take care of your physical body. Eat a balanced diet (low in saturated fat and high in fruits andvegetables). Establish an exercise plan at least 3 times a week for 30 minutes. Even mild-moderate exercise (like brisk walking) can make you feel better. 3) Avoid alcohol, which can make depression worse. Follow-Up with your doctor as advised. It is important to keep in contact with a health care provider until your symptoms begin to improve. Get Prompt Medical Attention if any of the following occur: -- Feeling extreme depression, fear, anxiety, or anger toward yourself or others -- Feeling out of control -- Feeling that you may try to harm yourself or another -- Hearing voices that others do not hear -- Seeing things that others do not see -- Cant sleep or eat for 3 days in a row ?? [id number] [facility], [address] [place] [address], [place] [address]. All rights reserved. This information is not [...] if you dont have one. Go to [email or web address] and click on Create Your Account. Then, follow the directions to complete the online form. Youll be asked for your [facility] number which you can find at the top of this document. ED Tests and Procedures: Order Status Automated Diff-5 Part Completed Acetaminophen Level Completed CBC (includes Auto Differential) Completed Comprehensive Metabolic Panel Completed Ethanol Level Completed Salicylate Level Completed Thyroid Stimulating Hormone Completed Urinalysis with Microscopic if Indicated Completed Urine Drug Screen Medical. Completed Discharge Prescriptions & Home Medications: Medication/Strength Dose Route Frequency Indications/Special Instructions/Comments/Notes *traZODone (traZODone 50 mg oral tablet) See Instructions start with 1 tab at night and may increaseto 3 tabs at night after 2 evenings with food ibuprofen (ibuprofen 200 mg oral tablet) See Instructions as directed on bottle trazodone (trazodone 150 mg oral tablet) 150 mg Oral once a day (at bedtime) * You have let us know that you are not taking this medication as listed. Please talk with your primary care provider or the health care provider who prescribed the medication as soon as possible. Comment: Attention: If you have any medications at home not on this list, DO NOT take them until you contact your provider for clarification. Give a copy [...] the instructions above carefully. If you are being transferred to another facility your followup plan of care will be determined by the receiving facility. If you are a patient that is being discharged from the Emergency Department after receiving narcotics or other medications that may impair your judgment you may be a risk to yourself or others if you operate a motor vehicle. We recommend that you arrange a ride home with a responsible libertarian. IVELISSE Corona CHARLES MICHAEL , or responsible libertarian have received this information and my questions have been answered. I have discussed any challenges I see with this plan with the nurse or physician. Patient Signature or Responsible Republican/Relationship Date Time Provider Signature Date Time IMPORTANT: [...] the instructions above carefully. If you are being transferred to another facility your followup plan of care will be determined by the receiving facility. If you are a patient that is being discharged from the Emergency Department after receiving narcotics or other medications that may impair your judgment you may be a risk to yourself or others if you operate a motor vehicle. We recommend that you arrange a ride home with a responsible libertarian. IVELISSE Corona CHARLES MICHAEL , or responsible libertarian have received this information and my questions have been answered. I have discussed any challenges I see with this plan with the nurse or physician. Patient Signature or Responsible Republican/Relationship Date Time Provider Signature Date Time This document has images extracted. Please consider using [employer] for all your patient education needs. Source: [employer] Document Id: [id number] Christina Valle R.N. - 02/10/2017 11:47 AM CDT ED Depart Summary [facility] Emergency Department Clinical Discharge Summary PERSON INFORMATION Name DONTE SILVA Age 21 Years 1995 12:00 AM Sex Male Language Cambodian PCP ABA POSADAS CNP Marital Status Single Visit Id Visit Reason Suicidal ideation; SUICIDAL THOUGHTS Specialty Enc Type Emergency Med Service Emergency Medicine Referred by [facility] ED/UC Discharge 02/10/2017 11:45 AM Tracking Id [id number] Checkout 02/10/2017 11:45 AM Checkin 02/10/2017 9:49 AM Acuity 2 -Emergent Dispo Type * Discharged to Home or Self Care Arrival 02/10/2017 9:49 AM Reg Status LOS 000 01:56 Address: [address] [place] [id number] Comment: PROVIDER INFORMATION Provider Role Provider Contact Time CATHERINE PARHAM CNP SHIRT LINE OPERATOR Provider 02/10/17 09:52 CHRISTINA VALLE SHIRT LINE OPERATOR Nurse 02/10/17 09:59 MUMTAZ VALDEZ SHIRT LINE OPERATOR Nurse 02/10/17 10:11 DIAGNOSIS Depression Major NOS Comment: PATIENT EDUCATION INFORMATION Instructions: What Can Cause Depression?; Depression Affects Your Mind and Body; DEPRESSION Follow up: With: Address: When: ABA POSADAS [address] [place] [address] [facility] (6) Within 1 - 2 days Comments: ED f/u [facility] Document Id: [id number] documented in this encounter Progress Notes Victor Hugo Mccray - 02/10/2017 9:49 AM CDT [id number] LENGTH OF THE SESSION: Approximately half an hour. CHIEF COMPLAINT/REASON FOR VISIT Emergency room called for a consult with the attending physician being Mile who asked for quick review of Donte's difficulties, as he was having some suicidal thoughts and wondering what to do withhim. HISTORY OF PRESENT ILLNESS Basically Donte tells me that he is from out of the area. He just moved into this area about 2 months ago and was attending [employer]. Had a break-up with an old girlfriend but now has a new girlfriend, living with that girlfriend's parents. He is in high school, although he is 21. He has had a p retty tough life and has had previous history of some depression and suicidal attempts. Also has previous history of being involved in the criminal justice system including correction at [facility].He says about 2 to 3 weeks ago he started getting depressed and start withdrawing slowly gradually until the point now today he has been feeling like he has had some thoughts of wanting to end it. Theyare pretty vague and not very specific. He does not have any plan, no intent but is just not feelingvery good. He does really like his current living situation. He really likes what is going on there,so has very little reason to end his life at this point. He feels for the first time in his life things are going pretty well actually. So just kind of confused about the fact that he is feeling depressed and wondering why. He has been treated for depression in the past including a dose of trazodone 150 mg which he takes nightly, helps him with his sleep but in the last couple weeks he has found it more difficult to fall asleep at night. MENTAL STATUS EXAMINATION: Very quick mental status examination was held. He is having some trouble with falling asleep. His appetite has been non-existent. Energy level low. Otherwise most of the restof his mental status examination is within normal limits. As indicated above, the risk factors are relatively low at this point. He does not have any intention or plan to actually harm himself as he feels for the first time in his life things are going pretty well. He is not looking for psychiatric hospitalization at this point, but would like to get some services lined up. So we talked to him about psychiatry and psychology. IMPRESSION/REPORT/PLAN As indicated he is depressed, has previous history of this but I think it is very treatable on an outpatient basis. Recommendations are for him to set up appointments with both Psychiatry and Psychology here at the medical center, or if he has an alternative place of choice. Victor Hugo Mccray M.A./myrtle Electronically Signed By: VICTOR HUGO MCCRAY On: 02/10/2017 02:43 PM Modified by and Electronically Signed by: VICTOR HUGO MCCRAY On: 02/10/2017 02:43 PM Source: [facility] MHSDOLBEYNONRADSYS Document Id: [id number] documented in this encounter ED Notes Christina Valle R.N. - 02/10/2017 11:44 AM CDT ED Disposition Summary ED Disposition Summary Entered On: 02/10/2017 11:44 CDT Performed On: 02/10/2017 11:44 CDT by CHRISTINA VALLE RN ED Disposition Summary Present in Room During Exam/Procedure : Other: significant other's mother Mode of Discharge : Ambulatory Transportation : Private vehicle Printed Discharge Instructions Given to Patient : Yes CHRISTINA VALLE RN - 02/10/2017 11:44 CDT Source: [facility] KASSANDRA Document Id: [id number] CDT!6 Christina Valle R.N. - 02/10/2017 11:44 AM CDT ED Pain Assessment ED Pain Assessment Entered On: 02/10/2017 11:44 CDT Performed On: 02/10/2017 11:44 CDT by CHRISTINA VALLE RN Pain Assessment Pain Symptoms : No CHRISTINA VALLE RN - 02/10/2017 11:44 CDT Source: [employer] Document Id: [id number] CDT!3 Mumtaz Valdez R.N. - 02/10/2017 11:26 AM CDT ED Nurse Reassess ED Nurse Reassess Entered On: 02/10/2017 11:27 CDT Performed On: 02/10/2017 11:26 CDT by MUMTAZ VALDEZ RN Pain Assessment Pain Symptoms : No MUMTAZ VALDEZ RN - 02/10/2017 11:26 CDT Behavioral Health Screen/Safety Reassmt Affect/Behavior : Calm, Cooperative Behavioral Health Note : Gave patient information about psychiatry and psychology appointments with phone number to call if those times don't work. Informed them about waiting on the last of lab results to come in and then Catherine will be in to speak with them. MUMTAZ VALDEZ RN - 02/10/2017 11:26 CDT Source: [employer] Document Id: [id number] CDT!6 Catherine Parham - 02/10/2017 10:11 AM CDT Suicidal ideation Patient: DONTE SILAV Age: 21 years Sex: Male : 1995 Author: CATHERINE PARHAM CNP RN Attachments: None Associated Diagnosis: Depression Major NOS Basic Information Additional information: Chief Complaint from Nursing Triage Note : Chief Complaint Description 02/10/2017 9:59 CDT Chief Complaint Description Date\Time Correction 02/10/2017 9:49 CDT Chief Complaint Description Presents to ER 4 accompanied by girlfriend's spouse c/o suicidal ideations. Reports a three week hx of suicidal thoughts- states no plan. HX of cutting. Denies doing anything to harm himself at this time. Pt cooperative. Reports a hx of inpatient tx. (Modified) . History of Present Illness Pt. is a 21 yo male who is here for suicidal ideation. Pt. states that he started to become more depressed about 3 weeks ago. Pt. is here with gf's mother. She states that he has been eating and drinking because they make him. He has a history of suicidal plans, but has not acted on them. No recent ill ness. Pt. recently moved to the area 2-3 months ago. He is from [place] and has a mom and dad thatlive there. Pt. moved to [facility] with an ex- girlfriend. He soon met another girl and had moved in with their family. Pt. has a psych history with diagnosed anxiety, depression, ADD, ADHD, and has not been diagnosed with bipolar, but feels this is probable. No thoughts of hurting others. Does not have a plan. The patient presents with psychiatric problem, suicidal ideation and depression. The onset was 3 weeks ago. The course/duration of symptoms is constant. Character of symptoms suicidal thoughts. The degree of symptoms is severe. Self injury: history of self manipulation (cutting), thoughts of hanging..The exacerbating factor is none. The relieving factor is does not take medication. Risk factors consist of suicide risk and no thoughts of hurting others. Prior episodes: none. Therapy today: none. Associated symptoms: headache. Review of Systems Constitutional symptoms: Negative except as documented in HPI. Skin symptoms: Negative except as documented in HPI. Eye symptoms: Negative except as documented in HPI. ENMT symptoms: Negative except as documented in HPI. Respiratory symptoms: Negative except as documented in HPI. Cardiovascular symptoms: Negative except as documented in HPI. Gastrointestinal symptoms: Negative except as documented in HPI. Genitourinary symptoms: Negative except as documented in HPI. Musculoskeletal symptoms: Negative except as documented in HPI. Neurologic symptoms: Negative except as documented in HPI. Psychiatric symptoms: Depression. Additional review of systems information: All other systems reviewed and otherwise negative. Health Status Allergies: Allergic Reactions (Selected) NKA. 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 Surgical history: No active procedure history items have been selected or recorded.. Family history: Alcoholism Uncle (paternal) . Physical Examination Vital Signs: Vital Signs 02/10/2017 9:59 CDT Temperature Core Date\Time Correction Peripheral Pulse Rate Date\Time Correction Respiratory Rate Date\Time Correction SpO2 Date\Time Correction Systolic Blood Pressure Date\Time Correction Diastolic Blood Pressure Date\Time Correction Mean Arterial Pressure Date\Time Correction BP Location Date\Time Correction 02/10/2017 9:49 CDT Temperature Core 36.6 DegC (Modified) Peripheral Pulse Rate 70 /min (Modified) Respiratory Rate 18 /min (Modified) SpO2 97 % (Modified) Systolic Blood Pressure 142 mmHg HI (Modified) Diastolic Blood Pressure 95 mmHg >HHI (Modified) Mean Arterial Pressure 111 mmHg (Modified) BP Location Right upper (Modified) , SpO2 02/10/2017 9:59 CDT SpO2 Date\Time Correction 02/10/2017 9:49 CDT SpO2 97 % (Modified) . General: Alert and no acute distress. Skin: Warm and dry. Head: Normocephalic and atraumatic. Neck: Supple and trachea midline. Eye: Pupils are equal, round and reactive to light and extraocular movements are intact. Ears, nose, mouth and throat: Tympanic membranes clear, oral mucosa moist and no pharyngeal erythemaor exudate. Cardiovascular: Regular rate and rhythm and No murmur. Respiratory: Lungs are clear to auscultation, respirations are non-labored and breath sounds are equal. Gastrointestinal: Soft. Musculoskeletal: Normal ROM Neurological: Alert and oriented to person, place, time, and situation and No focal neurological deficit observed. Lymphatics: No lymphadenopathy. Psychiatric: Cooperative, appropriate mood & affect and Abnormal / Psychotic thoughts: Suicidal. Medical Decision Making Differential Diagnosis:Depression, suicide risk. Documents reviewed:Emergency department records, prior records. Electrocardiogram:Normal sinus rhythm. Results review:Lab results : Lab View 02/10/2017 10:20 CDT UA Color Yellow UA Clarity Clear UA Spec Grav 1.023 UA pH 7.5 UA Protein Negative UA Glucose Negative UA Ketones Negative UA Bili Negative UA Urobilinogen 1.0 mg/dL UA Blood Negative UA Nitrite Negative UA Leuk Est Negative Drug Scrn Comment See Comment U Tricyclic Scr Negative U THC Scrn Negative U Oxycodone Scrn Negative U Opiate Scrn Negative U Methamp Scr Negative U Methadone Negative U Cocaine Scrn Negative U Benzodia Scrn Negative U Barbit Scrn Negative U Amphet Scrn Negative U Phencyclidine Negative U Propoxyphene Scrn Negative U Buprenorphine Scrn Negative 02/10/2017 10:13 CDT Hgb 16.4 g/dL Hct 45.7 % WBC 8.5 x10(9)/L RBC 5.62 x10(12)/L MCV 81.3 fL RDW 12.8 % Platelet 181 x10(9)/L Neutro Absolute 5.48 10(9)/L Lymph Absolute 1.99 x10(9)/L Isabela Absolute 0.83 x10(9)/L Eos Absolute 0.11 x10(9)/L Baso Absolute 0.08 x10(9)/L Sodium Lvl 138 mmol/L Potassium Lvl 4.3 mmol/L Chloride 101 mmol/L CO2 26 mmol/L AGAP 11 mmol/L Alkaline Phosphatase 128 U/L Glucose Lvl 103 mg/dL Creatinine 0.8 mg/dL EGFR (MDRD) >60 mL/min/SA EGFR (MDRD) >60 mL/min/SA BUN 10 mg/dL Calcium Lvl 9.7 mg/dL Protein Total 7.2 g/dL Albumin Lvl 4.4 g/dL AST 27 U/L ALT 32 U/L Bili Total 1.2 mg/dL Ethanol Lvl <11 mg/dL NA Salicylate Lvl <0.5 mg/dL LOW Acetaminoph Lvl <5 mcg/mL TSH 1.49 mIU/L . Notes:Pt. was evaluated by the psychologist in the behavioral health department. He thoroughly evaluated patient and states that he is not of immediate danger to self or others. He is recommending thatpatient f/u in the clinic with the appt. being March 09. I expressed my concern about suicidal thoughts and he agrees about the concern but does not feel he will act on this. Pt. is under supervision from house mates at home. He is living with his gf and mother. Pt. is cleared medically. Pt. was informed and educated on f/u care with strict return precautions. Pt. agrees with plan but still shows concern about the appt. date. . Impression and Plan Diagnosis Depression Major NOS (Discharge, Emergency medicine, Medical) Plan Condition: Stable. Disposition: Discharged: to home. Patient was given the following educational materials: What Can Cause Depression?, Depression Affects Your Mind and Body, DEPRESSION. Limitations: school excuse written for today 02/10/17. Follow up with: [facility] Within 1 - 2 days ED f/u. Counseled: Patient, Friend. Electronically Signed By: CATHERINE PARHAM CNP RN On: 02/10/2017 01:31 PM Modified by and Electronically Signed by: CATHERINE PARHAM CNP RN On: 02/10/2017 01:31 PM Source: [facility] POWERCHART Document Id: {[id number]} Christina Valle R.N. 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 ; Life Cycle Date: 10/02/2011 ; Life Cycle Status: Active ; Responsible Provider: DERIC HARTLEY MD; Vocabulary: ICD-9-CM Anxiety NOS (ICD-10-CM :F41.9 ) Name of Problem: Anxiety NOS ; Recorder: ADAM NEWBY PA-C; Confirmation: Confirmed ; Classification: Medical ; Code: F41.9 ; Contributor System: PowerChart ; Last Updated: 08/04/2016 15:40 CDT ; Life Cycle Date: 08/04/2016 ; Life Cycle Status: Active ; Responsible Provider: ADAM NEWBY PA-C; Vocabulary: ICD-10-CM Attention Deficit Dis W Hyperactivity (ICD-9-CM :314.01 ) Name of Problem: Attention Deficit Dis W Hyperactivity ; Onset Date: 03/2005 ; Confirmation: Provisional ; Classification: Medical ; Code: 314.01 ; Contributor System: KuldatP_SYS ; Last Updated: 12/27/2009 0:00 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 ; Life Cycle Date: 04/07/2005; Life Cycle Status: Active ; Vocabulary: ICD-9-CM Depression Anxiety (ICD-10-CM :F41.8 ) Name of Problem: Depression Anxiety ; Recorder: ADAM NEWBY PA-C; Confirmation: Confirmed ; Classification: Medical ; Code: F41.8 ; Contributor System: [employer] ; Last Updated: 08/04/2016 15:41 CDT ; Life Cycle Date: 08/04/2016 ; Life Cycle Status: Active ; Responsible Provider: ADAM NEWBY PA-C; Vocabulary: ICD-10-CM Gastroesophageal Reflux Disease (GERD MIKO) (ICD-10-CM :K21.9 ) Name of Problem: Gastroesophageal Reflux Disease (GERD MIKO) ; Recorder: DEBORAH MOYER; Confirmation: Confirmed ; Classification: Medical ; Code: K21.9 ; Contributor System: [employer] ; Last Updated: 08/29/2016 14:16 CDT ; Life Cycle Date: 08/29/2016 ; Life Cycle Status: Active ; Responsible Provider: DEBORAH MOYER; Vocabulary: ICD-10-CM Insomnia NOS (ICD-10-CM :G47.00 ) Name of Problem: Insomnia NOS ; Recorder: DEBORAH MOYER; Confirmation: Confirmed ; Classification: Medical ; Code: G47.00 ; Contributor System: [employer] ; Last Updated: 08/29/2016 14:18 CDT ; Life Cycle Date: 08/29/2016 ; Life Cycle Status: Active ; Responsible Provider: DEBORAH MOYER; Vocabulary: ICD-10-CM Oppositional Disorder Child Adolescent (ICD-9-CM :313.81 ) Name of Problem: Oppositional Disorder Child Adolescent ; Onset Date: 03/2005 ; Confirmation: Provisional ; Classification: Medical ; Code: 313.81 ; Contributor System: KuldatP_SYS ; Last Updated: 12/27/2009 0:00 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 ; Life Cycle Date: 04/07/2005 ; Life Cycle Status: Active ; Vocabulary: ICD-9-CM Reactive Attachment Disorder Childhood (ICD-9-CM :313.89 ) Name of Problem: Reactive Attachment Disorder Childhood ; Onset Date: 06/2009 ; Confirmation: Provisional ; Classification: UPDATE NEEDED ; Code: 313.89 ; Contributor System: [employer]_Sma[employer]P_[employer] ; Last Updated: 12/27/2009 0:00 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 ; Life Cycle Date: 07/03/2009 ; Life Cycle Status: Active ; Vocabulary: ICD-9-CM Temporomandibular Joint (TMJ) Syndrome (ICD-10-CM :M26.69 ) Name of Problem: Temporomandibular Joint(TMJ) Syndrome ; Recorder: DEBORAH MOYER; Confirmation: Confirmed ; Classification: Medical ; Code: M26.69 ; Contributor System: [employer] ; Last Updated: 08/29/2016 14:17 CDT ; Life Cycle Date: 05/2016 ; Life Cycle Status: Active ; Responsible Provider: DEBORAH MOYER; Vocabulary: ICD-10-CM Diagnoses(Active) Suicidal ideation Date: 02/10/2017 ; Diagnosis Type: Reason For Visit ; Confirmation: Confirmed ; Clinical Dx: Suicidal ideation ; Classification: Medical ; Clinical Service: Emergency medicine ; Code:PNED ; Probability: 0 ; Diagnosis Code: [id number] Triage Chief Complaint Description : Presents to ER 4 accompanied by girlfriend's mother c/o suicidal ideations. Reports a three week hx of suicidal thoughts- states no plan. HX of cutting. Denies doing anything to harm himself at this time. Pt cooperative. Reports a hx of inpatient tx. CHRISTINA VALLE RN - 02/10/2017 10:13 CDT Information Given By : Patient Present in Room During Exam/Procedure : Other: significant other's mother Mode of Arrival ED : Private vehicle Track : Medical Languages : Cambodian Vital Signs Assessed : Yes Treatments Prior to Arrival : None Triage Treatments : Other: removed clothing, placed in personal belongings bag and taken out of room, placed in gown Is Patient Female and 13-50 no hysterectomy : No CHRISTINA VALLE RN - 02/10/2017 10:08 CDT Vital Signs Temperature Core : 36.6 DegC(Converted to: 97.9 DegF) Peripheral Pulse Rate : 70 /min Respiratory Rate : 18 /min Systolic Blood Pressure : 142 mmHg (HI) Diastolic Blood Pressure : 95 mmHg (>HHI) NIBP Mean : 111 mmHg BP Location : Right upper extremity SpO2 : 97 % Oxygen Therapy : Room air GINAAartiCHRISTINA INIGUEZ HARPAL - 02/10/2017 10:08 CDT Pain Assessment Pain Symptoms : No LISRAIMARQUITA INIGUEZIKER ROWAN - 02/10/2017 10:08 CDT ED Physician Notification Time ED Physician Notification Time : 02/10/2017 9:49 CDT LISCHRISTINA HERNANDEZ RN - 02/10/2017 10:07 CDT KIMBERLI KIMBERLI Level 3 : Many CHRISTINA VALLE HARPAL - 02/10/2017 10:07 CDT KIMBERLI Level 1 : No KIMBERLI Level 2 : No LISMARY CHRISTINAIKER Wise 02/10/2017 10:08 CDT DCP GENERIC CODE Tracking Group : [facility] Tracking Acuity : 2 -Emergent CHRISTINA VALLE HARPAL 02/10/2017 10:08 CDT Allergy (As Of: 02/10/2017 10:06:28 CDT) Allergies (Active) NKA Estimated Onset Date: Unspecified ; Created By: ROSALIA AUGUSTIN LPN; Reaction Status: Active ;Category: Drug ; Substance: NKA ; Type: Allergy ; Updated By: ROSALIA AUGUSTIN LPN; Reviewed Date: 02/10/2017 10:02 CDT Respiratory Airway : Patent Respirations : Unlabored Respiratory Pattern : Regular LISRAIMARQUITA INIGUEZIKER ROWAN - 02/10/2017 10:08 CDT Cardiovascular Heart Rhythm : Regular Skin Color : Normal for ethnicity Skin Description : Dry Skin Temperature : Warm LISRAIMARQUITA INIGUEZIKER ROWAN 02/10/2017 10:08 CDT Neurological Last Well Time Known : Not applicable Level of Consciousness : Alert Orientation : Oriented x 3 Characteristics of Speech : Appropriate for age GINAAartiMARQUITA INIGUEZIKER Wise 02/10/2017 10:08 CDT ED Psychosocial Affect/Behavior : Calm, Cooperative, Other: suicidal ideation Domestic Abuse Concerns : None Behavioral Health Screen/Safety Assmt : Yes Emotional Support Available : Yes CHRISTINA VALLE RN - 02/10/2017 10:08 CDT Behavioral Health Screen/Safety Assmt Thoughts of Harming Self : Yes Suicide Attempts : Yes Suicide Attempts : Yes Suicide Plan : No Safety Refused Directions : No Safety Irritability : No Safety Threatening : No Safety Threaten to Harm : No Safety History of Violence : No Safety Aggressive Actions : No Safety Violent : No Safety Security Staff : Tavia/Christina Safety Weapon/Contraband Found : No CHRISTINA VALLE RN - 02/10/2017 10:08 CDT Gastrointestinal Nutrition ED : Adequate CHRISTINA VALLE RN - 02/10/2017 10:08 CDT Musculoskeletal Fall Prevention Education Provided : NA Standard Safety : Bed in low position CHRISTINA VALLE RN - 02/10/2017 10:08 CDT Social Habits Exposure to Tobacco Smoke : Patient smokes Smoking Status : Current every day smoker Tobacco 2A : Yes Tobacco Use/Currently Using : Yes Tobacco Use/Last 30 Days : Yes Tobacco Use/Last 12 months : Yes Tobacco Last Use/Month : January Tobacco Last Use/Year : 2015 Type : Cigarettes: Less than 20 per day Tobacco Use/Advised to Quit : Yes CHRISTINA VALLE RN - 02/10/2017 10:08 CDT Recreational Drug Use Grid Drug Use : None CHRISTINA VALLE RN - 02/10/2017 10:08 CDT CHRISTINA VALLE RN - 02/10/2017 9:59 CDT Source: [facility] Roomster Document Id: [id number] CDT!3 documented in this encounter Miscellaneous Notes Miscellaneous - Conversion, Historical Provider Ser - 02/10/2017 11:45 AM CDT Coding Summary-Paper Based CODING DATE: 02/17/2017 FINAL FA [facility] STATUS: * Discharged to Home or Self Care PAYOR: Commercial Insurance ADMIT DX: R45.851 Suicidal ideations REASON FOR VISIT DX: R45.851 Suicidal ideations FINAL DX: PRINCIPAL: F33.1 Major depressive disorder, recurrent, moderate SECONDARY: F17.210 Nicotine dependence, cigarettes, uncomplicated PROCEDURES DOCTOR NAME DATE NOTE: The code number assigned matches the documented diagnosis and / or procedure in the patient's chart. However, the narrative phrase printed from the coding software may appear abbreviated, or result in slightly different terminology. Coded By: MARK MONTEJO Date Saved: 02/17/2017 09:06 am [facility] Document Id: [id number] [place] - Christina Valle R.N. - 02/10/2017 11:44 AM CDT Valuables/Belongings Valuables/Belongings Entered On: 02/10/2017 11:45 CDT Performed On: 02/10/2017 11:44 CDT by CHRISTINA VALLE RN Valuables/Belongings Belongings Sent Home With : patient CHRISTINA VALLE RN - 02/10/2017 11:44 CDT Source: [employer] Document Id: [id number] CDT!3 [place] - Christina Valle R.N. - 02/10/2017 11:44 AM CDT Discharge Vital Signs Form Discharge Vital Signs Form Entered On: 02/10/2017 11:45 CDT Performed On: 02/10/2017 11:44 CDT by CHRISTINA VALLE RN Vital Signs Peripheral Pulse Rate : 68 /min Respiratory Rate : 16 /min Systolic Blood Pressure : 145 mmHg (HI) Diastolic Blood Pressure : 97 mmHg (>HHI) NIBP Mean : 113 mmHg BP Location : Right upper extremity SpO2 : 98 % Oxygen Therapy : Room air CHRISTINA VALLE RN - 02/10/2017 11:45 CDT [facility] [employer] Document Id: [id number] CDT!10 Mumtaz Smith R.N. - 02/10/2017 11:21 AM CDT Communication Note Communication Note Entered On: 02/10/2017 11:23 CDT Performed On: 02/10/2017 11:21 CDT by MUMTAZ VALDEZ RN Communication Assessment Communication Note : Scheduled appointment for pt with Behavioral Health (psychiatry and psychology). Gave appointment information to pt. MUMTAZ VALDEZ RN - 02/10/2017 11:21 CDT Source: [facility] Roomster Document Id: [id number] CDT!3 Maryannaneous - Mumtaz Valdez R.N. - 02/10/2017 10:50 AM CDT Communication Note Communication Note Entered On: 02/10/2017 11:01 CDT Performed On: 02/10/2017 10:50 CDT by MUMTAZ VALDEZ RN Communication Assessment Communication Note : Victor Hugo Mccray from Behavioral Health is in room speaking with pt MUMTAZ VALDEZ RN - 02/10/2017 11:00 CDT Source: [employer] Document Id: [id number] CDT!3 Malissacellaneous - Christina Valle R.N. - 02/10/2017 10:12 AM CDT Communication Note Communication Note Entered On: 02/10/2017 10:12 CDT Performed On: 02/10/2017 10:12 CDT by CHRISTINA VALLE RN Communication Subject of Note : Other: Report to CHRISTINA Parson RN, RN - 02/10/2017 10:12 CDT Source: [facility] Roomster Document Id: [id number] CDT!3 documented in this encounter Plan of Treatment Not on filedocumented as of this encounter Procedures Procedure Name Priority Date/Time Associated Comments Diagnosis ECG Routine 02/10/2017 10:33 Results for this AM CDT procedure are i n the results section. URINALYSIS, ROUTINE Routine 02/10/2017 10:20 Resu lts for this AM CDT procedure are i n the results section. DRUG SCREEN URINE Routine 02/10/2017 10:20 Result s for this AM CDT procedure are i n the results section. AUTOMATED Routine 02/10/2017 10:13 Results for this DIFFERENTIAL, B AM CDT procedure ar e in the results section. CBC WITH DIFFERENTIAL, Routine 02/10/2017 10:13 R esults for this B AM CDT procedure are i n the results section. THYROID-STIMULATING Routine 02/10/2017 10:13 Resu lts for this HORMONE-SENSITIVE AM CDT procedure are in (S-TSH) the results section. ETHANOL, S Routine 02/10/2017 10:13 Results for this AM CDT procedure are i n the results section. ACETAMINOPHEN LEVEL, S Routine 02/10/2017 10:13 R esults for this AM CDT procedure are i n the results section. SALICYLATE LEVEL, S Routine 02/10/2017 10:13 Resu lts for this AM CDT procedure are i n the results section. COMPREHENSIVE Routine 02/10/2017 10:13 Results fo r this METABOLIC PANEL, S/P AM CDT procedu re are in the results section. documented in this encounter Results ECG 12 Lead (02/10/2017 10:33 AM CDT) Specimen (Source) Anatomical Collection Method Collection Time Re ceived Time Location / / Volume Laterality 02/10/2017 10:33 AM CDT [facility] - 02/10/2017 10:33 AM CDT Test Reason : EKG Blood Pressure : / mmHG Vent. Rate : 057 BPM ? Atrial Rate : 057 BPM ?? P-R Int : 170 ms ?QRS D ur : 098 ms ?QT Int : 362 ms ? P-R-T Axe s : 036 008 031 degrees ?? QTc Int : [address] elevation, consider early repolarizat ion No previous ECGs available Referred By: CATHERINE PARHAM ? Confirmed By:CHANO MAGANA JR MD Procedure Note Provider, Hilton Leach - 05/12/2017F ormatting of this note might be different from the original. Test Reason : EKG Blood Pressure : / mmHG Vent. Rate : 057 BPM Atrial Rate : 057 B PM P-R Int : 170 ms QRS Dur : 098 ms QT Int : 362 ms P-R-T Axes : 036 008 03 1 degrees QTc Int : [address] elevation, consider early repolarizat ion No previous ECGs available Referred By: CATHERINE PARHAM Confirmed B y:CHANO MAGANA JR MD Chano Magana Jr., M.D. ECG ORDERABLES Performing Organization Address City/State/ZIP Code [facility] [address] [place] [id number] Drug Screen Urine (02/10/2017 10:20 AM CDT) Analysis Performed At [facility] Time Signature Comment See Comment See Comment POWERCHART Comment: Control 1 Valid? yesControl 2 Valid? yes Control 3 Valid? yesControl 4 Valid? yes Control 5 Valid? yes Carboxy-THC Immunoassay Screen Negative Negative POWERCHART Comment: Screening cutoff concentration: 50 ng/mL HX U Phencyclidine Negative Negative POWERCHART Comment: Screening cutoff concentration: 25 ng/mL Cocaine Negative Negative POWERCHART Comment: Screening cutoff concentration: 150 ng/mL Amphetamine/Methamphetamine, Urine Negative Negative POWERCHART Comment: Screening cutoff concentration: 500 ng/mL Opiates Negative Negative POWERCHART Comment: Screening cutoff concentration: 100 ng/mL HXU Amphet Scrn Negative Negative POWERCHART Comment: Screening cutoff concentration: 500 ng/mL HX U Benzodia Scrn Negative Negative POWERCHART Comment: Screening cutoff concentration: 150 ng/mL HXU Tricyclic Scr Negative Negative POWERCHART Comment: Screening cutoff concentration: 300 ng/mL Methadone Immunoassay Screen Negative Negative P OWERCHART Comment: Screening cutoff concentration: 200 ng/mL Barbiturates Negative Negative POWERCHART Comment: Screening cutoff concentration: 200 ng/mL Oxycodone-by LC-MS/MS Negative Negative POWERCHA RT Comment: Screening cutoff concentration: 100 ng/mL Propoxyphene Negative Negative POWERCHART Comment: Screening cutoff concentration: 300 ng/mL Buprenorphine, U Negative Negative POWERCHART Comment: Screening cutoff concentration: 10 ng/mL Specimen (Source) Anatomical Collection Method Collection Time Re ceived Time Location / / Volume Laterality Urine 02/10/2017 10:20 AM CDT Catherine S Tye Parham APRNN.PDameon, M.S.N. LAB URINE ORDER LUIS FERNANDO Performing Organization Address [facility] Code Phon e Number POWERCHART Urinalysis, Routine (02/10/2017 10:20 AM CDT) Patholo gist Method Time Signature HXUr Color Yellow Yellow POWERCHART Clarity Clear Clear POWERCHART Specific 1.023 1.001 - POWERCHART [place], POCT, 1.035 U Glucose Negative Negative POWERCHART HXBILIRUBIN Negative Negative POWERCHART Ketones, QL(U) Negative Negative POWERCHART HXBLOOD Negative Negative POWERCHART pH, POCT, Urine 7.5 POWERCHART Comment: Reference Range pH: 5.0-8.0 Protein, Ur, Dip Negative Negative POWERCHART Urobilinogen 1.0 0.2 MGDL POWERCHART Comment: Reference Range Urobilinogen: 0.2-1.0 mg/dL HXNITRITE Negative Negative POWERCHART Leukocyte Esterase Negative Negative POWERCHART Specimen (Source) Anatomical Collection Method Collection Time Re ceived Time Location / / Volume Laterality Urine, First 02/10/2017 10:20 Voided AM CDT Catherine S Tye Parham APRNNArjun, M.S.N. LAB URINE ORDER LUIS FERNANDO Performing Organization Address [facility] Phon e Number POWERCHART Automated Differential (02/10/2017 10:13 AM CDT) P athologist Signature Absolute 5.48 1.70 - POWERCHART Neutrophils 7.00 109L Lymphocytes 1.99 0.90 - POWERCHART 2.90 X109L Monocytes 0.83 0.30 - POWERCHART 0.90 X109L Eosinophils 0.11 0.05 - POWERCHART 0.50 X109L Absolute 0.08 0.00 - POWERCHART Basophil 0.30 X109L Specimen Anatomical Collection Method Collection Time Receive d Time (Source) Location / / Volume Laterality Blood 02/10/2017 10:13 02/10/2017 AM CDT 10:13 AM CDT Catherine Parham APRN, C.N.P., M.S.N. LAB BLOOD ADD-O N Performing Organization Address [facility] Code Phon e Number POWERCHART CBC with Differential (02/10/2017 10:13 AM CDT) P athologist Signature Leukocytes 8.5 3.5 - 10.5 POWERCHART X109L Erythrocytes 5.62 4.32 - 5.72 POWERCHART [id number] Hemoglobin 16.4 13.5 - 17.5 POWERCHART GDL Hematocrit 45.7 38.8 - 50.0 POWERCHART MCV 81.3 81.2 - 95.1 POWERCHART FL HX RDW 12.8 11.8 - 15.6 POWERCHART Platelet Count 181 150 - 450 POWERCHART X109L Specimen (Source) Anatomical Collection Method Collection Time Re ceived Time Location / / Volume Laterality Blood 02/10/2017 10:13 AM CDT Catherine Parham APRN, C.N.P., M.S.N. LAB BLOOD ADD-O N Performing Organization Address [facility] Phon e Number POWERCHART Thyroid-Stimulating Hormone-Sensitive (s-TSH) (02/10/2017 10:13 AM CDT) P athologist Signature TSH 1.49 0.27 - 4.20 POWERCHART (Thyrotropin) GALINA Comment: Biotin has been identified by the annalee saavedra as a potential interfering substance. Higher concentrations of biotin may be found in multivitamins, hair/nail supplements, and workout supplements. If the result does not match clinical observat ions, repeat testing after patient refrains from the use of supplements for at least 12 hours. Specimen (Source) Anatomical Collection Method Collection Time Re ceived Time Location / / Volume Laterality Blood 02/10/2017 10:13 AM CDT Tye Rivera APRNNAlexis., M.S.N. LAB BLOOD ADD-O N Performing Organization Address [facility] Code Phon e Number POWERCHART (ABNORMAL) Salicylate Level (02/10/2017 10:13 AM CDT) P athologist Signature Salicylate, S <0.5 (L) 3.0 - 30.0 POWERCHART MGDL Specimen (Source) Anatomical Collection Method Collection Time Re ceived Time Location / / Volume Laterality Blood 02/10/2017 10:13 AM CDT Catherine S Dione MEYER C.N.P., M.S.N. LAB BLOOD ADD-O N Performing Organization Address City/State/ZIP Code Phon e Number POWERCHART Ethanol Level (02/10/2017 10:13 AM CDT) P athologist Signature Ethanol, S <11 MGDL POWERCHART Comment: Legal limit of intoxication is 80 mg/dL (0.08 g/dL) Toxic concentration is dependent upon in dividual usage history. Potentially lethal concentration: > or = 400 mg/dL (0.4 g/dL) Specimen (Source) Anatomical Collection Method Collection Time Re ceived Time Location / / Volume Laterality Blood 02/10/2017 10:13 AM CDT Catherine S Dione MEYER C.N.P., M.S.N. LAB BLOOD NON A DD-ON Performing Organization Address City/State/ZIP Code Phon e Number POWERCHART CMP (Comprehensive Metabolic Panel) (02/10/2017 10:13 AM CDT) Patholo gist Method Time Signature Alanine 32 7 - 55 UL POWERCHART Amniotransferase, LD Albumin, S 4.4 3.5 - 5.2 POWERCHART GDL Alkaline 128 40 - 130 UL POWERCHART Phosphatase, S Aspartate 27 8 - 48 UL POWERCHART Aminotransferase (AST), S Sodium, S 138 135 - 145 POWERCHART MMOLL Potassium, S 4.3 3.5 - 5.1 POWERCHART MMOLL Chloride, S 101 98 - 107 POWERCHART MMOLL CO2 Total 26 22 - 29 POWERCHART MMOLL BUN (Blood Urea 10 6 - 24 MGDL POWERCHART Nitrogen), S Creatinine 0.8 0.8 - 1.3 POWERCHART MGDL Calcium, Total, S 9.7 8.6 - 10.3 POWERCHART MGDL Anion Gap 11 7 - 15 POWERCHART MMOLL HXeGFR (MDRD) >60 >=60 POWERCHART MLMINSA Comment: Results are in mL/min/1.73m squared CKD Stage I: ? GFR > 90 CKD Stage II: ?GFR 60 to 89 CKD Stage III: ? GFR 30 to 59 CKD Stage IV: ? GFR 15 to 29 CKD Stage V: ?GFR < 15 or Dialysi s eGFR Black/ >60 >=60 MLMINSA POWERCHART Comment: Results are in mL/min/1.73m squared CKD Stage I: ? GFR > 90 CKD Stage II: ?GFR 60 to 89 CKD Stage III: ? GFR 30 to 59 CKD Stage IV: ? GFR 15 to 29 CKD Stage V: ?GFR < 15 or Dialysi s Bilirubin, Total, S 1.2 <=1.2 MGDL POWERCHAR T Total Protein, S 7.2 6.3 - 7.9 GDL POWERCHAR T Glucose 103 70 - 140 MGDL POWERCHART Specimen (Source) Anatomical Collection Method Collection Time Re ceived Time Location / / Volume Laterality Blood 02/10/2017 10:13 AM CDT Yovani Rivera APRN.N.PDameon, M.S.N. LAB BLOOD ADD-O N Performing Organization Address [facility] Phon e Number POWERCHART Acetaminophen Level (02/10/2017 10:13 AM CDT) P athologist Signature Acetaminophen, <5 <=29 MCGML POWERCHART S Comment: Therapeutic concentration: < 30 mcg/mL Normal half-life: < 4 hours Toxic concentration: > 150 mcg/mL 4 hour s after dose Toxic half life: > 4 hours The toxic level is dependent on half-lif e. ??When the half-life is 4 hours, hepatotoxicity generally will not occur unless the concentration is > 150 mcg/mL. ??The level at which toxicity occurs decr eases with increasing half-life until it is encountered at values as low as 50 mcg/mL when the h meir-life reaches 12 hours. Specimen (Source) Anatomical Collection Method Collection Time Re ceived Time Location / / Volume Laterality Blood 02/10/2017 10:13 AM CDT Yovani Rivera APRN.N.P., M.S.N. LAB BLOOD ADD-O N Performing Organization Address City/State/ZIP Code Phon e Number POWERCHART documented in this encounter Visit Diagnoses Not on filedocumented in this encounter Additional Health Concerns Assessment Noted Time PHQ-9 Depression Total Score: 16 01/08/2011 2:17 PM CS T documented as of this encounter
--- OUTSIDE RECORDS SUMMARY | 2022-07-26 14:37 | XMS_ITS | Encounter Summary ---
:1995 Author Organization [facility] Address [address] [place] [address] Care Team Providers Name Role Phone Unavailable Primary Care Provider Unavailable Encounter Details Date Type Department Care Team Description 07/29/2016 Hospital Encounter HX [facility] ED Bell Wallace D.O. Social History Tobacco Use Types Packs/Day Years Used Date Smoking Tobacco: Never Assessed Sex Assigned at Date Recorded Not on file documented as of this encounter Last Filed Vital Signs Vital Sign Reading Time Taken Comments Blood Pressure 112/66 07/29/2016 1:15 AM CDT Pulse 85 07/29/2016 1:15 AM CDT Temperature - - Respiratory Rate 18 07/29/2016 1:15 AM CDT Oxygen Saturation - - Inhaled Oxygen Concentration - - Weight - - Height - - Body Mass Index - - documented in this encounter Discharge Summaries Felix Martinez, RAntonia. - 07/29/2016 6:43 AM CDT ED Depart Summary [facility] Emergency Department / Urgent Care Clinical Discharge Summary PERSON INFORMATION Name DONTE OVIEDO Age 21 Years 1995 12:00 AM Sex Male Language East Timorese PCP PCP, ELSEWHERE Marital Status Single N [id number] Visit Id Visit Reason Headache; headache Specialty Enc Type Emergency Med Service Emergency Medicine Referred by Emily Gore [facility] ED/UC Discharge 07/29/2016 6:30 AM Tracking Id [id number] Checkout 07/29/2016 6:30 AM Checkin 07/29/2016 1:12 AM Acuity 3 -Urgent Dispo Type * Discharged to Home or Self Care Arrival 07/29/2016 1:12 AM Reg Status Complete LOS 000 05:18 Address: [address] [place] [id number] Comment: PROVIDER INFORMATION Provider Role Provider Contact Time 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 Nurse 07/29/16 01:23 BELL WALLACE DO ED Provider 07/29/16 01:54 DIAGNOSIS Comment: PATIENT EDUCATION INFORMATION Instructions: Self-Care for Headaches Follow up: With: Address: When: Follow up with primary care provider Within 1 week, only if needed Comments: Call for follow up appointment if your headaches are returning but remain mild. If you develop severe symptoms, return to the ED instead. Source: [facility] POWERCHART Document Id: [id number] Felix Martinez R.N. - 07/29/2016 6:43 AM CDT ED Discharge Instructions [facility] [address] [facility] [place] [address] Name: DONTE OVIEDO Date of : 1995 12:00 AM Visit Date: 07/29/2016 1:12 AM [facility] Number: [id number] Address: [address] [facility] [address] Primary Care Provider: PCP, RENATA IMPORTANT: [facility] in [place] would like to thank you for allowing us to assist youwith your healthcare needs. The following includes patient education materials and information regarding your injury/illness. Diagnosis: Follow-Up Instructions: With: Address: When: Follow up with primary care provider Within 1 week, only if needed Comments: Call for follow up appointment if your headaches are returning but remain mild. If you develop severe symptoms, return to the ED instead. Your Upcoming Appointments: Date Time Location Provider No Appointments found Patient Education Materials: Self-Care for Headaches Most headaches aren't serious and can be relieved with self-care. But some headaches may be a sign of another health problem like eye trouble or high blood pressure. To find the best treatment, learn what kind of headaches you get. For tension headaches, self-care will usually help. To treat migraines, ask your doctor for advice. It is also possible to get both tension and migraine headaches. Self-care involves relieving the pain and avoiding headache triggers if you can. Ways to Reduce Pain and Tension Try these steps: ?? Apply a cold compress or ice pack to the pain site. ?? Drink fluids. If nausea makes it hard to drink, try sucking on ice. ?? Rest. Protect yourself from bright light and loud noises. ?? Calm your emotions by imagining a peaceful scene. ?? Massage tight neck, shoulder, and head muscles. ?? To relax muscles, soak in a hot bath or use a hot shower. Use Medications Aspirin or aspirin substitutes, such as ibuprofen and acetaminophen, can relieve headache. Remember:Never give aspirin to anyone 18 years old or younger. Use pain medications only when necessary. Track Your Headaches Keeping a headache diary can help you and your doctor identify what's causing your headaches: ?? Note when each headache occurs. ?? Identify your activities and the foods you've eaten 6 to 8 hours before the headache began. ?? Look for any trends or triggers. Signs of Tension Headache Any of the following can be signs: ?? Dull pain or feeling of pressure in a tight band around your head ?? Pain in your neck or shoulders ?? Headache without a definite beginning or end ?? Headache after an activity such as driving or working on a computer Signs of Migraine Any of the following can be signs: ?? Throbbing pain on one or both sides of your head ?? Nausea or vomiting ?? Extreme sensitivity to light, sound, and smells ?? Bright spots, flashes, or other visual changes ?? Pain or nausea so severe that you can't continue your daily activities Call Your Doctor If you have any of the following symptoms, contact your health care provider: A headache that lingers after a recent injury or bump to the head. A fever with a stiff neck or pain when you bend your head toward your chest. A headache along with slurred speech, changes in your vision, or numbness or weakness in your arms or legs. A headache for longer than 3 days. Frequent headaches, especially in the morning. Headaches with seizures ?? [id number] Harvey Carmen, [address] [place] [address], [place] [address]. All rights reserved. This information is not [...] if you dont have one. Go to [email or web address] and click on Create Your Account. Then, follow the directions to complete the online form. Youll be asked for your [facility] number which you can find at the top of this document. ED Tests and Procedures: Order Status Discharge Prescriptions & Home Medications: Medication/Strength Dose Route Frequency Indications/Special Instructions/Comments/Notes ibuprofen (ibuprofen 200 mg oral capsule) 800 [...] applying)apply hs, may hold if redness/dryness excess quetiapine (Seroquel 50 mg oral tablet) See [...] nurse or physician. Patient Signature or Responsible Democrat/Relationship Date Time Provider Signature Date Time IMPORTANT: [...] nurse or physician. Patient Signature or Responsible Democrat/Relationship Date Time Provider Signature Date Time This document has images extracted. Please consider using [employer] for all your patient education needs. Source: [employer] Document Id: [id number] documented in this encounter ED Notes Felix Martinez, RDameonN. - 07/29/2016 6:30 AM CDT ED Disposition Summary ED Disposition Summary Entered On: 07/29/2016 6:42 CDT Performed On: 07/29/2016 6:30 CDT by 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 Disposition Summary Present in Room During Exam/Procedure : Significant other Mode of Discharge : Ambulatory Transportation : Private vehicle Discharge From ED With : Home Med List Printed Discharge Instructions Given to Patient : Yes Patient Status at Discharge from ED : Improved 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 RN - 07/29/2016 6:41 CDT Source: [employer] Document Id: [id number] CDT!8 Felix Martinez, RDameonN. - 07/29/2016 6:30 AM CDT ED Pain Assessment ED Pain Assessment Entered On: 07/29/2016 6:42 CDT Performed On: 07/29/2016 6:30 CDT by 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 RN Pain Assessment Pain Symptoms : No 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 RN - 07/29/2016 6:42 CDT Source: [employer] Document Id: [id number] CDT!3 Felix Martinez R.N. - 07/29/2016 6:00 AM CDT ED Treatments and Procedures ED Treatments and Procedures Entered On: 07/29/2016 6:41 CDT Performed On: 07/29/2016 6:00 CDT by 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 RN Peripheral IV Peripheral IV Assess/Intervention Grid Peripheral IV #1 IV Activity : Discontinue Removal : Catheter intact, Hemostasis within expected timeframe Date of Insertion : 07/29/2016 CDT Discontinued Date : 07/29/2016 CDT IV Site : Antecubital Laterality : Right Catheter Size : 20 Catheter Type : Over the needle 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 RN - 07/29/2016 6:39 CDT Source: [employer] Document Id: [id number] CDT!12 Felix Martinez R.N. - 07/29/2016 1:30 AM CDT ED Treatments and Procedures ED Treatments and Procedures Entered On: 07/29/2016 6:39 CDT Performed On: 07/29/2016 1:30 CDT by 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 RN Peripheral IV Peripheral IV Assess/Intervention Grid Peripheral IV #1 IV Activity : Start Number of Attempts : 2 Date of Insertion : 07/29/2016 CDT IV Site : Antecubital Laterality : Right Catheter Size : 20 Catheter Type : Over the needle Site Condition : No complications 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 RN - 07/29/2016 6:38 CDT Source: [employer] Document Id: [id number] CDT!12 Felix Martinez R.N. - 07/29/2016 1:26 AM CDT ED Primary Assessment Document Has Been Updated ED Primary Assessment Entered On: 07/29/2016 1:33 CDT Performed On: 07/29/2016 1:26 CDT by 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 RN Reason For Visit (As Of: 07/29/2016 01:33:35 CDT) Problems(Active) Acne rosacea (ICD-9-CM :695.3 ) Name of Problem: Acne rosacea ; Onset Date: 10/02/2011 ; Recorder: DERIC HARTLEY MD; Confirmation: Confirmed ; Classification: Medical ; Code: 695.3 ; Contributor System: [employer] ; Last Updated: 10/02/2011 10:36 SUPPORT REPRESENTATIVE ; Life Cycle Date: 10/02/2011 ; Life Cycle Status: Active ; Responsible Provider: DERIC HARTLEY MD; Vocabulary: ICD-9-CM Attention Deficit Dis W Hyperactivity (ICD-9-CM :314.01 ) Name of Problem: Attention Deficit Dis W Hyperactivity ; Onset Date: 03/2005 ; Confirmation: Provisional ; Classification: Medical ; Code: 314.01 ; Contributor System: [employer] ; Last Updated: 12/27/2009 0:00 SUPPORT REPRESENTATIVE ; Life Cycle Date: 04/07/2005; Life Cycle Status: Active ; Vocabulary: ICD-9-CM Oppositional Disorder Child Adolescent (ICD-9-CM :313.81 ) Name of Problem: Oppositional Disorder Child Adolescent ; Onset Date: 03/2005 ; Confirmation: Provisional ; Classification: Medical ; Code: 313.81 ; Contributor System: [employer] ; Last Updated: 12/27/2009 0:00 SUPPORT REPRESENTATIVE ; Life Cycle Date: 04/07/2005 ; Life Cycle Status: Active ; Vocabulary: ICD-9-CM Reactive Attachment Disorder Childhood (ICD-9-CM :313.89 ) Name of Problem: Reactive Attachment Disorder Childhood ; Onset Date: 06/2009 ; Confirmation: Provisional ; Classification: UPDATE NEEDED ; Code: 313.89 ; Contributor System: [employer] ; Last Updated: 12/27/2009 0:00 SUPPORT REPRESENTATIVE ; Life Cycle Date: 07/03/2009 ; Life Cycle Status: Active ; Vocabulary: ICD-9-CM Diagnoses(Active) Headache Date: 07/29/2016 ; Diagnosis Type: Reason For Visit ; Confirmation: Complaint of ; ClinicalDx: Headache ; Classification: Medical ; Clinical Service: Emergency medicine ; Code: PNED ; Probability: 0 ; Diagnosis Code: [id number] Triage Chief Complaint Description : 21 y/o male presents to ED d/t complaints of headache, Patient states s/s started yesterday AM at approx 0200 with little inprovment noted. Ibuprofen taken at 1800 Information Given By : Patient Present in Room During Exam/Procedure : Significant other Mode of Arrival ED : Private vehicle Track : Medical Languages : East Timorese Treatments Prior to Arrival : Ibuprofen Is Patient Female and 13-50 no hysterectomy : No 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 RN - 07/29/2016 1:26 CDT Pain Assessment Pain Symptoms : Yes 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 RN - 07/29/2016 1:26 CDT Pain Scale Pain Scale Verbal 0-10 : Open 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 RN - 07/29/2016 1:26 CDT Pain Pain Assessment Grid Pain 1 Location : Hand Laterality : Bilateral Intensity : 9 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 RN - 07/29/2016 1:26 CDT KIMBERLI DCP GENERIC CODE Tracking Acuity : 3 -Urgent Tracking Group : [facility] ED/ 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 RN - 07/29/2016 1:26 CDT Respiratory Airway : Patent Respirations : Unlabored Respiratory Pattern : Regular Oxygen Therapy : Room air 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 RN - 07/29/2016 1:26 CDT Cardiovascular Heart Rhythm : Regular Skin Color : Normal for ethnicity Skin Description : Dry Skin Temperature : Warm 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 RN - 07/29/2016 1:26 CDT Neurological Last Well Time Known : Not applicable Level of Consciousness : Alert Orientation : Oriented x 3 Characteristics of Speech : Appropriate for age Neuro Patient Stated Symptoms : None Gait : Steady 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 RN - 07/29/2016 1:26 CDT ED Psychosocial Affect/Behavior : Calm, Cooperative, Appropriate Domestic Abuse Concerns : None Behavioral Health Screen/Safety Assmt : No 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 RN - 07/29/2016 1:26 CDT Gastrointestinal Nutrition ED : Adequate 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 RN - 07/29/2016 1:26 CDT Musculoskeletal Fall Prevention Education Provided : NA 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 RN - 07/29/2016 1:26 CDT Social Habits Exposure to Tobacco Smoke : Patient smokes Smoking Status : Current every day smoker Tobacco 2A : Yes Tobacco Use/Currently Using : Yes Tobacco Use/Last 30 Days : Yes Tobacco Use/Last 12 months : Yes Type : Cigarettes: 20-30 per day Tobacco Use/Advised to Quit : Yes 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 RN - 07/29/2016 1:26 CDT Source: [facility] POWERCHART Document Id: [id number] CDT!58 Bell Wallace D.O. - 07/29/2016 12:30 AM CDT Headache Patient: DONTE OVIEDO Age: 21 years Sex: Male : 1995 Author: BELL WALLACE DO Attachments: None Basic Information History source: Patient, significant other. Arrival mode: Private vehicle. Additional information: Chief Complaint from Nursing Triage Note : Chief Complaint Description 07/29/2016 1:26 CDT Chief Complaint Description 21 y/o male presents to ED d/t complaints of headache, Patient states s/s started yesterday AM at approx 0200 with little inprovment noted. Ibuprofen taken at 1800 . History of Present Illness The patient presents with migraine. The patient presents with headache. The onset was 4 days ago. The course/duration of symptoms is constant, worsening and fluctuating in intensity. Location: right-sided throbbing with secondary generalization. The degree at onset was moderate. The degree at maximum was severe. The degree at present is severe. The exacerbating factor is light. The relieving factor is none. Prior episodes: He has developed frequent similar recurrent headaches since age 10 for which he usually uses 600 mg ibuprofen within a few hours of headache onset. He has needed ED treatment for headaches previously. However, they just moved from his father's home in [place] to [place] to live with about 7 roomates and in the last 2 weeks that they have been there, they have yet to pay rent. They were told that they would not beallowed to return if they did not pay. They are expecting his SO's debit card to be received in the mail later today. They are supposed to start senior year at [employer] tomorrow. . Therapy today: over the counter medications including 600 mg of ibuprofen around 7pm tonight, after his headache was already a 9/10. Preceding symptoms: none. Associated symptoms: nausea, vomiting, photophobia, denies fever, denies neck pain and denies rash. Review of Systems Constitutional symptoms: Negative except as documented in HPI. Skin symptoms: Negative except as documented in HPI. Eye symptoms: Negative except as documented in HPI. ENMT symptoms: No ear pain, no sore throat, no nasal congestion or no sinus pain. Respiratory symptoms: Negative except as documented in HPI, but no cough. Cardiovascular symptoms: Negative except as documented in HPI. Gastrointestinal symptoms: Negative except as documented in HPI. Neurologic symptoms: Negative except as documented in HPI. Psychiatric symptoms: No sleeping problems. Allergy/immunologic symptoms: Negative except as documented in HPI. Health Status Allergies: Allergic Reactions (Selected) NKA. Medications: (Selected) Prescriptions Prescribed Retin-A 0.01% topical gel: 1 mary ellen, Topical, Bedtime, (wash hands before applying)apply hs, may hold if redness/dryness excess, 45 gm Vitamin D3 1000 intl units oral tablet: 1,000 IntU, 1 tab(s), PO, Daily, 100 tab(s) benzoyl peroxide topical 5% gel: 1 mary ellen, Topical, Daily, (keep away from eyes and mucous membranes) apply q AM, 45 gm Documented Medications Documented Seroquel 50 mg oral tablet: See Instructions, 1 tab(s) PO 2xDay Tenex 1 mg oral tablet: 1 mg, 1 tab(s), PO, Bedtime, 30 tab(s) trazodone 150 mg oral tablet: 150 mg, 1 tab(s), PO, Bedtime, 30 tab(s). 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 Surgical history: Reviewed as documented in chart. Family history: Reviewed as documented in chart. Social history: Occupation: A student, Family/social situation: Unmarried, denies lives with parent(s). Physical Examination Vital Signs: Vital Signs 07/29/2016 1:15 CDT Temperature Core 37.2 DegC Peripheral Pulse Rate 85 /min Respiratory Rate 18 /min SpO2 98 % Systolic Blood Pressure 112 mmHg Diastolic Blood Pressure 66 mmHg BP Location Left upper , SpO2 07/29/2016 1:15 CDT SpO2 98 % . General: Appropriate for age and mild distress. Skin: Warm, dry and intact, but not pale. Head: Atraumatic. Neck: Supple and no tenderness. Eye: Normal conjunctiva. Ears, nose, mouth and throat: Oral mucosa moist and no pharyngeal erythema or exudate. Cardiovascular: Regular rate and rhythm and Normal peripheral perfusion. Respiratory: Lungs are clear to auscultation and respirations are non-labored. Gastrointestinal: Non distended. Back: Normal range of motion. Musculoskeletal: Normal ROM. normal strength. Neurological: Alert and oriented to person, place, time, and situation, No focal neurological deficit observed and normal speech observed. Psychiatric: Cooperative. Medical Decision Making Differential Diagnosis:Migraine, tension headache, depression not sinusitis, not meningitis. Reexamination/ Reevaluation Course: improving. Pain status: decreased. Assessment: exam improved. Interventions: Order Profile (Selected) Inpatient Orders Completed Benadryl: 25 mg, 0.5 mL, IV Push, Once Decadron: 10 mg, 2.5 mL, IV Push, Once Saline bolus: 1,000 mL, 1000 mL/hr, IV, Once Toradol: 30 mg, 1 mL, IV Push, Once droperidol: 1.875 mg, 0.75 mL, IV Push, Once Prescriptions Prescribed acetaminophen 650 mg oral tablet, extended release: 1,300 mg, 2 tab(s), PO, q8hr, for 3 day(s), 24 tab(s), 1 Refill(s) ibuprofen 200 mg oral capsule: 800 mg, 4 cap(s), PO, 3xDay, for 3 day(s), 50 cap(s), 1 Refill(s). Impression and Plan Diagnosis Acute headache History of migraines Plan Condition: Improved, Stable. Disposition: Discharged: to home. Patient was given the following educational materials: Self-Care for Headaches. Limitations: No school, For 1 days. Follow up with: Follow up with primary care provider Within 1 week, only if needed Call for follow up appointment if your headaches are returning but remain mild. If you develop severe symptoms, returnto the ED instead. . Counseled: Patient, Friend, Regarding diagnosis, Regarding treatment plan, Regarding prescription, Patient indicated understanding of instructions. Electronically Signed By: BELL WALLACE DO On: 07/31/2016 09:24 AM Modified by and Electronically Signed by: BELL WALLACE DO On: 07/29/2016 05:17 AM Source: [facility] [employer] Document Id: [id number] documented in this encounter Miscellaneous Notes Miscellaneous - Felix Martinez R.N. - 07/29/2016 6:34 AM CDT Communication Note Communication Note Entered On: 07/29/2016 6:38 CDT Performed On: 07/29/2016 6:34 CDT by 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 RN Communication Assessment Communication Note : No further interventions needed at this time, Patient painfree at discharge, [facility] or return to ED if needed. 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 RN - 07/29/2016 6:34 CDT Source: [facility] [employer] Document Id: [id number] CDT!3 Miscellaneous - Felix Martinez R.N. - 07/29/2016 6:30 AM CDT Valuables/Belongings Valuables/Belongings Entered On: 07/29/2016 6:43 CDT Performed On: 07/29/2016 6:30 CDT by FEILX MARTINEZ RN Valuables/Belongings Belongings Sent Home With : Patient 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 RN - 07/29/2016 6:42 CDT Source: [employer] Document Id: [id number] CDT!3 Miscellaneous - Conversion, Historical Provider Ser - 07/29/2016 6:30 AM CDT Coding Summary-Paper Based CODING DATE: 08/06/2016 FINAL [facility] STATUS: * Discharged to Home or Self Care PAYOR: Commercial Insurance ADMIT DX: R51 Headache REASON FOR VISIT DX: R51 Headache FINAL DX: PRINCIPAL: R51 Headache SECONDARY: Z86.69 Personal history of other diseases of the nervous system and sense organs F17.210 Nicotine dependence, cigarettes, uncomplicated PROCEDURES DOCTOR NAME DATE NOTE: The code number assigned matches the documented diagnosis and / or procedure in the patient's chart. However, the narrative phrase printed from the coding software may appear abbreviated, or result in slightly different terminology. Coded By: MIKY BULLOCK Date Saved: 08/06/2016 06:59 am Source: [employer] Document Id: [id number] Miscellmisha - Bell Wallace D.O. - 07/29/2016 3:08 AM CDT School Excuse July 29, 2016 DONTE OVIEDO [address] [address] Dear DNOTE OVIEDO, You were examined in the emergency department on: 07/29/16 To return to school today: ( _ ) Yes ( X ) No To return to regular activity: ( X ) Yes ( _ ) No School Medication: ( _ ) Yes ( X ) Not necessary Notes: _ Sincerely, BELL WALLACE [address] [place] [id number] Electronic Signature Electronically Signed By: BELL WALLACE DO On: July 29, 2016 This document has images extracted. Source: [employer] Document Id: [id number] Electronically signed by Conversion, [facility] Air Box Tester [id number] at 04/19/2017 5:43 AM CDT Miscellaneous - Felix Martinez, R.N. - 07/29/2016 3:00 AM CDT Communication Note Communication Note Entered On: 07/29/2016 4:50 CDT Performed On: 07/29/2016 3:00 CDT by 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 RN Communication Assessment Communication Note : Patient has been resting/sleeping with no new complaints. 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 RN - 07/29/2016 4:49 CDT [facility] Document Id: [id number] CDT!3 Miscellaneous - Felix Martinez R.N. - 07/29/2016 1:12 AM CDT Facility Charge Ticket 2.0 11.0 DX Facility Charge Ticket 2.0 11.0 DX Entered On: 07/29/2016 6:43 CDT Performed On: 07/29/2016 1:12 CDT by 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 RN Facility Charge Ticket 2.0 11.0 DX ED Other Charges : Standard ED Encounter TVL Level Translated RTF : Headache TVL:4 TVL Level for Facility Charge Ticket : Level 4 Arrival Mode Calc : 129 Mode of Arrival ED : Private vehicle [facility] Mode of Arrival Interpreted : Standard [facility] Process Management : None [facility] Order Management : None 30 Minutes Critical Care : No Nursing Notes RTF : Nursing Notes ED Primary Assessment,07/29/16 01:26,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 Pain Assessment,07/29/16 06:30,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 RN Communication Note,07/29/16 06:34,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 RN Communication Note,07/29/16 03:00,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 RN [facility] Nursing Assessment : Triage and 6+ nursing assessments [facility] Disposition : Discharge Disposition RTF : discharge [facility] Total Points with Diagnosis Control : 9 [facility] Visit Level : 56964 Level 4 Treatments Prior to Arrival : Ibuprofen 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 RN - 07/29/2016 6:43 CDT Source: [facility]yConnectCHART Document Id: [id number] CDT!18 documented in this encounter Plan of Treatment Not on filedocumented as of this encounter Visit Diagnoses Not on filedocumented in this encounter Additional Health Concerns Assessment Noted Time PHQ-9 Depression Total Score: 16 01/08/2011 2:17 PM CS T documented as of this encounter
--- OUTSIDE RECORDS SUMMARY | 2022-07-26 14:37 | XMS_ITS | Encounter Summary ---
:1995 Author Organization [facility] Address [address] [place] [address] Care Team Providers Name Role Phone Unavailable Primary Care Provider Unavailable Encounter Details Date Type Department Care Team Description 10/02/2011 Hospital Encounter HX [facility] Vladimir Hartley M.D. Social History Tobacco Use Types Packs/Day Years Used Date Smoking Tobacco: Never Assessed Sex Assigned at Date Recorded Not on file documented as of this encounter Progress Notes Emir Hartley M.D. - 10/02/2011 12:00 AM CST CLINIC NOTE Event Type: LE DICTATED BY: Emir Hartley MD DATE: 10/02/2011 IMPRESSION/REPORT/PLAN Meds verified. Will recheck in 3 months for his acne. CHIEF COMPLAINT/REASON FOR VISIT Donte Jackson is a 16-year-old [place] patient who comes in to [facility]. HISTORY OF PRESENT ILLNESS He has been followed by [facility] [place] in the past for ADHD, oppositional defiant. He is now in [place]. He is also seen today for new problems of acne rosacea for which we will start Retin-A and benzoyl peroxide, although he may be on that kind of pad at home. He did not have the name of his pad that he was using. He also had some abdominal pain which I believe is constipation, but I encouraged him to increase fiber, exercise and water. He has a wart on his right third toe kind of lateral for which we discussed the pros and cons of either duct tape or Wart Off versus freezing. He would just as soon try the duct tape for a month, so I wrote orders for that. He has also had some recurrent sprained ankles for which we discussed strengthening and perhaps using tie support when he plays basketball and get some high-top shoes. PAST MEDICAL/ SURGICAL HISTORY Has a past history of tonsillectomy. SOCIAL HISTORY He has had 1 sexual encounter in the past which he says he is fine to test for HIV and hepatitis. I believe he has had his routine child shots for hepatitis so I did not check the hepatitis B. PHYSICAL EXAMINATION See details of the exam. TCR:frantz cc: Electronically Signed By: EMIR HARTLEY MD On: 10/07/2011 09:27 AM Source: [facility] AMCDICTAPHONESYS Document Id: [id number] ING MACHINE OPERATOR HAND METHOD documented in this encounter Miscellaneous Notes [place] - Emir Hartley M.D. - 10/03/2011 7:50 AM CST Results Notification Document Contains Addenda Addendum by JOANNA NAPIER LPN on 03 October 2011 14:48:39 LASTING MACHINE OPERATOR HAND METHOD [place] pt - From: EMIR HARTLEY MD To: BELL Hartley Nurse; Sent: 10/03/2011 07:50:47 LASTING MACHINE OPERATOR HAND METHOD Show up: 10/03/2011 07:51:00 LASTING MACHINE OPERATOR HAND METHOD Subject: Results Notification Actions: Notify patient of results, Notify Patient of Future Order Results: Date Result Name Value Ref Range 10/02/2011 11:00 Hep A IgM-[facility] [place] Negative (Negative - ) 10/02/2011 11:00 Hep C Ab-[facility] [place] Negative (Negative - ) Source: [facility] POWERCHART Document Id: [id number] Electronically signed by [facility] Child Welfare Assistant [id number] at 04/26/2017 1:32 PM CDT Miscellaneous - Emir Hartley M.D. - 10/02/2011 11:34 PM CST Results Notification Document Contains Addenda Addendum by JOANNA NAPIER LPN on 03 October 2011 15:24:46 LASTING MACHINE OPERATOR HAND METHOD [place] pt From: EMIR HARTLEY MD To: BELL Hartley Nurse; Sent: 10/02/2011 23:34:44 LASTING MACHINE OPERATOR HAND METHOD Show up: 10/02/2011 23:35:00 LASTING MACHINE OPERATOR HAND METHOD Subject: Results Notification Actions: Notify patient of results Results: Date Result Name Value Ref Range 10/02/2011 11:03 UA Spec Grav 1.018 (1.003 - 1.035) 10/02/2011 11:03 UA Protein Negative 10/02/2011 11:03 UA Glucose Negative 10/02/2011 11:03 UA Blood Negative 10/02/2011 11:00 Hgb 14.6 g/dL (12.8 - 16.0) 10/02/2011 11:00 Hct 42.8 % (37.3 - 47.3) 10/02/2011 11:00 WBC 5.9 x10(9)/L (3.6 - 9.1) 10/02/2011 11:00 RBC 5.29 x10(6)uL (4.40 - 5.50) 10/02/2011 11:00 MCV 81 fL (81 - 92) 10/02/2011 11:00 RDW 13.7 % (11.6 - 13.8) 10/02/2011 11:00 Platelet 178 x10(9)/L (150 - 450) 10/02/2011 11:00 HIV 1/2 Rapid Negative (Negative - ) Source: [facility] POWERCHART Document Id: [id number] Electronically signed by Conversion, [facility] Child Welfare Assistant [id number] at 04/26/2017 1:32 PM CDT Miscellaneous - Emir Hartley M.D. - 10/02/2011 10:43 AM CST Ambulatory Patient Summary [facility] [address] [place] [address] Visit Information Name: DONTE OVIEDO Current Date: 10/02/2011 10:43:56 Primary Care Provider: ALEXA HAINES PA-C Your Medications Here is a list of your medications. It is important to take your medications as directed. Use a pillbox or chart to help remind you to take your medications. Please let your doctor or nurse know if you have problems taking your medications. Medication/Strength Dose Route Frequency Indications/Special Instructions/Comments cholecalciferol (Vitamin D3 1000 intl units oral tablet) 1,000 IntU Oral once a day benzoyl peroxide topical (benzoyl peroxide topical 5% gel) 1 mary ellen Topical once a day (keep away from eyes and mucous membranes) apply q AM tretinoin topical (Retin-A 0.01% topical gel) 1 mary ellen Topical once a day (at bedtime) (wash hands before applying)apply hs, may hold if redness/dryness excess quetiapine (Seroquel 50 mg oral tablet) See Instructions 1 tab(s) PO 2xDay guanfacine (Tenex 1 mg oral tablet) 1 mg Oral once a day (at bedtime) trazodone (trazodone 150 mg oral tablet) 150 mg Oral once a day (at bedtime) buPROPion (Wellbutrin XL 150 mg/24 hours oral tablet, extended release) 150 mg Oral every 24 hours Your Allergies & Intolerances Substance Reaction Symptoms Category Comments NKA Drug Your Problem List Problem Status Onset Comments Attention Deficit Disorder of Childhood with Hyperactivity Active 04/07/2005 Oppositional Defiant Disorder of Childhood or Adolescence Active 04/07/2005 Other Emotional Disturbances of Childhood or Adolescence Active 07/03/2009 Acne rosacea Active 10/02/2011 Your Recommendations We want to make sure you get the tests, immunizations, and guidance you need to stay healthy. Here is a customized list of recommendations, based on information we have in your medical record. Your doctor may have additional recommendations for you, based on your personal medical history and risk factors. You can help us by calling us to make an appointment when you are due for your tests. Additional information regarding recommendations: Test/Treatment Last Done Next Due Additional Information No Health Maintenance records were found Your Upcoming Appointments Date Time Location Reason Provider No Appointments found Your Goals/Additional instructions: Source: [facility] POWERCHART Document Id: [id number] ING MACHINE OPERATOR HAND METHOD Miscellaneous - Emir Hartley M.D. - 10/02/2011 10:43 AM CST Ambulatory Depart Summary [facility] [address] [place] [address] Visit Information Name: DONTE OVIEDO Current Date: 10/02/2011 10:43:55 Primary Care Provider: ALEXA HAINES PA-C DONTE OVIEDO has been given the following list of medications: Your Medications It is important to take your medications as directed. Use a pill box or chart to help remind you to take your medications. Please let your doctor or nurse know if you have problems taking your medications. Medication/Strength Dose Route Frequency Indications/Special Instructions/Comments cholecalciferol (Vitamin D3 1000 intl units oral tablet) 1,000 IntU Oral once a day benzoyl peroxide topical (benzoyl peroxide topical 5% gel) 1 mary ellen Topical once a day (keep away from eyes and mucous membranes) apply q AM tretinoin topical (Retin-A 0.01% topical gel) 1 mary ellen Topical once a day (at bedtime) (wash hands before applying)apply hs, may hold if redness/dryness excess quetiapine (Seroquel 50 mg oral tablet) See Instructions 1 tab(s) PO 2xDay guanfacine (Tenex 1 mg oral tablet) 1 mg Oral once a day (at bedtime) trazodone (trazodone 150 mg oral tablet) 150 mg Oral once a day (at bedtime) buPROPion (Wellbutrin XL 150 mg/24 hours oral tablet, extended release) 150 mg Oral every 24 hours Additional Information: Source: [facility] POWERCHART Document Id: [id number] ING MACHINE OPERATOR HAND METHOD Miscellaneous - Conversion, Historical Provider Ser - 10/02/2011 10:05 AM LASTING MACHINE OPERATOR HAND METHOD Adult Pile Trimmer Intake/History Adult Pile Trimmer Intake/History Entered On: 10/02/2011 10:07 LASTING MACHINE OPERATOR HAND METHOD Performed On: 10/02/2011 10:05 LASTING MACHINE OPERATOR HAND METHOD by JOANNA NAPIER LPN Intake Chief Complaint : [place] px Temperature Core : 36.9C(Converted to: 98.4DegF) Peripheral Pulse Rate : 72/min Systolic Blood Pressure : 102mmHg Diastolic Blood Pressure : 61mmHg NIBP Mean : 75mmHg BP Location : Left upper extremity Height : 174.75cm(Converted to: 5ft 9inch(es), 68.80inch(es)) Actual Weight : 79.6kg(Converted to: 175lb 8oz) Dosing Weight Clinic : 79.60kg Clinic BSA : 1.97 Body Mass Index : 26.07kg/m2 JOANNA NAPIER Ry VANEGAS - 10/02/2011 10:05 LASTING MACHINE OPERATOR HAND METHOD Subjective Pain Symptoms : Yes JOANNA NAPIER Ry VANEGAS - 10/02/2011 10:05 LASTING MACHINE OPERATOR HAND METHOD Pain Pain Assessment Grid Pain 1 Location : Head Intensity : 6 CORRINEJADE JOANNA Raza LPN - 10/02/2011 10:05 LASTING MACHINE OPERATOR HAND METHOD Dependent Habits Tobacco Use/Currently Using : No Smoking Status : Never smoker Alcohol Use : No CORRINEJOANNA HANSEN Ry VANEGAS - 10/02/2011 10:05 LASTING MACHINE OPERATOR HAND METHOD Caffeine Use Grid Caffeine Use : Current Type : Soft drinks Frequency : Occasionally Amount : 1 can rarely Last Use : been awhile JOANNA NAPIER Ry VANEGAS - 10/02/2011 10:05 LASTING MACHINE OPERATOR HAND METHOD Allergy Allergies (Active) NKA Estimated Onset Date: Unspecified ; Created By: ROSALIA AUGUSTIN LPN; Reaction Status: Active ;Category: Drug ; Substance: NKA ; Type: Allergy ; Updated By: ROSALIA AUGUSTIN LPN; Reviewed Date: 08/02/2010 15:09 CDT Source: [facility] MobilligyCHART Document Id: [id number] LASTING MACHINE OPERATOR HAND METHOD!32 documented in this encounter Plan of Treatment Not on filedocumented as of this encounter Visit Diagnoses Not on filedocumented in this encounter Additional Health Concerns Assessment Noted Time PHQ-9 Depression Total Score: 16 01/08/2011 2:17 PM CS T documented as of this encounter
--- OUTSIDE RECORDS SUMMARY | 2022-07-26 14:37 | XMS_ITS | Encounter Summary ---
:1995 Author Organization [facility] Address [address] [place] [address] Care Team Providers Name Role Phone Unavailable Primary Care Provider Unavailable Encounter Details Date Type Department Care Team Description 08/02/2010 Hospital Encounter HX [facility] Braxton Londono P.A.-C. [address] [place] [phone] (Wo rk) Social History Tobacco Use Types Packs/Day Years Used Date Smoking Tobacco: Never Assessed Sex Assigned at Date Recorded Not on file documented as of this encounter H&P Notes Alexa Londono P.A.-C. - 08/02/2010 12:00 AM CDT [id number] IMPRESSION/REPORT/PLAN 1. Sport's history and physical for a 15-year-old male. Plan: He may participate in sports without any restrictions. If they have any further questions or problems, let us know. Otherwise, will have him continue to follow up as scheduled for his other ongoing medical issues. A copy of his sport's history and physical form will be scanned into his record. 2. Health maintenance. Plan: He is due for hepatitis A and Menactra. He does not wish to get those today. He says he will get them he follows up next with Dr. Carolina. CHIEF COMPLAINT/REASON FOR VISIT Sport's history and physical. HISTORY OF PRESENT ILLNESS Donte is a 15-year-old boy who attends a [employer]. He has a history of attention deficit disorder, oppositional defiant disorder and reactive attachment disorder. He has been following with Dr. Malia Carolina and also at the [facility] with all of these problems. They have apparently been stable on his current dose of Adderall. He is attending the [employer] school and plans to play soccer this year. He and his father have no other health concerns. VITAL SIGNS Noted in the electronic medical record. PHYSICAL EXAM AREA EXAM TEXT GENERAL The remainder of his physical exam is documented on the sport's qualifying exam. There were no abnormalities noted on physical exam today. TLR/kln Signed [facility] Electronically Signed By:ALEXA LONDONO PA-C On 08/08/2010 06:08 PM Source: [facility] MHSDOLBEYNONRADSYS Document Id: [id number] documented in this encounter Miscellaneous Notes Miscellaneous - Alexa Londono P.A.-C. - 08/02/2010 3:49 PM CDT School or Work Excuse School or Work Excuse Entered On: 08/02/2010 15:49 CDT Performed On: 08/02/2010 15:49 CDT by ALEXA LONDONO PA-C School or Work Excuse Date Patient Seen: 08/02/2010 CDT Date of Return to School/Work Without Restrictions: 08/02/2010 CDT ALEXA LONDONO PA-C - 08/02/2010 15:49 CDT Source: [facility] POWERCHART Document Id: [id number] CDT!4 Miscellaneous - Conversion, Historical Provider Ser - 08/02/2010 3:11 PM CDT Pediatric Shipping And Receiving Clerk Intake/History Pediatric Shipping And Receiving Clerk Intake/History Entered On: 08/02/2010 15:17 CDT Performed On: 08/02/2010 15:11 CDT by ESE NARANJO LPN Intake Chief Complaint: sport physical Temperature Core: 37.7DegC(Converted to: 99.9DegF) Peripheral Pulse Rate: 88bpm Respiratory Rate: 18br/min Systolic Blood Pressure: 106mmHg Diastolic Blood Pressure: 62mmHg NIBP Mean: 77mmHg BP Location: Right upper extremity Heart Rhythm: Regular Height: 167.00cm(Converted to: 5ft 6in, 65.75in) Actual Weight: 61.900kg(Converted to: 136lb 7oz) Weight Source: Standing scale Dosing Weight Clinic: 61.90kg Clinic BSA: 1.69 Body Mass Index: 22kg/m2 ESE NARANJO LPN - 08/02/2010 15:11 CDT Subjective Pain Symptoms: No ESE NARANJO LPN - 08/02/2010 15:11 CDT Dependent Habits Tobacco Use/Currently Using: No Tobacco Use/Last 12 months: No Alcohol Use: No ESE NARANJO LPN - 08/02/2010 15:11 CDT Caffeine Use Grid Caffeine Use: Current Type: Soft drinks Frequency: Occasionally Amount: 1 can rarely Last Use: been awhile ESE NARANJO LPN - 08/02/2010 15:11 CDT Allergy Allergies (Active) NKA Estimated Onset Date: Unspecified ; Created By: ROSALIA AUGUSTIN LPN; Reaction Status: Active ;Category: Drug ; Substance: NKA ; Type: Allergy ; Updated By: ROSALIA AUGUSTIN LPN; Reviewed Date: 08/02/2010 15:09 CDT Source: [employer] Document Id: [id number] CDT!30 documented in this encounter Plan of Treatment Not on filedocumented as of this encounter Visit Diagnoses Not on filedocumented in this encounter
--- OUTSIDE RECORDS SUMMARY | 2022-07-26 14:37 | XMS_ITS | Encounter Summary ---
:1995 Author Organization [facility] Address [address] [place] [address] Care Team Providers Name Role Phone Unavailable Primary Care Provider Unavailable Encounter Details Date Type Department Care Team Description 12/26/2016 Hospital Encounter [facility] Hunter Linn P.A.-C. [address] [place] [phone] (Wo rk) Social History Tobacco Use Types Packs/Day Years Used Date Smoking Tobacco: Every Day Sex Assigned at Date Recorded Not on file documented as of this encounter Last Filed Vital Signs Vital Sign Reading Time Taken Comments Blood Pressure - - Pulse 94 12/26/2016 11:13 AM IMPREGNATOR AND DRIER HELPER Temperature - - Respiratory Rate - - Oxygen Saturation - - Inhaled Oxygen Concentration - - Weight - - Height 178 cm (5' 10.08) 12/26/2016 11:13 AM IMPREGNATOR AND DRIER HELPER Body Mass Index - - documented in this encounter Progress Notes Hunter Jean P.A.-C. - 12/26/2016 10:33 AM CST [id number] CHIEF COMPLAINT Sore throat. HISTORY OF PRESENT ILLNESS Donte Oviedo is a 21-year-old male who comes to the clinic at [facility]. He reports that he has been having a sore throat for a week and a half. He had a fever early on, but none since. MEDICATIONS Reviewed in the EMR. ALLERGIES None. VITAL SIGNS Temperature 37.0, heart rate 94, O2 sat 98% on room air. Height 178 cm. He is a nonsmoker. PAST MEDICAL HISTORY He has a medical history of acne rosacea, anxiety, attention deficit with hyperactivity, depression,GERD, insomnia, oppositional disorder, TMJ syndrome. PHYSICAL EXAMINATION GENERAL APPEARANCE: This is a well-developed, well-nourished, 21-year-old male, in no apparent distress. No cyanosis of lips or nails. No use of accessory respiratory muscles. EYES: PERRLA. EOMI. Bilateral conjunctivae clear. No discharge at time of exam. EARS: Bilateral canals clear. Bilateral TMs within normal limits. Landmarks are intact. THROAT: Minimal erythema. No exudate. No cervical, supra, or subclavicular lymphadenopathy was found. HEART: Regular rate and rhythm. No murmur was heard. LUNGS: Clear to auscultation. No wheezes, rhonchi, or rales were heard. Rapid strep test is negative. IMPRESSION AND PLAN Pharyngitis-suspect viral etiology. We will notify Shu at . It is okay to leave a message. We have the patient's recommendation to call that number to leave results. If they would be positive, we will treat with antibiotic. In the meanwhile, warm salt water gargles, fluids, Tylenol, rest, comfort measures. Followup with primary care if his symptoms would worsen. Nilo Mejia/pos Electronically Signed By: HUNTER JEAN PA-C On: 12/27/2016 01:50 PM Source: [facility] MHSDOLBEYNONRADSYS Document Id: [id number] EGNATOR AND DRIER HELPER documented in this encounter Miscellaneous Notes Miscellaneous - Hunter Jean P.A.-C. - 12/29/2016 9:51 AM CST Custom Result Letter December 29, 2016 DONTE OVIEDO [address] [place] [id number] Dear donte IYER your throat culture is negative for strep Hunter Result Name Current Result Rapid Strep Confirmation Review 12/26/2016 Sincerely, HUNTER JEAN [address] [place] [id number] Electronic Signature Electronically Signed By: HUNTER JEAN PA-C On: December 29, 2016 This document has images extracted. Source: [facility] POWERCHART Document Id: [id number] Miscellaneous - Huyen Banegas C.MNickie - 12/26/2016 11:13 AM CST Adult Nurse Aide Intake/History Adult Nurse Aide Intake/History Entered On: 12/26/2016 11:13 IMPREGNATOR AND DRIER HELPER Performed On: 12/26/2016 11:13 IMPREGNATOR AND DRIER HELPER by HUYEN BANEGAS OIL HOUSE ATTENDANT Intake Chief Complaint : sore throat Onset of Symptoms : started 1.5 weeks ago Temperature Core : 37.0 DegC(Converted to: 98.6 DegF) Peripheral Pulse Rate : 94 /min SpO2 : 98 % Height : 178 cm(Converted to: 5 ft 10 inch(es), 70 inch(es)) HUYEN BANEGAS [facility] - 12/26/2016 11:13 IMPREGNATOR AND DRIER HELPER General Info Information Given By : Patient Preferred Communication Mode : Verbal Languages : Pashto Is Patient Female and 13-50 no hysterectomy : No HUYEN BANEGAS [facility] - 12/26/2016 11:13 IMPREGNATOR AND DRIER HELPER Subjective Pain Symptoms : No HUYEN BANEGAS [facility] - 12/26/2016 11:13 IMPREGNATOR AND DRIER HELPER Dependent Habits Exposure to Tobacco Smoke : Patient smokes Smoking Status : Never smoker Tobacco 2A : No Tobacco Use/Currently Using : No Tobacco Use/Last 30 Days : No Tobacco Use/Last 12 months : No Tobacco Last Use/Month : January Tobacco Last Use/Year : 2015 HUYEN BANEGAS [facility] - 12/26/2016 11:13 IMPREGNATOR AND DRIER HELPER Caffeine Use Grid Caffeine Use : Current Type : Soft drinks Frequency : Occasionally Amount : 1 can rarely Last Use : been awhile HUYEN BANEGAS [facility] - 12/26/2016 11:13 IMPREGNATOR AND DRIER HELPER Recreational Drug Use Grid Drug Use : None HUYEN BANEGAS [facility]MA - 12/26/2016 11:13 IMPREGNATOR AND DRIER HELPER Source: [facility] POWERCHART Document Id: [id number] IMPREGNATOR AND DRIER HELPER!34 EGNATOR AND DRIER HELPER documented in this encounter Plan of Treatment Not on filedocumented as of this encounter Procedures Procedure Name Priority Date/Time Associated Diagnosis Comme nts RAPID STREP A Routine 12/26/2016 11:26 AM Results for this SCREEN IMPREGNATOR AND DRIER HELPER procedure are i n the results section. RAPID STREP A Routine 12/26/2016 11:26 AM Results for this SCREEN IMPREGNATOR AND DRIER HELPER procedure are i n the results section. documented in this encounter Results Rapid Strep A Screen (12/26/2016 11:26 AM IMPREGNATOR AND DRIER HELPER) [facility] [employer] Method Time Signature HXRapid Strep POWERCHART Confirmation HXPre Negative for POWERCHART Group A Strep by culture. HXFinal Negative for POWERCHART Group A Strep by culture. Specimen Anatomical Collection Method Collection Time Receive d Time (Source) Location / / Volume Laterality Throat 12/26/2016 11:26 12/26/2016 AM IMPREGNATOR AND DRIER HELPER 11:26 AM IMPREGNATOR AND DRIER HELPER Hunter Jean P.A.-C. LAB MICROBIOLOGY - GENERAL O KEVIN Performing Organization Address City/[facility] Code Phon e Number POWERCHART Rapid Strep A Screen (12/26/2016 11:26 AM IMPREGNATOR AND DRIER HELPER) [facility] [employer] Method Time Signature HXStrep A POWERCHART Screen Rapid HXFinal Negative for POWERCHART Strep Group A by rapid screen. HXFinal Culture POWERCHART confirmation to follow. Specimen (Source) Anatomical Collection Method Collection Time Re ceived Time Location / / Volume Laterality Throat 12/26/2016 11:26 AM IMPREGNATOR AND DRIER HELPER Hunter Jean P.A.-C. LAB MICROBIOLOGY - GENERAL O RDERABEAU Performing Organization Address City/[facility] Code Phon e Number POWERCHART documented in this encounter Visit Diagnoses Not on filedocumented in this encounter Additional Health Concerns Assessment Noted Time PHQ-9 Depression Total Score: 16 01/08/2011 2:17 PM CS T documented as of this encounter
--- OUTSIDE RECORDS SUMMARY | 2022-07-26 14:37 | XMS_ITS | Encounter Summary ---
:1995 Author Organization [facility] Address [address] [place] [address] Care Team Providers Name Role Phone Unavailable Primary Care Provider Unavailable Encounter Details Date Type Department Care Team Description 08/04/2016 Hospital Encounter HX [facility] Yony Keene P.A.-C., M.S. [address] [place] [address] (Wo rk) Social History Tobacco Use Types Packs/Day Years Used Date Smoking Tobacco: Never Assessed Sex Assigned at Date Recorded Not on file documented as of this encounter Last Filed Vital Signs Vital Sign Reading Time Taken Comments Blood Pressure 105/74 08/04/2016 2:22 PM CDT Pulse 78 08/04/2016 2:22 PM CDT Temperature - - Respiratory Rate 16 08/04/2016 2:22 PM CDT Oxygen Saturation - - Inhaled Oxygen Concentration - - Weight 102 kg (224 lb 6.9 oz) 08/04/2016 2:22 PM CDT Height 177.8 cm (5' 10) 08/04/2016 2:22 PM CDT Body Mass Index 32.2 08/04/2016 2:22 PM CDT documented in this encounter Progress Notes Adam Keene T - 08/04/2016 3:41 PM CDT FM-LE CHIEF COMPLAINT/REASON FOR VISIT Left knee and back pain HISTORY OF PRESENT ILLNESS: This patient is a 21 year old male who presents today for evaluation of back pain and left knee pain. His primary care provider was in [place], [place] He states that he has had a 4 or more year history of back pain that has comes in waves. He states that the pain is about an 8/10 and can't identify any a lleviating or exacerbating factors. He did a four month physical therapy In addition he says that his left knee is also about an 8/[address] this way for about 4 months. Initially he could not state an inciting incident but later admitted to stepping into a pothole with his right foot the next day he noticed some pain in his left knee. He states that the pain is constant and makes it difficult for him to walk around. In addition he has recently started a new job at [employer] which has exacerbated his knee and back pain. He denies saddle anesthesia, bowel or bladder incontinence, numbness or tingling. In addition to these complaints he also wanted refills of many medications that he had been using inthe past. For acne rosacea he has been taking minocycline for the last year and a half and states that this has been quite helpful. He has a history of issues with falling asleep and states that it can take him hours to fall asleep.He states that in the past he has taken Seroquel and trazodone in combination and this has helped him sleep. He has a history of anxiety and depression, he was recently kicked out of where he lives andhe admits to a fair amount of stress associated with this event, he was able to return there and states that this has improved things somewhat. In the past he has been on various medications for these symptoms and none have worked particularity well. PAST MEDICAL/SURGICAL HISTORY MEDICAL Acne rosacea Reactive Attachment Disorder Childhood Attention Deficit Dis W Hyperactivity Oppositional Disorder Child Adolescent Anxiety NOS Depression Anxiety SURGICAL No qualifying data available. PAST MEDICAL HISTORY No qualifying data available. MEDICATIONS ibuprofen: 800 mg,4 tab(s),PO ALLERGIES [facility] FAMILY HISTORY No qualifying data available. Colon Cancer- No, Breast Cancer- No, Ovarian Cancer- No, Coronary Artery Disease- No, Diabetes- No, HTN- No, Thyroid disorder- No. SYSTEMS REVIEW VITAL SIGNS Temperature Core: 36.4 Low Peripheral Pulse Rate: 78 Respiratory Rate: 16 SpO2: 96 BLOOD PRESSURE Systolic Blood Pressure: 105 Diastolic Blood Pressure: 74 MEASUREMENTS Height: 177.8 Actual Weight: 101.8 Body Mass Index: 32.2 PHYSICAL EXAMINATION GENERAL: Well-nourished, well-hydrated male in no acute distress; alert and oriented x3. NECK: Supple, without masses or jugular venous distention. Thyroid is not enlarged and is without tenderness or mass to palpation. LYMPHATIC: No lymphadenopathy appreciated for preauricular, postauricular, occipital, submandibular,submental, anterior and posterior cervical and supraclavicular nodes. LUNGS: Clear to auscultation bilaterally. No wheezes, rales or rhonchi. No respiratory distress. CARDIAC EXAM: Heart has regular rate and rhythm and normal S1, S2; without murmur or extra heart sounds. Peripheral pulses are equal bilaterally. MUSCULOSKELETAL/EXTREMITIES: Full range of motion and strength in upper extremities. Patient expresses pain in middle of back with movement of upper extremities. Endorses pain in neck with movement buthas full range of movement. Back musculature is tight but without appreciable spasm. He is able to get up onto the exam table without any difficulty. Pain to palpation of left knee especially lateral and medial to patella, some swelling associated surrounding patella. Pain throughout knee with extension and flexion. Negative Amaya. Negative anterior and posterior drawer. Pain with Sudha test at both medial and lateral meniscus but no appreciable click. Extension of left knee is somewhat limiteddue to pain. No clubbing or cyanosis appreciated. Gait is antalgic. Skin: Face and back have mild inflammatory acne. PSYCHIATRIC: Very pleasant and cooperative today. IMPRESSION/REPORT/PLAN 1. Left knee pain Patient was seen recently in the urgent care for knee pain and an X-ray did not demonstrate a fracture. Knee pain was and physical exam was discussed with Dr. Srinath Trimble. Due to the longstanding nature of this pain without apparent improvement we will schedule and MRI. Based on these results, will determine the need for orthopedic consult. 2. Back pain Patient advised to take ibuprofen 800 mg PO three times daily and to apply ice and heat as needed. Offered referral to PT which patient declined at this time. Discussed the use of narcotics in chronic back pain and that it would not be the route to go for this pain. Discussed importance of strengthening and advised him to continue exercises he was taught in the PT program in [place]. Patient wantedto focus on the knee pain at this time, and would like to revisit the back pain at a later date. 3. Anxiety 4. Depression 5. Sleep issues At this time will start him on 50 mg trazodone at night for two days and 150mg on day three and thereafter. Offered to send referral to psychiatry to discuss possibility of other options, patient declined at this time. 6. Acne Rosacea Will restart minocycline 50 mg,1 cap PO,2xDay for acne. Discussed with patient the importance of establishing a primary care physician here in [place]. I will contact him with the results of the MRI. Patient will schedule and appointment with a provider who is currently establishing new patients. Time was given for questions and all questions were answered. Electronically Signed By: ADAM KEENE PA-C On: 08/04/2016 04:19 PM Modified by and Electronically Signed by: ADAM KEENE PA-C On: 08/04/2016 04:17 PM Source: [email or web address] Document Id: [id number] documented in this encounter Nursing Notes Adam Keene - 08/04/2016 3:34 PM CDT Ambulatory Patient Education The following Patient Education Materials have been given to the patient: Patient Education Materials: Ambulatory KNEE PAIN, Uncertain Cause Ambulatory Knee Pain [Uncertain Cause] There are several common causes for knee pain. These include a sprain of the ligaments that support the joint; an injury to the cartilage lining of the joint; arthritis from knll-fwv-uveo or inflammation; and other causes. There may also be swelling, reduced movement of the knee joint and pain with walking. A definite diagnosis was not made today. If your symptoms do not improve, further follow-up and testing may be needed. Home Care: Stay off the injured leg as much as possible until pain improves. Apply an ice pack (ice cubes in a plastic bag, wrapped in a towel) over the injured area for 20 minutes every 1-2 hours the first day. Continue with ice packs 3-4 times a day for the next two days, then as needed for the relief of pain and swelling. You may use acetaminophen (Tylenol) or ibuprofen (Motrin, Advil) to control pain, unless another pain medicine was prescribed. [NOTE: If you have chronic liver or kidney disease or ever had a stomach ulcer or GI bleeding, talk with your doctor before using these medicines.] If CRUTCHES or a walker have been recommended, do not bear full weight on the injured leg until you can do so without pain. Check with your doctor before returning to sports or full work duties. If you have a VELCRO KNEE BRACE: ?? You may open the splint to apply ice. ?? You may remove the splint to bathe and sleep, unless told otherwise. Follow Up with your doctor within 4-6 weeks or as advised if not improving. [NOTE: If X-rays were taken, they will be reviewed by a radiologist. You will be notified of any newfindings that may affect your care.] Get Prompt Medical Attention if any of the following occur: ?? Toes or foot becomes swollen, cold, blue, numb or tingly ?? Pain or swelling increases in the knee or calf ?? Warmth or redness appears over the knee or calf ?? Other joints become painful ?? Fever or rash appears ?? Shortness of breath or chest pain ?? Fever of 100.4??F (38??C) or higher, or as directed by your healthcare provider ?? [id number] [place] [address]. All rights reserved. This information is not intended as a substitute for professional medical care. Always follow your healthcare professional's instructions. This document has images extracted. Please consider using [employer] for all your patient education needs. Source: [facility] POWERCHART Document Id: [id number] documented in this encounter Miscellaneous Notes Telephone Encounter - Conversion, Historical Provider Ser - 08/05/2016 3:20 PM CDT Jassi Document Contains Addenda Addendum by OLEGARIO ROBERTSON LPN on August 05, 2016 15:29:48 CDT From: OLEGARIO ROBERTSON LPN (BELL Trimble/Remedios/Asya/Lois/Maria Del Carmen Nurse) To: ADAM KEENE PA-C; Sent: 08/05/2016 15:29:48 CDT Subject: FW: Jassi From: MACKENZIE MONTGOMERY ( Call Center Resource Engineer) To: Nai/Fritzdus/Gary/[place]/Rietz Nurse; Sent: 08/05/2016 15:20:31 CDT Subject: Jassi Caller Name/Relationship:self Facility/wing: Call Back #: Reason for Call:Patient did sign a ROLAND. Patient doesn't need a call back. Source: [facility] [employer]ART Document Id: [id number] Miscellaneous - Adam Keene - 08/04/2016 4:34 PM CDT PHQ-9 Document Contains Addenda Addendum by ADAM KEENE PA-C on August 06, 2016 11:20:41 CDT From: ADAM KEENE PA-C To: BELL Trimble/Remedios/Gary/[place]/Rietz Nurse; Sent: 08/06/2016 11:20:41 CDT Subject: RE: PHQ-9 Noted, thanks! Addendum by RENÉ WESTON LPN on August 05, 2016 17:21:43 CDT From: RENÉ WESTON LPN ( Vikstdeborah/Brittanys/Gary/Lois/Rietz Nurse) To: ADAM KEENE PA-C; Sent: 08/05/2016 17:21:43 CDT Subject: FW: PHQ-9 Addendum by JOYCELYN COREA on August 05, 2016 16:58:33 CDT Pt is adamant he will not fill out again. Addendum by OLEGARIO ARELLANO LPN on August 04, 2016 16:40:04 CDT Left message to call back. From: ADAM KEENE PA-C To: BELL Trimble/Remedios/Asya/Lois/Maria Del Carmen Nurse; Sent: 08/04/2016 16:34:02 CDT Subject: PHQ-9 Please call patient and obtain PHQ-9, I neglected to have him fill one out. Thanks! Source: [facility] POWERCHART Document Id: [id number] Miscellaneous - Adam Keene - 08/04/2016 3:34 PM CDT Ambulatory Discharge Medication List [facility] [address] [place], [place] [id number] Visit Information Name: IVELISSEDONTE ADAM [facility] Number: [id number] Visit Date: 08/04/2016 15:34:16 Attending Provider: ADAM KEENE PA-C Primary Care Provider: PCP, DONTE CAMARENA has [...] Changes/Routing ibuprofen (ibuprofen 200 mg oral tablet) 4 Tablet(s), Oral This is a CHANGE minocycline (minocycline 50 mg oral capsule) 1 cap, Oral, two times a day x 30 day(s) take with glass of water New Routed to [facility] [address], [place] [phone] traZODone (traZODone 50 mg oral tablet) See Instructions start with 1 tab at night and may increase to 3 tabs at night after 2 evenings with food Routed to [facility] [address], [place] [id number] *trazodone (trazodone 150 mg oral tablet) 1 Tablet(s), Oral, once a day (at bedtime) * You have let us know that you are not taking this medication as listed. Please talk with your primary care provider or the health care provider who prescribed the medication as soon as possible. Stop Taking the Following Medications: guanfacine (Tenex 1 mg oral tablet) quetiapine (Seroquel 50 mg oral tablet) Medication list as of 08-04-16 15:34 Attention: If you have any medications at home that are not on this list, DO NOT take them until youcontact your provider for clarification. Give a copy of your medication list to your primary care provider. Update your medication list any time medications or doses are changed and carry your medication list at all times in case of emergency. Electronically Signed By: ADAM KEENE PA-C Signed On:04-AUG-2016 15:32:56 Additional Information: Source: [facility] POWERCHART Document Id: [id number] Miscellaneous - Adam Keene - 08/04/2016 3:34 PM CDT Ambulatory Patient Summary [address] [id number] Visit Information Name: DONTE OVIEDO [facility] Number: [id number] Current Date: 08/04/2016 15:34:17 Physicians Attending Provider: ADAM KEENE PA-C Primary Care Provider: PCPRENATA CHARLES MICHAEL has been given the following list of follow-up instructions, medication list, and patient education materials: Follow-up Instructions With: Address: When: Follow up with primary care provider Within 2 - 3 weeks Your Medications Here is a list of your medications. It is important to take your medications as directed. Use a pillbox or chart to help remind you to take your medications. Please let your doctor or nurse know if you have problems taking your medications. Medication/Strength How to Take Indications/Special Instructions/Comments/Notes for Patient Medication Changes/Routing ibuprofen (ibuprofen 200 mg oral tablet) 4 Tablet(s), Oral This is a CHANGE minocycline (minocycline 50 mg oral capsule) 1 cap, Oral, two times a day x 30 day(s) take with glass of water New Routed to [place] [id number] [facility] [place], [place] [phone] traZODone (traZODone 50 mg oral tablet) See Instructions start with 1 tab at night and may increase to 3 tabs at night after 2 evenings with food [address] [phone] *trazodone (trazodone 150 mg oral tablet) 1 Tablet(s), Oral, once a day (at bedtime) * You have let us know that you are not taking this medication as listed. Please talk with your primary care provider or the health care provider who prescribed the medication as soon as possible. Stop Taking the Following Medications: guanfacine (Tenex 1 mg oral tablet) quetiapine (Seroquel 50 mg oral tablet) Medication list as of 08-04-16 15:34 Attention: If you have any medications at home that are not on this list, DO NOT take them until youcontact your provider for clarification. Give a copy of your medication list to your primary care provider. Update your medication list any time medications or doses are changed and carry your medication list at all times in case of emergency. Electronically Signed By: ADAM KEENE PA-C Signed On:04-AUG-2016 15:32:56 Your Allergies & Intolerances Substance Reaction Symptoms Category Comments No Known Allergies Drug Your Problem List Problem Status Onset Comments Attention Deficit Dis W Hyperactivity Active 04/07/2005 Oppositional Disorder Child Adolescent Active 04/07/2005 Reactive Attachment Disorder Childhood Active 07/03/2009 Acne rosacea Active 10/02/2011 Your Upcoming Appointments Date Time Location Provider No Appointments found Attention: Contact your local Clinic if further appointment detail needed. Knee Pain [Uncertain Cause] There are several common causes for knee pain. These include a sprain of the ligaments that support the joint; an injury to the cartilage lining of the joint; arthritis from urrr-rnw-onpr or inflammation; and other causes. There may also be swelling, reduced movement of the knee joint and pain with walking. A definite diagnosis was not made today. If your symptoms do not improve, further follow-up and testing may be needed. Home Care: Stay off the injured leg as much as possible until pain improves. Apply an ice pack (ice cubes in a plastic bag, wrapped in a towel) over the injured area for 20 minutes every 1-2 hours the first day. Continue with ice packs 3-4 times a day for the next two days, then as needed for the relief of pain and swelling. You may use acetaminophen (Tylenol) or ibuprofen (Motrin, Advil) to control pain, unless another pain medicine was prescribed. [NOTE: If you have chronic liver or kidney disease or ever had a stomach ulcer or GI bleeding, talk with your doctor before using these medicines.] If CRUTCHES or a walker have been recommended, do not bear full weight on the injured leg until you can do so without pain. Check with your doctor before returning to sports or full work duties. If you have a VELCRO KNEE BRACE: ?? You may open the splint to apply ice. ?? You may remove the splint to bathe and sleep, unless told otherwise. Follow Up with your doctor within 4-6 weeks or as advised if not improving. [NOTE: If X-rays were taken, they will be reviewed by a radiologist. You will be notified of any newfindings that may affect your care.] Get Prompt Medical Attention if any of the following occur: ?? Toes or foot becomes swollen, cold, blue, numb or tingly ?? Pain or swelling increases in the knee or calf ?? Warmth or redness appears over the knee or calf ?? Other joints become painful ?? Fever or rash appears ?? Shortness of breath or chest pain ?? Fever of 100.4??F (38??C) or higher, or as directed by your healthcare provider ?? [id number] [place] [address]. All rights reserved. This information is not [...] if you dont have one. Go to [email or web address] and click on Create Your Account. Then, follow the directions to complete the online form. Youll be asked for your [facility] number which you can find at the top of this document. Your Goals/Additional instructions: This document has images extracted. Please consider using [employer] for all your patient education needs. Source: [facility] POWERCHART Document Id: [id number] Miscellaneous - Olegario Arellano L.P.N. 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 knee pain and mid back pain and neck pain Temperature Core : 36.4 DegC(Converted to: 97.5 DegF) (LOW) BP Location : Left upper extremity Blood Pressure Cuff Size : Regular SpO2 : 96 % Oxygen Therapy : Room air Height : 177.8 cm(Converted to: 5 ft 10 inch(es), 70 inch(es)) Actual Weight : 101.8 kg(Converted to: 224 lb 7 oz) Weight Source : Standing scale Dosing Weight Clinic : 101.8 kg Clinic BSA : 2.24 Body Mass Index : 32.2 kg/m2 OLEGARIO ARELLANO LPN - 08/04/2016 14:22 CDT General Info Information Given By : Patient, Significant other Preferred Communication Mode : Verbal Languages : Divehi Is Patient Female and 13-50 no hysterectomy : No OLEGARIO ARELLANO LPN - 08/04/2016 14:22 CDT Subjective Pain Symptoms : Yes OLEGARIO ARELLANO LPN - 08/04/2016 14:22 CDT Pain Scale Pain Scale Verbal 0-10 : Open OLEGARIO ARELLANO LPN - 08/04/2016 14:22 CDT Pain Pain Assessment Grid Pain 1 Pain 2 Pain 3 Location : Knee Other: mid back Neck Laterality : Left Bilateral Bilateral Intensity : 8 8 6 OLEGARIO ARELLANO LPN - 08/04/2016 14:22 CDT OLEGARIO ARELLANO LPN - 08/04/2016 14:22 CDT OLEGARIO ARELLANO [employer] - 08/04/2016 14:22 CDT Dependent Habits Exposure to Tobacco Smoke : Patient smokes Smoking Status : Former smoker Tobacco 2A : Yes Tobacco Use/Currently Using : No Tobacco Use/Last 30 Days : No Tobacco Use/Last 12 months : Yes Tobacco Last Use/Month : January Tobacco Last Use/Year : 2015 Type : Cigarettes: Less than 20 per day Tobacco Use/Advised to Quit : Yes Alcohol Use : No OLEGARIO ARELLANO LPN - 08/04/2016 14:22 CDT Caffeine Use Grid Caffeine Use : Current Type : Soft drinks Frequency : Occasionally Amount : 1 can rarely Last Use : been awhile OLEGARIO ARELLANO LPN - 08/04/2016 14:22 CDT Recreational Drug Use Grid Drug Use : None OLEGARIO ARELLANO [facility] - 08/04/2016 14:22 CDT Source: [email or web address] Document Id: [id number]!8 documented in this encounter Plan of Treatment Not on filedocumented as of this encounter Visit Diagnoses Not on filedocumented in this encounter Additional Health Concerns Assessment Noted Time PHQ-9 Depression Total Score: 16 01/08/2011 2:17 PM CS T documented as of this encounter
--- OUTSIDE RECORDS SUMMARY | 2022-07-26 14:37 | XMS_ITS | Encounter Summary ---
:1995 [facility] Address [address] [place] [address] Care Team Providers Name Role Phone Unavailable Primary Care Provider Unavailable Encounter Details Date Type Department Care Team Description 07/19/2016 Hospital Encounter HX [facility] Elena Fajardo ED, AP RN, C.N.P., D.N.P. [address] [facility] [place], [place] [phone] (Wo rk) Social History Tobacco Use Types Packs/Day Years Used Date Smoking Tobacco: Never Assessed Sex Assigned at Date Recorded Not on file documented as of this encounter Last Filed Vital Signs Vital Sign Reading Time Taken Comments Blood Pressure 116/74 07/19/2016 1:30 PM CDT Pulse 84 07/19/2016 12:12 PM CDT Temperature - - Respiratory Rate 19 07/19/2016 12:12 PM CDT Oxygen Saturation - - Inhaled Oxygen Concentration - - Weight - - Height - - Body Mass Index - - documented in this encounter Discharge Summaries Otf Rosen R.N. - 07/19/2016 7:25 PM CDT ED Discharge Instructions [facility] [address] [place] [address] Name: DONTE OVIEDO Date of : 1995 12:00 AM Visit Date: 07/19/2016 11:59 AM [facility] Number: [id number] Address: [address] [facility] [address] Primary Care Provider: PCP, ELSEWHERE IMPORTANT: [facility] in [place] would like to thank you for allowing us to assist youwith your healthcare needs. The following includes patient education materials and information regarding your injury/illness. Diagnosis: Headache (COCHRAN) NOS Follow-Up Instructions: With: Address: When: Follow up with primary care provider Within As Needed Your Upcoming Appointments: Date Time Location Provider No Appointments found Patient Education Materials: Headache [Unspecified] The cause of your headache today is not clear, but it does not appear to be the sign of any serious illness. Under stress, some people tense the muscles of their shoulder, neck and scalp without knowing it. Ifthis condition lasts long enough, a TENSION HEADACHE can occur. A MIGRAINE HEADACHE is caused by changes in blood flow to the brain. A migraine attack may be triggered by emotional stress, hormone changes during the menstrual cycle, oral contraceptives, alcohol use, certain foods containing tyramine, eye strain, weather changes, missing meals, lack of sleep or over sleeping. Other causes of headache include a viral illness with high fever, head injury with concussion, sinus, ear or throat infection, dental pain and TMJ (jaw joint) pain . More serious but less common causesof headache include stroke, brain hemorrhage, brain tumor, meningitis and encephalitis. Home Care: ?? If you were given pain medicine for this headache, do not drive yourself home. Arrange for a ride, instead. When you get home, try to sleep. You should feel much better when you wake up. ?? Apply heat to the back of your neck to relieve neck muscle spasm. Migraine headaches may respond best to an ice pack on the forehead or at the base of the skull. ?? If you are having nausea or vomiting, follow a light diet until your headache is relieved. ?? If you have a migraine type headache, use sunglasses when in the daylight or around bright indoorlighting until symptoms improve. Bright glaring light can worsen this kind of headache. Follow Up with your doctor if the headache is not better within the next 24 hours. If you have frequent headaches you should discuss a treatment plan with your primary care doctor. By being aware of the earliestsigns of headache, and starting treatment right away, you may be able to stop the pain yourself. Get Prompt Medical Attention if any of the following occur: ?? Worsening of your head pain or no improvement within 24 hours ?? Repeated vomiting (unable to keep liquids down) ?? Fever of 100.4?F (38?C) or higher, or as directed by your healthcare provider ?? Stiff neck ?? Extreme drowsiness, confusion or fainting ?? Dizziness, vertigo (dizziness with spinning sensation) ?? Weakness of an arm or leg or one side of the face ?? Difficulty with speech or vision ?? [id number] [facility], [address] [place] [address], [place] [address]. All rights reserved. This information is not [...] if you dont have one. Go to [email or web address] and click on Create Your Account. Then, follow the directions to complete the online form. Youll be asked for your [facility] number which you can find at the top of this document. ED Tests and Procedures: Order Status Discharge Prescriptions & Home Medications: Medication/Strength Dose Route Frequency Indications/Special Instructions/Comments/Notes *cholecalciferol (Vitamin D3 1000 intl units oral [...] had special tests, such as EKG's or X-rays, we will review them again within 24 [...] arrange a ride home with a responsible constitution party. IVELISSE Corona CHARLES MICHAEL , or responsible constitution party have received this information and my questions [...] had special tests, such as EKG's or X-rays, we will review them again within 24 [...] arrange a ride home with a responsible constitution party. I, DONTE OVIEDO , or responsible constitution party have received this information and my questions have been answered. I have discussed any challenges I see with this plan with the nurse or physician. Patient Signature or Responsible Democrat/Relationship Date Time Provider Signature Date Time This document has images extracted. Please consider using [employer] for all your patient education needs. Source: [facility] POWERCHART Document Id: [id number] Otf Rosen R.N. - 07/19/2016 7:25 PM CDT ED Depart Summary [facility] Emergency Department / Urgent Care Clinical Discharge Summary PERSON INFORMATION Name DONTE OVIEDO Age 21 Years 1995 12:00 AM Sex Male Language Danish PCP PCP, ELSEWHERE Marital Status Single N [id number] Visit Id Visit Reason Headache; headache Specialty Enc Type Emergency Med Service Emergency Medicine Referred by Track Group [facility] ED/UC Discharge 07/19/2016 1:49 PM Tracking Id [id number] Checkout 07/19/2016 1:49 PM Checkin 07/19/2016 11:59 AM Acuity 3 -Urgent Dispo Type * Discharged to Home or Self Care Arrival 07/19/2016 11:59 AM Reg Status Complete LOS 000 01:50 Address: [address] [place] [id number] Comment: PROVIDER INFORMATION Provider Role Provider Contact Time TIM ALCALA ED Spinning Frame Fixer 07/19/16 12:08 OTF ROSEN ETL DATA ARCHITECT Nurse 07/19/16 12:09 MACKENZIE NICK MD ED Provider 07/19/16 12:15 ELENA PALAFOX CNP ETL DATA ARCHITECT Provider 07/19/16 12:41 DIAGNOSIS Headache (COCHRAN) NOS Comment: PATIENT EDUCATION INFORMATION Instructions: HEADACHE, Unspecified Follow up: With: Address: When: Follow up with primary care provider Within As Needed [facility] Document Id: [id number] documented in this encounter ED Notes Otf Rosen R.N. - 07/19/2016 1:49 PM CDT ED Disposition Summary ED Disposition Summary Entered On: 07/19/2016 19:24 CDT Performed On: 07/19/2016 13:49 CDT by OTF ROSEN RN ED Disposition Summary Present in Room During Exam/Procedure : Significant other Mode of Discharge : Ambulatory Transportation : Private vehicle Printed Discharge Instructions Given to Patient : Yes Patient Status at Discharge from ED : Improved OTF ROSEN RN - 07/19/2016 19:24 CDT Source: [employer] Document Id: [id number] CDT!7 Otf Rosen R.N. - 07/19/2016 1:49 PM CDT ED Pain Assessment ED Pain Assessment Entered On: 07/19/2016 19:24 CDT Performed On: 07/19/2016 13:49 CDT by OTF ROSEN RN Pain Assessment Pain Symptoms : Yes OTF ROSEN RN - 07/19/2016 19:24 CDT Source: [facility] Psydex Document Id: [id number] CDT!3 Otf Rosen R.N. - 07/19/2016 1:49 PM CDT ED Pain Assessment ED Pain Assessment Entered On: 07/19/2016 19:24 CDT Performed On: 07/19/2016 13:49 CDT by OTF ROSEN RN Pain Assessment Pain Symptoms : No OTF ROSEN RN - 07/19/2016 19:24 CDT Source: [employer] Document Id: [id number] CDT!3 Otf Rosen R.N. - 07/19/2016 1:45 PM CDT ED Nurse Reassess ED Nurse Reassess Entered On: 07/19/2016 13:45 CDT Performed On: 07/19/2016 13:45 CDT by OTF ROSEN RN Pain Assessment Pain Symptoms : Yes OTF ROSEN RN - 07/19/2016 13:45 CDT Pain Scale Pain Scale Verbal 0-10 : Open OTF ROSEN RN - 07/19/2016 13:45 CDT Pain Pain Assessment Grid Pain 1 Location : Head Intensity : 2 OTF ROSEN RN - 07/19/2016 13:45 CDT Source: [employer] Document Id: [id number] CDT!10 Elena Palafox C.NArjun, R.N. - 07/19/2016 1:31 PM CDT Headache Patient: DONTE OVIEDO Age: 21 years Sex: Male : 1995 Author: ELENA PALAFOX CNP RN Attachments: None Associated Diagnosis: Headache (COCHRAN) NOS I, Otf Bullard, am scribing for and in the presence of, Tye HannaNArjun Basic Information Time seen: Date & time 07/19/2016 13:32:00. History source: Patient, significant other. Arrival mode: Private vehicle. History limitation: None. Additional information: Chief Complaint from Nursing Triage Note : Chief Complaint Description 07/19/2016 12:07 CDT Chief Complaint Description states has had a migraine since 0900. Took 6 ibuprofen. Nauseated, no emesis, Lights bothered him at home, not here. States when he was in 2nd grade aMayo told his dad that he may have migraines. Counseled re: appropriate dose of ibuprofen . History of Present Illness The patient presents with migraine. Location: Left parietal. The degree at maximum was 8 /10. . The degree at present is 3 /10. There are exacerbating factors including light and noise. Prior episodes: occasional. 21 year old male presents to the Emergency Department for evaluation of a left- sided headache. He states he has been experiencing similar headaches intermittently for the past couple months, but his current headache onset at 0900 this morning. His headache is associated with blurred vision, photophobia, and nausea. Denies fever, sinus pain, vomiting, neck stiffness, focal weakness, or any other symptoms. He rated his pain 8/10 in severity at maximum and tried treating it with 6 Ibuprofen prior to arrival. His pain has improved to a 3/10 with IV fluids, Benadryl, droperidol, and Toradol. He believeshe may have had migraines as a child, but has not had one in many years outside of the past two months. Denies any recent head injuries or traumas. Review of Systems Constitutional symptoms: No fever, no chills, no sweats, no weakness, no fatigue or no decreased activity. Skin symptoms: No jaundice, no rash, no pruritus or no petechiae. Eye symptoms: Vision unchanged, but no diplopia or no blurred vision. and Reports: Photophobia. ENMT symptoms: No ear pain, no sore throat, no nasal congestion or no sinus pain. Respiratory symptoms: No shortness of breath, no orthopnea or no cough. Cardiovascular symptoms: No chest pain, no palpitations, no tachycardia, no syncope, no diaphoresis or no peripheral edema. Gastrointestinal symptoms: Nausea, but no abdominal pain, no vomiting, no diarrhea, no constipation,no rectal bleeding or no rectal pain. Genitourinary symptoms: No dysuria, no hematuria, no discharge or no testicular pain. Musculoskeletal symptoms: No neck stiffness, but no back pain, no Muscle pain, no Joint pain or no Claudication. Neurologic symptoms: Headache, but no dizziness, no altered level of consciousness, no numbness, no tingling or no weakness. Psychiatric symptoms: Negative except as documented in HPI. Endocrine symptoms: Negative except as documented in HPI. Hematologic/Lymphatic symptoms: Negative except as documented in HPI. Allergy/immunologic symptoms: Negative except as documented in HPI. Health Status Allergies: No known allergies. Medications: (Selected) Prescriptions Prescribed Retin-A 0.01% topical [...] of 03/2005 at 10 years. Surgical history: Negative. Social history: Occupation: Employed. Physical Examination Vital Signs: Vital Signs 07/19/2016 13:30 CDT Pulse SpO2 96 /min SpO2 97 % Systolic Blood Pressure 116 mmHg Diastolic Blood Pressure 74 mmHg Mean Arterial Pressure 87 mmHg 07/19/2016 13:02 CDT Pulse SpO2 90 /min SpO2 95 % Systolic Blood Pressure 136 mmHg Diastolic Blood Pressure 91 mmHg >HHI Mean Arterial Pressure 104 mmHg 07/19/2016 12:30 CDT Pulse SpO2 77 /min SpO2 97 % Systolic Blood Pressure 135 mmHg Diastolic Blood Pressure 95 mmHg >HHI Mean Arterial Pressure 108 mmHg 07/19/2016 12:12 CDT Temperature Core 36.4 DegC LOW Peripheral Pulse Rate 84 /min Respiratory Rate 19 /min SpO2 96 % Systolic Blood Pressure 131 mmHg Diastolic Blood Pressure 88 mmHg BP Location Right upper , SpO2 07/19/2016 13:30 CDT SpO2 97 % 07/19/2016 13:02 CDT SpO2 95 % 07/19/2016 12:30 CDT SpO2 97 % 07/19/2016 12:12 CDT SpO2 96 % . General: Alert and mild distress. Skin: Warm, dry, pink, intact and no rash. Head: Normocephalic and atraumatic. Neck: Supple, trachea midline, no tenderness and No meningismus. Eye: Vision grossly normal and Pupils are equally round and reactive to light at 2 mm. Extraocular eye movements are intact. Normal conjunctiva. Ears, nose, mouth and throat: Tympanic membranes clear, oral mucosa moist, no pharyngeal erythema orexudate and Uvula midline. Cardiovascular: Regular rate and rhythm, No murmur, Normal peripheral perfusion and No edema. Respiratory: Lungs are clear to auscultation, respirations are non-labored, breath sounds are equal and Symmetrical chest wall expansion. Gastrointestinal: Soft, Nontender, Non distended, Normal bowel sounds and No organomegaly. Back: Nontender and Normal range of motion. Musculoskeletal: Normal ROM. normal strength. Neurological: Alert and oriented to person, place, time, and situation, CN II- XII intact, normal sensory observed, normal motor observed, normal and symmetrical reflexes, Coordination: Finger(s) to nose (bilateral, normal), heel(s) of foot to opposite adams (bilateral, normal), Romberg test negative, Sp eech: Normal, Gait: Normal and Julio Cesar coma scale: Eyes open 4 /4, verbal response 5 /5, motor response 6 /6, total score 15. Lymphatics: No lymphadenopathy. Psychiatric: Cooperative and appropriate mood & affect. Medical Decision Making Differential Diagnosis:Migraine, tension headache. Rationale:21 year old male with history of migraine headaches in elementary school who presents withleft parietal headache with photophobia and mild nausea. No other associated symptoms. Alert with vital signs stable and no focal neurological findings on examination. Symptoms suggestiveof migraine headache, which nearly resolved after 1L NS, Toradol 30 mg, Droperidol 0.625 mg and Benadryl 25 mg IVP. Patient will follow up with his PCP in [facility] as needed. Discussed indications for emergent return to ED. Documents reviewed:Emergency department nurses' notes, prior records. Impression and Plan Diagnosis Headache (COCHRAN) NOS (Discharge, Emergency medicine, Medical) Plan Condition: Improved, Stable. Disposition: Discharged: to home. Patient was given the following educational materials: HEADACHE, Unspecified. Follow up with: Follow up with primary care provider Within As Needed. Counseled: Patient, Friend, Regarding diagnosis, Regarding diagnostic results, Regarding treatment plan, Patient indicated understanding of instructions. Notes: I personally performed the services described in this documentation and as scribed in my presence; it is both accurate and complete. Elena Palafox, DNP, OIL WELL DRILLING MANAGER, REGULATOR TESTER. Electronically Signed By: ELENA PALAFOX CNP RN On: 07/19/2016 05:20 PM Modified by and Electronically Signed by: OTF BULLARD On: 07/19/2016 01:38 PM Source: [facility] ArtisoftCHART Document Id: [id number]} Otf Rosen R.N. - 07/19/2016 12:10 PM CDT ED Primary Assessment Document Has Been Updated ED Primary Assessment Entered On: 07/19/2016 19:13 CDT Performed On: 07/19/2016 12:10 CDT by OTF ROSEN RN Reason For Visit (As Of: 07/19/2016 19:24:13 CDT) Problems(Active) Acne rosacea (ICD-9-CM :695.3 ) Name of Problem: Acne rosacea ; Onset Date: 10/02/2011 ; Recorder: DERIC HARTLEY MD; Confirmation: Confirmed ; Classification: Medical ; Code: 695.3 ; Contributor System: [employer] ; Last Updated: 10/02/2011 10:36 DIRECTOR OF SOCIAL MEDIA MARKETING ; Life Cycle Date: 10/02/2011 ; Life Cycle Status: Active ; Responsible Provider: DERIC HARTLEY MD; Vocabulary: ICD-9-CM Attention Deficit Dis W Hyperactivity (ICD-9-CM :314.01 ) Name of Problem: Attention Deficit Dis W Hyperactivity ; Onset Date: 03/2005 ; Confirmation: Provisional ; Classification: Medical ; Code: 314.01 ; Contributor System: [employer]HPP_SYS ; Last Updated: 12/27/2009 0:00 DIRECTOR OF SOCIAL MEDIA MARKETING ; Life Cycle Date: 04/07/2005; Life Cycle Status: Active ; Vocabulary: ICD-9-CM Oppositional Disorder Child Adolescent (ICD-9-CM :313.81 ) Name of Problem: Oppositional Disorder Child Adolescent ; Onset Date: 03/2005 ; Confirmation: Provisional ; Classification: Medical ; Code: 313.81 ; Contributor System: [employer]HPP[employer]SYS ; Last Updated: 12/27/2009 0:00 DIRECTOR OF SOCIAL MEDIA MARKETING ; Life Cycle Date: 04/07/2005 ; Life Cycle Status: Active ; Vocabulary: ICD-9-CM Reactive Attachment Disorder Childhood (ICD-9-CM :313.89 ) Name of Problem: Reactive Attachment Disorder Childhood ; Onset Date: 06/2009 ; Confirmation: Provisional ; Classification: UPDATE NEEDED ; Code: 313.89 ; Contributor System: [employer]HPP_SYS ; Last Updated: 12/27/2009 0:00 DIRECTOR OF SOCIAL MEDIA MARKETING ; Life Cycle Date: 07/03/2009 ; Life Cycle Status: Active ; Vocabulary: ICD-9-CM Diagnoses(Active) Headache Date: 07/19/2016 ; Diagnosis Type: Reason For Visit ; Confirmation: Complaint of ; ClinicalDx: Headache ; Classification: Medical ; Clinical Service: Emergency medicine ; Code: PNED ; Probability: 0 ; Diagnosis Code: [id number] Headache (COCHRAN) NOS Date: 07/19/2016 ; Diagnosis Type: Discharge ; Confirmation: Confirmed ; Clinical Dx: Headache (COCHRAN) NOS ; Classification: Medical ; Clinical Service: Emergency medicine ; Code: ICD-10-CM ; Probability: 0 ; Diagnosis Code: R51 Triage Chief Complaint Description : Pt stated he has had a headache since this morning. Pt had taken Ibuprofen with no relief. Information Given By : Patient Present in Room During Exam/Procedure : Significant other Mode of Arrival ED : Ambulatory Track : Medical Languages : Danish Patient Informed of Triage Location : Emergency department Treatments Prior to Arrival : Ibuprofen Is Patient Female and 13-50 no hysterectomy : OTF Valadez RN 07/19/2016 19:02 CDT Pain Assessment Pain Symptoms : Yes OTF ROSEN RN 07/19/2016 19:22 CDT Pain Scale Pain Scale Verbal 0-10 : Open OTF ROSEN RN 07/19/2016 19:22 CDT Pain Pain Assessment Grid Pain 1 Location : Head Intensity : 10 OTF ROSEN RN 07/19/2016 19:22 CDT KIMBERLI KIMBERLI Level 1 : No KIMBERLI Level 2 : No KIMBERLI Level 3 : Many Vital Signs KIMBERLI : No OTF ROSEN 07/19/2016 19:22 CDT DCP GENERIC CODE Tracking Acuity : 3 -Urgent Tracking Group : [facility] ED/ OTF ROSEN 07/19/2016 19:22 CDT Allergy (As Of: 07/19/2016 19:24:13 CDT) Allergies (Active) NKA Estimated Onset Date: Unspecified ; Created By: ROSALIA AUGUSTIN LPN; Reaction Status: Active ;Category: Drug ; Substance: NKA ; Type: Allergy ; Updated By: ROSALIA AUGUSTIN LPN; Reviewed Date: 07/19/2016 19:23 CDT Respiratory Airway : Patent Respirations : Unlabored Respiratory Pattern : Regular Oxygen Therapy : Room air OTF ROSEN RN 07/19/2016 19:22 CDT Cardiovascular Heart Rhythm : Regular Skin Color : Normal for ethnicity Skin Description : Normal Skin Temperature : Warm OTF ROSEN 07/19/2016 19:22 CDT Neurological Last Well Time Known : Not applicable Level of Consciousness : Alert Orientation : Oriented x 3 Characteristics of Speech : Appropriate for age Neuro Patient Stated Symptoms : None Gait : Steady Swallowing Difficulty/Aspiration Risk : None OTF ROSEN RN 07/19/2016 19:22 CDT ED Psychosocial Affect/Behavior : Calm, Cooperative, Appropriate Domestic Abuse Concerns : None Behavioral Health Screen/Safety Assmt : No OTF ROSEN RN 07/19/2016 19:22 CDT Gastrointestinal Nutrition ED : Adequate OTF ROSEN RN 07/19/2016 19:22 CDT Musculoskeletal Fall Prevention Education Provided : Yes OTF ROSEN RN 07/19/2016 19:22 CDT Social Habits Exposure to Tobacco Smoke : Patient smokes Smoking Status : Current every day smoker Tobacco 2A : Yes Tobacco Use/Currently Using : Yes Tobacco Use/Last 30 Days : Yes Tobacco Use/Last 12 months : Yes Type : Cigarettes: Less than 20 per day Tobacco Use/Advised to Quit : Yes OTF ROSEN RN - 07/19/2016 19:22 CDT Peripheral IV Peripheral IV Assess/Intervention Grid Peripheral IV #1 IV Activity : Start Date of Insertion : 07/19/2016 CDT IV Site : Antecubital Laterality : Right Catheter Size : 18 OTF ROSEN RN - 07/19/2016 19:22 CDT Source: [facility] [employer]ftCHART Document Id: [id number]!71 Rosy Lopez R.N. - 07/19/2016 12:07 PM CDT ED Triage Assessment Document Has Been Updated ED Triage Assessment Entered On: 07/19/2016 12:16 CDT Performed On: 07/19/2016 12:07 CDT by ROSY LOPEZ RN Reason For Visit (As Of: 07/19/2016 12:16:36 CDT) Problems(Active) Acne rosacea (ICD-9-CM :695.3 ) Name of Problem: Acne rosacea ; Onset Date: 10/02/2011 ; Recorder: DERIC HARTLEY MD; Confirmation: Confirmed ; Classification: Medical ; Code: 695.3 ; Contributor System: [employer] ; Last Updated: 10/02/2011 10:36 DIRECTOR OF SOCIAL MEDIA MARKETING ; Life Cycle Date: 10/02/2011 ; Life Cycle Status: Active ; Responsible Provider: DERIC HARTLEY MD; Vocabulary: ICD-9-CM Attention Deficit Dis W Hyperactivity (ICD-9-CM :314.01 ) Name of Problem: Attention Deficit Dis W Hyperactivity ; Onset Date: 03/2005 ; Confirmation: Provisional ; Classification: Medical ; Code: 314.01 ; Contributor System: [employer]SYS ; Last Updated: 12/27/2009 0:00 DIRECTOR OF SOCIAL MEDIA MARKETING ; Life Cycle Date: 04/07/2005; Life Cycle Status: Active ; Vocabulary: ICD-9-CM Oppositional Disorder Child Adolescent (ICD-9-CM :313.81 ) Name of Problem: Oppositional Disorder Child Adolescent ; Onset Date: 03/2005 ; Confirmation: Provisional ; Classification: Medical ; Code: 313.81 ; Contributor System: [employer]HPP_SYS ; Last Updated: 12/27/2009 0:00 DIRECTOR OF SOCIAL MEDIA MARKETING ; Life Cycle Date: 04/07/2005 ; Life Cycle Status: Active ; Vocabulary: ICD-9-CM Reactive Attachment Disorder Childhood (ICD-9-CM :313.89 ) Name of Problem: Reactive Attachment Disorder Childhood ; Onset Date: 06/2009 ; Confirmation: Provisional ; Classification: UPDATE NEEDED ; Code: 313.89 ; Contributor System: [employer]HPP_SYS ; Last Updated: 12/27/2009 0:00 DIRECTOR OF SOCIAL MEDIA MARKETING ; Life Cycle Date: 07/03/2009 ; Life Cycle Status: Active ; Vocabulary: ICD-9-CM Diagnoses(Active) Headache Date: 07/19/2016 ; Diagnosis Type: Reason For Visit ; Confirmation: Complaint of ; ClinicalDx: Headache ; Classification: Medical ; Clinical Service: Emergency medicine ; Code: PNED ; Probability: 0 ; Diagnosis Code: [id number] Triage Chief Complaint Description : states has had a migraine since 0900. Took 6 ibuprofen. Nauseated, no emesis, Lights bothered him at home, not here. States when he was in 2nd grade a Ilya Olvera told his dad that he may have migraines. Counseled re: appropriate dose of ibuprofen Information Given By : Patient Present in Room During Exam/Procedure : Significant other Mode of Arrival ED : Ambulatory Track : Medical Languages : Danish Patient Informed of Triage Location : Emergency department Treatments Prior to Arrival : Ibuprofen Is Patient Female and 13-50 no hysterectomy : No ROSY LOPEZ RN - 07/19/2016 12:11 CDT Pain Assessment Pain Symptoms : Yes ROSY LOPEZ RN - 07/19/2016 12:11 CDT Pain Scale Pain Scale Verbal 0-10 : Open ROSY LOPEZ RN - 07/19/2016 12:11 CDT Pain Pain Assessment Grid Pain 1 Location : Head Intensity : 8 Time Pattern : Acute Duration : 0900 this am Aggravating Factors : Light Alleviating Factors : None Associated Symptoms : Nausea ROSY LOPEZ RN - 07/19/2016 12:11 CDT KIMBERLI DCP GENERIC CODE Tracking Acuity : 3 -Urgent Tracking Group : [facility]/ ROSY LOPEZ RN - 07/19/2016 12:11 CDT Source: GoingOn Document Id: [id number] CDT!29 documented in this encounter Miscellaneous Notes Miscellaneous - Otf Rosen R.N. - 07/19/2016 1:49 PM CDT Valuables/Belongings Valuables/Belongings Entered On: 07/19/2016 19:25 CDT Performed On: 07/19/2016 13:49 CDT by OTF ROSEN RN Valuables/Belongings Belongings Sent Home With : All belongings taken home with patient. OTF ROSEN RN - 07/19/2016 19:25 CDT Source: GoingOn Document Id: [id number] CDT!3 Miscellaneous - Conversion, Historical Provider Ser - 07/19/2016 1:49 PM CDT Coding Summary-Paper Based CODING DATE: 07/25/2016 FINAL [facility] STATUS: * Discharged to Home or Self Care PAYOR: Commercial Insurance ADMIT DX: R51 Headache REASON FOR VISIT DX: R51 Headache FINAL DX: PRINCIPAL: R51 Headache SECONDARY: R11.0 Nausea H53.8 Other visual disturbances H53.149 Visual discomfort, unspecified F17.210 Nicotine dependence, cigarettes, uncomplicated PROCEDURES DOCTOR NAME DATE NOTE: The code number assigned matches the documented diagnosis and / or procedure in the patient's chart. However, the narrative phrase printed from the coding software may appear abbreviated, or result in slightly different terminology. Coded By: PATRICIO JANE Date Saved: 07/25/2016 02:50 pm Source: GoingOn Document Id: [id number] documented in this encounter Plan of Treatment Not on filedocumented as of this encounter Visit Diagnoses Not on filedocumented in this encounter Additional Health Concerns Assessment Noted Time PHQ-9 Depression Total Score: 16 01/08/2011 2:17 PM CS T documented as of this encounter
--- OUTSIDE RECORDS SUMMARY | 2022-07-26 14:39 | XMS_ITS | Encounter Summary ---
:1995 Author Organization [facility] Address [address] [place] [address] Care Team Providers Name Role Phone No Ref-Primary, Physician Primary Care Provider [phone] Reason for Visit Reason Comments Palpitations Encounter Details Date Type Department Care Team Description [facility]20[facility], unspecified type; [facility] Emergency Dep t Marijuana abuse [address] [facility] [place], [place] [address] [id number] [employer] ([employer])[facility] [phone] [address] [place], [place] [id number] (Wo rk) Social History Tobacco Use Types Packs/Day Years Used Date Never Assessed Sex Assigned at Date Recorded Not on file COVID-19 Exposure Response Date Recorded In the last 10 days, have you been in contact with No / Unsu re 07/22/2022 12:03 AM CDT someone who was confirmed or suspected to have Coronavirus/COVID-19? documented as of this encounter Last Filed Vital Signs Vital Sign Reading Time Taken Comments Blood Pressure 132/67 07/22/2022 3:00 AM CDT Pulse 76 07/22/2022 3:00 AM CDT Temperature - - Respiratory Rate 28 07/22/2022 3:00 AM CDT Oxygen Saturation 98% 07/22/2022 3:00 AM CDT Inhaled Oxygen Concentration - - Weight - - Height - - Body Mass Index - - documented in this encounter Discharge Instructions Discharge InstructionsSalinas Barroso MD - 07/22/2022 2:48 AM CDT I would cut back on smoking weed. You should stay hydrated and well rested. If your pain worsens, return to the ER. AttachmentsThe following attachments cannot be sent through Care Everywhere. Chest Pain, Noncardiac (Congolese)documented in this encounter Medications at Time of Discharge Medication Sig Dispensed Refills Start Date End Date buPROPion (WELLBUTRIN XL) Take 1 tablet by 30 tablet 0 01/21 150 MG 24 hr mouth daily. tabletIndications: Depressed guanFACINE (TENEX) 2 MG Take 1 tablet by 30 tablet 0 2012 tabletIndications: ADHD mouth daily. (attention deficit hyperactivity disorder) QUEtiapine (SEROQUEL) 200 Take 1 tablet by 30 tablet 0 01/21 MG tabletIndications: mouth every evening. Depressed documented as of this encounter ED Notes Jackie Post RN - 07/22/2022 12:05 AM CDT Pt arrives via EMS with chest pain that started while walking. When EMS arrived chest pain had subsided and pt states palpitations. Pt states smoking weed today when onset of chest pain started. Pt hashx of anxiety and states stressors in life. ABCs intact and AOx4. Triage Assessment Row Name 07/22/22 0004 Triage Assessment (Adult) Airway WDL WDL Respiratory WDL Respiratory WDL WDL Cardiac WDL Cardiac WDL X Chest Pain Assessment Character pressure Associated Signs/Symptoms hypertension;anxiety Chest Pain Intervention cardiac biomarkers drawn;cardiac monitoring continued;ekg monitor placed Lucy Isabel RN - 07/22/2022 12:03 AM CDT Bed: ED20 Expected date: Expected time: Means of arrival: Comments: A 597 CP Salinas Barroso MD - 07/21/2022 11:59 PM CDT History Chief Complaint: Palpitations HPI Donte Silva is a 27 year old male past medical history sent for daily marijuana use presentingfor diffuse anterior chest pain. He reports his symptoms began approximately an hour and a half after smoking weed, he felt his pain while walking at work however only when his feet would land on the ground, not between steps. He denies any overt shortness of breath, denies any nauseousness or sweating. He did smoke through bowl. ROS: Review of Systems 10 point ROS completed, negative except as indicated in the HPI. Allergies: No Known Allergies Medications: buPROPion (WELLBUTRIN XL) 150 MG 24 hr tablet guanFACINE (TENEX) 2 MG tablet QUEtiapine (SEROQUEL) 200 MG tablet Past Medical History: No past medical history on file. Past Surgical History: No past surgical history on file. Family History: family history is not on file. Social History: PCP: No Ref-Primary, Physician Physical Exam Patient Vitals for the past 24 hrs: BP Pulse Resp SpO2 07/22/22 0300 132/67 76 28 98 % 07/22/22 0200 -- 76 11 98 % 07/22/22 0100 -- 79 23 95 % Physical Exam Constitutional: Alert, attentive, GCS 15 HENT: Nose: Nose normal. Mouth/Throat: Oropharynx is clear, mucous membranes are moist Eyes: EOM are normal, anicteric, conjugate gaze CV: regular rate and rhythm; no murmurs Chest: Effort normal and breath sounds clear without wheezing or rales, symmetric bilaterally GI: non tender. No distension. No guarding or rebound. MSK: No LE edema, no tenderness to palpation of BLE. Neurological: Alert, attentive, moving all extremities equally. Skin: Skin is warm and dry. Emergency Department Course ECG: ECG results from 07/22/22 EKG 12 lead Value Systolic Blood Pressure Diastolic Blood Pressure Ventricular Rate 65 Atrial Rate 65 HI Interval 164 QRS Duration 102 QT 370 QTc 384 P [place] 30 R AXIS 38 T [place] 34 Interpretation ECG Sinus rhythm with sinus arrhythmia Normal ECG No previous ECGs available Laboratory: Labs Ordered and Resulted from Time of ED Arrival to Time of ED Departure TROPONIN T, HIGH SENSITIVITY - Normal Result Value Troponin T, High Sensitivity 6 Disposition: The patient was discharged to home. Impression & Plan Medical Decision Makin-year-old male with no segment past medical history other than marijuana use disorder presenting for noncardiac sounding chest pain. He is PERC negative, EKG here shows no ischemic changes, troponin is negative. He reports his symptoms as chest pain only when his feet land well walking. He has no adventitial lung sounds sats of 99% on room air with low suspicion for pneumonia, collapsed lung, chestx-ray deferred. I recommended abstinence from marijuana and follow-up with PCP. Diagnosis: ICD-10-CM 1. Chest pain, unspecified type R07.9 2. Marijuana abuse F12.10 Salinas Barroso MD [facility] 7:22 AM 07/22/22 Salinas Barroso MD 07/22/22 0723 documented in this encounter Plan of Treatment Upcoming Encounters Date Type Specialty Care Team Description 08/22/2022 Office Visit Family [facility] [place] [address] [address] [place] [phone] (Wo rk) documented as of this encounter Procedures Procedure Name Priority Date/Time Associated Comments Diagnosis EKG 12-LEAD, TRACING STAT 07/22/2022 12:41 Res ults for this ONLY AM CDT procedure are i n the results section. EXTRA TUBE STAT 07/22/2022 12:14 Results for this AM CDT procedure are i n the results section. EXTRA PURPLE TOP TUBE STAT 07/22/2022 12:14 Re sults for this AM CDT procedure are i n the results section. EXTRA BLUE TOP TUBE STAT 07/22/2022 12:14 Resu lts for this AM CDT procedure are i n the results section. TROPONIN T, HIGH STAT 07/22/2022 12:13 Results for this SENSITIVITY AM CDT procedure are i n the results section. documented in this encounter Results EKG 12 lead (07/22/2022 12:41 AM CDT) [facility] Method Time Signature Systolic Blood mmHg RADIOLOGY Pressure RESULTS Diastolic Blood mmHg RADIOLOGY Pressure RESULTS Ventricular Rate 65 BPM RADIOLOGY RESULTS Atrial Rate 65 BPM RADIOLOGY RESULTS HI Interval 164 ms RADIOLOGY RESULTS QRS Duration 102 ms RADIOLOGY RESULTS QT 370 ms RADIOLOGY RESULTS QTc 384 ms RADIOLOGY RESULTS P [place] 30 degrees RADIOLOGY RESULTS R AXIS 38 degrees RADIOLOGY RESULTS T [place] 34 degrees RADIOLOGY RESULTS Interpretation Sinus rhythm with sinus arrhythmia RADIOLOGY ECG Normal ECG RESULTS No previous ECGs available Confirmed by - EMERGENCY LUIS Bhakta PHYSICIAN ([id number]), metropolitan editor RELL CHAPA ([id number]) on 07/22/2022 7:29:09 AM Specimen Anatomical Collection Method Collection Time Receive d Time (Source) Location / / Volume Laterality 07/22/2022 12:41 07/22/2022 7:29 AM CDT AM CDT Salinas Barroso MD ECG ORDERABLES Performing Organization Address City/State/ZIP Code Phon e Number RADIOLOGY RESULTS Extra Purple Top Tube (07/22/2022 12:14 AM CDT) P athologist Signature Hold Specimen JI 07/22/2022 [facility] 1:34 AM CDT Specimen Anatomical Collection Method / Collection Time Recei carley Time (Source) Location / Volume Laterality Blood STRUCTURE OF LEFT Venipuncture / 07/22/2022 12:14 08/ UPPER LIMB / Unknown AM CDT 12:17 AM CDT Unknown Salinas Barroso MD LAB - BLOOD ORDERABLES Performing Organization Address City/[facility]/ZIP Code Phon [place] [address] Care Lab [address] Lab (1st floor, no room number) Extra Blue Top Tube (07/22/2022 12:14 AM CDT) athologist Signature Hold Specimen [facility] 07/22/2022 [facility] 1:34 AM CDT Specimen Anatomical Collection Method / Collection Time Recei carley Time (Source) Location / Volume Laterality Blood STRUCTURE OF LEFT Venipuncture / 07/22/2022 12:14 08/3 UPPER LIMB / Unknown AM CDT 12:17 AM CDT Unknown Salnias Barroso MD LAB - BLOOD ORDERABLES Performing Organization Address City/[facility]/ZIP Code Phon [place] [address] Care Lab [address] Lab (1st floor, no room number) Troponin T, High Sensitivity (now) (07/22/2022 12:13 AM CDT) P athologist Signature Troponin T, High 6 <=22 ng/L 07/22/2022 [facility] Y Sensitivity 12:49 AM CDT Specimen Anatomical Collection Method / Collection Time Recei carley Time (Source) Location / Volume Laterality Blood STRUCTURE OF LEFT Venipuncture / 07/22/2022 12:13 08 UPPER LIMB / Unknown AM CDT 12:17 AM CDT Unknown Salinas Barroso MD LAB - BLOOD ORDERABLES Performing Organization Address City/State/ZIP Code Phon [place] [phone] Care Lab [address] Lab (1st floor, no room number) documented in this encounter Visit Diagnoses Diagnosis Chest pain, unspecified type Marijuana abuse Cannabis abuse, unspecified documented in this encounter Care Teams Immigration Consultant Relationship Specialty Start Date End Date No Ref-Primary, Physician PCP - General 04/14/22 documented as of this encounter
--- OUTSIDE RECORDS SUMMARY | 2022-07-26 14:39 | XMS_ITS | Clinical Summary ---
:1995 Author Organization [facility] Address [address] [place] [address] Care Team Providers Name Role Phone No Ref-Primary, Physician Primary Care Provider [phone] Allergies No known active allergies Medications Medication Sig Dispensed Refills Start Date End Date Status buPROPion (WELLBUTRIN Take 1 tablet by 30 tablet 0 02/02/2013 Active XL) 150 MG 24 hr mouth daily. tabletIndications: Depressed guanFACINE (TENEX) 2 MG Take 1 tablet by 30 tablet 0 3 Active tabletIndications: ADHD mouth daily. (attention deficit hyperactivity disorder) QUEtiapine (SEROQUEL) Take 1 tablet by 30 tablet 0 02/02/2013 Active 200 MG mouth every tabletIndications: evening. Depressed Active Problems Problem Noted Date Depressed 01/30/2013 Encounters Date Type Specialty Care Team Description 07/22/2022 Emergency EMERGENCY MEDICINE Salinas Barroso antony n, unspecified type; MD Markel Marijuana abuse 07/22/2022 Travel 07/17/2022 Telephone Family Practice Marivel Mason MD Appointm ent 07/17/2022 Travel from Last 3 Months Social History Tobacco Use Types Packs/Day Years Used Date Never Assessed Sex Assigned at Date Recorded Not on file COVID-19 Exposure Response Date Recorded In the last 10 days, have you been in contact with No / Unsu re 07/22/2022 12:03 AM CDT someone who was confirmed or suspected to have Coronavirus/COVID-19? Last Filed Vital Signs Vital Sign Reading Time Taken Comments Blood Pressure 132/67 07/22/2022 3:00 AM CDT Pulse 76 07/22/2022 3:00 AM CDT Temperature 36.7 ??C (98.1 ??F) 04/14/2022 9:32 AM CDT Respiratory Rate 28 07/22/2022 3:00 AM CDT Oxygen Saturation 98% 07/22/2022 3:00 AM CDT Inhaled Oxygen Concentration - - Weight 85.7 kg (189 lb) 01/30/2013 7:35 PM CDT Height 175.3 cm (5' 9) 01/30/2013 7:35 PM CDT Body Mass Index 27.91 01/30/2013 7:35 PM CDT Plan of Treatment Upcoming Encounters Date Type Specialty Care Team Description 08/22/2022 Office Visit [place] [address] [place], [place] [phone] (Wo rk) Health Maintenance Due Date Last Done Comments ADVANCE CARE PLANNING 1995 ANNUAL REVIEW OF HM ORDERS 1997 PREVENTIVE CARE VISIT 1997 COVID-19 Vaccine (#1) 1997 HPV IMMUNIZATION (1 - Male 2008 2-dose series) HIV SCREENING 2012 HEPATITIS C SCREENING 2015 DTAP/TDAP/TD IMMUNIZATION 04/12/2019 04/12/2009, 03/01/2003 , (7 - Td or Tdap) 2002, Additional history exists PHQ-2 (once per calendar 11/23/2021 year) INFLUENZA VACCINE (#1) 2022 09/23/2016 HEPATITIS B IMMUNIZATION Completed 01/10/2000, 01/10/2000, 1997, Additional history exists IPV IMMUNIZATION Completed 03/01/2003, 01/10/2000, 1997, Additional history exists MENINGITIS IMMUNIZATION Aged Out No longe r eligible based on patient 's age to complete this topic Pneumococcal Vaccine: Aged Out No longer eligible Pediatrics (0 to 5 Years) based on patient's age and At-Risk Patients (6 to to co mplete this topic 64 Years) Procedures Procedure Name Priority Date/Time Associated Comments [...] procedure are i n the results section. from Last 3 Months Results EKG 12 lead (07/22/2022 12:41 AM CDT) [facility] gist Method Time Signature Systolic Blood mmHg RADIOLOGY Pressure RESULTS Diastolic Blood mmHg RADIOLOGY Pressure RESULTS Ventricular Rate 65 BPM RADIOLOGY RESULTS Atrial Rate 65 BPM RADIOLOGY RESULTS MO Interval 164 ms RADIOLOGY RESULTS QRS Duration 102 ms RADIOLOGY RESULTS QT 370 ms RADIOLOGY RESULTS QTc 384 ms RADIOLOGY RESULTS P [place] 30 degrees RADIOLOGY RESULTS R AXIS 38 degrees RADIOLOGY RESULTS T [place] 34 degrees RADIOLOGY RESULTS Interpretation Sinus rhythm with sinus arrhythmia RADIOLOGY ECG Normal ECG RESULTS No previous ECGs available Confirmed by - EMERGENCY LUIS Bhakta PHYSICIAN ([id number]), publication editor RELL CHAPA ([id number]) on 07/22/2022 7:29:09 AM Specimen Anatomical Collection Method Collection Time Receive d Time (Source) Location / / Volume Laterality 07/22/2022 12:41 07/22/2022 7:29 AM CDT AM CDT Salinas Barroso MD ECG ORDERABLES Performing Organization Address City/State/ZIP Code Phon e Number RADIOLOGY RESULTS Extra Purple Top Tube (07/22/2022 12:14 AM CDT) P athologist Signature Hold Specimen JIC 07/22/2022 [facility] 1:34 AM CDT Specimen Anatomical Collection Method / Collection Time Recei carley Time (Source) Location / Volume Laterality Blood STRUCTURE OF LEFT Venipuncture / 07/22/2022 12:14 08/ UPPER LIMB / Unknown AM CDT 12:17 AM CDT Unknown Salinas Barroso MD LAB - BLOOD ORDERABLES Performing Organization Address City/State/ZIP Code Phon e Number [place] [address] Care Lab [address] Lab (1st floor, no room number) Extra Blue Top Tube (07/22/2022 12:14 AM CDT) athologist Signature Hold Specimen JIC 07/22/2022 [facility] 1:34 AM CDT Specimen Anatomical Collection Method / Collection Time Recei carley Time (Source) Location / Volume Laterality Blood STRUCTURE OF LEFT Venipuncture / 07/22/2022 12:14 08/3 UPPER LIMB / Unknown AM CDT 12:17 AM CDT Unknown Salinas Barroso MD LAB - BLOOD ORDERABLES Performing Organization Address City/[facility]/[place] [address] Care Lab [address] Lab (1st floor, no room number) Troponin T, High Sensitivity (now) (07/22/2022 12:13 AM CDT) athologist Signature Troponin T, High 6 <=22 ng/L 07/22/2022 [facility] Y Sensitivity 12:49 AM CDT Specimen Anatomical Collection Method / Collection Time Recei carley Time (Source) Location / Volume Laterality Blood STRUCTURE OF LEFT Venipuncture / 07/22/2022 12:13 08/ UPPER LIMB / Unknown AM CDT 12:17 AM CDT Unknown Salinas Barroso MD LAB - BLOOD ORDERABLES Performing Organization Address City/[facility]/[place] [address] Care Lab [address] Lab (1st floor, no room number) from Last 3 Months Insurance Payer Benefit Plan / Subscriber ID Effective Dates Phone Addre ss Type Group [facility] [id number] 2012-Prese [address] [facility] [facility] [place] [address] EMIR OVIEDO Behavioral Father 06/01/[address] (Home) [place] [id number] Advance Directives For more information, please contact: [phone] Latest Code Status on File Code Status Date Activated Date Inactivated Comments Full Code 01/30/2013 7:31 PM 02/02/2013 8:17 PM Care Teams Pulverizing And Sifting Operator Relationship Specialty Start Date End Date No Ref-Primary, Physician PCP - General 04/14/22
--- OUTSIDE RECORDS SUMMARY | 2022-07-26 14:39 | XMS_ITS | Encounter Summary ---
:1995 Author Organization [facility] Address [address] [place] [address] Care Team Providers Name Role Phone No Ref-Primary, Physician Primary Care Provider [phone] Reason for Visit Reason Comments Multiple Complaints Encounter Details Date Type Department Care Team Description 04/14/2022 Emergency [facility] Salinas Carmona I nfection due to 2019 novel coronavirus; [facility] Emergency Dep t RLQ abdominal pain [address] [facility] [place], [place] [address] [address] [facility] [phone] [place], [place] [phone] (Wo rk) Social History Tobacco Use Types Packs/Day Years Used Date Never Assessed Sex Assigned at Date Recorded Not on file COVID-19 Exposure Response Date Recorded In the last 10 days, have you been in contact with No / Unsu re 04/14/2022 9:29 AM CDT someone who was confirmed or suspected to have Coronavirus/COVID-19? documented as of this encounter Last Filed Vital Signs Vital Sign Reading Time Taken Comments Blood Pressure 119/77 04/14/2022 11:45 AM CDT Pulse 96 04/14/2022 11:45 AM CDT Temperature 36.7 ??C (98.1 ??F) 04/14/2022 9:32 AM CDT Respiratory Rate 18 04/14/2022 9:32 AM CDT Oxygen Saturation 98% 04/14/2022 11:45 AM CDT Inhaled Oxygen Concentration - - Weight - - Height - - Body Mass Index - - documented in this encounter Discharge Instructions Discharge InstructionsSalinas Carmona MD - 04/14/2022 11:43 AM CDT Discharge Instructions COVID-19 COVID-19 is the disease caused by a new coronavirus. The virus spreads from [id number] primarily by droplets when an infected person coughs or sneezes and the droplets are then breathed in by another person. Symptoms of COVID-19 Many people have no symptoms or mild symptoms. Symptoms usually appear within a few days, but up to 14-days, after contact with a person with COVID-19. A mild COVID-19 illness is like a cold and can have fever, cough, sneezing, sore throat, tiredness, headache, and muscle pain. A moderate COVID-19 illness might include shortness of breath or pneumonia on a chest x-ray. A severe COVID-19 illness causes significant breathing problems such as low oxygen levels or more serious pneumonia. Some patients experience loss of taste or smell which is somewhat unique to COVID-19. Isolation and Quarantine Testing is recommended for any person with symptoms that could be COVID-19 and often for those exposed to COVID-19. The best way to stop the spread of the virus is to avoid contact with others. A close contact exposure is being within 6 feet of someone with COVID for 15 minutes. Isolation refers to sick people staying away from people who are not sick. A person in quarantine is limiting activity because they were exposed and are waiting to see if theymight become sick. If you test positive for COVID and have no symptoms, you should stay home (isolation) for 5 full days after the day of the test. You should then wear a mask when around others for another 5 days. If you test positive for COVID and have mild symptoms, you should stay home (isolation) for at least5 days after your symptoms began. You can return to normal activities at that time, wearing a mask when around others, for another 5 days as long as your symptoms are improving/resolving and you have been without a fever for 24 hours (without using fever-reducing medicine). If you test positive for COVID and have more than mild symptoms, you should stay home (isolation) for at least 10 days after your symptoms began. You can return to normal activities at that time as long as your symptoms are improving and you have been without a fever for 24 hours (without using fever-reducing medicine). For example, if you have a fever and cough for 6 days, you need to stay home 4 more days with no fever for a total of 10 days. Or, if you have a fever and cough for 10 days, you need to stay home one more day with no fever for a total of 11 days. If you were exposed to COVID and are not vaccinated (or it has been more than six months from your Pfizer or Moderna vaccine or two months from J&J vaccine), you should stay home (quarantine) for 5days and then wear a mask around others for 5 additional days. A COVID test at day 5 is recommended. If you were exposed to COVID and are vaccinated (had a booster, had two shots of Pfizer or Moderna vaccine in the last five months, or had J&J vaccine within two months), you do not need to quarantine but should wear a mask around others for 10 days and get a COVID test on day 5. If you have symptoms but a negative test, you should stay at home until you have mild/improving symptoms and are without fever for 24 hours, using the same judgment you would for when it is safe to return to work/school from strep throat, influenza, or the common cold. If you worsen, you should consider being re-evaluated. If you are being tested for COVID because of symptoms and your test is pending, you should stay homeuntil you know your test result. More details on isolation and quarantine can be found on this website from the CDC: https://www.cdc.gov/coronavirus/2019-ncov/your-health/quarantine-isolation.html If I have COVID, how should I protect myself and others? Do not go to work or school. Have a friend or relative do your shopping. Do not use public transportation (bus, train) or ridesharing (Lyft, Uber). Separate yourself from other people in your home. As much as possible, you should stay in one room and away from other people in your home. Also, use a separate bathroom, if possible. Avoid handling pets or other animals while sick. Wear a facemask if you need to be around other people and cover your mouth and nose with a tissue when you cough or sneeze. Avoid sharing personal household items. You should not share dishes, drinking glasses, forks/knives/spoons, towels, or bedding with other people in your home. After using these items, they should be washed with soap and water. Clean parts of your home that are touched often (doorknobs, faucets, countertops, etc.) daily. Wash your hands often with soap and water for at least 20 seconds or use an alcohol-based hand money examiner containing at least 60% alcohol. Avoid touching your face. Treat your symptoms. You can take Acetaminophen (Tylenol) to treat body aches and fever as needed for comfort. Ibuprofen (Advil or Motrin) can be used as well if you still have symptoms after taking Tylenol. Drink fluids. Rest. Watch for worsening symptoms such as shortness of breath/difficulty breathing or very severe weakness. Employers/workplaces are being asked by the Centers for Disease Control (CDC) to not request notes/documentation for you to return to work or prove that you were ill. You may choose to show your employer this paperwork. Also, repeat testing should not be required to return to work. Exercise/Sports in rare cases, COVID could affect your heart in a way that makes exercise or participation in sports dangerous. If you have a mild COVID illness (fever, cough, sore throat, and similar symptoms but no difficulty breathing or abnormalities of the lung): After your COVID symptoms have resolved, wait 14-days beforereturning to activity. If you have more than a mild illness (meaning that you have problems with your breathing or lungs) or if you participate in competitive or strenuous activity or have a history of heart disease: Please see your primary doctor/provider prior to return to activity/competition. COVID treatments such as antiviral and antibody medications are available. They are recommended for those patients who have a risk for developing more severe COVID illness. Importantly, the treatments must be started early in the illness (within 5-7 days, depending on which treatment). These treatments may have been considered today during your visit. If you have other questions, contact your primarydoctor/clinic. You can learn more about COVID treatments from the [facility]: https://www.health[facility]al.us/diseases/coronavirus/meds.html Return to the Emergency Department if: If you are developing worsening breathing, shortness of breath, or feel worse you should seek medical attention. If you are uncertain, contact your health care provider/clinic. If you need emergency medical attention, call 911 and tell them you have been ill. documented in this encounter Medications at Time [...] tablet 0 01/21 MG tabletIndications: mouth every Depressed evening. ondansetron (ZOFRAN ODT) 4 Take 1 tablet (4 10 tablet 0 04/17/2022 MG ODT tab mg) by mouth every 8 hours as needed for nausea documented as of this encounter ED Notes Shaji Baron RN - 04/14/2022 11:57 AM CDT Patient discharged home . Vital signs stable at discharge. Education provided regarding avs reviewed. Pt verbalized understanding. IV removed. Catheter intact. All questions answered. Rosalba Au RN - 04/14/2022 9:30 AM CDT Pt reports that he had a headache and lower abdominal pain that started yesterday, pt reports a sorethroat for one wk, no recent COVID tests. PT reports a possible fever last night, generalized fatigue and decreased appetite with N/V. PT reports blurred vision when focusing on screens. PT VSS and ABC's intact, pt concerned for monkeypox due to pt [facility] Salinas Carmona MD - 04/14/2022 9:28 AM CDT History Chief Complaint: Multiple Complaints HPI Donte Silva is a 27 year old male who presents for evaluation of sore throat and multiple concerns. The patient notes that he had mild sore throat 1 week ago and then 24 hours ago developed subjective fevers, chills, malaise, nausea, and abdominal pain. He is concerned regarding possible multiplex but endorses no rash. He denies chest pain, shortness of breath, or any other concerns. Review of Systems Gen: + as per above GI: + as per above All other systems reviewed and negative Allergies: No Known Allergies Medications: Bupropion Guanfacine Quetiapine Past Medical History: Chronic lower back pain Concussion without loss of consciousness Recurrent biliary colic Tension headache Acute gastroenteritis GERD Depression Anxiety ADHD Past Surgical History: Cholecystectomy Social History: Patient unaccompanied PCP: No primary care provider on file. Physical Exam Patient Vitals for the past 24 hrs: BP Temp Temp src Pulse Resp SpO2 04/14/22 1145 119/77 -- -- 96 -- 98 % 04/14/22 1130 133/76 -- -- 94 -- 97 % 04/14/22 1115 138/88 -- -- 91 -- 96 % 04/14/22 1100 (!) 143/93 -- -- -- -- -- 04/14/22 1030 (!) 135/97 -- -- 84 -- 96 % 04/14/22 1015 (!) 131/99 -- -- 95 -- 96 % 04/14/22 0932 (!) 154/97 98.1 ??F (36.7 ??C) Temporal 102 18 96 % Physical Exam Constitutional: Alert, attentive HENT: Nose: Nose normal. Mouth/Throat: Oropharynx is clear, mucous membranes are moist Eyes: EOM are normal. CV: regular rate and rhythm; no murmurs, rubs or gallups Chest: Effort normal and breath sounds normal. GI: There is suprapubic and RLQ tenderness. No distension. Normal bowel sounds MSK: Normal range of motion. Neurological: Alert, attentive Skin: Skin is warm and dry. Emergency Department Course Imaging: CT Abdomen Pelvis w Contrast Final Result IMPRESSION: No acute pathology in the abdomen and pelvis. MORIS RAMIRES MD Report per radiology Laboratory: Labs Ordered and Resulted from Time of ED Arrival to Time of ED Departure INFLUENZA A/B & SARS-COV2 PCR MULTIPLEX - Abnormal Result Value Influenza A PCR Negative Influenza B PCR Negative RSV PCR Negative SARS CoV2 PCR Positive (*) COMPREHENSIVE METABOLIC PANEL - Abnormal Sodium 134 Chloride 103 Carbon Dioxide (CO2) 27 Anion Gap 4 Urea Nitrogen 9 Creatinine 0.71 Calcium 9.3 Glucose 94 Alkaline Phosphatase 100 ALT 54 Protein Total 7.8 Albumin 3.6 Bilirubin Total 1.5 (*) GFR Estimate >90 LIPASE - Abnormal Lipase 49 (*) ROUTINE UA WITH MICROSCOPIC - Abnormal Color Urine Yellow Appearance Urine Clear Glucose Urine Negative Bilirubin Urine Negative Ketones Urine Negative Specific Boyds Urine 1.025 Blood Urine Negative pH Urine 6.0 Protein Albumin Urine 10 (*) Urobilinogen Urine Normal Nitrite Urine Negative Leukocyte Esterase Urine Negative Mucus Urine Present (*) RBC Urine 1 WBC Urine 2 STREPTOCOCCUS A RAPID SCREEN W REFELX TO PCR - Normal Group A Strep antigen Negative CBC WITH PLATELETS AND DIFFERENTIAL WBC Count 7.7 RBC Count 5.71 Hemoglobin 16.1 Hematocrit 47.6 MCV 83 MCH 28.2 MCHC 33.8 RDW 13.2 Platelet Count 198 % Neutrophils 74 % Lymphocytes 11 % Monocytes 13 % Eosinophils 0 % Basophils 1 % Immature Granulocytes 1 NRBCs per 100 WBC 0 Absolute Neutrophils 5.7 Absolute Lymphocytes 0.9 Absolute Monocytes 1.0 Absolute Eosinophils 0.0 Absolute Basophils 0.1 Absolute Immature Granulocytes 0.0 Absolute NRBCs 0.0 GROUP A STREPTOCOCCUS PCR THROAT SWAB Emergency Department Course: Reviewed: I reviewed nursing notes, vitals, past medical history and Care Everywhere Assessments/Consults: ED Course as of 04/14/22 1203 ThuApril 14, 2022 0957 Obtained history and examined the patient as noted above. Interventions: 1005 NS 1000 mL, IV 1010 Toradol 15 mg, IV Disposition: The patient was discharged to home. Impression & Plan [facility] Diagnoses: None Medical Decision Making: This is a 27-year-old male who presents with multiple complaints including infectious prodrome. Given suprapubic and right lower quadrant tenderness, is possible appendicitis was entertained and CT abdomen pelvis was performed. Fortunately, this shows no acute abnormality. Remainder screening labs are reassuring. He has no rash to suggest monkey products. COVID-19 testing is positive. Suspect onset of COVID-19 yesterday versus 1 week ago. Encourage at least 5 days of isolation and close observation.He is not a candidate for antiretrovirals. Primary care follow-up in 5 to 7 days and return precaution for difficulty breathing, chest pain, or any other concerns. Diagnosis: ICD-10-CM 1. Infection due to 2019 novel coronavirus U07.1 2. RLQ abdominal pain R10.31 Discharge Medications: Discharge Medication List as of 04/14/2022 11:50 AM START taking these medications Details ondansetron (ZOFRAN ODT) 4 MG ODT tab Take 1 tablet (4 mg) by mouth every 8 hours as needed for nausea, Disp-10 tablet, R-0, Local Print Scribe Disclosure: I, David Sandoval, am serving as a scribe at 9:53 AM on 04/14/2022 to document services personallyperformed by Salinas Carmona MD based on my observations and the provider's statements to me. Salinas Carmona MD 04/14/22 1243 documented in this encounter Miscellaneous Notes Result Encounter Note - Dragan Arizmendi RN - 04/14/2022 12:02 PM CDT Group A Streptococcus PCR is NEGATIVE No treatment or change in treatment [facility] ED lab result Strep Group A protocol. documented in this encounter Plan of Treatment Upcoming Encounters Date Type Specialty Care Team Description 08/22/2022 Office Visit [place] [id number] [place], [place] [address] (Wo rk) documented as of this encounter Procedures Procedure Name Priority Date/Time Associated Comments Diagnosis CT ABDOMEN PELVIS W STAT 04/14/2022 10:57 Resu lts for this CONTRAST AM CDT procedure are i n the results section. INFLUENZA A/B & STAT 04/14/2022 10:04 Results for this SARS-COV2 PCR AM CDT procedure are in MULTIPLEX the results section. STREPTOCOCCUS A RAPID STAT 04/14/2022 10:04 Re sults for this SCREEN W REFELX TO PCR AM CDT proce dure are in the results section. GROUP A STREPTOCOCCUS STAT 04/14/2022 10:04 Re sults for this PCR THROAT SWAB AM CDT procedure ar e in the results section. ROUTINE UA WITH STAT 04/14/2022 10:04 Results for this MICROSCOPIC AM CDT procedure are i n the results section. CBC WITH PLATELETS AND STAT 04/14/2022 10:02 R esults for this DIFFERENTIAL AM CDT procedure are i n the results section. CBC WITH PLATELETS & STAT 04/14/2022 10:02 Res ults for this DIFFERENTIAL AM CDT procedure are i n the results section. LIPASE STAT 04/14/2022 10:02 Results for this AM CDT procedure are i n the results section. COMPREHENSIVE STAT 04/14/2022 10:02 Results fo r this METABOLIC PANEL AM CDT procedure ar e in the results section. documented in this encounter Results CT Abdomen Pelvis w Contrast (04/14/2022 10:57 AM CDT) Anatomical Region Laterality Modality Abdomen/Pelvis, SUBRAD CT BODY, UMP CT ABDOMEN PELVIS, Computed Tomography RAD CT Specimen (Source) Anatomical Location Collection Method / Collectio n Time Received Time / Laterality Volume Impressions 04/14/2022 12:29 PM CDT IMPRESSION: No acute pathology in the abdomen and pelvis. MORIS RAMIRES MD Narrative 04/14/2022 12:[address] ABDOMEN PELVIS WITH CONTRAST ??04/14/2022 10:57 AM HISTORY: Low abdominal pain, fever. TECHNIQUE: CT scan obtained of the abdom en, and pelvis with IV contrast. 95mL Isovue-370 IV injected. R adiation dose for this scan was reduced using automated exposure con trol, adjustment of the mA and/or kV according to patient size, or iterative reconstruction technique. COMPARISON:None available. FINDINGS: Lower chest:Lung bases are clear. Abdomen/pelvis: Hepatobiliary: No suspicious focal hepat ic lesion. The gallbladder is surgically absent. Pancreas: No main pancreatic ductal dila tation without evidence of intrahepatic mass. Spleen: The spleen is enlarged measuring 13.5 cm in craniocaudal dimension. Adrenal glands: No adrenal nodules. Kidneys: No radiodense kidney/ureteral s tones or hydronephrosis in the kidney. There is 2.3 cm cyst at the uppe r pole of the right kidney and 1.4 cm cyst of anterior polar origin of the left kidney. Bowel: No abnormally dilated bowel loops . The appendix is visualized and appears normal. Peritoneum: No significant free fluid in the abdomen or pelvis. No free peritoneal portal venous gas. Pelvic organs: Diffuse urinary bladder w all thickening, could be due to underdistention versus chronic cystit is. Vascular: Unremarkable. Lymph nodes: No significant abdominopelv ic lymphadenopathy. Bones and soft tissue: No suspicious oss eous lesion. Procedure Note Moris Ramires MD - 04/14/2022Forma tting of this note might be different from the original. CT ABDOMEN PELVIS WITH CONTRAST 10:57 AM HISTORY: Low abdominal pain, fever. TECHNIQUE: CT scan obtained of the abdom en, and pelvis with IV contrast. 95mL Isovue-370 IV injected. R adiation dose for this scan was reduced using automated exposure con trol, adjustment of the mA and/or kV according to patient size, or iterative reconstruction technique. COMPARISON:None available. FINDINGS: Lower chest:Lung bases are clear. Abdomen/pelvis: Hepatobiliary: No suspicious focal hepat ic lesion. The gallbladder is surgically absent. Pancreas: No main pancreatic ductal dila tation without evidence of intrahepatic mass. Spleen: The spleen is enlarged measuring 13.5 cm in craniocaudal dimension. Adrenal glands: No adrenal nodules. Kidneys: No radiodense kidney/ureteral s tones or hydronephrosis in the kidney. There is 2.3 cm cyst at the uppe r pole of the right kidney and 1.4 cm cyst of anterior polar origin of the left kidney. Bowel: No abnormally dilated bowel loops . The appendix is visualized and appears normal. Peritoneum: No significant free fluid in the abdomen or pelvis. No free peritoneal portal venous gas. Pelvic organs: Diffuse urinary bladder w all thickening, could be due to underdistention versus chronic cystit is. Vascular: Unremarkable. Lymph nodes: No significant abdominopelv ic lymphadenopathy. Bones and soft tissue: No suspicious oss eous lesion. IMPRESSION: No acute pathology in the ab domen and pelvis. MORIS RAMIRES MD Salinas Carmona MD IMG CT ORDERABLES Group A Streptococcus PCR Throat Swab (04/14/2022 10:04 AM CDT) [facility] Method Time Signature Group A strep Not Detected Not Detected 04/14/2022 [facility] by PCR 2:04 PM CDT LABORATORY Specimen Anatomical Collection Method Collection Time Receive d Time (Source) Location / / Volume Laterality Swab STRUCTURE OF Non-blood 04/14/2022 10:04 04/14/2022 ANTERIOR PORTION Collection / AM CDT 10:34 AM CD T OF NECK / Unknown Unknown Narrative [facility] - 04/14/2022 2:04 PM C DT The Xpert Xpress Strep A test, performed on the [employer] Instrument Systems, is a rapid, qualitative in vitro diagnostic t est for the detection of Streptococcus pyogenes (Group A ? - hemolytic Streptococcus, Strep A) in thr oat swab specimens from patients with signs and symptoms of pharyngitis. The Xpert X press Strep A test can be used as an aid in the diagnosis of Group A Streptococcal p haryngitis. The assay is not intended to monitor treatment for Group A Streptococ cus infections. The Xpert Xpress Strep A test utilizes an automated real-time polymera se chain reaction (PCR) to detect Streptococcus pyogenes DNA. Salinas Carmona MD LAB - MICRO GENERAL ORDERABL ES Performing Organization Address City/State/ZIP Code Phon e Number [facility] [place] [address] Diag. Lab [address] [facility] (ABNORMAL) UA with Microscopic (04/14/2022 10:04 AM CDT) [facility] Method Time Signature Color Urine Yellow Colorless, 04/14/2022 [facility] Straw, 10:27 AM Light CDT Yellow, Yellow Appearance Urine Clear Clear 04/14/2022 [facility] Y 10:27 AM CDT Glucose Urine Negative Negative 04/14/2022 [facility] mg/dL 10:27 AM CDT Bilirubin Urine Negative Negative 04/14/2022 [facility] 10:27 AM CDT Ketones Urine Negative Negative 04/14/2022 [facility] mg/dL 10:27 AM CDT Specific Boyds 1.025 1.003 - 04/14/2022 [facility] Y Urine 1.035 10:27 AM CDT Blood Urine Negative Negative 04/14/2022 LABORATORY 10:27 AM CDT pH Urine 6.0 5.0 - 7.0 04/14/2022 [facility] 10:27 AM CDT Protein Albumin 10 (A) Negative 04/14/2022 LABORATORY Urine mg/dL 10:27 AM CDT Urobilinogen Normal Normal, 2.0 04/14/2022 LABORATORY Urine mg/dL 10:27 AM CDT Nitrite Urine Negative Negative 04/14/2022 [facility] 10:27 AM CDT Leukocyte Negative Negative 04/14/2022 LABORATORY Esterase Urine 10:27 AM CDT Mucus Urine Present (A) None Seen 04/14/2022 LABORATORY /LPF 10:27 AM CDT RBC Urine 1 <=2 /HPF 04/14/2022 [facility] 10:27 AM CDT WBC Urine 2 <=5 /HPF 04/14/2022 [facility] 10:27 AM CDT Specimen Anatomical Collection Method Collection Time Receive d Time (Source) Location / / Volume Laterality Urine MID-STREAM URINE Non-blood 04/14/2022 10:04 022 SAMPLE / Unknown Collection / AM CDT 10:19 AM CD T Unknown Salinas Carmona MD LAB - URINE ORDERABLES Performing Organization Address City/State/ZIP Code [place]on [place] [address] Care [facility] [address] [facility] (1st floor, no room number) (ABNORMAL) Symptomatic; Unknown Influenza A/B & SARS-CoV2 (COVID-19) Virus PCR Multiplex Nasopharyngeal (04/14/2022 10:04 AM CDT) [facility] Signature Influenza A Negative Negative 04/14/2022 LABORATORY PCR 11:00 AM CDT Influenza B Negative Negative 04/14/2022 LABORATORY PCR 11:00 AM CDT RSV PCR Negative Negative 04/14/2022 LABORATORY 11:00 AM CDT SARS CoV2 PCR Positive (A) Negative 04/14/2022 [facility] Y 11:00 AM CDT Comment: POSITIVE: SARS-CoV-2 (COVID-19) RNA detected, presumed positive. Specimen Anatomical Location / Collection Method Collection Smooth e Received Time (Source) Laterality / Volume Swab NASOPHARYNGEAL Non-blood 04/14/2022 10:04 STRUCTURE / Unknown Collection / AM CDT 10:21 AM CDT Unknown Narrative LABORATORY - 04/14/2022 11:00 AM CDT Testing was performed using the Xpert Xpress CoV2/Flu/RSV Assay on the [employer] Instrument. This test should be ordered for the detection of SARS-CoV- 2 and influenza viruses in individuals who meet clinical and/or epidemiological cri teria. Test performance is unknown in asymptomatic patients. This test is for in vitro diagnostic use under the FDA EUA for laboratories certified under CLIA to p erform high or moderate complexity testi ng. This test has not been FDA cleared or approved. A negative result does not rule out the presence of PCR inhibitors in the specimen or target RNA in concentrat ion below the limit of detection for the assay. If only one viral target is positive but coinfection with multiple targets is suspected, the sample should be re-tested with another FDA cleared, approved , or authorized test, if coinfection wou ld change clinical management. This test was validated by the [facility]. These laboratories are certified under the Clinical Laboratory Improvement Amendments of 198 8 (CLIA-88) as qualified to perform high complexity laboratory testing. Salinas Carmona MD LAB - MICRO GENERAL ORDERABL ES Performing Organization Address City/State/ZIP Code [place] [address] Care Lab [address] [facility] Lab (1st floor, no room number) Streptococcus A Rapid Scr w Reflx to PCR (04/14/2022 10:04 AM CDT) Analysis Performed At Patho logist Time Signature Group A Strep Negative Negative 04/14/2022 [facility] antigen 10:34 AM CDT Specimen Anatomical Collection Method Collection Time Receive d Time (Source) Location / / Volume Laterality Swab STRUCTURE OF Non-blood 04/14/2022 10:04 04/14/2022 ANTERIOR PORTION Collection / AM CDT 10:21 AM CD T OF NECK / Unknown Unknown Salinas Carmona MD LAB - MICRO GENERAL ORDERABL ES Performing Organization Address City/State/ZIP Code Ph[place] [address] Care Lab [address] Lab (1st floor, no room number) CBC with platelets and differential (04/14/2022 10:02 AM CDT) Analysis Performed At Patho logist Time Signature WBC Count 7.7 4.0 - 11.0 04/14/2022 [facility] 10e3/uL 10:24 AM CDT RBC Count 5.71 4.40 - 04/14/2022 [facility] 5.90 10:24 AM CDT 10e6/uL Hemoglobin 16.1 13.3 - 04/14/2022 [facility] 17.7 g/dL 10:24 AM CDT Hematocrit 47.6 40.0 - 04/14/2022 [facility] 53.0 % 10:24 AM CDT MCV 83 78 - 100 04/14/2022 [facility] fL 10:24 AM CDT MCH 28.2 26.5 - 04/14/2022 [facility] 33.0 pg 10:24 AM CDT MCHC 33.8 31.5 - 04/14/2022 [facility] 36.5 g/dL 10:24 AM CDT RDW 13.2 10.0 - 04/14/2022 [facility] 15.0 % 10:24 AM CDT Platelet Count 198 150 - 450 04/14/2022 [facility] 10e3/uL 10:24 AM CDT % Neutrophils 74 % 04/14/2022 [facility] 10:24 AM CDT % Lymphocytes 11 % 04/14/2022 [facility] 10:24 AM CDT % Monocytes 13 % 04/14/2022 [facility] 10:24 AM CDT % Eosinophils 0 % 04/14/2022 [facility] 10:24 AM CDT % Basophils 1 % 04/14/2022 [facility] 10:24 AM CDT % Immature 1 % 04/14/2022 [facility] Granulocytes 10:24 AM CDT NRBCs per 100 WBC 0 <1 /100 04/14/2022 [facility] RY 10:24 AM CDT Absolute 5.7 1.6 - 8.3 04/14/2022 [facility] Neutrophils 10e3/uL 10:24 AM CDT Absolute 0.9 0.8 - 5.3 04/14/2022 [facility] Lymphocytes 10e3/uL 10:24 AM CDT Absolute 1.0 0.0 - 1.3 04/14/2022 [facility] Monocytes 10e3/uL 10:24 AM CDT Absolute 0.0 0.0 - 0.7 04/14/2022 [facility] Eosinophils 10e3/uL 10:24 AM CDT Absolute 0.1 0.0 - 0.2 04/14/2022 [facility] Basophils 10e3/uL 10:24 AM CDT Absolute Immature 0.0 <=0.4 04/14/2022 [facility] RY Granulocytes 10e3/uL 10:24 AM CDT Absolute NRBCs 0.0 10e3/uL 04/14/2022 [facility] 10:24 AM CDT Specimen Anatomical Collection Method / Collection Time Recei carley Time (Source) Location / Volume Laterality Blood BLOOD SPECIMEN / Venipuncture / 04/14/2022 10:02 04/14 Unknown Unknown AM CDT 10:21 AM CDT Salinas Carmona MD LAB - BLOOD ORDERABLES Performing Organization Address City/State/[place] [address] Care Lab [address] Lab (1st floor, no room number) (ABNORMAL) Lipase (04/14/2022 10:02 AM CDT) athologist Signature Lipase 49 (L) 73 - 393 04/14/2022 LABORATORY U/L 10:51 AM CDT Specimen Anatomical Collection Method / Collection Time Recei carley Time (Source) Location / Volume Laterality Blood BLOOD SPECIMEN / Venipuncture / 04/14/2022 10:02 04/14 Unknown Unknown AM CDT 10:21 AM CDT Salinas Carmona MD LAB - BLOOD ORDERABLES Performing Organization Address City/State/[place] [address] Care Lab [address] Lab (1st floor, no room number) (ABNORMAL) Comprehensive metabolic panel (04/14/2022 10:02 AM CDT) [facility] Method Time Signature Sodium 134 133 - 144 04/14/2022 [facility] mmol/L 10:51 AM CDT Chloride 103 94 - 109 04/14/2022 [facility] mmol/L 10:51 AM CDT Carbon Dioxide 27 20 - 32 04/14/2022 LABORATORY (CO2) mmol/L 10:51 AM CDT Anion Gap 4 3 - 14 04/14/2022 [facility] mmol/L 10:51 AM CDT Urea Nitrogen 9 7 - 30 04/14/2022 LABORATORY mg/dL 10:51 AM CDT Creatinine 0.71 0.66 - 04/14/2022 [facility] 1.25 mg/dL 10:51 AM CDT Calcium 9.3 8.5 - 10.1 04/14/2022 LABORATORY mg/dL 10:51 AM CDT Glucose 94 70 - 99 04/14/2022 LABORATORY mg/dL 10:51 AM CDT Alkaline 100 40 - 150 04/14/2022 LABORATORY Phosphatase U/L 10:51 AM CDT ALT 54 0 - 70 U/L 04/14/2022 [facility] 10:51 AM CDT Protein Total 7.8 6.8 - 8.8 04/14/2022 [facility] g/dL 10:51 AM CDT Albumin 3.6 3.4 - 5.0 04/14/2022 LABORATORY g/dL 10:51 AM CDT Bilirubin Total 1.5 (H) 0.2 - 1.3 04/14/2022 LABORATORY mg/dL 10:51 AM CDT GFR Estimate >90 >60 04/14/2022 LABORATORY mL/min/1.7 10:51 AM CDT 3m2 Comment: Effective November 12, 2021 eGF Rcr in adults is calculated using the 2020 CKD-EPI creatinine equation which includ es age and gender (Laurie et al., NEJM, DOI: 10.1056/LCNRtw4596711) Specimen Anatomical Collection Method / Collection Time Recei carley Time (Source) Location / Volume Laterality Blood BLOOD SPECIMEN / Venipuncture / 04/14/2022 10:02 04/14 Unknown Unknown AM CDT 10:21 AM CDT Narrative [facility] - 04/14/2022 10:51 AM CDT SAMPLE IS TOO HEMOLYZED FOR ACCURATE POT ASSIUM AND AST RESULTS. PLEASE REDRAW FOR THESE. Salinas Carmona MD LAB - BLOOD ORDERABLES Performing Organization Address City/State/[place] [address] Care Lab [address] Lab (1st floor, no room number) documented in this encounter Visit Diagnoses Diagnosis Infection due to 2019 novel coronavirus RLQ abdominal pain Abdominal pain, right lower quadrant documented in this encounter Administered Medications Inactive Administered Medications - up to 3 most recent administrations Medication Order MAR Action Action Date Dose Rate Site 0.9% sodium chloride BOLUS New Bag 04/14/2022 10:05 AM CDT 1,000 mLs Intravenous, 1,000 mL, ONCE, On Thu04/14/22 at 1000, For [address] scan flush use Given 04/14/2022 10:40 AM CDT 64 mLs As instructed, 100 mL, ONCE, On Thu04/14/22 at 1040, For 1 dose, This entry is for use by Radiology to intermittently used as a flush in patients receiving a CT scan. iopamidol (ISOVUE-370) solution 500 mL Given 04/14/2022 10:40 AM CDT 95 mLs 500 mL, Intravenous, ONCE, On Thu04/14/22 at 1040, For 1 dose ketorolac (TORADOL) injection 15 mg Given 04/14/2022 10:10 AM CDT 15 mg 15 mg, Intravenous, ONCE, On Thu04/14/22 at 1005, For 1 dose, Can cause pain on injection. If ordered intravenously (IV) : administer through a running maintenance fluid over 1 minute followed by a flush. If patient complains of pain on injection, may dilute 15-30 mg in 5 mL and push over 1 to 2 minutes. documented in this encounter Active and Recently Administered Medications Times are shown in CDT. Scheduled Medication Order 04/12/2022 04/13/2022 04/14/2022 0.9% sodium chloride BOLUS (COMPLETED) 1005 (New Bag - Provider: Shaji Baron RN)1145 (Stopped - Provider: Shaji Baron RN) Intravenous, 1,000 mL, ONCE, On 5/23/22 at 1000, For [address] scan flush use (COMPLETED) 10 40 (Given - Provider: Owen Cavanaugh) As instructed, 100 mL, ONCE, On 04/14 at 1040, For 1 dose, This entry is for use by Radiology to intermittently used as a flush in patients receiving a CT scan. iopamidol (ISOVUE-370) solution 500 mL (COMPLETED) 1040 (Given - Provider: Owen Cavanaugh) 500 mL, Intravenous, ONCE, On Thu04/14/22 at 1040, For 1 dose ketorolac (TORADOL) injection 15 mg (COMPLETED) 1010 (Given - Provider: Shaji Baron RN) 15 mg, Intravenous, ONCE, On Thu04/14/22 at 1005, For 1 dose, Can cause pain on injection. If ordered intravenously (IV) : administer through a running maintenance fluid over 1 minute followed by a flus h. If patient complains of pain on injec tion, may dilute 15-30 mg in 5 mL and push over 1 to 2 minutes. documented in this encounter Additional Health Concerns Infection Onset Date Last Indicated Resolved Time Rule Out COVID-19 04/14/2022 04/14/2022 04/14/2022 11: 00 AM CDT COVID-19 04/14/2022 04/14/2022 05/05/2022 11:39 PM CDT documented as of this encounter Care Teams Logistics Analytics Manager Relationship Specialty Start Date End Date No Ref-Primary, Physician PCP - General 04/14/22 documented as of this encounter
--- OUTSIDE RECORDS SUMMARY | 2022-07-26 14:39 | XMS_ITS | Encounter Summary ---
:1995 Author Organization [place] Address [address] [facility] [place] [address] Care Team Providers Name Role Phone No Ref-Primary, Physician Primary Care Provider Encounter Details Date Type Department Care Team Description 07/17/2022 Travel Social History Tobacco Use Types Packs/Day Years Used Date Never Assessed Sex Assigned at Date Recorded Not on file COVID-19 Exposure Response Date Recorded In the last 10 days, have you been in contact with No / Unsu re 07/17/2022 5:07 PM CDT someone who was confirmed or suspected to have Coronavirus/COVID-19? documented as of this encounter Plan of Treatment Upcoming Encounters Date Type Specialty Care Team Description 08/22/2022 Office Visit [place] [address] [place], [place] [address] (Wo rk) documented as of this encounter Visit Diagnoses Not on filedocumented in this encounter Care Teams Corporate Statistical Financial Analyst Relationship Specialty Start Date End Date No Ref-Primary, Physician PCP - General 04/14/22 documented as of this encounter
--- OUTSIDE RECORDS SUMMARY | 2022-07-26 14:39 | XMS_ITS | Encounter Summary ---
:1995 Author Organization [place] Address [address] [facility] [address] Care Team Providers Name Role Phone No Ref-Primary, Physician Primary Care Provider [phone] Reason for Visit Reason Onset Date Comments Appointment 07/17/2022 Encounter Details Date Type Department Care Team Description 07/17/2022 Telephone [facility] Ry Mason MD Appointment [place] [address] [facility] [address] [place] [address] [place] [address] [phone] Social History Tobacco Use Types Packs/Day Years Used Date Never Assessed Sex Assigned at Date Recorded Not on file COVID-19 Exposure Response Date Recorded In the last 10 days, have you been in contact with No / Unsu re 07/17/2022 5:07 PM CDT someone who was confirmed or suspected to have Coronavirus/COVID-19? documented as of this encounter Miscellaneous Notes Telephone Encounter - Brinda Li MA - 07/18/2022 8:10 AM CDT left message to call back Brinda Li, Amf Mechanic Telephone Encounter - Marian Leija - 07/17/2022 5:46 PM CDT Reason for Call: Other appointment Detailed comments: He is having some medical issues and trying to establish care. There were no appointments until the end of Jul. He would like to get in sooner to be seen Phone Number Patient can be reached at: Cell number on file: Telephone Information: Best Time: anytime Can we leave a detailed message on this number? YES Call taken on 07/17/2022 at 5:46 PM by Marian Leija documented in this encounter Plan of Treatment Upcoming Encounters Date Type Specialty Care Team Description 08/22/2022 Office Visit [place] [address] [place], [place] [address] (Wo rk) documented as of this encounter Visit Diagnoses Not on filedocumented in this encounter Care Teams Associate Sales Representative Relationship Specialty Start Date End Date No Ref-Primary, Physician PCP - General 04/14/22 documented as of this encounter
--- OUTSIDE RECORDS SUMMARY | 2022-07-26 14:39 | XMS_ITS | Encounter Summary ---
:1995 Author Organization [place] Address [address] [facility] [place] [address] Care Team Providers Name Role Phone No Ref-Primary, Physician Primary Care Provider Encounter Details Date Type Department Care Team Description 07/22/2022 Travel Social History Tobacco Use Types Packs/Day [...] Office Visit [place] [address] [place], [place] [address] (Wo rk) documented as of this encounter Visit Diagnoses Not on filedocumented in this encounter Care Teams Tip Mender Relationship Specialty Start Date End Date No Ref-Primary, Physician PCP - General 04/14/22 documented as of this encounter
--- OUTSIDE RECORDS SUMMARY | 2022-07-26 14:39 | XMS_ITS | Encounter Summary ---
:1995 Author Organization [place] Address [address] [place] [address] Care Team Providers Name Role Phone Unknown, Doctor Primary Care Provider Unavailable No Ref-Primary, Physician Primary Care Provider [phone] Encounter Details Date Type Department Care Team Description 02/15/2013 Telephone [facility] Generic, Behavioral Behavioral Health [facility] MD [address] [place] [phone] Social History Tobacco Use Types Packs/Day Years Used Date Never Assessed Sex Assigned at Date Recorded Not on file documented as of this encounter Miscellaneous Notes Telephone Encounter - Elzbieta Guzman - 02/15/2013 9:26 AM CDT S: pt was bib his friend to er [facility] after pt went to a bridge last [facility] w/ a plan to jump off of it as a suicide attempt. B: pt was on the bridge and then called his friend. Increased dep over past 2 weeks since he was d/c'ed from . Denies etoh/drug use. utox neg. Pt spent the noc in the er due to their inability to find a psych bed for pt. His dad has legal custody and reportedly hung up on the er dr manas styles after hereportedly told the dr that he thinks pt is just attention-seeking and that he is fed up w/ the pt. He reportedly said he does not believe the pt is dep'ed. His parents have not been to the er. His dad is unwilling to come to er. A: coop, pleasant, unable to contract for safety, says if d/c he would continue w/ his plan to jump off of a bridge R: discussed w/ lo who said he feels issues are behavioral and that pt did not benefit from our program 2 wks ago; he declined pt mbw documented in this encounter Plan of Treatment Upcoming Encounters Date Type Specialty Care Team Description 08/22/2022 Office [place] [address] [facility] [place] [place] [address] (Wo rk) documented as of this encounter Visit Diagnoses Not on filedocumented in this encounter Additional Health Concerns Infection Onset Date Last Indicated Resolved Time Rule Out COVID-19 04/14/2022 04/14/2022 04/14/2022 11: 00 AM CDT COVID-19 04/14/2022 04/14/2022 05/05/2022 11:39 PM CDT documented as of this encounter Care Teams Bad Work Gatherer Relationship Specialty Start Date End Date Unknown, MD Mauricio PCP - General 01/30/13 07/23/17 No Ref-Primary, Physician PCP - General 04/14/22 documented as of this encounter
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
--- OUTSIDE RECORDS SUMMARY | 2022-07-26 14:39 | XMS_ITS | Encounter Summary ---
:1995 Author Organization [place] Address [address] [place] [address] Care Team Providers Name Role Phone No Ref-Primary, Physician Primary Care Provider [phone] Encounter Details Date Type Department Care Team Description 04/14/2022 Travel Social History Tobacco Use Types Packs/Day [...] Office Visit [place] [address] [place], [place] [address] (Wo rk) documented as of this encounter Visit Diagnoses Not on filedocumented in this encounter Additional Health Concerns Infection Onset Date Last Indicated Resolved Time Rule Out COVID-19 04/14/2022 04/14/2022 04/14/2022 11: 00 AM CDT COVID-19 04/14/2022 04/14/2022 05/05/2022 11:39 PM CDT documented as of this encounter Care Teams Technical Support Technician Relationship Specialty Start Date End Date No Ref-Primary, Physician PCP - General 04/14/22 documented as of this encounter
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
[2022-07-26 15:30] VITALS: PULSE 62; RESP 18
== END 2022-07-26 16:18 | disposition home or self-care (01) ==
LOC: ED 14:33
PROVIDERS: Emergency Provider Family Medicine
DX: G43.909 Migraine, unspecified, not intractable, without status migrainosus (principal)
CPT/HCPCS: 70450; 96374; 96375; 99284; 99285; J1200; J1885; J2765; J2930; J7030